=== PATIENT | male | born 1985 | race African-American/Black ===

== ENCOUNTER 2019-10-11 21:33 | Inpatient (IN) | payer MEDICAID, SELFPAY ==
--- NOTE | ~2019-10-11 | XR_ITS ---
EXAMINATION: XR chest 1V portable INDICATION: STEMI, chest pain TECHNIQUE: Portable AP chest at 2245 hours COMPARISON: 06/18/2017 FINDINGS: The lungs are free of acute opacities. There is no pleural effusion or pneumothorax. The he art size is upper limits of normal for technique. The visualized osseous structures are unremarkable. IMPRESSION: 1. No acute cardiopulmonary abnormality. Reviewed, dictated and finalized at location A. ECT DEVELOPMENT ENGINEER
--- NOTE | 2019-10-11 21:47 | ED.CHESTPAIN ---
HPI - Chest Pain General Chief Complaint: Chest Pain Stated Complaint: cp Time Seen by Provider: 10/11/19 21:41 Source: patient and RN notes reviewed Mode of arrival: wheelchair Limitations: no limitations History of Present Illness HPI narrative: A 34 y/o male, with a hx of HTN, presents to the ED with constant CP for the past couple hours. He states that he was changing a tire when he began to feel the pain. He is unable to describe the pain but denies it being sharp and keeps saying I can feel it and I hope its just gas . He reports a recent cough and diaphoresis. He notes that taking a deep breath and/or leaning forward helps alleviate the pain and that laying down/leaning back aggravates the pain. He also notes that he hasn't been on his HTN medication for some time d/t not having insurance. He denies any SOB, N/V/D, nasal congestion, fevers, chills, ABD pain, or NARAYAN. MD complaint: chest pain Pertinent past history: other (HTN) Onset (ago): hour(s) (a couple) Timing of current episode: constant Onset: during exertion (while changing a tire) Relieving factors: other (taking a deep breath and/or leaning forward) Exacerbating factors: other (laying down and/or leaning back) Context: non compliance with medication Associated symptoms: diaphoresis and cough (dry) Related Data Allergies Allergy/AdvReac Type Severity Reaction Status Date / Time No Known Allergies Allergy Unverified 06/18/17 12:41 Review of Systems Review of Systems: All systems reviewed & are unremarkable except as noted in HPI and below Constitutional: Constitutional: Denies chills, Denies fever(s) and Reports other (sweats) ENT: Denies nasal congestion Cardiovascular: Cardiovascular: Reports chest pain Respiratory: Respiratory: Reports cough (dry) and Denies dyspnea Gastrointestinal: Gastrointestinal: Denies abdominal pain, Denies diarrhea, Denies nausea and Denies vomiting Neurologic: Denies headache(s) [facility] Past Medical History Medical History (Updated 10/11/19 @ 23:24 by Dmitri Storm MD) H/O: HTN (hypertension) Surgical History Surgical History (Updated 10/11/19 @ 21:50 by Adonay Jimenez) No history of previous surgery Social History Social History (Updated 10/11/19 @ 21:50 by Adonay Jimenez) Smoking status: Current some day smoker Tobacco type: cigars Gender identity (if verbalized by the patient): Male Comments PCP: Dr. Harding. Exam Const: General: healthy appearing, no acute distress and alert Nutritional Appearance: well nourished Orientation/consciousness: oriented x3 HENMT: Head: normal to inspection Mouth: Yes lip normal and Yes moist mucous membranes Eyes: Conjunctivae: conjunctivae normal Pupils: PERRL Resp: Effort & Inspection: normal respiratory effort Auscultation: clear to auscultation bilaterally Cardio: Rate: regular rate Rhythm: regular rhythm Heart sounds: no murmurs GI: GI Palp: No abdominal tenderness and Yes soft Auscultation: normal bowel sounds Back/Spine/Pelvis: Other: Full ROM. Skin: General skin exam: normal color, dry skin and other (warm) Neuro: General: oriented x3 (alert) Speech: normal speech Extrem: General: full ROM Psych: Mental Status: mental status grossly normal Affect: normal affect Course Course Emergency Course: The administrative secretary attempted to contact Dr. Serna 3 times without success. He should have been on for interventional per the call schedule. The decision was made to contact Dr. Morales, who was sales administration manager for non-interventional. After looking into it further it was discovered that the call schedule should have been changed, but the master schedule had not been updated. By the time this was learned the patient had been discussed with Ryan Morales and he was in route to the hospital to take the patient to the laboratory chief. 22:10 Patient discussed and EKG reviewed with Dr. Morales. He believes that the morphology is not typical for STEMI. He would like us to at
--- NOTE | 2019-10-11 21:49 | ECG_ITS ---
Measurements Intervals [place] Rate: 89 P: 76 IA: 175 QRS: 73 QRSD: 104 T: 99 QT: 392 QTc: 479 Interpretive Statements SINUS RHYTHM VOLTAGE CRITERIA FOR LVH ANTERIOR ST ELEVATION MYOCARDIAL INFARCT- ACUTE INFERIOR ST ELEVATION MYOCARDIAL INFARCT- ACUTE ABNORMAL ECG Electronically Signed On 10-12-2019 6:56:53 WEBBING SUPERVISOR by Paul Danielson D.O.
[2019-10-11] MEDS: LABETALOL HCL INJ 100 MG/20 ML VIAL 20 MG IV PUSH (21:58)
[2019-10-11] MEDS: NITROGLYCERIN OINTMENT 1 INCH DOSE TRANSDERM (21:58)
[2019-10-11] MEDS: ASPIRIN 81 MG CHEWABLE TABLET 324 MG PO (21:58)
[2019-10-11 22:05] VITALS: BP 192/111; PULSE 93; RESP 22; TEMP 37; O2SAT 100
[2019-10-11 22:12] LABS: Basophils Percent Auto 0.2 % (0.2-1.2); Eosinophils Absolute Auto 0.1 K/mm3 (0-0.3); Eosinophils Percent Auto 0.9 % (0-4.4); Hematocrit 43.7 % (42.0-52.0); Hemoglobin 14.6 g/dL (14.0-18.0); Immature Granulocyte Absolute 0.04 K/mm3 (0.00-0.031); Immature Granulocyte Percent A 0.4 % (0-0.5); Lymphocytes Absolute Auto 2.33 K/mm3 (0.9-3.2); Lymphocytes Percent Auto 22.2 % (18.3-44.2); Mean Corpuscular HGB Conc 33.4 g/dl (32-36); Mean Corpuscular Hemoglobin 31.6 pg (26-34); Mean Corpuscular Volume 94.6 fl (80-100); Mean Platelet Volume 8.9 fl (7.4-10.4); Monocytes Absolute Auto 0.8 K/mm3 (0.1-0.6); Monocytes Percent Auto 7.4 % (2.6-8.5); Neutrophils Absolute Auto 7.3 K/mm3 (1.3-6.7); Neutrophils Percent Auto 68.9 % (45.5-73.1); Platelet Count Result 210 k/mm3 (150-375); Red Blood Count 4.62 M/mm3 (4.6-6.20); Red Cell Distribution Width 13.2 % (11.5-14.5); White Blood Count 10.5 K/mm3 (4.5-10.0)
[2019-10-11 22:13] LABS: Blood Urea Nitrogen 11 mg/dL (9-20); Calcium 8.7 mg/dL (8.4-10.2); Carbon Dioxide 29 mmol/L (22-30); Chloride 99 mmol/L (98-107); Estimated CRCL calculation 162 ml/min; Estimated Glomerular Filt Rate > 60; Glucose 153 mg/dL (75-110); Potassium 3.4 mmol/L (3.4-5.0); Sodium 140 mmol/L (137-145)
[2019-10-11 22:16] LABS: Prothrombin Time 12.6 Seconds (11.1-14.7)
[2019-10-11 22:17] LABS: Partial Thromboplastin Time 23.9 SECONDS (22.3-36.8)
[2019-10-11] MEDS: MORPHINE SULFATE 2 MG/ML INJ 1 MG IV PUSH (22:21)
[2019-10-11 22:28] LABS: Troponin I 0.057 ng/mL (0.000-0.034)
[2019-10-11] MEDS: hydrALAZINE HCL 20 MG/ML VIAL IV PUSH (22:28)
[2019-10-11 22:38] VITALS: BP 175/108; PULSE 92; RESP 22; O2SAT 100
[2019-10-11 22:49] VITALS: BP 178/101; PULSE 95; RESP 22; O2SAT 100
[2019-10-11 23:04] VITALS: BP 171/113; PULSE 93; RESP 14; O2SAT 100
--- NOTE | 2019-10-11 23:09 | PC.NURSE ---
PATIENT REPORTING A DECREASE IN CHEST PAIN, TO A 2/10 AT THIS TIME.
--- NOTE | 2019-10-11 23:12 | PC.NURSE ---
Dr. Morales at the bedside.
[2019-10-11 23:22] VITALS: BP 172/115; PULSE 90; RESP 22; O2SAT 100
--- NOTE | 2019-10-11 23:23 | PC.NURSE ---
Before leaving ed planning advisor ordered 5000 units of heparin, and 5 mg of metoprolol.
--- NOTE | 2019-10-11 23:25 | WPDMODSED ---
Moderate Sedation Note-Pt Data Patient Data Allergies Allergy/AdvReac Type Severity Reaction Status Date / Time No Known Allergies Allergy Unverified 06/18/17 12:41 Sedation/Anesthesia: No previous sedation/anesthesia problems (including family history). [facility] Past Medical History Medical History (Updated 10/11/19 @ 23:24 by Dmitri Storm MD) H/O: HTN (hypertension) Surgical History Surgical History (Updated 10/11/19 @ 21:50 by Adonay Jimenez) No history of previous surgery Social History Social History (Updated 10/11/19 @ 21:50 by Adonay Jimenez) Smoking status: Current some day smoker Tobacco type: cigars Gender identity (if verbalized by the patient): Male Mod Sed Physical Exam Physical Exam Pre Procedural Exam: Normal: Appearance, Eyes, Ears, Nose, Neck, Throat, Airway, Lungs, Heart Size, Heart Rate, Heart Rhythm, Neuro Exam, Abdomen, Liver, Kidneys, Spleen, Breasts, Genitalia, Extremities and Skin Hours since solid foods: 8 Hours since liquid intake: 8 Internal Medicine - PN: Obj Da Vital Signs Vital Signs: Vital Signs - 24 hr 10/11/19 22:05 10/11/19 22:38 10/11/19 22:49 Temperature 37.0 C Pulse Rate 93 92 95 Respiratory Rate 22 H 22 H 22 H Blood Pressure 192/111 H 175/108 H 178/101 H Pulse Oximetry 100 100 100 10/11/19 23:04 10/11/19 23:22 Temperature Pulse Rate 93 90 Respiratory Rate 14 22 H Blood Pressure 171/113 H 172/115 H Pulse Oximetry 100 100 Meds/Results Radiology Results: ITS Impressions Chest X-Ray 10/11/19 22:51 IMPRESSION: 1. No acute cardiopulmonary abnormality. Labs CBC & Chem 7: 10/11/19 21:58 10/11/19 21:58 Labs: Laboratory Results - last 24 hr 10/11/19 10/11/19 10/11/19 21:58 21:58 21:58 WBC 10.5 H RBC 4.62 Hgb 14.6 Hct 43.7 MCV 94.6 MCH 31.6 MCHC 33.4 RDW 13.2 Plt Count 210 MPV 8.9 Immature Gran % (Auto) 0.4 Neut % (Auto) 68.9 Lymph % (Auto) 22.2 Bureau % (Auto) 7.4 Eos % (Auto) 0.9 Baso % (Auto) 0.2 Lymph # (Auto) 2.33 Bureau # (Auto) 0.8 H Eos # (Auto) 0.1 Baso # (Auto) 0.0 Abs Immat Gran (auto) 0.04 H Absolute Neuts (auto) 7.3 H Absolute Nucleated RBC 0.0 Nucleated RBC % 0.0 PT 12.6 INR 1.0 APTT 23.9 Sodium 140 Potassium 3.4 Chloride 99 Carbon Dioxide 29 BUN 11 Creatinine 0.70 Estim Creat Clear Calc 162 Estimated GFR > 60 Glucose 153 H Calcium 8.7 Troponin I 0.057 H* ASA Classification/Sedation ASA Classification/Sedation ASA Class: III Risks: Risks, benefits and alternatives explained and patient/family accepted plan for sedation. Patient re-evaluated immediately prior to sedation.
--- NOTE | 2019-10-11 23:26 | PM.CNCAR ---
Assessment and Plan Assessment and plan (1) ST elevation (STEMI) myocardial infarction: Qualifiers: Involved coronary artery: unspecified coronary artery Qualified Code(s): I21.3 - ST elevation (STEMI) myocardial infarction of unspecified site Code(s): I21.3 - ST elevation (STEMI) myocardial infarction of unspecified site Status: Acute Assessment and Plan: his EKG showed ST-elevation inferior leads, will proceed with cardiac catheterization on urgent basis in view of persistent chest pain, ST-elevation, started on heparin, and aspirate (2) H/O: HTN (hypertension): Code(s): Z86.79 - Personal history of other diseases of the circulatory system Status: Acute History of Present Illness History of Present Illness Consult date/time: 10/11/19 23:26 Chief complaint is chest pain. 34-year-old gentleman with history of hypertension, came to the hospital because of chest pain for the past 2 hours prior to admission to the hospital. He was having history of hypertension and has never taken medication for a while. Came to the hospital noted to have significant hypertension EKG showed ST elevation in anterior leads and lateral leads. After further stabilization patient improved with chest pain but continued to have slight heaviness, after given nitroglycerin and morphine pain is down to 1/10. Upon my arrival to the emergency room he seems to have mild chest pain but no diaphoresis. Still has ST elevation, will proceed with cardiac catheterization on urgent basis in view of ST-elevation myocardial infarction Reason For Visit: stemi [facility] Past Medical History Medical History (Updated 10/11/19 @ 23:27 by Max Morales MD) H/O: HTN (hypertension) Surgical History Surgical History (Updated 10/11/19 @ 21:50 by Adonay Jimenez) No history of previous surgery Social History Social History (Updated 10/11/19 @ 21:50 by Adonay Jimenez) Smoking status: Current some day smoker Tobacco type: cigars Gender identity (if verbalized by the patient): Male Meds Home Medications and Allergies Allergies Allergy/AdvReac Type Severity Reaction Status Date / Time No Known Allergies Allergy Unverified 06/18/17 12:41 Vital Signs Vital Signs - 24 hr 10/11/19 22:05 10/11/19 22:38 10/11/19 22:49 Temperature 37.0 C Pulse Rate 93 92 95 Respiratory Rate 22 H 22 H 22 H Blood Pressure 192/111 H 175/108 H 178/101 H Pulse Oximetry 100 100 100 10/11/19 23:04 10/11/19 23:22 Temperature Pulse Rate 93 90 Respiratory Rate 14 22 H Blood Pressure 171/113 H 172/115 H Pulse Oximetry 100 100 Exam Narrative: Exam Narrative: Awake alert oriented x3 not in acute distress Neck is supple no obvious JVD, no carotid bruit Chest: Good air entry bilaterally, lungs are clear to auscultation and percussion bilaterally Cardiovascular: Regular rate and rhythm, 2/6 systolic murmur noted left sternal border Abdomen: Soft nontender bowel sounds positive Extremities: No edema has good pulses distally bilaterally Results Labs and Meds Result diagrams: 10/11/19 21:58 10/11/19 21:58 Lab results: Cardiac Enzymes 10/11/19 Range/Units 21:58 Troponin I 0.057 H* (0.000-0.034) ng/mL Coagulation 10/11/19 Range/Units 21:58 PT 12.6 (11.1-14.7) Seconds APTT 23.9 (22.3-36.8) SECONDS CBC 10/11/19 Range/Units 21:58 WBC 10.5 H (4.5-10.0) K/mm3 RBC 4.62 (4.6-6.20) M/mm3 Hgb 14.6 (14.0-18.0) g/dL Hct 43.7 (42.0-52.0) % Plt Count 210 (150-375) k/mm3 Lymph # (Auto) 2.33 (0.9-3.2) K/mm3 [place] # (Auto) 0.8 H (0.1-0.6) K/mm3 Eos # (Auto) 0.1 (0-0.3) K/mm3 Baso # (Auto) 0.0 (0.0-0.1) K/mm3 Comprehensive Metabolic Panel 10/11/19 Range/Units 21:58 Sodium 140 (137-145) mmol/L Potassium 3.4 (3.4-5.0) mmol/L Chloride 99 (98-107) mmol/L Carbon Dioxide 29 (22-30) mmol/L BUN 11 (9-20) mg/dL Creatinine 0.70 (0.
[2019-10-12] VITALS (25 sets, daily range): BP systolic 137–211; BP diastolic 82–151; PULSE 70–92; RESP 12–24; TEMP 36.7–37.4; O2SAT 97–100
--- NOTE | 2019-10-12 00:17 | WPDCARDPROC ---
Cardiac Cath Procedure Note Date of procedure:: 10/12/19 Performing physician:: Max Morales MD 1. Emergent left heart catheterization with selective coronary angiogram. 2. Angioplasty stent placement to the proximal RCA. with thrombectomy with use of suction export catheter 3. Left ventricular angiogram 4. Angio-Seal device for arterial hemostasis 5. Conscious sedation left heart catheterization was done, showed total occlusion of the proximal RCA, PRAVEEN 3 flow 0, treated with balloon angioplasty followed by stent placement
--- NOTE | 2019-10-12 00:23 | ECHO_ITS ---
Patient Info Name: Jamel Joya Age: 34 years : 1985 Gender: Male Ht: 74 in Wt: 240 lbs BSA: 2.41 m2 HR: 85 bpm BP: 149 / 99 mmHg Heart Rhythm: Sinus Rhythm Technical Quality: Good Exam Date: 10/12/2019 9:32 AM Exam Location: [facility] Patient Status: Inpatient Admit Date: 10/11/2019 Staff Ordering Physician: Max Morales MD Pit Steward: El Dunn RDCS Attending Provider: Max Morales MD Exam Type: CA echo doppler color flow Study Info Indications I21.3 - ST elevation (STEMI) myocardial infarction of unspecified site Complete two-dimensional, color flow and Doppler transthoracic echocardiogram is performed. Strain analysis performed. History/Risk Factors STEMI w/ intervention; uncontrolled HTN, chest pain. Summary 1. Left ventricular systolic function is normal, estimated at 50-55%. 2. There is moderately increased left ventricular wall thickness. 3. The left ventricular diastolic function is grade I diastolic dysfunction. Left Ventricle Left ventricular systolic function is normal, estimated at 50-55%. There is moderately increased left ventricular wall thickness. The left ventricular diastolic function is grade I diastolic dysfunction. Left ventricular chamber dimension is normal. The mid inferior wall, mid inferoseptal, and mid inferolateral wall are hypokinetic. All other steiner appear normal. Right Ventricle Right ventricular chamber dimension is normal. Right ventricular systolic function is normal. Left Atria Left atrial chamber dimension is normal. Right Atria Right atrial chamber dimension is normal. Aortic Valve The aortic valve is trileaflet. There is no aortic valve sclerosis. There is no aortic valve stenosis. There is no aortic valve regurgitation. Pulmonic Valve The pulmonic valve is normal. There is no pulmonic valve stenosis. There is no pulmonic regurgitation. Mitral Valve The mitral valve has normal leaflets. There is no mitral valve stenosis. There is no mitral valve regurgitation. Tricuspid Valve The tricuspid valve leaflets are normal. There is no significant tricuspid valve stenosis. There is no tricuspid valve regurgitation. Pericardium/Pleural The pericardium appears normal. There is no pericardial effusion. Inferior Vena Cava Normal inferior vena cava with >50% collapse upon inspiration consistent with elevated right atrial pressure, 10 mmHg. Aorta The aortic root size at the sinus of Valsalva is normal. The prox ascending aorta size is normal. Left Ventricular Outflow Tract Name Value Normal LVOT 2D LVOT Diameter 2.2 cm LVOT Doppler LVOT Peak Gradient 7 mmHg LVOT Mean Gradient 3 mmHg LVOT VTI 22 cm LVOT VTI/AV VTI Ratio 1.0 LVOT Stroke Volume 82 ml Mitral Valve Name Value Normal
--- NOTE | 2019-10-12 00:23 | ECG_ITS ---
Measurements Intervals [place] Rate: 88 P: 246 AK: 131 QRS: -64 QRSD: 182 T: 107 QT: 481 QTc: 583 Interpretive Statements SINUS RHYTHM CHANGES TO ACCELERATED JUNCTIONAL RHYTHM WITH LBBB LEFT AXIS DEVIATION CONSIDER INFERIOR INFARCT, AGE INDETERMINATE ABNORMAL ECG Electronically Signed On 10-12-2019 7:12:21 GERIATRIC ASSISTANT by Paul Danielson D.O.
--- NOTE | 2019-10-12 00:48 | ADMGEN ---
This patient, Jamel Joya, was admitted to Intensive Care Unit-2. Patient/family oriented to hospital policies and general routines including ID bracelet, bed and alarms, visiting hours, pain management, procedures, bathroom and other care routines, personal items, smoking policy, room service/diet, and visiting hours. Valuables list has been completed. Information on how to activate the Rapid Response Team has been discussed. Patient/Family are encouraged to report perceived risks to care and to ask questions if they do not understand what they are told or what they should do.
--- NOTE | 2019-10-12 02:03 | PC.NURSE ---
This patient, Jamel Joya, was admitted to Intensive Care Unit-2 at 0035 on 10/12/2019. Patient/family oriented to hospital policies and general routines including ID bracelet, bed and alarms, visiting hours, pain management, procedures, bathroom and other care routines, personal items, smoking policy, room service/diet, and visiting hours. Valuables list has been completed. Information on how to activate the Rapid Response Team has been discussed. Patient/Family are encouraged to report perceived risks to care and to ask questions if they do not understand what they are told or what they should do.
[2019-10-12] MEDS: SODIUM CHLORIDE 0.9% IV 1,000 ML 125 ML IV CONT (02:35)
[2019-10-12] MEDS: AMLODIPINE BESYLATE 5 MG TABLET PO ×3 (02:36→16:40)
[2019-10-12] MEDS: lisinopriL 10 MG TABLET PO ×2 (02:36→08:27)
--- NOTE | 2019-10-12 02:58 | PC.NURSE ---
Patient noted to have increased ectopy at 0100 with frequent PVC's and rhythm changes from NSR to junctional. At 0154, a 6 beat run of VTach was noted. The increase in ectopy has been accompannied by increasing hypertension. Dr. Morales called and updated on patient condition. New orders obtained. EKG obtained.
[2019-10-12 03:05] LABS: Amphetamine Screen Urine Negative (Negative); Barbiturate Screen Urine Negative (Negative); Benzodiazepines Screen Urine Positive (Negative); Cannabinoid Screen Urine Positive (Negative); Cocaine Screen Urine Negative (Negative); Methadone Screen Urine Negative (Negative); Opiate Screen Urine Positive (Negative); Phencyclidine Screen Urine Negative (Negative)
--- NOTE | 2019-10-12 06:27 | OP_ITS ---
DATE OF PROCEDURE: 10/12/2019 WOOD BOAT BUILDER SUPERVISOR: Max Morales M.D. COMPLICATIONS: None. BLOOD LOSS: None. SEDATION: Conscious sedation using 1 mg of Versed and 25 mcg of fentanyl. During the procedure, he also received Angiomax and Integrilin drip. Starting time is 2330, ending time is 1202. PROCEDURES: 1. Emergent left heart catheterization and selective coronary angiogram. 2. LV gram. 3. Angioplasty with stent placement to the proximal RCA using 2.5 x 20 Emerge balloon and using a 3 x 23 stent. The stent is Xience stent. HISTORY: The patient is a 34-year-old gentleman with a history of hypertension, came to the hospital because of chest pain and hypertension, noted to have a significant elevation in the blood pressure and a significant abnormal EKG with ST elevation inferiorly. Given nitroglycerin improved the pain significantly, but subsequently showed persistent ST elevation with minimal chest pain, subsequently brought to the shop laborer for urgent cardiac catheterization in view of ST elevation on EKG and persistent chest pain, brought to the shop laborer, put on a shop laborer table, and prepped and draped in the usual fashion. TECHNIQUE: After the informed consent was obtained from the patient, he was brought to the shop laborer, put on a shop laborer table, and prepped and draped in a sterile fashion. A 6-Monegasque sheath was inserted in the right common femoral artery using the modified Seldinger technique. Through the sheath, a 6-Monegasque JL4 catheter was inserted, advanced to the left coronary artery, and left coronary artery angiogram was obtained. The catheter was exchanged over a guidewire into a 6-Monegasque JR4 guide. Through the guide, angiogram was done to the RCA. Subsequently, total occlusion was noted of the proximal RCA. With the guide, a BMW wire was inserted and advanced through the lesion. I was able to easily cross the lesion. Subsequently, export catheter was used to suction the thrombus. This was repeated 1 more time. A repeat angiogram after that showed PRAVEEN-3 flow with significant improvement of the vessel, but with still persistent lesion in the proximal RCA. This was treated with balloon angioplasty using a 2.5 x 20 Emerge balloon x2 inflations. Post-balloon angioplasty showed improvement of the lesion, but still with significant disease with soft plaque. This was treated by using stent placement. A Xience stent was used. A 23 x 3 mm stent was advanced to the proximal RCA, and the stent was deployed. Post-stent deployment with frequent time angioplasty was done to improve the position of the stent, noted to have a slight small area off narrowing that improved after the 2nd inflation. Finally, a final angiogram was done, showed good flow, PRAVEEN-3 flow with significant improvement of the lesion from 100% occlusion to 0% occlusion. Subsequently, the guide was removed, exchanged over the guidewire into a 6-Monegasque pigtail catheter and advanced to the left ventricle. Left ventricular angiogram was obtained. The catheter was then removed, applying Angio-Seal device for arterial hemostasis. The patient tolerated the procedure well with no complications and taken from the shop laborer to his room in stable condition with stable vital signs. During the procedure, he received Angiomax bolus and infusion and received Integrilin bolus, also received Brilinta 180 mg, and prior to that in the emergency room, received aspirin and heparin 5,000 units. ANGIOGRAPHIC FINDINGS: 1. Left main: Medium-sized artery, no significant disease or stenosis. 2. LAD: Medium-sized artery, showed minimal irregularity, no obstructive lesion. 3. Left circumflex artery, previous artery showed minimal irregularity, no obstructive lesion. 4. RCA showed total occlusion at the proximal portion with PRAVEEN 0 flow. Post i
[2019-10-12 06:45] LABS: Magnesium 1.8 mg/dL (1.6-2.3); Phosphorus 3.3 mg/dL (2.5-4.5)
[2019-10-12] MEDS: ASPIRIN 81 MG CHEWABLE TABLET PO (08:27)
[2019-10-12] MEDS: METOPROLOL SUCCINATE EXT REL 25 MG TABCR PO ×2 (08:27→13:25)
[2019-10-12] MEDS: TICAGRELOR 90 MG TABLET PO ×2 (08:28→20:04)
[2019-10-12] MEDS: ROSUVASTATIN 10 MG TABLET PO (08:28)
--- NOTE | 2019-10-12 09:30 | WPDCNINT ---
Assessment and Plan Assessment and plan (1) ST elevation (STEMI) myocardial infarction: Qualifiers: Involved coronary artery: unspecified coronary artery Qualified Code(s): I21.3 - ST elevation (STEMI) myocardial infarction of unspecified site Code(s): I21.3 - ST elevation (STEMI) myocardial infarction of unspecified site Status: Acute Assessment and Plan: acute ST-elevation CA status post emergent cardiac revascularization with JAMMIE x1 to proximal RCA, EF 60% with slight anterior hypokinesis. - patient started on aspirin, statin, metoprolol, lisinopril and Brilinta - cardiology following the patient - patient did have nonsustained V-tach overnight and Cardiology was notified (2) H/O: HTN (hypertension): Code(s): Z86.79 - Personal history of other diseases of the circulatory system Status: Acute Assessment and Plan: patient with history of essential hypertension, no taking medications as he does not have insurance. - Started patient on Norvasc and lisinopril per Cardiology - also on beta-reji. Additional Plan Discussed with patient updated with his condition and plan of care. Code status: full code critical care time spent: 38 minutes Due to a high probability of clinically significant, life threatening deterioration, the patient required my highest level of preparedness to intervene emergently and I personally spent this critical care time directly and personally managing the patient. This critical care time included obtaining a history; examining the patient; pulse oximetry; ordering and review of studies; arranging urgent treatment with development of a management plan; evaluation of patient's response to treatment; frequent reassessment; and discussions with other providers. It was exclusive of separately billable procedures and treating other patients and teaching time. Please see Assessment and Plan section and the rest of the note for further information on patient assessment and treatment [employer] Agent Consult Note Consult date: 10/12/19 Time Seen: 07:04 Reason for consult: STEMI, s/p stent x1 to prox RCA HPI: Jamel Joya is a 34 year old male with h/o HTN, presented withchest pain to the ED on 10/11/19. Chets pain was retrosternal, ongoing for a couple of hours, stated it started when he was changing a car tire. associated with diaphoresis. Patient was noted to have significant hypertension and EKG showed ST-elevation anterior and lateral leads. 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 EF 60% with slight anterior hypokinesis. Patient seen and examined this morning, denies any chest pain, shortness of breath, abdominal pain, nausea, vomiting. Patient is just tired. patient had elevated blood pressures overnight and was started on Norvasc and lisinopril with p.r.n. hydralazine. According the patient, his blood pressures a normally elevated in the 180s to 200s but has not been taking any medications due to having no insurance. Review of Systems Review of Systems: All systems reviewed & are unremarkable except as noted in HPI and below PMFSH Past Medical History Medical History (Updated 10/11/19 @ 23:27 by Max Morales MD) H/O: HTN (hypertension) Surgical History Surgical History (Updated 10/11/19 @ 21:50 by Adonay Jimenez) No history of previous surgery Family History Family History (Updated 10/12/19 @ 01:02 by Megan Kimble RN) Father Hypertension Hyperlipemia Mother Hypertension Hyperlipemia Social History Social History (Updated 10/11/19 @ 21:50 by Adonay Jimenez) Smoking status: Current every day smoker Tobacco type: cigars Second hand tobacco smoke exposure: No Additional smoking assessment comments: smokes 3 to 4 cigars a day Alcohol intake: current Drinks per week: 8 Substan
--- NOTE | 2019-10-12 13:20 | PM.PNCARD ---
Progress Note: A&P Assessment and Plan (1) ST elevation (STEMI) myocardial infarction: Qualifiers: Involved coronary artery: unspecified coronary artery Qualified Code(s): I21.3 - ST elevation (STEMI) myocardial infarction of unspecified site Code(s): I21.3 - ST elevation (STEMI) myocardial infarction of unspecified site Status: Acute Assessment and Plan: status post RCA PCI with stent placement, currently no more chest pain, his echo showed normal left ventricular systolic function. Will continue with blood pressure controlled, continue with aspirin and Brilinta, continue with Crestor for dyslipidemia (2) H/O: HTN (hypertension): Code(s): Z86.79 - Personal history of other diseases of the circulatory system Status: Acute Assessment and Plan: still not very well controlled, increased lisinopril to 40 mg p.o. daily, increased metoprolol to 50 mg p.o. daily and added Norvasc, consider increasing Norvasc to 10 mg if needed, and then if needed still would add hydralazine Subjective Interval history: Feels very well today, no chest pain no shortness of breath. Right groin area seems to be okay no bleeding no hematoma has minimal tenderness and minimal pain. Very frequent PVCs yesterday with no recurrence now Exam Narrative: Exam Narrative: Awake alert oriented x3 not in acute distress Neck is supple no obvious JVD, no carotid bruit Chest: Good air entry bilaterally, lungs are clear to auscultation and percussion bilaterally Cardiovascular: Regular rate and rhythm, 2/6 systolic murmur noted left sternal border Abdomen: Soft nontender bowel sounds positive Extremities: No edema has good pulses distally bilaterally Objective Data Vital Signs Vital Signs: Vital Signs - 24 hr 10/11/19 22:05 10/11/19 22:38 10/11/19 22:49 Temperature 37.0 C Pulse Rate 93 92 95 Respiratory Rate 22 H 22 H 22 H Blood Pressure 192/111 H 175/108 H 178/101 H Pulse Oximetry 100 100 100 10/11/19 23:04 10/11/19 23:22 10/12/19 00:35 Temperature 36.8 C Pulse Rate 93 90 87 Respiratory Rate 14 22 H 20 Blood Pressure 171/113 H 172/115 H 163/86 H Pulse Oximetry 100 100 97 10/12/19 00:45 10/12/19 01:00 10/12/19 01:15 Temperature Pulse Rate 90 86 86 Respiratory Rate 15 18 16 Blood Pressure 161/83 H 161/87 H 157/83 H Pulse Oximetry 97 98 98 10/12/19 01:30 10/12/19 01:45 10/12/19 02:15 Temperature Pulse Rate 86 86 90 Respiratory Rate 16 15 17 Blood Pressure 157/82 H 137/93 H 193/151 H Pulse Oximetry 98 99 100 10/12/19 03:00 10/12/19 04:00 10/12/19 05:00 Temperature 36.7 C Pulse Rate 83 86 90 Respiratory Rate 13 12 15 Blood Pressure 169/89 H 175/109 H 153/95 H Pulse Oximetry 99 97 98 10/12/19 06:00 10/12/19 06:53 10/12/19 08:00 Temperature 36.9 C Pulse Rate 82 83 86 Respiratory Rate 15 17 20 Blood Pressure 166/97 H 149/99 H 155/93 H Pulse Oximetry 98 98 98 10/12/19 08:27 10/12/19 10:00 10/12/19 12:00 Temperature 36.9 C Pulse Rate 85 82 81 Respiratory Rate 20 18 Blood Pressure 167/101 H 180/101 H Pulse Oximetry 100 99 Intake/Output Intake/Output: Intake & Output 10/09/19 10/10/19 10/11/19 10/12/19 23:59 23:59 23:59 23:59 Intake Total 1120 Output Total 600 Balance 520 Meds/Results Medications: Active Medications Generic Name Dose Route Start Last Admin Trade Name Freq PRN Reason Stop Dose Admin Amlodipine Besylate 5 mg 10/12/19 09:00 10/12/19 08:27 Norvasc PO 5 mg QAM [facility] Administration Aspirin 81 mg 10/12/19 08:00 10/12/19 08:27 Aspirin Chewable PO 81 mg DAILY@0800 [facility] Administration Lisinopril 40 mg 10/13/19 09:00 [facility] Metoprolol Succinate 50 mg 10/13/19 09:00 [facility]rol Xl [facility] Rosuvastatin Calcium 10 mg 10/12/19 09:00 10/12/19 08:28 Crestor PO 10 mg QAM [facility] Administration Ticagrelor 90 mg 10/12/19 09:00 10/12/19 08:28 Brilinta PO 9
[2019-10-12] MEDS: lisinopriL 10 MG TABLET 30 MG PO (13:23)
[2019-10-12] MEDS: METOPROLOL SUCCINATE EXT REL 50 MG TABCR PO (16:40)
[2019-10-12] MEDS: carvediloL 12.5 MG TABLET PO (20:40)
[2019-10-13] VITALS (11 sets, daily range): BP systolic 146–179; BP diastolic 102–115; PULSE 70–87; RESP 15–25; TEMP 36.9–37.2; O2SAT 97–100
[2019-10-13] MEDS: hydrALAZINE HCL 25 MG TABLET PO ×2 (00:25→08:22)
[2019-10-13] MEDS: carvediloL 12.5 MG TABLET PO ×2 (08:21→16:36)
[2019-10-13] MEDS: AMLODIPINE BESYLATE 5 MG TABLET PO (08:21)
[2019-10-13] MEDS: ASPIRIN 81 MG CHEWABLE TABLET PO (08:22)
[2019-10-13] MEDS: lisinopriL 20 MG TABLET 40 MG PO (08:22)
[2019-10-13] MEDS: ROSUVASTATIN 10 MG TABLET PO (08:22)
[2019-10-13] MEDS: TICAGRELOR 90 MG TABLET PO (09:04)
--- NOTE | 2019-10-13 15:23 | PM.PNCARD ---
Progress Note: A&P Assessment and Plan (1) ST elevation (STEMI) myocardial infarction: Qualifiers: Involved coronary artery: unspecified coronary artery Qualified Code(s): I21.3 - ST elevation (STEMI) myocardial infarction of unspecified site Code(s): I21.3 - ST elevation (STEMI) myocardial infarction of unspecified site Status: Acute Assessment and Plan: status post RCA PCI with stent placement, currently no more chest pain, his echo showed normal left ventricular systolic function. Will continue with blood pressure controlled, continue with aspirin and Brilinta, continue with Crestor for dyslipidemia (2) H/O: HTN (hypertension): Code(s): Z86.79 - Personal history of other diseases of the circulatory system Status: Acute Assessment and Plan: Increased lisinopril to 40 mg p.o. daily, Norvasc 5 mg twice daily, and now will increase Coreg to 25 mg p.o. b.i.d., as well as hydralazine 25 b.i.d.. Subjective Date/time seen: 10/13/19 15:23 Feels very well today, no chest pain no shortness of breath, blood pressure is much better now. Exam Narrative: Exam Narrative: Awake alert oriented x3 not in acute distress Neck is supple no obvious JVD, no carotid bruit Chest: Good air entry bilaterally, lungs are clear to auscultation and percussion bilaterally Cardiovascular: Regular rate and rhythm, 2/6 systolic murmur noted left sternal border Abdomen: Soft nontender bowel sounds positive Extremities: No edema has good pulses distally bilaterally Objective Data Vital Signs Vital Signs: Vital Signs - 24 hr 10/12/19 15:47 10/12/19 16:00 10/12/19 16:40 Temperature 37.0 C Pulse Rate 86 85 84 Respiratory Rate 18 Blood Pressure 211/93 H Pulse Oximetry 100 10/12/19 18:00 10/12/19 20:00 10/12/19 20:40 Temperature 37.4 C Pulse Rate 80 83 81 Respiratory Rate 14 Blood Pressure 175/118 H Pulse Oximetry 99 10/12/19 22:00 10/13/19 00:00 10/13/19 02:00 Temperature 36.9 C Pulse Rate 70 72 82 Respiratory Rate 17 Blood Pressure 179/115 H Pulse Oximetry 99 10/13/19 04:00 10/13/19 06:00 10/13/19 07:44 Temperature 36.9 C 37.2 C Pulse Rate 87 73 77 Respiratory Rate 15 25 H Blood Pressure 177/110 H 177/110 H Pulse Oximetry 100 97 10/13/19 08:00 10/13/19 08:21 10/13/19 10:00 Temperature Pulse Rate 78 76 85 Respiratory Rate Blood Pressure Pulse Oximetry 10/13/19 12:00 10/13/19 13:44 Temperature Pulse Rate 77 80 Respiratory Rate 18 Blood Pressure 146/102 H Pulse Oximetry 99 Intake/Output Intake/Output: Intake & Output 10/10/19 10/11/19 10/12/19 10/13/19 23:59 23:59 23:59 23:59 Intake Total 1860 750 Output Total 1500 850 Balance 360 -100 Meds/Results Medications: Active Medications Generic Name Dose Route Start Last Admin Trade Name Freq PRN Reason Stop Dose Admin Amlodipine Besylate 5 mg 10/12/19 17:00 10/13/19 08:21 Norvasc PO 5 mg BID [facility] Administration Aspirin 81 mg 10/12/19 08:00 10/13/19 08:22 Aspirin Chewable PO 81 mg DAILY@0800 [facility] Administration Carvedilol 25 mg 10/13/19 15:22 Coreg PO Q12HR [facility] Hydralazine HCl 25 mg 10/13/19 09:00 10/13/19 08:22 Apresoline Tablet PO 25 mg BID [facility] Administration Lisinopril 40 mg 10/13/19 09:00 10/13/19 08:22 Prinivil PO 40 mg QAM [facility] Administration Rosuvastatin Calcium 10 mg 10/12/19 09:00 10/13/19 08:22 Crestor PO 10 mg QAM [facility] Administration Ticagrelor 90 mg 10/12/19 09:00 10/13/19 09:04 Brilinta PO 90 mg Q12HR [facility] Administration Radiology Results: ITS Impressions Chest X-Ray 10/11/19 22:51 IMPRESSION: 1. No acute cardiopulmonary abnormality.
--- NOTE | 2019-10-13 15:28 | P.DS_ITS ---
DS: Diagnosis Admitting Diagnosis Admitting Diagnosis: ST elevation (STEMI) myocardial infarction of unspecified s ite Discharge Diagnosis (1) ST elevation (STEMI) myocardial infarction: Qualifiers: Involved coronary artery: unspecified coronary artery Qualified Code(s): I21.3 - ST elevation (STEMI) myocardial infarction of unspecified site Code(s): I21.3 - ST elevation (STEMI) myocardial infarction of unspecified site Status: Acute Assessment and Plan: status post RCA PCI with stent placement, currently no more chest pain, his echo showed normal left ventricular systolic function. Will continue with blood pressure controlled, continue with aspirin and Brilinta, continue with Crestor for dyslipidemia (2) H/O: HTN (hypertension): Code(s): Z86.79 - Personal history of other diseases of the circulatory system Status: Acute Assessment and Plan: Increased lisinopril to 40 mg p.o. daily, Norvasc 5 mg twice daily, and now will increase Coreg to 25 mg p.o. b.i.d., as well as hydralazine 25 b.i.d.. DS: Summary Time Spent with Patient Time attestation: Total time spent providing and/or coordinating discharge services: 45 minutes came to the hospital with active chest pain, noted to have ST-elevation myocardial function, he underwent urgent angioplasty, subsequently improved, he was noted to have significant hypertension which improved after many adjustment of his medication. Today's of seeing him today he is feeling well no chest pain is blood pressure is fair Exam Narrative: Exam Narrative: Awake alert oriented x3 not in acute distress Neck is supple no obvious JVD, no carotid bruit Chest: Good air entry bilaterally, lungs are clear to auscultation and percussion bilaterally Cardiovascular: Regular rate and rhythm, 2/6 systolic murmur noted left sternal border Abdomen: Soft nontender bowel sounds positive Extremities: No edema has good pulses distally bilaterally Discharge Plan Discharge Attending physician on discharge: Max Morales Consulting providers: Monica Roberson Discharging Clinician: Max Morales Anticipated Discharge Date/Time: 10/13/19 15:25 Patient Disposition: Home, Self-Care Activity: no straining Diet: heart healthy Patient Instructions: Antibiotic Form, Myocardial Infarction (DC), How to Stop Smoking (DC), Chronic Hypertension (DC), Hyperlipidemia (DC) Stand Alone Forms: General Discharge Information Follow-up/Referrals: Max Morales MD [Physician] - Discharge Medications: New aspirin [Children's Aspirin] 81 mg Tablet,Chewable 81 mg PO DAILY@0800 100 Days Qty: 100 RF: 0 Brilinta 90 mg Tablet 90 mg PO Q12HR 30 Days Qty: 60 RF: 0 lisinopril 20 mg Tablet 40 mg PO QAM 3 Days Qty: 6 RF: 3 amlodipine [Norvasc] 5 mg Tablet 5 mg PO BID 30 Days Qty: 60 RF: 3 rosuvastatin [Crestor] 10 mg Tablet 10 mg PO QAM 3 Days Qty: 3 RF: 3 hydralazine 25 mg Tablet 25 mg PO BID 30 Days Qty: 60 RF: 3 carvedilol [Coreg] 25 mg Tablet 25 mg PO Q12HR 30 Days Qty: 60 RF: 3 No Action No Home Medications RF: 0 Date of admission: 10/11/19 22:35 Primary Care Provider: Ghulam Huff Admitting Provider: Max Morales Attending physician on admission: Max Morales Condition: Stable
== END 2019-10-13 16:47 | disposition home or self-care (01) | DRG 174 ==
LOC: ANHED 22:03 → ANHICU 22:37
PROVIDERS: Admitting Provider Specialist; Emergency Provider Emergency Medicine; PCP Emergency Medicine; Visit Provider Specialist
PROC: 4A023N7 Measurement of Cardiac Sampling and Pressure, Left Heart, Percutaneous Approach (ICD-10-PCS; CPT 93452; principal; 2019-10-11 23:15)
DX: I21.19 ST elevation (STEMI) myocardial infarction involving other coronary artery of inferior wall (principal); I10 Essential (primary) hypertension; I25.10 Atherosclerotic heart disease of native coronary artery without angina pectoris; Z87.891 Personal history of nicotine dependence
CPT/HCPCS: 36415; 71045; 80048; 80307; 83735; 84100; 84484; 85025; 85610; 85730; 86850; 86900; 86901; 87081; 93005; 93306; 93458; 96374; 96375; 99285; A9270; C1725; C1757; C1760; C1769; C1874; C1887; C1894; C9606; G0269; J0360; J0583; J1327; J1644; J2250; J2270; J3010; J7030; J7040

== ENCOUNTER 2022-09-16 17:48 | Emergency (ER) | payer OTHER, SELFPAY ==
[2022-09-16 18:29] VITALS: BP 180/128; PULSE 81; RESP 20; TEMP 36.8; O2SAT 100
--- NOTE | 2022-09-16 22:39 | ED.GENADULT ---
HPI - General Adult General Chief complaint: Wound/Laceration Stated complaint: finger injury Time Seen by Provider: 09/16/22 21:35 History of Present Illness HPI narrative: 37-year-old male presenting to the emergency department for evaluation of a crush injury to his right ring finger. Patient was helping a friend work on his car when his hand got stuck under the arriaza. Patient does take Xarelto due to a prior history of DVT. Patient declined a finger x-ray. Related Data Allergies Allergy/AdvReac Type Severity Reaction Status Date / Time watermelon Allergy Vomiting Verified 10/12/19 01:48 Review of Systems Review of Systems: CONSTITUTIONAL: Denies fever, chills, or sweats. EYES: Denies visual changes, redness, or discharge. ENT: Denies rhinorrhea, congestion, sore throat, or otalgia. CARDIOVASCULAR: Denies chest pain, palpitations, or edema. RESPIRATORY: Denies cough or dyspnea. GASTROINTESTINAL: Denies abdominal pain, nausea, vomiting, or diarrhea. GENITOURINARY: Denies dysuria or hematuria. SKIN: Laceration to right ring finger tip MUSCULOSKELETAL: Denies back pain, joint pain, or myalgia. NEUROLOGIC: Denies headache, numbness, or weakness. [facility] Past Medical History Medical History (Updated 09/17/22 @ 00:00 by César Ruff) H/O: HTN (hypertension) Surgical History Surgical History (Updated 10/11/19 @ 21:50 by Adonay Jimenez) No history of previous surgery Family History Family History (Updated 10/12/19 @ 01:02 by Megan Kimble RN) Father Hypertension Hyperlipemia Mother Hypertension Hyperlipemia Social History Social History (Updated 10/11/19 @ 21:50 by Adonay Jimenez) Smoking status: Current every day smoker Tobacco type: cigars Second hand tobacco smoke exposure: No Additional smoking assessment comments: smokes 3 to 4 cigars a day Alcohol intake: current Drinks per week: 8 Substance use: current Substance use type: marijuana Gender identity (if verbalized by the patient): Male Spiritual care concerns: No Exam Narrative: APPEARANCE: Well appearing, no pain, no distress, well-nourished. HEAD: normocephalic, atraumatic. EYES: PERRLA/EOMI, conjunctivae clear. NOSE: Normal no drainage EARS:TMS clear with good light reflex. THROAT: Pharynx clear, no exudate. NECK: Supple. No adenopathy, no masses. RESPIRATORY: Airway patent, respirations nonlabored. Clear to auscultation bilaterally, no rales, rhonchi, wheezing. CARDIOVASCULAR: Regular rate and rhythm without murmurs rubs or gallops. ABDOMINAL: Soft, nontender, nondistended, normal bowel sounds MUSCULOSKELETAL: Moves all extremities. Strength/ROM intact, No edema, No calf tenderness. NEURO: Alert. Cranial nerves II through XII intact. Grossly intact SKIN: Warm, dry. Normal Color. Laceration to right middle finger. Swelling at laceration. Course Course Emergency Course: Laceration was difficult to close due to swelling at the distal end of the finger. Patient declined any x-rays. Patient was updated on the results of her work-up and encouraged of close follow-up with his primary care physician. Vital Signs Vital signs: Vital Signs Temperature 98.2 F 09/16/22 18:29 Pulse Rate 81 09/16/22 18:29 Respiratory Rate 20 09/16/22 18:29 Blood Pressure 180/128 H 09/16/22 18:29 Pulse Oximetry 100 09/16/22 18:29 Oxygen Delivery Room Air 09/16/22 18:29 Temperature 98.3 F 09/16/22 23:00 Pulse Rate 68 09/16/22 23:00 Respiratory Rate 16 09/16/22 23:00 Blood Pressure 130/76 09/16/22 23:00 Pulse Oximetry 100 09/16/22 23:00 Oxygen Delivery Room Air 09/16/22 18:29 Procedures Laceration Laceration 1: Site: hand Side (If applicable): right Size (cm): 2 Description: linear Depth: simple, single layer Amount of anesthesia used (mL): 5 ====== Skin Level ====== Skin layer closed with: prolene Size (cm): 4-0 Number of
[2022-09-16] MEDS: LIDOCAINE HCL 1% LOCAL INJ 20 ML VIAL (22:57)
[2022-09-16] MEDS: CEPHALEXIN 250 MG CAPSULE PO (22:57)
[2022-09-16 23:00] VITALS: BP 130/76; PULSE 68; RESP 16; TEMP 36.8; O2SAT 100
== END 2022-09-16 23:02 | disposition home or self-care (01) ==
PROVIDERS: Emergency Provider Emergency Medicine
DX: S61.214A Laceration without foreign body of right ring finger without damage to nail, initial encounter (principal); Z86.718 Personal history of other venous thrombosis and embolism; Z79.01 Long term (current) use of anticoagulants; W23.0XXA Caught, crushed, jammed, or pinched between moving objects, initial encounter
CPT/HCPCS: 12001; 99283; A9270

== ENCOUNTER 2022-10-02 14:14 | Emergency (ER) | payer OTHER, SELFPAY ==
[2022-10-02 14:22] VITALS: BP 181/99; PULSE 73; RESP 16; TEMP 36.2; O2SAT 100
--- NOTE | 2022-10-02 15:42 | ED.WOUNDLAC ---
HPI - Wound/Laceration General Chief Complaint: Wound/Laceration Stated Complaint: laceration check Time Seen by Provider: 10/02/22 15:01 History of Present Illness HPI narrative: 37-year-old male presents to the emergency room for evaluation suture removal. Patient states that he had 5 sutures placed in his right ring finger on September 16. Patient states he was seen here. X-rays were completed and normal. States that he was unable to see his regular doctor to have his sutures removed. Denies any pain, swelling, purulent drainage or warmth to the area. Related Data Allergies Allergy/AdvReac Type Severity Reaction Status Date / Time watermelon Allergy Vomiting Verified 10/12/19 01:48 Review of Systems Review of Systems: CONSTITUTIONAL: Denies fever, chills, or sweats. EYES: Denies visual changes, redness, or discharge. ENT: Denies rhinorrhea, congestion, sore throat, or otalgia. CARDIOVASCULAR: Denies chest pain, palpitations, or edema. RESPIRATORY: Denies cough or dyspnea. GASTROINTESTINAL: Denies abdominal pain, nausea, vomiting, or diarrhea. GENITOURINARY: Denies dysuria or hematuria. SKIN: Denies rash or itching. MUSCULOSKELETAL: Denies back pain, joint pain, or myalgia. NEUROLOGIC: Denies headache, numbness, dizziness, or weakness. PSYCHIATRIC: Denies anxiety or depression. PMFSH Past Medical History Medical History H/O: HTN (hypertension) Surgical History Surgical History No history of previous surgery Family History Family History Father Hypertension Hyperlipemia Mother Hypertension Hyperlipemia Social History Social History Smoking status: Current every day smoker Tobacco type: cigars Second hand tobacco smoke exposure: No Additional smoking assessment comments: smokes 3 to 4 cigars a day Alcohol intake: current Drinks per week: 8 Substance use: current Substance use type: marijuana Gender identity (if verbalized by the patient): Male Spiritual care concerns: No Exam Narrative: GENERAL: Well-appearing, well-nourished, no physical limitations, and in no acute distress. HEAD: Normocephalic, atraumatic. EYES: Conjunctivae normal, PERRLA and EOMI.D CHEST: Clear to auscultation. No respiratory distress. No wheezes rales or rhonchi. HEART: Regular rate and rhythm. No murmur heard. Normal peripheral pulses. EXTREMITIES: Normal range of motion. No edema. No clubbing or cyanosis SKIN: Right index finger: 2 cm well approximated wound with 5 intact sutures. No lymphangitic spread. No erythema swelling. Neurovascular is intact distally NEURO: No focal deficits. Alert and oriented x3. MAEW. CN's II-XI intact bilaterally, normal gait PSYCH: Cooperative. Normal mood and affect. Course Vital Signs Vital signs: Vital Signs Temperature 36.2 C L 10/02/22 14:22 Pulse Rate 73 10/02/22 14:22 Respiratory Rate 16 10/02/22 14:22 Blood Pressure 181/99 H 10/02/22 14:22 Pulse Oximetry 100 10/02/22 14:22 Temperature 36.2 C L 10/02/22 14:22 Pulse Rate 73 10/02/22 14:22 Respiratory Rate 16 10/02/22 14:22 Blood Pressure 181/99 H 10/02/22 14:22 Pulse Oximetry 100 10/02/22 14:22 Discharge Plan Discharge Clinical Impression: Encounter for removal of sutures Patient Disposition: Home, Self-Care Condition: Stable Instructions: Antibiotic Form Prescriptions: No Action carvedilol [Coreg] 25 mg Tablet 25 mg PO Q12HR 30 Days Qty: 60 3RF lisinopril 20 mg Tablet 40 mg PO QAM 3 Days Qty: 6 3RF hydralazine 25 mg Tablet 25 mg PO BID 30 Days Qty: 60 3RF amlodipine [Norvasc] 5 mg Tablet 5 mg PO BID 30 Days Qty: 60 3RF aspirin [Children's Aspirin] 81 mg Tablet,Chewable 81 mg PO DAILY@0800 100 Days Qty:
== END 2022-10-02 16:31 | disposition home or self-care (01) ==
LOC: ANHED 15:51
PROVIDERS: Emergency Provider Nurse Practitioner Family
DX: S61.214D Laceration without foreign body of right ring finger without damage to nail, subsequent encounter (principal); I10 Essential (primary) hypertension; F17.290 Nicotine dependence, other tobacco product, uncomplicated; X58.XXXD Exposure to other specified factors, subsequent encounter
CPT/HCPCS: 99281

== ENCOUNTER 2024-12-24 19:01 | Emergency (ER) | payer OTHER, SELFPAY ==
[2024-12-24 19:03] VITALS: BP 133/85; PULSE 84; RESP 16; TEMP 36.8; O2SAT 98
--- NOTE | 2024-12-24 21:00 | ED.LOWEXIN ---
HPI - Extremity Injury (Lower) General Chief Complaint: Extremity Injury, Lower Stated Complaint: right 5th toe injury Time Seen by Provider: 12/24/24 20:17 Source: patient Mode of arrival: ambulatory Limitations: no limitations History of Present Illness HPI Narrative: This is a 39-year-old male that presents to the emergency department for right 5th toe injury. Sustained yesterday. Reports he stubbed the toe. Reports swelling and pain to the area. Denies decreased range of motion or numbness. Related Data Allergies Allergy/AdvReac Type Severity Reaction Status Date / Time watermelon Allergy Vomiting Verified 12/24/24 20:43 Review of Systems Review of Systems: CONSTITUTIONAL: Denies fever MUSCULOSKELETAL: Reports joint pain, and myalgia. NEUROLOGIC: Denies numbness PSYCHIATRIC: Denies anxiety or depression. All systems reviewed & are unremarkable except as noted in HPI and below PMFSH Past Medical History Medical History H/O: HTN (hypertension) Surgical History Surgical History No history of previous surgery Family History Family History Father Hypertension Hyperlipemia Mother Hypertension Hyperlipemia Social History Social History Smoking status: Current every day smoker Tobacco type: cigars Second hand tobacco smoke exposure: No Additional smoking assessment comments: smokes 3 to 4 cigars a day Alcohol intake: current Drinks per week: 8 Substance use: current Substance use type: marijuana Gender identity (if verbalized by the patient): Male Spiritual care concerns: No Exam Narrative: GENERAL: Well-appearing, well-nourished, and in no acute distress. HEAD: Normocephalic, atraumatic. EYES: EOMI. EXTREMITIES: Normal range of motion. No edema. Normal DP pulse. Normal sensation SKIN: Warm, dry, no rash. NEURO: No focal deficits. Alert and oriented x3. PSYCH: Normal mood and affect Course Course Emergency Course: patient updated on his workup and agrees with plan of care Vital Signs Vital signs: Vital Signs Temperature 98.3 F 12/24/24 19:03 Pulse Rate 84 12/24/24 19:03 Respiratory Rate 16 12/24/24 19:03 Blood Pressure 133/85 12/24/24 19:03 Pulse Oximetry 98 12/24/24 19:03 Oxygen Delivery Room Air 12/24/24 19:03 Temperature 98.3 F 12/24/24 19:03 Pulse Rate 84 12/24/24 19:03 Respiratory Rate 16 12/24/24 19:03 Blood Pressure 133/85 12/24/24 19:03 Pulse Oximetry 98 12/24/24 19:03 Oxygen Delivery Room Air 12/24/24 19:03 MDM - Extremity Injury (Lower) MDM Narrative Medical decision making narrative: Patient presents to the emergency department for right 5th toe injury. Right 5th toe x-ray without acute osseous abnormalities. Patient updated on his workup. Instructed to rest, ice and take eymz-gpl-scesoik pain medication as needed. He is to follow up with primary provider. He was given warnings to return to the ER Differential Diagnosis Differential diagnosis: Likely fracture of toe and other (contusion) Imaging Data Radiologist's impression: ITS Impressions Toe X-Ray 12/24/24 21:27 IMPRESSION: No acute osseous abnormality. Critical Care Time Critical Care Time Critical Care Time: No Discharge Plan Discharge Clinical Impression: Contusion of fifth toe of right foot Patient Disposition: Home, Self-Care Condition: Stable Instructions: Contusion in Adults (ED) Additional Instructions: Return to the ER if you experience fever, redness and swelling of your extremity, numbness or any other symptoms that are concerning to you WIce and elevate extremity. Pain medication as needed and directed. Follow up with your doctor for further care. Patient Language: Turkmen Prescriptions: No Action carvedilol [Coreg] 25 mg Tablet 25 mg PO Q12HR 30 Days Qty: 60 3RF lisinopril 20 mg Tablet 40 mg PO QAM 3 Days Qty: 6 3RF hydralazine 25 mg Tablet 25 mg PO BID 30 Days Qty: 60 3RF amlodipine [Norvasc] 5 mg Tablet 5 mg PO BID 30 Days Qty: 60 3RF aspirin [Children's Aspirin] 81 mg Tablet,Chewable 81 mg PO DAILY@0800 100 Days Qty: 100 0RF rosuvastatin [Crestor] 10 mg Tablet 10 mg PO QAM 3 Days Qty: 3 3RF Brilinta 90 mg Tablet 90 mg PO Q12HR 30 Days Qty: 60 0RF cephalexin 250 mg capsule 250 mg PO Q6H 7 Days Qty: 28 0RF Follow-up/Referrals: UNKNOWN,DOCTOR [Primary Care Provider] -
== END 2024-12-24 22:01 | disposition home or self-care (01) ==
PROVIDERS: Emergency Provider Physician Assistant
DX: S90.121A Contusion of right lesser toe(s) without damage to nail, initial encounter (principal); I10 Essential (primary) hypertension; F17.290 Nicotine dependence, other tobacco product, uncomplicated; W22.8XXA Striking against or struck by other objects, initial encounter
CPT/HCPCS: 73660; 99283

== ENCOUNTER 2025-04-10 17:32 | Inpatient (IN) | payer OTHER, SELFPAY ==
--- NOTE | ~2025-04-10 | XR_ITS ---
HISTORY: wound 5th digit COMPARISON: 12/24/2024 TECHNIQUE: 3 views of the right foot were performed FINDINGS: No acute fracture or dislocation is appreciated. Soft tissue defect is identified overlying the right fifth toe. Cortical irregularity and lucency is identified suggesting possible osteomyelitis. No significant degenerative disease is noted. The base of the fifth metatarsal is intact. IMPRESSION: Soft tissue defect overlying the right fifth toe with cortical lucency suggesting osteom yelitis for which dedicated views of the right fifth toe are suggested. Reviewed, dictated and finalized at location A. IMPRESSION: Soft tissue defect overlying the right fifth toe with cortical meme ency suggesting osteomyelitis for which dedicated views of the right fifth toe are suggested.
--- NOTE | ~2025-04-10 | XR_ITS ---
HISTORY: Wound, possible osteomyelitis COMPARISON: 12/24/2024 TECHNIQUE: Portable evaluation of the right fifth toe FINDINGS: Soft tissue defect and swelling is identified. Cortical irregularity is detected within the tuft of the fifth toe with lucency and erosions for whic h osteomyelitis is suspected. Significant soft tissue swelling is identified within the forefoot. IMPRESSION: Likely osteomyelitis involving the distal phalanx of the fifth toe, as detailed above. Reviewed, dictated and finalized at location A. IMPRESSION: Likely osteomyelitis involving the distal phalanx of the fifth toe , as detailed above.
--- OUTSIDE RECORDS SUMMARY | 2025-04-10 17:34 | XMS_ITS | Continuity of Care Document ---
Author Organization [facility] Address [address] [place] [address] [place] [address] Phone Care Team Providers Care Marine Equipment Preservation Inspector Name Role Phone Ghulam Huff MD Unavailable Unavailable Allergies, Adverse Reactions, Alerts Substance Reaction Status Criticality No Known Allergies Active No Inform ation Medications Medication Instructions Dosage Effective Dates (start - stop) Status Comments hydralazine 50 mg tablet take 1 tablet by oral route 3 times every day with food 50 MG - Active isosorbide dinitrate 30 mg tablet take 1 tablet by oral route every day 30 MG - Active Lipitor 20 mg tablet take 1 Tablet by or al route every day 20 MG - Active lisinopril 40 mg tablet take 1 tablet by oral route every day 40 MG - Active metoprolol succinate ER 50 mg tablet,extended release 24 hr take 1 tablet by oral route every day 50 MG - Active spironolactone 25 mg tablet take 0.5 tablet by oral route every day 12.5 MG - Active Xarelto 20 mg tablet take 1 tablet by or al route every day with the evening meal 20 MG - Active Procedures Procedure Date OFFICE/OUTPATIENT VISIT, EST OFFICE/OUTPATIENT VISIT, EST OFFICE/OUTPATIENT VISIT, EST OFFICE/OUTPATIENT VISIT, EST OFFICE/OUTPATIENT VISIT, EST PREV VISIT, NEW, AGE 18-39 OFFICE/OUTPATIENT VISIT, NEW Advance Directives Directive Yes / No Effective Date File Name No Information Encounters Encounter Description Practice Location Reason(s) For Visit Diagnoses Date Provider Providers Copied on Encounter [facility], [address], [place], [place], [id number], [place] [phone] [facility] No Information 8 Refugio Parmar. [address], [place], [place], [id number] , [place]. tel:[phone] OFFICE/OUTPA TIENT VISIT, EST [facility], [address], [place], [place], [address], [place] [phone] [facility] CHF (chief complaint)CHF1 (chief complaint)HTN (chief complaint)femor al artery clot (chief complaint)LFT (chief complaint) Hyperlipidemia Peripheral arterial embolism NOSAnemiaCardi omyopathyLiver disease 8 Refugio Oliveros [address], [place], [place], [id number] , [place]. tel:[phone] Referring Provider: Ghulam Huff [address], [place], [place], [id number]. tel:[phone] OFFICE/OUTPA TIENT VISIT, [facility], [address], [place], [place], [address], [place] [phone] [facility] HTN (chief complaint)HLP (chief complaint)clot1 (chief complaint)tobac co1 (chief complaint) Essential (primary) hypertensionPe ripheral arterial embolism NOSHyperlipide miaTobacco use [address], [place], [place], [address] , [place]. tel:[phone] OFFICE/OUTPA TIENT VISIT, EST [facility], [address], [place], [place], [address], [place] tel:[phone] [facility] HTN (chief complaint)liver disease (chief complaint)lFt1 (chief complaint)anemi a1 (chief complaint) Essential (primary) hypertensionLi nito diseaseAnemiaP eripheral arterial embolism NOS 7 Refug[address] Oliveros [address], [place], [place], [address] , . tel:[phone] Referring Provider: Ayanna [address], [place], [place], [id number]. tel:[phone] OFFICE/OUTPA TIENT VISIT, [facility], [address], [place], [place], [address], [place] tel:[phone] [facility] cardiomyopathy (chief complaint)anemi a1 (chief complaint)LFT (chief complaint)femoa l artery1 (chief complaint) Essential (primary) hypertensionPe ripheral arterial embolism NOSAnemiaLiver disease 7 Refug[address]ar. [address], [place], [place], [address] , [place]. tel:[phone] Referring Provider: [address], [place], [place], [id number]. tel:[phone] OFFICE/OUTPA TIENT VISIT, [facility], [address], [place], [place], [address], [place] tel:[phone] [facility] arterial clot1 (chief complaint)HLP (chief complaint) Peripheral arterial embolism NOSEssential (primary) hypertensionHy perlipidemia 7 Refugio Parmar. [address], [place], [place], [address] , [place]. [phone] Referring Provider: Ayanna Baker [address], [place], [place], [address]. tel:[phone] PREV VISIT, NEW, AGE 18-39 [facility], [address], [place], [place], [address], [place] tel:[phone] [facility] Physical (chief complaint) Encounter for general adult medical exam w abnormal findingsEssent ial (primary) hypertensionPe ripheral vascular disease, unspecifiedHyp erlipidemia 7 Refug[address]. [address], [place], [place], [address] , [place]. [phone] Referring Provider: Ayanna Baker [facility] [address], [place], [place], [address]. tel:[phone] Family History Family Member Type Diagnosis Age At Onset Sister Problem (finding) Alive and well Mother Problem (finding) Alive and well Father Problem (finding) Alive and well Payers Payer name Insurance type Covered democrat ID Authornikita tiarsenio(s) No Information Social History Type Description Quantity Date Captured Comments Sex Male Smoking Status No Information Chief Complaint And Reason For Visit No Information Plan Of Treatment Date Type Action Status Goal Special diet education compl eted Referral Ordered: DOPPLER ECHO EXAM, HEART ordered History Of Present Illness Encounter Date Complaint History Of Prese nt Illness LFT His LFT is marilyn l. No hepatitis. Pt only drinks several drinks on the weekend now femoral artery clot Pt has left femoral artery embolism. Pt is on xarelto. Pt has not followed up with vascular surgeon due to insurance issue. Pt denies any leg swelling or pain or bleeding HTN Pt has HTN. Pt t akes spironolactone, metoprolol, lisinopril, isosorbide, hydralazine, His BP is borderline today. CHF1 Pt has cardiomyo namita. Pt had cardiac echo done 3 months ago but he never followed up with cardiology at [facility] due to [employer] insurance. Pt denies any chest pain, sob. CHF HTN Pt has HTN. Pt t akes spirnolactone, metoprolol, lisinopril, isosorbide and hydralazine. Pt only taking hydralazine bID instead of TID. Pt denies any chest pain or headache HLP Pt has HLP. Pt t akes lipitor. Pt denies any myalgia. pt is on low fat and low carb diet tobacco1 Pt still smoking cigars and he drinks beer and hard liquor 2-3 per week but he states that he is only drinking small amount clot1 Pt has femoral o cculsive diseae and he is on xaretlo. Pt did not do the CTA of leg yet. Pt also has cardiomyopathy. Pt has not done echo yet. Pt denies any chest pain or headache. Pt denies any sob. he denies any claudication anemia1 Pt has mild anem ia. Pt denies any blood in stool. Pt did notices bright red per rectum when he wipes. Pt denies any hemorrhoid that he can feel. lFt1 Pt has midlly hi gh LFt. Pt had normal CT of abdomen recenlty. Pt is cutting down on alcohol now. He drinks 1-2 beer on the weekend now. Pt does not use IV drugs. Pt denies any abd pain liver disease HTN Pt takes spirnon lactone, metoprolol, lisinopril, isosorbide and hydralazine. his BP is high today. Pt denies any chest pain or headache Pt states that he is compliant with all his meds. cardiomyopathy Pt has mild card iomyopathy. Pt has HTN. Pt is on hydralazine isosorbide, lisinopril and metoprolol. Pt denies any chest pain or sob. Pt denies any edema Pt sees cadiology femoal artery1 Pt has left femo ral thrombus. Pt is on xarelto. Pt is seeing vascular surgery and he supposes to see hematology at [facility] as outpatient LFT Pt has mildly tomer rderline LFt. Pt denies any abd pain. Pt has midly high glucose. Pt denies any polyuria, polydipisa anemia1 Pt is mildly ane cameron. Pt denies any blood loss or any dizziness or chest pain. Pt notices some bright red blood per rectum per rectum recently. HLP Pt has HLP. Pt t akes lipitor and doing ok. Pt denies any myalgia arterial clot1 Pt has left femo rla artery clot without known etiology. Pt was admitted to [facility]. pt is seeing vascular surgeon, hematology and also cardiology. Pt currently is taking spirnolactone, metoprolol, lisinopril, lipitor, isosorbide, hydralazine, xarelto. He just seen cardiology yesterday. Pt denies any chest pain, leg pain. Pt denies any chest pain or sob Physical Pt needs annual physical. pt is in his typical state of health until about two weeks ago. Pt suffererd left femoral artery blockage and he also has elevatd troponin. Pt was transferred to [facility]. Pt denies any chest pain. Pt did not do any surgery Pt was admitted to [facility] for one week. . Pt currently on bunch of meds and also xarelto. Pt denies any chest pain Pt denies any leg pain, claudation or any numbness Pt denies any sob or chest pain. Pt is on mulitple cardiac meds and also on BP meds currently. Pt does not know what is going on at this point. Pt denies any sob. Pt statse that initialy he did not have pulse left leg but the pulse returned afterward Pt denies any leg pain or numbness. Instructions Date Instruction Additional Infor rubension Special diet education Related t o Body mass index (BMI) 29.0-29.9, adult Increase activity. Related to Hy perlipidemia Stop smoking. Related to Hyper lipidemia Follow a low sodium diet. Relate d to Hyperlipidemia Prescribed Diet Educ ation/Lifestyle Education Regarding Diet Related to Dietary Surveillance and Counseling Stop smoking. Related to Essen tial (primary) hypertension Follow a low sodium diet. Relate d to Essential (primary) hypertension Prescribed Activity and Exercise Education Related to Dietary Surveillance and Counseling Stop smoking. Related to Essen tial (primary) hypertension Prescribed Activity and Exercise Education Related to Dietary Surveillance and Counseling Prescribed Diet Educ ation/Lifestyle Education Regarding Diet Related to Dietary Surveillance and Counseling Follow a low sodium diet. Relate d to Essential (primary) hypertension Stop smoking. Related to Essen tial (primary) hypertension Increase activity. Related to Es sential (primary) hypertension Prescribed Diet Educ ation/Lifestyle Education Regarding Diet Related to Dietary Surveillance and Counseling Prescribed Activity and Exercise Education Related to Dietary Surveillance and Counseling Weight management Related to tary surveillance and counseling Increase physical activity Relat ed to Dietary surveillance and counseling Prescribed Diet Educ ation/Lifestyle Education Regarding Diet Related to Dietary Surveillance and Counseling Prescribed Activity and Exercise Education Related to Dietary Surveillance and Counseling Quit smoking Related to Dieta ry surveillance and counseling Quit smoking Related to Encou nter for general adult medical exam w abnormal findings Increase physical activity Relat ed to Encounter for general adult medical exam w abnormal findings Prescribed Diet Educ ation/Lifestyle Education Regarding Diet Related to Dietary Surveillance and Counseling Prescribed Activity and Exercise Education Related to Dietary Surveillance and Counseling Assessments Type Assessment Date No Information
--- OUTSIDE RECORDS SUMMARY | 2025-04-10 17:34 | XMS_ITS | Clinical Summary ---
Author Organization [facility] Address [address] [place] [phone] Phone Care Team Providers Care Remote Sensing Specialist Name Role Phone Unavailable Primary Care Provider Unavailabl e Allergies Active Allergy Reactions Criticality Noted Date Comments Watermelon Unknown 02/16/2024 Medications amLODIPine (NORVASC) 5 mg tabletIndications:H /O coronary atherosclerosis Starting 02/13/24, Take 1 Tablet (5 mg) by mouth daily. 90 Tablet 1 4 Active aspirin (ECOTRIN EC) 81 mg Tablet, Delayed Release (E.C.) Starting 02/13/24, Take 1 Tablet (81 mg) by mouth daily. 90 Tablet 1 4 Active atorvastatin (LIPITOR) 20 mg tabletIndications:H /O coronary atherosclerosis Take 1 Tablet (20 mg) by mouth daily at bedtime. 90 Tablet 1 4 Active empagliflozin (JARDIANCE) 10 mg tablet Starting 02/13/24, Take 1 Tablet (10 mg) by mouth every morning. 90 Tablet 1 4 Active hydroCHLOROthiazide 25 mg tablet Starting 02/13/24, Take 1 Tablet (25 mg) by mouth daily. 90 Tablet 1 4 Active metoprolol succinate (TOPROL XL) 100 mg Extended Release 24 hour tabletIndications:H /O coronary atherosclerosis Starting 02/13/24, Take 1 Tablet (100 mg) by mouth daily. 90 Tablet 1 4 Active sacubitriL-valsarta n (Entresto) 97-103 mg TabletIndications:I schemic cardiomyopathy Take 1 Tablet by mouth 2 times daily. 180 Tablet 1 4 Active spironolactone (ALDACTONE) 25 mg tablet Starting 02/13/24, Take 1 Tablet (25 mg) by mouth daily. 90 Tablet 1 Active Active Problems Problem Noted Date Diagnosed Date Resistant hypertension 02/12/2024 H/O coronary atherosclerosis 02/11/2024 Primary hypertension 02/10/2024 Mixed hyperlipidemia 02/10/2024 Acute combined systolic and diastolic congestive heart failure 02/10/2024 Coronary artery disease invo lving [place] coronary artery of [place] heart without angina pectoris 02/10/2024 Noncompliance 02/10/2024 Tobacco abuse 02/10/2024 Snores 02/10/2024 Dyspnea 02/09/2024 Ischemic cardiomyopathy 02/09/2024 Encounters Date Type Department Care Team Description 02/28/2025 External Device Data [facility] ABSTRACTION Provider, Abstract 02/07/2025 External Device Data [facility]CTION Provider, Abstract 02/07/2025 External Device Data [facility]STRACTION Provider, Abstract 01/11/2025 External Device Data [facility]STRACTION Provider, Abstract from Last 3 Months Social History Tobacco Use Types Packs/Day Years Used Date Smoking Tobacco: Every Day Cigarettes Smokeless Tobacco: Never Tobacco Cessation:Ready to Q uit: Not Asked; Counseling Given: Not Answered Alcohol Use Standard Drinks/Week Comments Not Currently 0 (1 standard drink = 0.6 oz pur e alcohol) Feeling Safe Answer Date Recorded Are you in a relationship wi th someone who hurts you emotionally and/or physically? No 02/09/2024 Food Insecurity Answer Date Recorded Social/Environmental Concerns No concerns Transportation Needs Answer Date Record ed Social/Environmental Concerns No concerns Housing Stability Answer Date Recorded Social/Environmental Concerns No concerns Utility Needs Answer Date Recorded Social/Environmental Concerns No concerns Sex and Gender Information Value Date Recorded Sex Assigned at Not on file Legal Sex Male 6:51 AM CDT Gender Identity Not on file Sexual Orientation Not on file Last Filed Vital Signs Vital Sign Reading Time Taken Comments Blood Pressure 121/89 02/16/2024 3:35 PM CDT Pulse 85 02/16/2024 3:35 PM CDT Temperature 36.6 C (97.9 F) 02/12/2024 11:16 AM CDT Respiratory Rate 17 02/12/2024 11:16 AM CDT Oxygen Saturation 98% 02/16/2024 3:08 PM CDT Inhaled Oxygen Concentration - - Weight 102.1 kg (225 lb) 02/16/2024 3:08 PM CDT Height 185.4 cm (6' 1) 02/16/2024 3:08 PM CDT Body Mass Index 29.69 02/16/2024 3:08 PM CDT Plan of Treatment Health Maintenance Due Date Last Done Comments DTAP/TDAP/TD VACCINES (1 - Tdap) 2003 HEPATITIS B VACCINES (1 of 3 - 19+ 3-dose series) 2003 INFLUENZA VACCINE (#1) 2024 HPV VACCINES Aged Out No longer eligi ble based on patient's age to complete this topic Insurance [facility] MEDICAID RX [facility] Commercial RX [facility] Commercial RX [facility] Commercial Advance Directives For more information, please contact: [phone] * Full Code (Latest Code Status on File) Date Activated Date Inactivated Comments 02/09/2024 11:12 AM 02/12/2024 4:26 PM * Default Full Code - Needs Discussion Date Activated Date Inactivated Comments 02/09/2024 10:40 AM 02/09/2024 11:12 AM
--- OUTSIDE RECORDS SUMMARY | 2025-04-10 17:34 | XMS_ITS | Data Portability ---
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 Sharp debridement of ulceration to right 5th digit followed by application of GREG and dry sterile dressing. Patient to repeat this dressing daily at home I prescribed cephalexin 500 mg b.i.d. times 14 days Return to clinic 2 weeks or sooner with acute issues are Not available 01/16/2025 14:17:08 01/25/2025 01/25/2025 Reviewed swab culture of right 5th digit ulceration. Sharp debridement of ulceration to right 5th digit followed by application of betadine and dry sterile dressing. Patient to repeat this dressing daily at home I prescribed bactrim ds bid x 14 days Ordered xrays right foot and MIHIR tawana LE Return to clinic 2 weeks or sooner with acute issues are Not available 01/25/2025 16:21:20 02/13/2025 02/13/2025 X-rays reviewed showing no signs of osteomyelitis. MIHIR still pending. Great improvement of foot ulceration at this time it does appear healed. Continues improving, continue to monitor daily for signs of real ulceration and call the office with any acute issues. return to clinic 1 month Not available 02/15/2025 12:29:15 03/15/2025 03/15/2025 X-rays reviewed showing no signs of osteomyelitis. MIHIR's show tawana PVD, Vascular referral placed Continue betadine and dsd to the right 5th toe at this time continue to monitor daily for signs of real ulceration and call the office with any acute issues. return to clinic 1 month Not available 03/15/2025 16:31:32 Plan of Treatment Reminders Order Date Submit Date Provider Last Modified By Organization Details Last Modified Time Details Appointments ANY 2024 03:15P M Noel Willams DPM Not available Not available Not available ANY 2024 01:15P M Elysia Tmo NP Not available Not available Not available ANY 2024 11:15A M Osmani anne MD Not available Not available Not available ANY 2024 11:00A M JANES SUGGS NP Not available Not available Not available Lab culture, aerobic + anaerobi c - right 5th toe ulcer 2024 025 [facility] ([facility]), [address], [place], [address], 01/16/2025 11:12:53 HbA1c (hemoglo bin A1c), blood 2024 025 tmond In-Office Order, Internal Use Only DO Not Attach Compendium DO Not Attach Compendium, Do Not Delete/merge, [id number] 12/23/2024 12:32:18 glucose, fingerst ick, blood 2024 025 tmond In-Office Order, Internal Use Only DO Not Attach Compendium DO Not Attach Compendium, Do Not Delete/merge, [id number] 12/23/2024 12:32:18 vitamin D, 25-hydro xy, total, serum 2024 025 [facility], [address], [address], [place], [address], 12/24/2024 09:13:22 microalb umin/cre atinine, mass ratio, urine 2024 025 [facility], [address], [address], [place], [address], 12/24/2024 09:13:21 CBC 2024 025 [facility], [address], [address], [place], [address], 12/24/2024 08:36:[address] referral 2024 025 [facility], [address], [place], [address], 01/10/2025 12:08:59 Procedures None recorded . Surgeries None recorded . Imaging XR, foot, 3 or more view 2024 025 [facility] ([facility]), [address] [place], [address], 01/29/2025 14:36:27 ankle brachial index 2024 025 [facility] ([facility]), [address] [place], [address], 03/01/2025 16:31:53 Medication Orders Bactrim DS 800 mg-160 mg tablet 2024 025 [facility] [address] [place], [address], 01/25/2025 16:16:56 Betadine 10 % topical solution 2024 025 [facility] [address] [place], [address], 01/25/2025 16:17:17 cephalex in 500 mg capsule 2024 025 [facility] [address] [place], [address], 01/11/2025 17:07:50 Patient TargetsNo targets recorded. Patient Instructions Encounter Date Encounter Id Patient Instructions Last Modified By Organization Details Last Modified Time 12/23/2024 [id number] prediabetes: car e instructions tmond Not available 12/23/2024 12:32:18 ingrown toenail: care instructions tmond Not available 12/26/2024 13:49:53 high cholesterol : care instructions tmond Not available 12/23/2024 12:32:19 Quitting Tobacco : Care Instructions tmond Not available 12/23/2024 12:32:18 high blood pressure: care instructions tmond Not available 12/23/2024 12:32:19 A healthy lifestyle: care instructions tmond Not available 12/23/2024 12:32:18 starting a weigh t loss plan: care instructions tmond Not available 12/23/2024 12:32:19 heart failure: care instructions tmond Not available 12/23/2024 12:32:18 low sodium diet (2,000 milligram): care instructions tmond Not available 12/23/2024 12:32:19 -Patient instructed to call office with changes in condition -Pt instructed to present to the ED or urgent care with urgent concerns or urgent changes in condition. tmond Not available 12/23/2024 12:26:54 -Discussed POC -Pt to follow up with routine f/u visit as discussed; RTC 6 mos tmond Not available 12/23/2024 12:22:02 Reason for Referral Log Tumbler Referral for Ingr owing nail of toe of right foot Referring Physician: Janes Suggs, Family Medicine, Encounter Date: 12/23/2024 Results Created Date Observation Date Name Description Value Unit Range Abnormal Flag Note LastModifiedBy Organization Detail LastModifiedTime 12/23/1912/24/2024 CBC, PLATE LET, NO DIFFE RENTI AL WBC 6.7 x10e3 /uL 3.4-10 .8 Not Available [facility] ([facility]) [address], [place], [address], 12/24/2024 08:36:10 12/23/1912/24/2024 CBC, PLATE LET, NO DIFFE RENTI AL RBC 5.37 x10e6 /uL 4.14-5 .80 Not Available [facility] ([facility]) [address], [place], [address], 12/24/2024 08:36:10 12/23/1912/24/2024 CBC, PLATE LET, NO DIFFE RENTI AL hemoglobin 16.6 g/dL 13.0-1 7.7 Not Available [facility] ([facility]) [address], [place], [address], 12/24/2024 08:36:10 12/23/1912/24/2024 CBC, PLATE LET, NO DIFFE RENTI AL hematocrit 51.6 % 37.5-5 1.0 above high normal Not Available [facility] ([facility]) [address], [place], [address], 12/24/2024 08:36:10 12/23/1912/24/2024 CBC, PLATE LET, NO DIFFE RENTI AL MCV 96 fL 79-97 Not Available [facility] ([facility]) [address] [place], [address], 12/24/2024 08:36:10 12/23/1912/24/2024 CBC, PLATE LET, NO DIFFE RENTI AL MCH 30.9 pg 26.6-3 3.0 Not Available [facility] ([facility]) [address], [place], [address], 12/24/2024 08:36:10 12/23/1912/24/2024 CBC, PLATE LET, NO DIFFE RENTI AL MCHC 32.2 g/dL 31.5-3 5.7 Not Available [facility] ([facility]) [address], [place], [address], 12/24/2024 08:36:10 12/23/19 25 12/24/2024 CBC, PLATE LET, NO DIFFE RENTI AL RDW 13.7 % 11.6-1 5.4 Not Available [facility] ([facility]) [address], [place], [address], 12/24/2024 08:36:10 12/23/19 25 12/24/2024 CBC, PLATE LET, NO DIFFE RENTI AL platelets 224 x10e3 /uL 150-45 0 Not Available [facility] ([facility]) [address], [place], [address], 12/24/2024 08:36:10 12/23/19 25 12/24/2024 CBC, PLATE LET, NO DIFFE RENTI AL hematology comments: NOTE: Verif ied by butch hollins Not Available [facility] ([facility]) [address], [place], [address], 12/24/2024 08:36:10 12/23/19 25 12/24/2024 ALBUM IN/CR EAT RATIO , RANDO M UR creatinine, urine 112.6 mg/dL notest ab. Not Available [facility] ([facility]) [address], [place], [address], 12/24/2024 09:13:21 12/23/1912/24/2024 ALBUM IN/CR EAT RATIO , RANDO M UR albumin, urine 20.4 ug/mL notest ab. Not Available [facility] ([facility]) [address], [place], [address], 12/24/2024 09:13:21 12/23/1912/24/2024 ALBUM IN/CR EAT RATIO , RANDO M UR alb/creat ratio 18 mg/g_ creat 0-29 Barbara l: 0 - 29 Moder ately incre ased: 30 - 300 Sever elise incre ased: >300 Not Available [facility] ([facility]) [address], [place], [address], 12/24/2024 09:13:21 12/23/19 25 12/24/2024 VITAM IN D, 25-HY DROXY vitamin D, 25-hydroxy 30.5 NG/mL 30.0-1 00.0 Vitam in D defic iency has been defin ed by the Insti tute of Medic ine and an Endoc rine Socie ty pract ice guide line as a level of serum 25-OH vitam in D less than 20 ng/mL (1,2) . The Endoc rine Socie ty went on to furth er defin e vitam in D insuf ficie ncy as a level betwe en 21 and 29 ng/mL (2). 1. IOM (Inst itute of Medic ine). 2010. Dieta ry refer ence intsophia es for calci um and D. Maureen ortega [place]: The [facility] Press . 2. Radha briones MF, Tashi ansari [place], Bisch off-F errar i NARAYAN, et al. Evalu ation , treat ment, and preve ntion of vitam in D defic iency : an Endoc rine Socie ty clini betina pract ice guide line. JCEM. 2010; 96(7) :1911 -30. Not Available [facility] ([facility]) [address], [place], [address], 12/24/2024 09:13:22 12/23/19 25 12/23/2024 HbA1c (hemo globi n A1c), blood HbA1c 6.3 Not Available In-Office Order Internal Use Only DO Not Attach Compendium DO Not Attach Compendium, Do Not Delete/merge, [id number] 12/23/2024 12:09:30 12/23/19 25 12/23/2024 gluco se, finge rstic k, blood Blood Glucose: mg/dl 157 Not Available In-Off ice Order Internal Use Only DO Not Attach Compendium DO Not Attach Compendium, Do Not Delete/merge, [id number] 12/23/2024 12:09:36 01/12/20 25 01/17/2025 AEROB IC CULTU RE aerobic culture Organ ism: Lilo coates ri : *ABNO RMAL* Based on susce ptibi lity to oxaci llin this isola te would be susce ptibl e to: *Peni cilli nase- stabl e penic illin s, such as: Cloxa cilli n, Diclo xacil jonas, Nafci llin *Beta -lact am combi natio n agent s, such as: Amoxi cilli n-cla vulan ic acid, Ampic illin -sulb actam , Piper acill in-ta zobac london *Oral cephe ms, such as: Cefac nora, Cefdi tracey, Cefpo doxim e, Cefpr ozil, Cefur oxime , Cepha lexin , Lorac arbef *Pare ntera l cephe ms, such as: Cefaz darien, Cefep donn, Cefot axime , Cefot viola, Cefta rolin e, Cefti zoxim e, Ceftr iaxon e, Cefur oxime *Carb apene ms, such as: Dorip enem, Ertap enem, Imipe nem, Merop enem Heavy growt h Organ ism: Fadumo da parap carlos is. : *ABNO RMAL* Moder ate growt h Not Available [facility] ([facility]) [address] [place], [address], 01/17/2025 07:10:02 01/12/20 25 01/17/2025 AEROB IC CULTU RE O:stawar Isolat ed Not Available [facility] (Lab) [address] [place], [address], 01/17/2025 07:10:02 01/12/20 25 01/17/2025 AEROB IC CULTU RE O:candpa Isolat ed Not Available [facility] (Lab) [address] [place], [address], 01/17/2025 07:10:02 01/12/20 25 01/16/2025 LABCO RP SUSCE PTIBI LITY ciprofloxaci n susceptib le Not Available [facility] ([facility]) [address] [place], [address], 01/16/2025 08:14:01 01/12/20 25 01/16/2025 LABCO RP SUSCE PTIBI LITY clindamycin susceptib le Not Available [facility] (Lab) [address] [place], [address], 01/16/2025 08:14:01 01/12/20 25 01/16/2025 LABCO RP SUSCE PTIBI LITY erythromycin susceptib le Not Available [facility] (Lab) [address] [place], [address], 01/16/2025 08:14:01 01/12/20 25 01/16/2025 LABCO RP SUSCE PTIBI LITY gentamicin susceptib le Not Available [facility] ([facility]) [address] [place], [address], 01/16/2025 08:14:01 01/12/20 25 01/16/2025 LABCO RP SUSCE PTIBI LITY levofloxacin susceptib le Not Available [facility] (Lab) [address] [place], [address], 01/16/2025 08:14:01 01/12/20 25 01/16/2025 LABCO RP SUSCE PTIBI LITY moxifloxacin susceptib le Not Available [facility] ([facility]) [address] [place], [address], 01/16/2025 08:14:01 01/12/20 25 01/16/2025 LABCO RP SUSCE PTIBI LITY oxacillin susceptib le Not Available [facility] (Lab) [address] [place], [address], 01/16/2025 08:14:01 01/12/20 25 01/16/2025 LABCO RP SUSCE PTIBI LITY penicillin resistant Not Available [facility] ([facility]) [address] [place], [address], 01/16/2025 08:14:01 01/12/20 25 01/16/2025 LABCO RP SUSCE PTIBI LITY rifampin susceptib le Not Available [facility] (Lab) [address] [place], [address], 01/16/2025 08:14:01 01/12/2001/16/2025 LABCO RP SUSCE PTIBI LITY tetracycline susceptib le Not Available [facility] (Lab) [address] [place], [address], 01/16/2025 08:14:01 01/12/2001/16/2025 LABCO RP SUSCE PTIBI LITY trimethoprim /sulfamethox azole susceptib le Not Available [facility] (Lab) [address] [place], [address], 01/16/2025 08:14:01 01/12/2001/16/2025 LABCO RP SUSCE PTIBI LITY vancomycin susceptib le Not Available [facility] (Lab) [address] [place], [address], 01/16/2025 08:14:01 01/12/2001/17/2025 LABCO RP SUSCE PTIBI LITY ciprofloxaci n susceptib le Not Available [facility] (Lab) [address] [place], [address], 01/17/2025 07:10:03 01/12/2001/17/2025 LAB[facility] RP SUSCE PTIBI LITY clindamycin susceptib le Not Available [facility] (Lab) [address] [place], [address], 01/17/2025 07:10:03 01/12/2001/17/2025 LAB[facility] RP SUSCE PTIBI LITY erythromycin susceptib le Not Available [facility] (Lab) [address] [place], [address], 01/17/2025 07:10:03 01/12/2001/17/2025 LAB[facility] RP SUSCE PTIBI LITY gentamicin susceptib le Not Available [facility] (Lab) [address] [place], [address], 01/17/2025 07:10:03 01/12/2001/17/2025 LABCO RP SUSCE PTIBI LITY levofloxacin susceptib le Not Available [facility] ([facility]) [address] [place], [address], 01/17/2025 07:10:03 01/12/2001/17/2025 LABCO RP SUSCE PTIBI LITY moxifloxacin susceptib le Not Available [facility] ([facility]) [address] [place], [address], 01/17/2025 07:10:03 01/12/2001/17/2025 LABCO RP SUSCE PTIBI LITY oxacillin susceptib le Not Available [facility] ([facility]) [address] [place], [address], 01/17/2025 07:10:03 01/12/2001/17/2025 LABCO RP SUSCE PTIBI LITY penicillin resistant Not Available [facility] ([facility]) [address] [place], [address], 01/17/2025 07:10:03 01/12/2001/17/2025 LABCO RP SUSCE PTIBI LITY rifampin susceptib le Not Available [facility] ([facility]) [address] [place], [address], 01/17/2025 07:10:03 01/12/2001/17/2025 LABCO RP SUSCE PTIBI LITY tetracycline susceptib le Not Available [facility] (Lab) [address] [place], [address], 01/17/2025 07:10:03 01/12/2001/17/2025 LABCO RP SUSCE PTIBI LITY trimethoprim /sulfamethox azole susceptib le Not Available [facility] ([facility]) [address] [place], [address], 01/17/2025 07:10:03 01/12/20 25 01/17/2025 LABCO RP SUSCE PTIBI LITY vancomycin susceptib le Not Available [facility] (Lab) [address] [place], [address], 01/17/2025 07:10:03 01/12/2001/18/2025 ANAER OBIC CULTU RE anaerobic culture No anaer obic growt h in 72 hours . Not Available [facility] (Lab) [address] [place], [address], 01/18/2025 12:12:17 01/12/2001/17/2025 LABCO RP SUSCE PTIBI LITY ciprofloxaci n susceptib le Not Available [facility] ([facility]) [address] [place], [address], 01/18/2025 12:12:18 01/12/2001/17/2025 LABCO RP SUSCE PTIBI LITY clindamycin susceptib le Not Available [facility] (Lab) [address] [place], [address], 01/18/2025 12:12:18 01/12/2001/17/2025 LABCO RP SUSCE PTIBI LITY erythromycin susceptib le Not Available [facility] (Lab) [address] [place], [address], 01/18/2025 12:12:18 01/12/2001/17/2025 LAB[facility] RP SUSCE PTIBI LITY gentamicin susceptib le Not Available [facility] ([facility]) [address] [place], [address], 01/18/2025 12:12:18 01/12/2001/17/2025 LABCO RP SUSCE PTIBI LITY levofloxacin susceptib le Not Available [facility] ([facility]) [address] [place], [address], 01/18/2025 12:12:18 01/12/20 01/17/2025 LABCO RP SUSCE PTIBI LITY moxifloxacin susceptib le Not Available [facility] ([facility]) [address] [place], [address], 01/18/2025 12:12:18 01/12/20 25 01/17/2025 LABCO RP SUSCE PTIBI LITY oxacillin susceptib le Not Available [facility] ([facility]) [address] [place], [address], 01/18/2025 12:12:18 01/12/20 25 01/17/2025 LABCO RP SUSCE PTIBI LITY penicillin resistant Not Available [facility] ([facility]) [address] [place], [address], 01/18/2025 12:12:18 01/12/20 25 01/17/2025 LABCO RP SUSCE PTIBI LITY rifampin susceptib le Not Available [facility] ([facility]) [address] [place], [address], 01/18/2025 12:12:18 01/12/2001/17/2025 LABCO RP SUSCE PTIBI LITY tetracycline susceptib le Not Available [facility] ([facility]) [address] [place], [address], 01/18/2025 12:12:18 01/12/2001/17/2025 LABCO RP SUSCE PTIBI LITY trimethoprim /sulfamethox azole susceptib le Not Available [facility] ([facility]) [address] [place], [address], 01/18/2025 12:12:18 01/12/2001/17/2025 LAB[facility] RP SUSCE PTIBI LITY vancomycin susceptib le Not Available [facility] ([facility]) [address] [place], [address], 01/18/2025 12:12:18 12/09/19 25 12/09/2024 elect rocar diogr am No observ ation record ed. tmond In-Office Order Internal Use Only DO Not Attach Compendium DO Not Attach Compendium, Do Not Delete/merge, [id number] 12/23/2024 12:12:18 12/09/19 25 zac lopez am No observ ation record ed. tmond Not Available 2024 12:12:17 01/30/20 25 01/28/2025 XR, foot, 3 or more view No observ ation record ed. [facility] Scheduling [address] [facility], [place], [address], 02/01/2025 10:04:21 03/01/20 25 03/01/2025 ankle brach ial index No observ ation record ed. [facility] [address] [facility], [place], [address], 04/04/2025 11:06:33 Result Notes None recorded. Problems Name Problem SNOMED Code Status Onset Date Resolution Date Notes Provider Name and Address Organization Details Recorded Time Congestive heart failure 15091977 Active 2023 KATY BROWNC Attn: Accountsadia g,[address] [place], [address], [facility] 4 13:38:37 Body mass index 25-29 - overweight 795080863 Active 2023 ARVIND BROWN-C Attn: Accountin g,[address] [place], [address], [facility] 4 15:49:10 Prediabetes 781237990 Active 2023 ARVIND BROWN-C Attn: Accountin g,[address] [place], [address], [facility] 4 15:50:49 Vitamin D deficiency 73653433 Active 2023 ARVIND BROWN-C Attn: Accountin g,[address] [place], [address], [facility] 4 15:50:47 Nonischemic congestive cardiomyopa thy 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 Active 2023 PHILIP BROWN Attn: Colleen kinney,[address] [facility], [place], [address], [facility] 5 12:12:24 Atheroscler osis of coronary artery without angina pectoris 8295039280552 03 Active 2023 PHILIP BROWN Attn: Colleen kinney,[address] [facility], [place], [address], [facility] 5 12:13:48 Patient post percutaneou s translumina l coronary angioplasty 677811085 Active 2023 PHILIP BROWN Attn: Colleen kinnye,[address] [facility], [place], [place], [address] [place] [address] 2, [facility] 5 12:12:22 Essential hypertensio n 85784533 Active 2023 PHILIP BROWN Attn: Colleen kinney,[address] [facility], [place], [address], [facility] 5 12:13:46 Hyperlipide melida 17890742 Active 2023 PHILIP BROWN Attn: Colleen kinney,[address] [facility], [place], [place], [address] [place] [address] 2, [facility] 5 12:13:43 Nicotine dependence 08425492 Active 2024 PHILIP BROWN Attn: Colleen kinney,[address] [facility], [place], [address], [facility] 5 12:21:51 Problem Notes None recorded. Procedures Surgical History Date Name Laterality Status Provider Name and Address Organization Details Recorded Time 5 Ulcer Debridement completed Noel Willams DPM [address] [place], [address], [facility] 01/16/2025 14:16:16 Imaging Results None recorded. Procedure Notes None recorded. Medical Equipment None Reported. Allergies Allergen ID Allergen Name Allergen Category Reaction Reaction Severity Criticality Documentation Date Start Date Code Code System Note Provider Name and Address Organization Details Recorded Time 150417 watermelo n preparati on food vomiting Not available Not available 02/19/2024 40063 4 RxNorm Dick Miller MA [place], [place] - [facility] 10:22:41 Medications Name Sig Start Date Stop Date Status Note LastModified by Organization Details LastModified Time atorvastati n 40 mg tablet TAKE 1 TABLET BY MOUTH ONCE DAILY 12/09 completed Not Available Not Available Not Available atorvastati n 20 mg tablet TAKE 1 TABLET BY MOUTH ONCE DAILY AT BEDTIME 04/26 completed Not Available Not Available Not Available Lipitor 80 mg tablet Take 1 tablet every day by oral route for 90 days. 2024 active Not Available Not Available Not Avai lable metoprolol succinate ER 100 mg tablet,exte nded release 24 hr Take 1 tablet by mouth once daily 2024 active Not Available Not Available Not Avai lable amlodipine 5 mg tablet Take 1 tablet by mouth once daily 2024 active Not Available Not Available Not Avai lable aspirin 81 mg tablet,lacho yed release TAKE 1 TABLET BY MOUTH ONCE DAILY active Not Available Not Available No t Available spironolact one 25 mg tablet Take 1 tablet by mouth once daily 2024 active Not Available Not Available Not Avai lable cephalexin 500 mg capsule Take 1 capsule twice a day by oral route for 14 days. 2024 active Not Available Not Available Not Avai lable Betadine 10 % topical solution Apply 1 applicati on every day by topical route. 2024 active Not Available Not Available Not Avai lable aspirin 81 mg tablet Take 1 tablet every day by oral route. 04/26 completed Not Available Not Available Not Available hydrochloro thiazide 25 mg tablet TAKE 1 TABLET BY MOUTH ONCE DAILY 04/26 completed Not Available Not Available Not Available Bactrim DS 800 mg-160 mg tablet Take 1 tablet every 12 hours by oral route for 14 days. 2024 active Not Available Not Available Not Avai lable hydrochloro thiazide 12.5 mg tablet Take 1 tablet daily 2024 active Not Available Not Available Not Avai lable cholecalcif atul (vitamin D3) 1,250 mcg (50,000 unit) capsule Take 1 capsule every week by oral route. 06/20 completed Not Available Not Available Not Available Vitamin D3 50 mcg (2,000 unit) capsule Take 1 capsule by oral route for 30 days. 2023 active Not Available Not Available Not Avai lable Jardiance 10 mg tablet Take 1 tablet by mouth once daily 2024 active Not Available Not Available Not Avai lable Entresto 97 mg-103 mg tablet Take 1 tablet by mouth twice daily 2024 active Not Available Not Available Not Avai lable Vitals Date Recorded Body height Body mass index (BMI) Body weight Oxygen saturation Oxygen saturation in Arterial blood by Pulse oximetry Body temperature Heart rate Systolic blood pressure Diastolic blood pressure Provider Name and Address Organization Details Last Updated DateTime 5 185.42 cm 31.9 kg/m2 822636. 35 g 98 % 98 % 97.6 [degF] 89 /min 135 mm[Hg] 85 mm[Hg] Dick Miller MA [place] - [facility] 5 12:07:09 Date Recorded Body height Body mass index (BMI) Body weight Body temperature Heart rate Systolic blood pressure Diastolic blood pressure Systolic blood pressure Diastolic blood pressure Provider Name and Address Organization Details Last Updated DateTime 5 185.42 cm 31.7 kg/m2 007429. 17 g 97.1 [degF] 76 /min 153 mm[Hg] 92 mm[Hg] 155 mm[Hg] 97 mm[Hg] Tara Ramirez MA [place] [facility] 5 16:48:40 Date Recorded Body height Body mass index (BMI) Body weight Heart rate Systolic blood pressure Diastolic blood pressure Provider Name and Address Organization Details Last Updated DateTime 5 185.42 cm 30.8 kg/m2 224081. 18 g 83 /min 115 mm[Hg] 75 mm[Hg] Patricia Mueller MA [place] [facility] 16:03:38 Date Recorded Body height Body mass index (BMI) Body weight Heart rate Systolic blood pressure Diastolic blood pressure Provider Name and Address Organization Details Last Updated DateTime 185.42 cm 30.5 kg/m2 082394. 12 g 81 /min 116 mm[Hg] 72 mm[Hg] Makenzie Singh MA [facility] 16:58:56 Date Recorded Body height Body mass index (BMI) Body weight Heart rate Body temperature Systolic blood pressure Diastolic blood pressure Provider Name and Address Organization Details Last Updated DateTime 185.42 cm 32.2 kg/m2 791526. 26 g 100 /min 98 [degF] 143 mm[Hg] 82 mm[Hg] Zoey Kidd MA [facility] 16:14:20 Social History Question Answer Notes LastModified by Organizat ion Details LastModified Time Tobacco Smoking Status Current Every Day Smoker edna Miller MA [facility], [facility] 02/19/2024 10:30:19 Are You Blind Or Do You Have Difficulty Seeing? No Information not available 02/19/2024 What Is Your Level Of Caffeine Consumption? Moderate Coffee Information not available 02/19/2024 In The 14 Days Before Symptom Onset, Have You Had Close Contact With A Laboratory-confir med COVID-19 While That Case Was Ill? No Information not available 02/19/2024 In The 14 Days Before Symptom Onset, Have You Had Close Contact With A Person Who Is Under Investigation For COVID-19 While That Person Was Ill? No Information not available 02/19/2024 Have You Been To An Area Known To Be High Risk For COVID-19? No Information not available 02/19/2024 Are You Deaf Or Do You Have Serious Difficulty Hearing? No Information not available 02/19/2024 What Was The Date Of Your Most Recent Tobacco Screening? 03/15/2025 [email or web address] Information not available 03/15/2025 How Many Children Do You Have? 1 Information not available 02/19/2024 What Is Your Current Pack Years? 20-29packyea rs Information not available 02/19/2024 Do You Use Protection During Sex? No Information not available 02/19/2024 What Is Your Relationship Status? Single Information not available 02/19/2024 Are You Sexually Active? Yes Information not available 02/19/2024 At What Age Did You Start Smoking Tobacco? 16 Information not available 02/19/2024 How Much Tobacco Do You Smoke? 0.5 PPD 5 Per Pack. Smokes 3 Daily Information not available 02/19/2024 Has Tobacco Cessation Counseling Been Provided? Yes tmond Information not available 02/19/2024 On What Date Was Tobacco Cessation Counseling Provided? 01/25/2025 [email or web address] Information not available 01/25/2025 How Many Years Have You Smoked Tobacco? 22 Information not available 02/19/2024 Sex: Unknown Functional Status Question Answer Note LastModified by Organizat ion Details LastModified Time Do you use any illicit or recreational drugs? Yes marijuana Information not available 02/19/2024 Do you or have you ever used any other forms of tobacco or nicotine? No Information not available 02/19/2024 What is your level of alcohol consumption? None Information not available 02/19/2024 Are you currently employed? Yes Information not available 02/19/2024 Are you able to care for yourself? 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 None Information not available 02/19/2024 Mental Status None recorded. Family History Relationship Description Onset Age of this Age Resolved Age Notes LastModified by Organization Details LastModified Time Mother Asthma aharrisma Not available 02/19/2024 10:27:09 Mother Hypertensive disorder aharrisma Not available 2023 10:27:40 Father Hypertensive disorder aharrisma Not available 2023 10:27:40 Sister Hypertensive disorder aharrisma Not available 2023 10:27:40 Medical History No medical history recorded. Past Encounters Encounter ID Performer Location Encounter Start Date Encounter Closed Date Diagnosis/Indication Diagnosis SNOMED-CT Code Diagnosis ICD10 Code Diagnosis Note [id number] PHILIP BROWN [facility] (Adult/Fa m Med) [address] [place] [address] 02/19/2024 09:59:19 02/22/2024 12:57:33 Patient new to provider [id number] 89582 Z76.89 -Initial visit in the [facility] ent of care Physical examination 588 0005 Z04.9 -PE complete-A dvised in routine care for current age-Pt stable Patient me dical record not available 820412309 Z76.89 -Acquire records for lab review and further management Diabetes m ellitus screening 193547975 Z13.1 -Routine Recommende d screening At [facility] risk of nutritional deficit 210131921 Z91.89 -Routine Recommende d screening Thyroid di sorder screening 681735896 Z13.29 -Routine Recommende d screening HIV screening 277563744 Z11.4 -Routine Recommende d screening Congestive heart failure 69526571 I50.9 -Pt followed by cardiology -No acute concerns today-Will continue to follow up with appts as establishe d and advised Body mass index 25-29 - overweight 492998115 Z68.29 -Pt advised of BMI-Pt encouraged to eat a plant-base d diet, minimizing processed foods and portion control-Pt advised on the recommenda tions for routine exercise [id number] Osmani Taylor MD [facility] [place] [facility] [address] [place] [address] 03/15/2024 11:54:57 03/16/2024 10:34:11 Nonischemic congestive cardiomyopathy 8025097960 04 I42.0 Atheroscle rosis of coronary artery without angina pectoris 9311961503 [address] percutaneous transluminal coronary angioplasty 675639160 Z98.61 Essential hypertension 63909990 I10 Hyperlipidemia 01549140 E78.5 [id number] Osmani Taylor MD [facility] [place] [facility] [address] [place] [address] 04/26/2024 12:00:40 04/29/2024 09:41:04 Nonischemic congestive cardiomyopathy 4282203056 04 I42.0 Atheroscle rosis of coronary artery without angina pectoris 3373208704 [address] percutaneous transluminal coronary angioplasty 912429463 Z98.61 Essential hypertension 47047324 I10 Hyperlipidemia 68029084 E78.5 Tobacco user 157530220 Z 72.0 [id number] ARVIND BROWN-Silvia [facility] (Adult/Fa m Med) [address] [place] [address] 06/20/2024 11:47:26 06/22/2024 12:15:20 Body mass index 25-29 - overweight 790117739 Z68.29 -Pt advised of BMI-Pt encouraged to eat a plant-base d diet, minimizing processed foods and portion control-Pt advised on the recommenda tions for routine exercise Congestive heart failure 42959474 I50.9 -Pt followed by cardiology -No acute concerns today-Will continue to follow up with appts as julissa bill and advised Hyperlipidemia 45161828 E78.5 -Pt followed by cardiology -No acute concerns today-Will continue to follow up with appts as julissa bill and advised Prediabetes 981618822 R7 3.03 -A1C: 6.1-Pt advised to maintain lifestyle modificati ons-Pt on Jardiance per cardiology -Re-assess today Essential hypertension 08692720 I10 -Pt followed by cardiology -No acute concerns today-Will continue to follow up with appts as julissa bill and advised [id number] Osmani Taylor MD [facility] [address] [place] [address] 12/09/2024 12:02:55 12/12/2024 08:33:53 Nonischemic congestive cardiomyopathy 1018192236 04 I42.0 Atheroscle rosis of coronary artery without angina pectoris 0219567679 [address] percutaneous transluminal coronary angioplasty 645059301 Z98.61 Essential hypertension 47279205 I10 Obesity 841362220 E66.9 Smoker 96483898 F17.200 Hyperlipidemia 69628825 E78.5 [id number] ARVIND BROWN-Silvia [facility] (Adult/Fa m Med) [address] [place] [address] 12/23/2024 11:50:55 12/26/2024 14:54:23 Body mass index 25-29 - overweight 209923525 Z68.29 -Pt advised of BMI-Pt encouraged to eat a plant-base d diet, minimizing processed foods and portion control-Pt advised on the recommenda tions for routine exercise Congestive heart failure 92319563 I50.9 -Pt followed by cardiology -No acute concerns today-Will continue to follow up with appts as julissa bill and advised Vitamin D deficiency 347 52714 E55.9 -Pt advised that Vit D is deficient; regimen initiated, sent to pharmacy Hyperlipidemia 40412865 E78.5 -Pt followed by cardiology -No acute concerns today-Will continue to follow up with appts as julissa bill and advised Prediabetes 878161761 R7 3.03 -Previous A1C: 6.1; Today's:-P t advised to maintain lifestyle modificati ons-Pt on Jardiance per cardiology -Re-assess today EDUCATI ON ON LORENZO PRINTER FOR PATIENT PLEASE 12/23/2024 Essential hypertension 45769184 I10 -Pt followed by cardiology -No acute concerns today-Will continue to follow up with appts as julissa bill and advised Nicotine dependence 5629 4008 F17.200 -Pt is a current smoker-Pt advised in the derogatory effects of smoking-Co unseling for smoking cessation completed Ingrowing nail of toe of right foot 0444571429 5338298 L60.0 -Further eval and management as outlined as stable today; No acute concerns [id number] [facility] [address] [place] [address] 01/11/2025 16:31:15 01/16/2025 14:55:40 Foot ulcer due to type 2 diabetes mellitus 2911894810 100 E11.621 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 2 diabetes mellitus 6752384708 102 E11.628 Abscess of right foot 10 23335259 7575868 L02.954 [id number] [facility] [address] [place] [address] 01/25/2025 15:57:13 01/26/2025 08:50:38 Foot ulcer due to type 2 diabetes mellitus 5453274181 100 E11.621 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 2 diabetes mellitus 4469438598 102 E11.628 Abscess of right foot 10 28282692 0770889 L02.683 [id number] Noel Willams [facility] [address] [place] [address] 02/13/2025 16:40:00 02/13/2025 17:10:21 Foot ulcer due to type 2 diabetes mellitus 7195874582 100 E11.621 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 2 diabetes mellitus 5105993027 102 E11.628 Abscess of right foot 10 41043159 8070282 L02.953 [id number] Noel Willams DPM [facility] [address] [place] [address] 03/15/2025 16:07:16 03/15/2025 16:56:24 Bilateral atherosclerosis of arteries of lower limbs 4670811887 6462937 I70.203 Foot ulcer due to type 2 diabetes mellitus 0315008261 100 E11.621 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 2 diabetes mellitus 8533098572 102 E11.628 Abscess of right foot 10 49210128 3559633 L02.611 Health Concerns Section Related Observation LastModified by Organization Detai ls LastModified Time None Recorded Concern Status LastModified by Organization Details LastModified Time None Recorded Advance Directives Directive None Recorded Payers Insurance Date Sequence Insurance Name Policy Number Policy Zaman Covered Member ID Zaman Member ID Guarantor Name 12/26/2024 1 [employer] [place] [facility] ON OR AFTER 09/25/2020 (MEDICAID REPLACEMENT - HMO) Jamel Joya [id number] Jamel Joya Notes Date Note Type Note Provider Name and Address Organization Details Recorded Time 12/23/2024 text/html Cardiology VisitReported bypatient.chest painno chest pain; location; non-radiating; no pain with exertion SOBno shortness of breath; no SOB during exertion Orthopneano orthopnea; not using extra pillows or sleeping upright (orthopnea) PNDno awakening at night short of breath (pnd) Pedal Edemano edema dizzinessno dizziness Syncopeno fainting (syncope) Palpitationsno palpitations Fatigueno fatigue Pt is a 39 y/o M presenting as OV for routine care. Pt denies acute concerns. Chronic disorders as follows for review. See HPI and A/P for further details.Other disorders pt is managed for as stable are: Pt is followed by cardiology in the management of CHF, HTN, HLD. Pt is stable and denies acute concerns today. Pt is a SMOKER and has a BMI OF >30, PREDIABETES PHILIP BROWN Attn: Accounting[address] [place], [address], [facility] 12/26/2024 13:50:44 01/11/2025 text/html Patient presents to clinic for pain to the blue toe on the right foot. This been going on for the past several weeks and seems to be getting gradually worse as time goes on. He relates that he is a diabetic and that few weeks ago he did stub his toe on a dresser Noel Willams DPM [address], [place], [address], [facility] 01/16/2025 14:25:16 01/25/2025 text/html Patient presents to clinic for pain to the little toe on the right foot. He has been applying copious amounts of TA AO ointment and believes that the toe is looking worse than it was before. Neol Willams DPM [address], [place], [address], [facility] 01/25/2025 16:21:26 02/13/2025 text/html Patient presents to clinic for pain to the little toe on the right foot. Noel Willams DPTuyet [address], [place], [address], [facility] 02/15/2025 12:29:31 03/15/2025 text/html Patient presents to clinic for pain to the little toe on the right foot. Noel Willams DPTuyet [address] [place], [address], [facility] 03/15/2025 16:31:49
--- OUTSIDE RECORDS SUMMARY | 2025-04-10 17:34 | XMS_ITS | Data Portability ---
Author Organization [facility] OFFICE Address [address] [place] [id number] Assessment No assessment recorded. Plan of Treatment Reminders Order Date Submit Date Provider Last Modified By Organization Details Last Modified Time Details Appointments None recorded. Lab None recorded. Referral None recorded. Procedures None recorded. Surgeries None recorded. Imaging electrocar diogram 2020 021 [email or web address] Not available 14:57:19 electrocar diogram 2020 021 [email or web address] Not available 16:55:31 Medication Orders carvedilol 25 mg tablet 2021 [facility] [address] [place], [address], 13:01:06 Plavix 75 mg tablet 2021 [facility] [address] [place], [address], 2 13:01:07 lisinopril 20 mg tablet 2021 [facility] [address] [place], [address], 2 13:01:06 rosuvastat in 10 mg tablet 2021 [facility] [address] [place], [address], 2 13:01:01 Plavix 75 mg tablet 2021 022 [facility] [address], [place], [address], 11:26:31 lisinopril 20 mg tablet 2021 022 [facility] [address], [place], [address], 11:26:27 Plavix 75 mg tablet 2020 021 [facility] [address], [place], [address], 11:29:00 lisinopril 20 mg tablet 2020 021 [facility] [address], [place], [address], 11:28:56 Plavix 75 mg tablet 2020 021 [facility] [address], [place], [address], 12:03:23 lisinopril 20 mg tablet 2020 021 [facility] [address], [place], [address], 12:03:21 clopidogre l 75 mg tablet 2020 021 [facility] [address] [employer], [place], [address], 12:03:22 rosuvastat in 10 mg tablet 2020 021 [facility] [address] [employer], [place], [address], 12:03:18 Plavix 75 mg tablet 2018 019 [facility] [address] [place], [address], 9 15:59:53 lisinopril 20 mg tablet 2018 019 [facility] [address] [place], [address], 9 15:59:12 Patient TargetsNo targets recorded. Patient Instructions Encounter Date Encounter Id Patient Instructions Last Modified By Organization Details Last Modified Time 09/17/2021 [id number] Weight loss 20 pounds Exercise advised Low cholesterol diet advised Low sodium diet advised. [email or web address] Not available 09/17/2021 11:28:42 03/18/2022 [id number] Weight loss 20 pounds Exercise advised Low cholesterol diet advised Low sodium diet advised. [email or web address] Not available 03/18/2022 11:26:38 09/09/2022 [id number] Advised against smoking Exercise advised Low cholesterol diet advised Low sodium diet advised. [email or web address] Not available 09/09/2022 13:00:50 Reason for Referral None Reported. Results Created Date Observation Date Name Description Value Unit Range Abnormal Flag Note LastModifiedBy Organization Detail LastModifiedTime 10/12/20 19 10/11/2019 XR, chest No observ ation record ed. [email or web address] Not Available 2018 07:43:15 10/13/20 19 10/11/2019 , echo ardio gram No observ ation record ed. [email or web address] Not Available 2018 12:11:08 10/14/20 19 10/11/2019 angio gram (PROC ) No observ ation record ed. [email or web address] Not Available 2018 11:32:37 10/24/20 19 10/12/2019 elect rocar diogr am No observ ation record ed. [email or web address] Not Available 2018 13:19:54 10/24/20 19 10/11/2019 XR, chest No observ ation record ed. [email or web address] Not Available 2018 13:26:59 10/24/20 19 10/12/2019 angio gram (PROC ) No observ ation record ed. [email or web address] Not Available 10/24 13:35:30 12/30/20 19 10/11/2019 US, echoc ardio gram No observ ation record ed. Not Available 2018 16:08:57 10/27/19 20 10/24/2019 elect rocar diogr am No observ ation record ed. [email or web address] Not Available 2019 17:13:20 06/21/20 21 06/21/2021 elect rocar diogr am No observ ation record ed. esto Max Morales MD [address], [place], [address], 07/07/2021 16:55:37 07/04/2007/03/2021 , echoc ardio gram No observ ation record ed. est [facility] [address], [place], [address], 07/05/2021 17:06:28 07/30/20 21 06/21/2021 elect rocar diogr am No observ ation record ed. [email or web address] Not Available 2020 14:31:38 07/30/20 21 06/21/2021 elect rocar diogr am No observ ation record ed. [email or web address] Not Available 2021 09:20:09 07/30/20 21 06/21/2021 elect rocar diogr am No observ ation record ed. [email or web address] Not Available 2021 11:22:10 07/30/20 21 06/21/2021 elect rocar diogr am No observ ation record ed. [email or web address] Not Available 2021 12:05:36 08/06/20 21 07/16/2021 exerc ise stres s test No observ ation record ed. [email or web address] Not Available 2020 13:49:49 08/19/20 21 07/03/2021 US, echoc ardio gram No observ ation record ed. [email or web address] Not Available 2020 12:16:11 09/14/20 21 12/06/2021 elect rocar diogr am No observ ation record ed. [email or web address] Max Morales MD [address], [place], [address], 01/10/2022 13:28:30 03/20/20 22 03/18/2022 elect rocar diogr am No observ ation record ed. [email or web address] Not Available 2021 10:47:07 09/10/20 22 09/09/2022 elect rocar diogr am No observ ation record ed. [email or web address] Not Available 2021 10:23:14 Result Notes None recorded. Problems Name Problem SNOMED Code Status Onset Date Resolution Date Notes Provider Name and Address Organization Details Recorded Time Chest pain 31016880 Active 2018 Hala Jessica null, [place] - [facility] 9 01:04:[address] segment elevation myocardial infarction 816857242 Active 2018 H[place] - [facility] 9 01:06:28 Myocardial infarction 72797326 Active 2018 H[place] - [facility] 9 01:06:34 Hypertensive disorder 49295543 Active 2018 Susanna Hunter null, [place] - [facility] 9 14:43:57 Hypercholester olemia 59639950 Active 2018 Susanna [place], [place] - [facility] 9 14:44:04 Coronary atherosclerosi s 027625128 Active 2019 Natanael Cunningham null, [place] - [facility] 0 16:05:35 Problem Notes None recorded. Medical Equipment None Reported. Allergies Allergen ID Allergen Name Allergen Category Reaction Reaction Severity Criticality Documentation Date Start Date Code Code System Note Provider Name and Address Organization Details Recorded Time 9317 water[address] n sagrarioati on food Not available Not available Not available 10/24/2019 85314 4 RxNorm Susanna Hunter null, [place] - [facility] 9 14:41:56 Medications Name Sig Start Date Stop Date Status Note LastModified by Organization Details LastModified Time carvedilol 25 mg tablet TAKE 1 TABLET BY MOUTH EVERY 12 HOURS 2021 active Not Available Not Available Not Avai lable cephalexin 250 mg capsule TAKE 1 CAPSULE BY MOUTH EVERY 6 HOURS FOR 7 DAYS active Not Available Not Available No t Available lisinopril 20 mg tablet Take 1 tablet twice a day by oral route. 2021 active Not Available Not Available Not Avai lable hydralazin e 25 mg tablet Take 1 tablet by mouth twice daily active Not Available Not Available No t Available clopidogre l 75 mg tablet Take 1 tablet by mouth once daily active Not Available Not Available No t Available amlodipine 5 mg tablet Take 1 tablet by mouth twice daily 2021 active Not Available Not Available Not Avai lable rosuvastat in 10 mg tablet TAKE 1 TABLET BY MOUTH ONCE DAILY 2021 active Not Available Not Available Not Avai lable Brilinta 90 mg tablet Take 1 tablet twice a day by oral route as directed . 06/21 completed pt. no longer takes 06/21/20 21 FH Not Available Not Available Not Available Adult Aspirin Regimen 81 mg tablet,del ayed release Take 1 tablet every day by oral route. active Not Available Not Available No t Available Vitals Date Recorded Body height Body mass index (BMI) Body weight Heart rate Oxygen saturation Oxygen saturation in Arterial blood by Pulse oximetry Systolic blood pressure Diastolic blood pressure Provider Name and Address Organization Details Last Updated DateTime 2 186.69 cm 29.6 kg/m2 351223. 19 g 61 /min 98 % 98 % 154 mm[Hg] 110 mm[Hg] Reji Red [facility] 2 10:58:54 Date Recorded Body height Body mass index (BMI) Body weight Heart rate Oxygen saturation Oxygen saturation in Arterial blood by Pulse oximetry Systolic blood pressure Diastolic blood pressure Provider Name and Address Organization Details Last Updated DateTime 1 186.69 cm 30.4 kg/m2 555681. 54 g 71 /min 91 % 91 % 132 mm[Hg] 90 mm[Hg] Flavia Schwab [facility] 1 11:21:34 Date Recorded Body height Body mass index (BMI) Body weight Heart rate Oxygen saturation Oxygen saturation in Arterial blood by Pulse oximetry Systolic blood pressure Diastolic blood pressure Provider Name and Address Organization Details Last Updated DateTime 2 186.69 cm 29.2 kg/m2 813158. 69 g 74 /min 98 % 98 % 156 mm[Hg] 110 mm[Hg] Nyla Olivarez [facility] 2 12:55:08 Date Recorded Body height Body mass index (BMI) Body weight Heart rate Oxygen saturation Oxygen saturation in Arterial blood by Pulse oximetry Systolic blood pressure Diastolic blood pressure Provider Name and Address Organization Details Last Updated DateTime 1 186.69 cm 30.5 kg/m2 051097. 61 g 73 /min 95 % 95 % 156 mm[Hg] 98 mm[Hg] NANDINI BURGESS [facility] 1 11:10:30 Date Recorded Body height Body mass index (BMI) Body weight Heart rate Oxygen saturation Oxygen saturation in Arterial blood by Pulse oximetry Systolic blood pressure Diastolic blood pressure Provider Name and Address Organization Details Last Updated DateTime 9 186.69 cm 30.9 kg/m2 386275. 47 g 70 /min 98 % 98 % 144 mm[Hg] 86 mm[Hg] Susanna Harrison [facility] 9 14:59:26 Social History Question Answer Notes LastModified by [employer] Data Details LastModified Time Tobacco Smoking Status Current Every Day Smoker Not Available [facility] 08/28/2020 03:30:41 What Is Your Level Of Caffeine Consumption? Occasional [id number] Information not available 08/28/2020 How Much Tobacco Do You Chew? None [id number] Information not available 08/28/2020 What Type Of Diet Are You Following? CARDIAC [id number] Information not available 08/28/2020 Which Illicit Or Recreational Drugs Have You Used? Marijuana [id number] Information not available 08/28/2020 Live Alone Or With Others? With Others [email or web address] Information not available 10/24/2019 Marital Status Single [email or web address] Informatio n not available 10/24/2019 What Was The Date Of Your Most Recent Tobacco Screening? 10/24/2019 [id number] Information not available 08/28/2020 How Many Children Do You Have? 0 [id number] Information not available 08/28/2020 General Stress Level Medium [email or web address] Information not available 10/24/2019 Sex: Unknown Functional Status Question Answer Note LastModified by Organizat ion Details LastModified Time What is your level of alcohol consumption? Occasional [id number] Information not available 08/28/2020 Do you or have you ever used smokeless tobacco? 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 Never used electronic cigarettes [id number] Information not available 08/28/2020 What is your exercise level? Occasional [id number] Information not available 08/28/2020 Mental Status None recorded. Family History Relationship Description Onset Age of this Age Resolved Age Notes LastModified by Organization Details LastModified Time Father Hypertensive disorder [email or web address] Not available 10/24 14:42:50 Mother Hypertensive disorder [email or web address] Not available 10/24 14:42:50 Sister Hypertensive disorder [email or web address] Not available 10/24 14:43:10 Sister Hypercholest erolemia [email or web address] Not available 10/24 14:43:36 Brother Hypertensive disorder Not available 10/24 14:43:14 Medical History Condition Response Deep Vein Thrombosis Y Blood Clot Y High Cholesterol Y Myocardial Infarction Y Hyperlipidemia Y GERD/Reflux Y Hypertension Y Past Encounters Encounter ID Performer Location Encounter Start Date Encounter Closed Date Diagnosis/Indication Diagnosis SNOMED-CT Code Diagnosis ICD10 Code Diagnosis Note [id number] Max Morales MD [place] [facility] [place] [address] 10/24/2019 14:36:48 10/25/2019 12:29:[address] segment elevation myocardial infarction 619986539 I21.3 Essential hypertension 17100929 I10 Coronary arteriosclerosis 13387719 I25.10 [facility] 10/11/2019 Status port acute inferior wall MO. Total occlusion of the right coronary artery. Status post angioplast y stent placement to the proximal right coronary artery with good successful result [facility] [id number] Max Morales MD [facility] [address] [place] [address] 06/21/2021 11:04:39 06/24/2021 16:00:49 Hypercholesterolemia 83444091 E78.00 Has been without medication s. Hypertensive disorder 38 451477 I10 Has been without medication s, renew. Myocardial infarction [address] s egment elevation myocardial infarction 991786794 I21.3 [facility] 10/11/2019 Status port acute inferior wall MO. Total occlusion of the right coronary artery. Status post angioplast y stent placement to the proximal right coronary artery with good successful result Essential hypertension 48484114 I10 Coronary arteriosclerosis 74940059 I25.10 [facility] 10/11/2019 Status port acute inferior wall MO. Total occlusion of the right coronary artery. Status post angioplast y stent placement to the proximal right coronary artery with good successful result [facility] Electrocar diogram abnormal 414843103 R94.31 Treadmill Myoview Stress test, has high [place] Risk score. Has Known CAD, or CAD risk equivalent . To look for any ischemia. Obtain echo to evaluate for structural /functiona l disease. [id number] Max Morales MD [place] [facility] [place] [address] 09/17/2021 10:53:51 09/17/2021 11:30:13 Hypercholesterolemia 62070286 E78.00 Has been without medication s. Hypertensive disorder 38 625165 I10 Has been without medication s, renew. Myocardial infarction [address] s egment elevation myocardial infarction 146461233 I21.3 [facility] 10/11/2019 Status port acute inferior wall MO. Total occlusion of the right coronary artery. Status post angioplast y stent placement to the proximal right coronary artery with good successful result Essential hypertension 50034919 I10 Coronary arteriosclerosis 03998160 I25.10 [facility] 10/11/2019 Status port acute inferior wall MO. Total occlusion of the right coronary artery. Status post angioplast y stent placement to the proximal right coronary artery with good successful result [facility] Electrocar diogram abnormal 858750097 R94.31 Treadmill Myoview Stress test was negative [id number] Max Morales MD [place] [facility] [place] [address] 03/18/2022 10:43:06 03/18/2022 11:31:28 Hypercholesterolemia 76093917 E78.00 Has been without medication s. Hypertensive disorder 38 709571 I10 Has been without medication s, renew. Myocardial infarction [address] s egment elevation myocardial infarction 991301881 I21.3 [facility] 10/11/2019 Status port acute inferior wall MO. Total occlusion of the right coronary artery. Status post angioplast y stent placement to the proximal right coronary artery with good successful result Essential hypertension 77182399 I10 Coronary arteriosclerosis 75384072 I25.10 [facility] 10/11/2019 Status port acute inferior wall MO. Total occlusion of the right coronary artery. Status post angioplast y stent placement to the proximal right coronary artery with good successful result [facility] Electrocar diogram abnormal 248877807 R94.31 Treadmill Myoview Stress test was negative [id number] Max Morales MD [place] [facility] [place] [address] 09/09/2022 12:36:11 09/09/2022 13:25:16 Hypercholesterolemia 57181844 E78.00 Has been without medication s. Hypertensive disorder 38 946550 I10 Has been without medication s, renew. Myocardial infarction [address] s egment elevation myocardial infarction 580463300 I21.3 [facility] 10/11/2019 Status port acute inferior wall MO. Total occlusion of the right coronary artery. Status post angioplast y stent placement to the proximal right coronary artery with good successful result Essential hypertension 64437057 I10 Coronary arteriosclerosis 61182297 I25.10 [facility] 10/11/2019 Status port acute inferior wall MO. Total occlusion of the right coronary artery. Status post angioplast y stent placement to the proximal right coronary artery with good successful result [facility] Electrocar diogram abnormal 246786824 R94.31 Treadmill Myoview Stress test was negative Health Concerns Section Related Observation LastModified by Organization Detai ls LastModified Time None Recorded Concern Status LastModified by Organization Details LastModified Time None Recorded Advance Directives Directive None Recorded Payers Insurance Date Sequence Insurance Name Policy Number Policy Zaman Covered Member ID Zaman Member ID Guarantor Name 05/05/2022 1 [employer] Jamel Vega Toan [id number] Jamel Vega Toan 04/18/2020 1 *SELF PAY* Erin seph C Toan 05/05/2022 2 *SELF PAY* Erin seph C Toan 09/28/2022 1 [employer] [place] ON OR AFTER 09/25/2020 (MEDICAID REPLACEMENT - HMO) Jamel Joya [id number] Jamel Vega Toan Notes Date Note Type Note Provider Name and Address Organization Details Recorded Time 10/24/2019 text/html 10/24/19 CC: chest pain 34 year old man presents to office for cardiac evaluation following MO at [facility] on October 11, 2019. 10/11/2019 Status port acute inferior wall MO. Total occlusion of the right coronary artery. Status post angioplasty stent placement to the proximal right coronary artery with good successful result No chest pain. No shortness of breath at rest. No dyspnea on exertion. No orthopnea. No PND's. No dizziness. No palpitation. No syncope or near syncope. No leg swelling. No nausea and vomiting. No side effects from medications. Results from this visit, or from the past: 10/11/19 : WBC 10.5,RBC 4.62,HGB 14.6,HCT 43.7,PLT 210 10/24/19 EKG: Atrial rhythm-occasional ectopic ventricular beat. Voltage criteria w/o STT/T abnormality may be normal. With right axis-consider combined ventricular hypertrophy.EKG 10/12/2019 Sinus rhythm changes to accelerated junctional rhythm with LBBB. Left axis deviation. Consider inferior infarct, age indeterminate. Abnormal ECG XR chest 10/11/2019 No acute cardiopulmonary abnormality Echo 10/11/2019 LVSF is normal, estimated at 50-55%. There is moderately increased LV wall thickness. The LV diastolic function is grade I diastolic dysfunction [facility] 10/11/2019 Status port acute inferior wall MO. Total occlusion of the right coronary artery. Status post angioplasty stent placement to the proximal right coronary artery with good successful result Max Morales MD [address] [place], [address], [facility] 01/12/2020 10:31:15 06/21/2021 text/html 06/21/21 CC: chest pain 34 year old man presents to office for cardiac evaluation following MO at [facility] on October 11, 2019. He was seen in office once, September 2019, and did not make it to follow up appointments. 10/11/2019 Status port acute inferior wall MO. Total occlusion of the right coronary artery. Status post angioplasty stent placement to the proximal right coronary artery with good successful result No chest pain. No shortness of breath at rest. No dyspnea on exertion. No orthopnea. No PND's. No dizziness. No palpitation. No syncope or near syncope. No leg swelling. No nausea and vomiting. No side effects from medications. Reports that he tries to exercise with jogging. Denies new concerns. Reports overall feeling of well being. Currently smokes a couple cigars a day. Alcohol intake of 2-3 beers a week. Marijuana use daily. Caffeine intake of tea 2-3 times a week. Results from this visit, or from the past: 10/11/19 : WBC 10.5,RBC 4.62,HGB 14.6,HCT 43.7,PLT 210 10/24/19 EKG: Atrial rhythm-occasional ectopic ventricular beat. Voltage criteria w/o STT/T abnormality may be normal. With right axis-consider combined ventricular hypertrophy.EKG 10/12/2019 Sinus rhythm changes to accelerated junctional rhythm with LBBB. Left axis deviation. Consider inferior infarct, age indeterminate. Abnormal ECG XR chest 10/11/2019 No acute cardiopulmonary abnormality Echo 10/11/2019 LVSF is normal, estimated at 50-55%. There is moderately increased LV wall thickness. The LV diastolic function is grade I diastolic dysfunction [facility] 10/11/2019 Status port acute inferior wall MO. Total occlusion of the right coronary artery. Status post angioplasty stent placement to the proximal right coronary artery with good successful result Della fl[place]ino [place] - [facility] 06/21/2021 12:03:13 09/17/2021 text/html 09/17/21CC : Car diac follow up, dyspnea on [email or web address] year old man with h/o coronary atherosclerosis, hypertensive disorder, myocardial infarction is here for 3 month follow up with ECHO and Stress test to discuss the results. He was last seen in the clinic on 06/21/21, since then he had negative stress testDenies chest pain.Denies shortness of breath at rest. Has mild dyspnea on exertion.No orthopnea. No PNDs.Denies heart palpitations.Denies dizziness. Denies syncope or near syncope.No ankle or leg edema.No major bleeding events.No reported side effects from medications. Taking medications as prescribed with no missed doses.Denies snoring, daytime somnolence and AM headache.*Last LDL was done on unknown time .Pt takes rosuvastatin 10 mg. *Had ECHO done in 07/03/21 showed LV chamber is mildly dilated,LV wall thickness is mildly increased,there is normal global systolic function and contractility ,the estimated LVEF 55-60%(normal),there is increased left atrial pressure and grade II diastolic dysfunction,there is mild thickening of the mitral valve anterior leaflet,there is mild tricuspid regurgitation. *Had negative stress test done in 07/16/21 with Normal LV systolic function. Previously:Had MO at [facility] on October 11, 2019. 10/11/2019 Status port acute inferior wall MO. Total occlusion of the right coronary artery. Status post angioplasty stent placement to the proximal right coronary artery with good successful result Reported that he tries to exercise with jogging. Denies new concerns. Reports overall feeling of well being. Currently smokes a couple cigars a day. Alcohol intake of 2-3 beers a week. Marijuana use daily. Caffeine intake of tea 2-3 times a week. Results from this visit, or from the past:10/11/19 : WBC 10.5,RBC 4.62,HGB 14.6,HCT 43.7,PLT 210 10/24/19 EKG: Atrial rhythm-occasional ectopic ventricular beat. Voltage criteria w/o STT/T abnormality may be normal. With right axis-consider combined ventricular hypertrophy.EKG 10/12/2019 Sinus rhythm changes to accelerated junctional rhythm with LBBB. Left axis deviation. Consider inferior infarct, age indeterminate. Abnormal ECG XR chest 10/11/2019 No acute cardiopulmonary abnormality Echo 10/11/2019 LVSF is normal, estimated at 50-55%. There is moderately increased LV wall thickness. The LV diastolic function is grade I diastolic dysfunction [facility] 10/11/2019 Status port acute inferior wall MO. Total occlusion of the right coronary artery. Status post angioplasty stent placement to the proximal right coronary artery with good successful result Max Morales MD [address], [place], [address], [facility] 09/17/2021 11:29:03 03/18/2022 text/html 03/18/22CC : Car diac follow up, dyspnea on [id number] year old man with h/o coronary atherosclerosis, hypertensive disorder, myocardial infarction is here for 6 month follow up. He was last seen in the clinic on 09/17/21 , since then he lost 10 poundsHe denies ER visits and hospitalizations since he was last seen. Today reports:Denies chest pain.Denies shortness of breath at rest. Has mild dyspnea on exertion.No orthopnea. No PNDs.Denies heart palpitations.Denies dizziness. Denies syncope or near syncope.No ankle or leg edema.No major bleeding events.No reported side effects from medications. Taking medications as prescribed with no missed doses.Denies snoring, daytime somnolence and AM headache.*Last LDL was done on unknown time .Pt takes rosuvastatin 10 mg . Previously : *Had ECHO done in 07/03/21 showed LV chamber is mildly dilated,LV wall thickness is mildly increased,there is normal global systolic function and contractility ,the estimated LVEF 55-60%(normal),there is increased left atrial pressure and grade II diastolic dysfunction,there is mild thickening of the mitral valve anterior leaflet,there is mild tricuspid regurgitation. *Had negative stress test done in 07/16/21 with Normal LV systolic function. Had MO at [facility] on October 11, 2019. 10/11/2019 Status port acute inferior wall MO. Total occlusion of the right coronary artery. Status post angioplasty stent placement to the proximal right coronary artery with good successful result Reported that he tries to exercise with jogging. Denies new concerns. Reports overall feeling of well being. Currently smokes a couple cigars a day. Alcohol intake of 2-3 beers a week. Marijuana use daily. Caffeine intake of tea 2-3 times a week. Results from this visit, or from the past:10/11/19 : WBC 10.5,RBC 4.62,HGB 14.6,HCT 43.7,PLT 210 10/24/19 EKG: Atrial rhythm-occasional ectopic ventricular beat. Voltage criteria w/o STT/T abnormality may be normal. With right axis-consider combined ventricular hypertrophy.EKG 10/12/2019 Sinus rhythm changes to accelerated junctional rhythm with LBBB. Left axis deviation. Consider inferior infarct, age indeterminate. Abnormal ECG XR chest 10/11/2019 No acute cardiopulmonary abnormality Echo 10/11/2019 LVSF is normal, estimated at 50-55%. There is moderately increased LV wall thickness. The LV diastolic function is grade I diastolic dysfunction [facility] 10/11/2019 Status port acute inferior wall MO. Total occlusion of the right coronary artery. Status post angioplasty stent placement to the proximal right coronary artery with good successful result Max Morales MD [address] [place], [address], [facility] 03/18/2022 11:26:57 09/09/2022 text/html 09/09/22CC : Car diac follow up, dyspnea on year old man with h/o coronary atherosclerosis, hypertensive disorder, myocardial infarction is here for 6 month follow up. He was last seen in the clinic on 03/18/22 , since then he is activeHe denies ER visits and hospitalizations since he was last seen. Denies chest pain.Denies shortness of breath at rest. Has mild dyspnea on exertion.No orthopnea. No PNDs.Denies heart palpitations.Denies dizziness. Denies syncope or near syncope.No ankle or leg edema.No major bleeding events.No reported side effects from medications. Taking medications as prescribed with no missed doses.Denies snoring, daytime somnolence and AM headache.*Last LDL was done on unknown time .Pt takes rosuvastatin 10 mg . Previously : *Had ECHO done in 07/03/21 showed LV chamber is mildly dilated,LV wall thickness is mildly increased,there is normal global systolic function and contractility ,the estimated LVEF 55-60%(normal),there is increased left atrial pressure and grade II diastolic dysfunction,there is mild thickening of the mitral valve anterior leaflet,there is mild tricuspid regurgitation. *Had negative stress test done in 07/16/21 with Normal LV systolic function. Had MO at [facility] on October 11, 2019. 10/11/2019 Status port acute inferior wall MO. Total occlusion of the right coronary artery. Status post angioplasty stent placement to the proximal right coronary artery with good successful result Reported that he tries to exercise with jogging. Denies new concerns. Reports overall feeling of well being. Currently smokes a couple cigars a day. Alcohol intake of 2-3 beers a week. Marijuana use daily. Caffeine intake of tea 2-3 times a week. Results from this visit, or from the past:10/11/19 : WBC 10.5,RBC 4.62,HGB 14.6,HCT 43.7,PLT 210 10/24/19 EKG: Atrial rhythm-occasional ectopic ventricular beat. Voltage criteria w/o STT/T abnormality may be normal. With right axis-consider combined ventricular hypertrophy.EKG 10/12/2019 Sinus rhythm changes to accelerated junctional rhythm with LBBB. Left axis deviation. Consider inferior infarct, age indeterminate. Abnormal ECG XR chest 10/11/2019 No acute cardiopulmonary abnormality Echo 10/11/2019 LVSF is normal, estimated at 50-55%. There is moderately increased LV wall thickness. The LV diastolic function is grade I diastolic dysfunction [facility] 10/11/2019 Status port acute inferior wall MO. Total occlusion of the right coronary artery. Status post angioplasty stent placement to the proximal right coronary artery with good successful result Max Morales MD [address] [place], [address], [facility] 09/09/2022 13:01:03
[2025-04-10 17:43] VITALS: BP 143/62; PULSE 67; RESP 14; TEMP 36.6; O2SAT 97
--- NOTE | 2025-04-10 17:46 | ED_ITS ---
HPI - Wound/Laceration General Chief Complaint: Wound/Laceration <LORENA Winkler Last Filed: 04/10/25 18:00> Stated Complaint: open wound on toe <LORENA Winkler Last Filed: 04/10/25 18:00> Time Seen by Provider: 04/10/25 17:40 <LORENA Winkler Last Filed: 04/10/25 18:00> Focused HPI: Patient is a 39 y/o male who presents to the ED with c/o wound to his R 5th toe. patient reports he has been dealing with a wound to his right 5th toe for several months. States it will flare at times. He has been seeing a mixer operator vacuum pan salt for this. States he saw the mixer operator vacuum pan salt today and was referred to the ED due to concern for infection of the wound. Patient reports swelling throughout his right foot, pain related to the wound. Denies fevers. History of prediabetes. GENERAL: Well-appearing, well-nourished, and in no acute distress. HEAD: Normocephalic, atraumatic. CHEST: Clear to auscultation. ?No respiratory distress. HEART: Regular rate and rhythm.?Pedal pulses intact. MSK: Right 5th toe with ulcerated nearly circumferential wound around nail bed, distal toe. Erythema and warmth present. Distal toe pad is very soft and spongy, donnelly/black, moist/malodorous. Pitting edema to R dorsal foot. NEURO: ?Alert and oriented x3. Patient screened in triage and initial orders placed.? ?Additional care and disposition to be based upon?diagnostic testing and treatment. <LORENA Winkler Last Filed: 04/10/25 18:00> Source: patient <LORENA Winkler Last Filed: 04/10/25 18:00> Mode of arrival: ambulatory <LORENA Winkler Last Filed: 04/10/25 18:00> Limitations: no limitations <LORENA Winkler Last Filed: 04/10/25 18:00> History of Present Illness HPI narrative: Agree with the HPI above <Francisco Bright MD - Last Filed: 04/10/25 22:49> Related Data Allergies/Adverse Reactions: Allergies Allergy/AdvReac Type Severity Reaction Status Date / Time watermelon Allergy Vomiting Verified 04/10/25 21:38 <Joyce Garcia PA-C - Last Filed: 04/10/25 18:00> Review of Systems 2 Review of Systems: As reviewed above in HPI <Francisco Bright MD - Last Filed: 04/10/25 22:49> PMFSH Past Medical History Medical History: Medical History H/O: HTN (hypertension) <Joyce Garcia PA-C - Last Filed: 04/10/25 18:00> Surgical History Surgical History: Surgical History No history of previous surgery <Joyce Garcia PA-C - Last Filed: 04/10/25 18:00> Family History Family History: Family History Father Hypertension Hyperlipemia Mother Hypertension Hyperlipemia <Joyce Garcia PA-C - Last Filed: 04/10/25 18:00> Social History Social History: Social History Smoking status: Current every day smoker Tobacco type: cigars Second hand tobacco smoke exposure: No Additional smoking assessment comments: smokes 3 to 4 cigars a day Alcohol intake: current Drinks per week: 8 Substance use: current Substance use type: marijuana Gender identity (if verbalized by the patient): Male Spiritual care concerns: No <Joyce Garcia PA-C - Last Filed: 04/10/25 18:00> Exam 2 Narrative: GENERAL: Well-appearing, well-nourished, and in no acute distress. HEAD: Normocephalic, atraumatic. CHEST: Clear to auscultation. ?No respiratory distress. HEART: Regular rate and rhythm.?Pedal pulses intact. MSK: Right 5th toe with ulcerated nearly circumferential wound around nail bed, distal toe. Erythema and warmth present. Distal toe pad is very soft and spongy, donnelly/black, moist/malodorous. Pitting edema to R dorsal foot. NEURO: ?Alert and oriented x3. <Francisco Bright MD - Last Filed: 04/10/25 22:49> Course Vital Signs Vital signs: Vital Signs Temperature 36.6 C 04/10/25 17:43 Pulse Rate 67 04/10/25 17:43 Respiratory Rate 14 04/10/25 17:43 Blood Pressure 143/62 H 04/10/25 17:43 Pulse Oximetry 97 04/10/25 17:43 Oxygen Delivery Room Air 04/10/25 17:43 Temperature 36.7 C 04/10/25 19:49 Pulse Rate 62 04/10/25 19:49 Respiratory Rate 16 04/10/25 19:49 Blood Pressure 147/93 H 04/10/25 19:49 Pulse Oximetry 99 04/10/25 19:49 Oxygen Delivery Room Air 04/10/25 17:43 <Joyce Garcia PA-C - Last Filed: 04/10/25 18:00> Vital Signs Temperature 36.6 C 04/10/25 17:43 Pulse Rate 67 04/10/25 17:43 Respiratory Rate 14 04/10/25 17:43 Blood Pressure 143/62 H 04/10/25 17:43 Pulse Oximetry 97 04/10/25 17:43 Oxygen Delivery Room Air 04/10/25 17:43 Temperature 36.7 C 04/10/25 19:49 Pulse Rate 62 04/10/25 19:49 Respiratory Rate 16 04/10/25 19:49 Blood Pressure 147/93 H 04/10/25 19:49 Pulse Oximetry 99 04/10/25 19:49 Oxygen Delivery Room Air 04/10/25 17:43 <Francisco Bright MD - Last Filed: 04/10/25 22:49> MDM - Wound/Laceration MDM Narrative Medical decision making narrative: MSE by CRISTIN in triage <Joyce Garcia PA-C - Last Filed: 04/10/25 18:00> MSE by CRISTIN in triage. Patient is a 39 y/o male who presents to the ED with c/o wound to his R 5th toe. patient reports he has been dealing with a wound to his right 5th toe for several months. States it will flare at times. He has been seeing a mixer operator vacuum pan salt for this. States he saw the mixer operator vacuum pan salt today and was referred to the ED due to concern for infection of the wound. Patient reports swelling throughout his right foot, pain related to the wound. Denies fevers. History of prediabetes. Patient is hemodynamically stable, exam consistent with osteomyelitis verses gangrenous toe infection likely source being previous wound that got infected. Patient has been on multiple rounds of antibiotics orally without any help. Blood cultures were obtained, inflammatory markers ordered, lactic acid, hemoglobin A1c, foot x-ray obtained. Foot x-ray independently reviewed and shows potential osteomyelitis of the 5th toe consistent with examination findings. Started on vancomycin for this after blood cultures drawn. Workup was reassuring without any leukocytosis or anemia. Normal platelet count. Electrolytes are unremarkable. Normal renal function. Normal LFTs. Normal glucose. Negative lactic acid, negative CRP. Discussed with the patient the need for IV antibiotics admission to the hospital and he was agreeable. Discussed the case with the hospitalist mid-level provider who accepted the patient to a med surge bed with General surgery consult placed routinely. <Francisco Bright MD - Last Filed: 04/10/25 22:49> Medical Records Attestation: I reviewed the patient's medical records. <Francisco Bright MD - Last Filed: 04/10/25 22:49> Lab Data Attestation: I reviewed the patient's lab results. <Francisco Bright MD - Last Filed: 04/10/25 22:49> Result diagrams: 04/10/25 18:03 04/10/25 18:51 <Joyce Garcia PA-C - Last Filed: 04/10/25 18:00> Labs: Lab Results 04/10/25 04/10/25 Range/Units 18:03 18:51 WBC 9.4 (4.5-10.0) K/mm3 RBC 4.75 (4.6-6.20) M/mm3 Hgb 14.7 (14.0-18.0) g/dL Hct 45.3 (42.0-52.0) % MCV 95.4 (80-100) fl MCH 30.9 (26-34) pg MCHC 32.5 (32-36) g/dl RDW 14.2 (11.5-14.5) % Plt Count 250 (150-375) k/mm3 MPV 8.7 (7.4-10.4) fl Immature Gran % (Auto) 0.2 (0-0.5) % Neut % (Auto) 44.2 L (45.5-73.1) % Lymph % (Auto) 44.1 (18.3-44.2) % [place] % (Auto) 9.8 H (2.6-8.5) % Eos % (Auto) 1.5 (0-4.4) % Baso % (Auto) 0.2 (0.2-1.2) % Lymph # (Auto) 4.14 H (0.9-3.2) K/mm3 [place] # (Auto) 0.9 H (0.1-0.6) K/mm3 Eos # (Auto) 0.1 (0-0.3) K/mm3 Baso # (Auto) 0.0 (0.0-0.1) K/mm3 Abs Immat Gran (auto) 0.02 (0.00-0.031) K/mm3 Absolute Neuts (auto) 4.2 (1.3-6.7) K/mm3 Absolute Nucleated RBC 0.000 (0.0-0.012) K/mm3 Nucleated RBC % 0.0 (0.0-0.2) % ESR 15 (0-20) mm/hr Sodium 138 (137-145) mmol/L Potassium 3.8 (3.4-5.0) mmol/L Chloride 107 (98-107) mmol/L Carbon Dioxide 24 (22-30) mmol/L Anion Gap 7 (4-12) mmol/L BUN 15 (9-20) mg/dL Creatinine 0.68 L (0.7-1.3) mg/dL Estim Creat Clear Calc 140 ml/min Estimated GFR > 60 (59 - ) Glucose 94 (65-110) mg/dL Hemoglobin A1c 6.2 H (<5.7) % Lactic Acid 1.1 (0.7-2.0) mmol/L Calcium 9.0 (8.4-10.2) mg/dL Total Bilirubin 0.4 (0.2-1.3) mg/dL AST 30 (17-59) U/L ALT 30 (6-50) U/L Alkaline Phosphatase 74 (38-126) U/L C-Reactive Protein < 0.5 (<1.0) mg/dL Total Protein 7.2 (6.3-8.2) g/dL Albumin 3.9 (3.5-5.1) g/dL <Joyce Garcia PA-C - Last Filed: 04/10/25 18:00> Lab Results 04/10/25 04/10/25 Range/Units 18:03 18:51 WBC 9.4 (4.5-10.0) K/mm3 RBC 4.75 (4.6-6.20) M/mm3 Hgb 14.7 (14.0-18.0) g/dL Hct 45.3 (42.0-52.0) % MCV 95.4 (80-100) fl MCH 30.9 (26-34) pg MCHC 32.5 (32-36) g/dl RDW 14.2 (11.5-14.5) % Plt Count 250 (150-375) k/mm3 MPV 8.7 (7.4-10.4) fl Immature Gran % (Auto) 0.2 (0-0.5) % Neut % (Auto) 44.2 L (45.5-73.1) % Lymph % (Auto) 44.1 (18.3-44.2) % [place] % (Auto) 9.8 H (2.6-8.5) % Eos % (Auto) 1.5 (0-4.4) % Baso % (Auto) 0.2 (0.2-1.2) % Lymph # (Auto) 4.14 H (0.9-3.2) K/mm3 [place] # (Auto) 0.9 H (0.1-0.6) K/mm3 Eos # (Auto) 0.1 (0-0.3) K/mm3 Baso # (Auto) 0.0 (0.0-0.1) K/mm3 Abs Immat Gran (auto) 0.02 (0.00-0.031) K/mm3 Absolute Neuts (auto) 4.2 (1.3-6.7) K/mm3 Absolute Nucleated RBC 0.000 (0.0-0.012) K/mm3 Nucleated RBC % 0.0 (0.0-0.2) % ESR 15 (0-20) mm/hr Sodium 138 (137-145) mmol/L Potassium 3.8 (3.4-5.0) mmol/L Chloride 107 (98-107) mmol/L Carbon Dioxide 24 (22-30) mmol/L Anion Gap 7 (4-12) mmol/L BUN 15 (9-20) mg/dL Creatinine 0.68 L (0.7-1.3) mg/dL Estim Creat Clear Calc 140 ml/min Estimated GFR > 60 (59 - ) Glucose 94 (65-110) mg/dL Hemoglobin A1c 6.2 H (<5.7) % Lactic Acid 1.1 (0.7-2.0) mmol/L Calcium 9.0 (8.4-10.2) mg/dL Total Bilirubin 0.4 (0.2-1.3) mg/dL AST 30 (17-59) U/L ALT 30 (6-50) U/L Alkaline Phosphatase 74 (38-126) U/L C-Reactive Protein < 0.5 (<1.0) mg/dL Total Protein 7.2 (6.3-8.2) g/dL Albumin 3.9 (3.5-5.1) g/dL <Francisco Bright MD - Last Filed: 04/10/25 22:49> Imaging Data Attestation: I personally reviewed and interpreted this imaging study as follows: < Francisco Bright MD - Last Filed: 04/10/25 22:49> My impression: Impressions Foot X-Ray 04/10/25 18:49 IMPRESSION: Soft tissue defect overlying the right fifth toe with cortical lucency suggesting osteomyelitis for which dedicated views of the right fifth toe are suggested. <Francisco Bright MD - Last Filed: 04/10/25 22:49> Discharge Plan Discharge Clinical Impression: Osteomyelitis of toe of right foot, Right foot infection <Joyce Garcia PA-C - Last Filed: 04/10/25 18:00> Patient Disposition: Still a Patient <LORENA Winkler Last Filed: 04/10/25 18:00> Condition: Stable <Joyce Garcia PA-C - Last Filed: 04/10/25 18:00>
[2025-04-10 18:22] LABS: Basophils Percent Auto 0.2 % (0.2-1.2); Eosinophils Absolute Auto 0.1 K/mm3 (0-0.3); Eosinophils Percent Auto 1.5 % (0-4.4); Hematocrit 45.3 % (42.0-52.0); Hemoglobin 14.7 g/dL (14.0-18.0); Immature Granulocyte Absolute 0.02 K/mm3 (0.00-0.031); Immature Granulocyte Percent A 0.2 % (0-0.5); Lymphocytes Absolute Auto 4.14 K/mm3 (0.9-3.2); Lymphocytes Percent Auto 44.1 % (18.3-44.2); Mean Corpuscular HGB Conc 32.5 g/dl (32-36); Mean Corpuscular Hemoglobin 30.9 pg (26-34); Mean Corpuscular Volume 95.4 fl (80-100); Mean Platelet Volume 8.7 fl (7.4-10.4); Monocytes Absolute Auto 0.9 K/mm3 (0.1-0.6); Monocytes Percent Auto 9.8 % (2.6-8.5); Neutrophils Absolute Auto 4.2 K/mm3 (1.3-6.7); Neutrophils Percent Auto 44.2 % (45.5-73.1); Platelet Count Result 250 k/mm3 (150-375); Red Blood Count 4.75 M/mm3 (4.6-6.20); Red Cell Distribution Width 14.2 % (11.5-14.5); White Blood Count 9.4 K/mm3 (4.5-10.0)
[2025-04-10 18:23] LABS: Hemoglobin A1C 6.2 % (<5.7)
[2025-04-10 18:25] LABS: Lactic Acid Reflex 1.1 mmol/L (0.7-2.0)
[2025-04-10 19:00] LABS: Erythrocyte Sedimentation Rate 15 mm/hr (0-20)
[2025-04-10 19:16] LABS: Alanine Aminotransferase 30 U/L (6-50); Albumin Level 3.9 g/dL (3.5-5.1); Alkaline Phosphatase 74 U/L (38-126); Anion Gap 7 mmol/L (4-12); Aspartate Amino Transferase 30 U/L (17-59); Bilirubin,Total 0.4 mg/dL (0.2-1.3); Blood Urea Nitrogen 15 mg/dL (9-20); CRP < 0.5 mg/dL (<1.0); Carbon Dioxide 24 mmol/L (22-30); Chloride 107 mmol/L (98-107); Estimated CRCL calculation 140 ml/min; Estimated Glomerular Filt Rate > 60; Glucose 94 mg/dL (65-110); Potassium 3.8 mmol/L (3.4-5.0); Sodium 138 mmol/L (137-145); Total Protein 7.2 g/dL (6.3-8.2)
--- NOTE | 2025-04-10 19:23 | PC.NURSE ---
Received report from DIANNE Montes for cont. of care. Pt sitting on chair c/o R foot pain, denies fevers.
--- OUTSIDE RECORDS SUMMARY | 2025-04-10 19:33 | XMS_ITS | Clinical Summary ---
Author Organization [facility] Address [address] [place] [phone] Phone Care Team Providers Care Functional Consultant Name Role Phone Unavailable Primary Care Provider [...] failure 02/10/2024 Coronary artery disease invo lving [place] coronary artery of [place] heart without angina pectoris 02/10/2024 Noncompliance 02/10/2024 [...] patient's age to complete this topic Insurance [facility] MEDICAID RX [facility] Commercial RX [facility] Commercial RX [facility] Commercial Advance Directives For more information, please contact: [phone] * Full Code (Latest Code Status on File) Date Activated Date Inactivated Comments 02/09/2024 11:12 AM 02/12/2024 4:26 PM * Default Full Code - Needs Discussion Date Activated Date Inactivated Comments 02/09/2024 10:40 AM 02/09/2024 11:12 AM
--- OUTSIDE RECORDS SUMMARY | 2025-04-10 19:33 | XMS_ITS | Continuity of Care Document ---
Author Organization [facility] Address [address] [place] [address] [place] [address] Phone Care Team Providers Care Configuration Management Specialist Name Role Phone Ghulam Huff MD Unavailable Unavailable Allergies, Adverse Reactions, Alerts Substance Reaction Status Criticality No Known Allergies Active No Inform ation Medications Medication Instructions Dosage Effective Dates (start - stop) Status Comments Xarelto 20 mg tablet take 1 tablet by or al route every day with the evening meal 20 MG - Active spironolactone 25 mg tablet take 0.5 tablet by oral route every day 12.5 MG - Active metoprolol succinate ER 50 mg tablet,extended release 24 hr take 1 tablet by oral route every day 50 MG - Active lisinopril 40 mg tablet take 1 tablet by oral route every day 40 MG - Active Lipitor 20 mg tablet take 1 Tablet by or al route every day 20 MG - Active isosorbide dinitrate 30 mg tablet take 1 tablet by oral route every day 30 MG - Active hydralazine 50 mg tablet take 1 tablet by oral route 3 times every day with food 50 MG - Active Procedures Procedure Date OFFICE/OUTPATIENT VISIT, EST OFFICE/OUTPATIENT VISIT, EST OFFICE/OUTPATIENT VISIT, EST OFFICE/OUTPATIENT VISIT, EST OFFICE/OUTPATIENT VISIT, EST PREV VISIT, NEW, AGE 18-39 OFFICE/OUTPATIENT VISIT, NEW Advance Directives Directive Yes / No Effective Date File Name No Information Encounters Encounter Description Practice Location Reason(s) For Visit Diagnoses Date Provider Providers Copied on Encounter [facility], [address], [place], [place], [address], [place] [phone] [facility] No Information 8 Refugio Parmar. [address], [place], [place], [address] , [place]. tel:[phone] OFFICE/OUTPA TIENT VISIT, EST [facility], [address], [place], [place], [address], [place] [phone] [facility] CHF (chief complaint)CHF1 (chief complaint)HTN (chief complaint)femor al artery clot (chief complaint)LFT (chief complaint) Hyperlipidemia Peripheral arterial embolism NOSAnemiaCardi omyopathyLiver disease 8 Refugio Oliveros [address], [place], [place], [address] , [place]. tel:[phone] Referring Provider: Ghulam Huff [address], [place], [place], [address]. tel:[phone] OFFICE/OUTPA TIENT VISIT, [facility], [address], [place], [place], [address], [place] [phone] [facility] HTN (chief complaint)HLP (chief complaint)clot1 (chief complaint)tobac co1 (chief complaint) Essential (primary) hypertensionPe ripheral arterial embolism NOSHyperlipide miaTobacco use 8 Refugio Oliveros [address], [place], [place], [address] , [place]. [phone] OFFICE/OUTPA TIENT VISIT, EST [facility], [address], [place], [place], [address], [place] tel:[phone] [facility] HTN (chief complaint)liver disease (chief complaint)lFt1 (chief complaint)anemi a1 (chief complaint) Essential (primary) hypertensionLi nito diseaseAnemiaP eripheral arterial embolism NOS 7 Refugio Oliveros [address], [place], [place], [address] , . tel:[phone] Referring Provider: Ayanna Baker [address], [place], [place], [address]. tel:[phone] OFFICE/OUTPA TIENT VISIT, [facility], [address], [place], [place], [address], [place] tel:[phone] [facility] cardiomyopathy (chief complaint)anemi a1 (chief complaint)LFT (chief complaint)femoa l artery1 (chief complaint) Essential (primary) hypertensionPe ripheral arterial embolism NOSAnemiaLiver disease 7 Refugio Parmar. [address], [place], [place], [address] , [place]. tel:[phone] Referring Provider: [address], [place], [place], [address]. tel:[phone] OFFICE/OUTPA TIENT VISIT, [facility], [address], [place], [place], [address], [place] tel:[phone] [facility] arterial clot1 (chief complaint)HLP (chief complaint) Peripheral arterial embolism NOSEssential (primary) hypertensionHy perlipidemia 7 Refugio Parmar. [address], [place], [place], [address] , [place]. [phone] Referring Provider: Ayanna Baker [address], [place], [place], [address]. tel:[phone] PREV VISIT, NEW, AGE 18-39 [facility], [address], [place], [place], [address], [place] tel:[phone] [facility] Physical (chief complaint) Encounter for general adult medical exam w abnormal findingsEssent ial (primary) hypertensionPe ripheral vascular disease, unspecifiedHyp erlipidemia 7 Refugio Parmar. [address], [place], [place], [address] , [place]. [phone] Referring Provider: Ayanna Baker [facility] [address], [place], [place], [address]. tel:[phone] Family History Family Member Type Diagnosis Age At Onset Sister Problem (finding) Alive and well Mother Problem (finding) Alive and well Father Problem (finding) Alive and well Payers Payer name Insurance type Covered democrat ID Authoriza tion(s) No Information Social History Type Description Quantity Date Captured Comments Sex Male Smoking Status No Information Chief Complaint And Reason For Visit No Information Plan Of Treatment Date Type Action Status Goal Special diet education compl eted Referral Ordered: DOPPLER ECHO EXAM, HEART ordered History Of Present Illness Encounter Date Complaint History Of Prese nt Illness CHF CHF1 Pt has cardiomyo namita. Pt had cardiac echo done 3 months ago but he never followed up with cardiology at [facility] due to [employer] insurance. Pt denies any chest pain, sob. HTN Pt has HTN. Pt t akes spironolactone, metoprolol, lisinopril, isosorbide, hydralazine, His BP is borderline today. femoral artery clot Pt has left femoral artery embolism. Pt is on xarelto. Pt has not followed up with vascular surgeon due to insurance issue. Pt denies any leg swelling or pain or bleeding LFT His LFT is marilyn l. No hepatitis. Pt only drinks several drinks on the weekend now clot1 Pt has femoral o cculsive diseae and he is on xaretlo. Pt did not do the CTA of leg yet. Pt also has cardiomyopathy. Pt has not done echo yet. Pt denies any chest pain or headache. Pt denies any sob. he denies any claudication tobacco1 Pt still smoking cigars and he drinks beer and hard liquor 2-3 per week but he states that he is only drinking small amount HTN Pt has HTN. Pt t akes spirnolactone, metoprolol, lisinopril, isosorbide and hydralazine. Pt only taking hydralazine bID instead of TID. Pt denies any chest pain or headache HLP Pt has HLP. Pt t akes lipitor. Pt denies any myalgia. pt is on low fat and low carb diet HTN Pt takes spirnon lactone, metoprolol, lisinopril, isosorbide and hydralazine. his BP is high today. Pt denies any chest pain or headache Pt states that he is compliant with all his meds. liver disease lFt1 Pt has midlly hi gh LFt. Pt had normal CT of abdomen recenlty. Pt is cutting down on alcohol now. He drinks 1-2 beer on the weekend now. Pt does not use IV drugs. Pt denies any abd pain anemia1 Pt has mild anem ia. Pt denies any blood in stool. Pt did notices bright red per rectum when he wipes. Pt denies any hemorrhoid that he can feel. cardiomyopathy Pt has mild card iomyopathy. Pt has HTN. Pt is on hydralazine isosorbide, lisinopril and metoprolol. Pt denies any chest pain or sob. Pt denies any edema Pt sees cadiology anemia1 Pt is mildly ane cameron. Pt denies any blood loss or any dizziness or chest pain. Pt notices some bright red blood per rectum per rectum recently. LFT Pt has mildly tomer rderline LFt. Pt denies any abd pain. Pt has midly high glucose. Pt denies any polyuria, polydipisa femoal artery1 Pt has left femo ral thrombus. Pt is on xarelto. Pt is seeing vascular surgery and he supposes to see hematology at [facility] as outpatient arterial clot1 Pt has left femo rla artery clot without known etiology. Pt was admitted to [facility]. pt is seeing vascular surgeon, hematology and also cardiology. Pt currently is taking spirnolactone, metoprolol, lisinopril, lipitor, isosorbide, hydralazine, xarelto. He just seen cardiology yesterday. Pt denies any chest pain, leg pain. Pt denies any chest pain or sob HLP Pt has HLP. Pt t akes lipitor and doing ok. Pt denies any myalgia Physical Pt needs annual physical. pt is in his typical state of health until about two weeks ago. Pt suffererd left femoral artery blockage and he also has elevatd troponin. Pt was transferred to [facility]. Pt denies any chest pain. Pt did not do any surgery Pt was admitted to [facility] for one week. . Pt [...] or numbness. Instructions Date Instruction Additional Infor mation Special diet education Related t o Body mass index (BMI) 29.0-29.9, adult Increase activity. Related to Hy perlipidemia Stop smoking. Related to Hyper lipidemia Follow a low sodium diet. Relate d to Hyperlipidemia Prescribed Activity and Exercise Education Related to [...] Related to Essen tial (primary) hypertension Prescribed Diet Educ ation/Lifestyle Education Regarding Diet Related to Dietary Surveillance and Counseling Increase activity. Related to Es sential (primary) hypertension Stop smoking. Related to Essen tial (primary) hypertension Follow a low sodium diet. Relate d to Essential (primary) hypertension Prescribed Activity and Exercise Education Related to Dietary Surveillance and Counseling Prescribed Activity and Exercise Education Related to Dietary Surveillance and Counseling Prescribed Diet Educ ation/Lifestyle Education Regarding Diet Related to Dietary Surveillance and Counseling Increase physical activity Relat ed to Dietary surveillance and counseling Quit smoking Related to Dieta ry surveillance and counseling Weight management Related to tary surveillance and counseling Prescribed Activity and Exercise Education Related to Dietary Surveillance and Counseling Prescribed Diet Educ ation/Lifestyle Education Regarding Diet Related to Dietary Surveillance and Counseling Increase physical activity Relat ed to Encounter for general adult medical exam w abnormal findings Quit smoking Related to Encou nter for general adult medical exam w abnormal findings Assessments Type Assessment Date No Information
[2025-04-10 19:49] VITALS: BP 147/93; PULSE 62; RESP 16; TEMP 36.7; O2SAT 99
[2025-04-10] MEDS: VANCOMYCIN 1,250 MG/NS 250 ML 1,250 MG/250 ML BAG 166.67 MG IVPB ×2 (22:00→23:58)
[2025-04-10] MEDS: LACTATED RINGERS 1,000 ML 125 ML IV CONT (23:27)
[2025-04-10 23:28] VITALS: BP 135/88; PULSE 52; RESP 16; O2SAT 99
[2025-04-11] VITALS (8 sets, daily range): BP systolic 145–172; BP diastolic 76–112; PULSE 50–62; RESP 16–20; TEMP 36.6–37.1; O2SAT 94–100; BMI 28.5
--- NOTE | 2025-04-11 01:26 | ADMGEN ---
This patient, Jamel Joya, was admitted to 3 [facility] Surg Room 331-01. Patient/family oriented to hospital policies and general routines including ID bracelet, bed and alarms, visiting hours, pain management, procedures, bathroom and other care routines, personal items, smoking policy, room service/diet, and visiting hours. Information on how to activate the Rapid Response Team has been discussed. Patient/Family are encouraged to report perceived risks to care and to ask questions if they do not understand what they are told or what they should do.
--- NOTE | 2025-04-11 01:30 | P.HP_ITS ---
H&P: HPI History of Present Illness Date/Time: 04/11/25 01:30 Chief Complaint: Right 5th toe wound. Narrative: This is a pleasant 39-year-old male with history of coronary artery disease status post angioplasty and stent to the right coronary artery in September 2019, heart failure with preserved ejection fraction, peripheral vascular disease in the lower extremities for which he cannot provide specifics as this is a new diagnosis for him, hypertension, hyperlipidemia, and prediabetes who presented to the emergency department via private vehicle for evaluation of a right 5th toe wound. The wound has been present for months after he developed an ingrown toenail. According to the patient, it nearly heals and then gets worse again. He saw his jukebox checker today as it was getting bad again, and he has noticed malodorous drainage and darkening of the tip of the digit. He was referred to the ED for further treatment. On exam he has decreased pulses in the lower extremities and it sounds like he had arterial ultrasounds done quite recently at [facility] and there have been talks about referring him to a vascular surgeon. He is otherwise feeling fine and denies fever, chills, sweats, nausea, vomiting, and significant pain. In the ED: Vital signs were stable on arrival. CMP and CBC were pretty unremarkable. Random glucose was 94 and hemoglobin A1c was 6.2%. Right foot x- ray showed a soft tissue defect overlying the right 5th toe with findings suggestive of osteomyelitis. He was given a dose of vancomycin is being admitted in this setting for further treatment and evaluation of an infected toe wound with possible osteomyelitis. Review of Systems Review of Systems: 12 systems were reviewed and are negativ e except for as per HPI. [facility] Past Medical History Medical History (Updated 04/11/25 @ 04:03 by Genesis Corral PA-C) Peripheral vascular disease New diagnosis as of 04/14/2025, patient does not know specifics as of yet. Arterial Dopplers done at [facility]. Heart failure with preserved ejection fraction ST elevation (STEMI) myocardial infarction (09/2019) Hypertension Coronary artery disease Surgical History Surgical History (Updated 04/11/25 @ 01:37 by Genesis Corral PA-C) History of coronary angioplasty with insertion of stent Xience stent to the proximal RCA Family History Family History Father Hypertension Hyperlipemia Mother Hypertension Hyperlipemia Social History Social History (Updated 04/11/25 @ 01:31 by Genesis Corral PA-C) Social History: Surrogate medical decision maker: [place], significant other. Code status: Full code. Years smoked: 15 Smoking status: Current every day smoker Tobacco type: cigars Second hand tobacco smoke exposure: No Additional smoking assessment comments: smokes 3 to 4 cigars a day Alcohol intake: current Drinks per week: 8 Substance use: current Substance use type: marijuana Last use: 04/09/25 Do You Feel Safe in your Home?: Yes Lack of Transportation: No Lack of Food: Never True Current Housing: I Have Housing Concerned About Future Housing: No Difficulty Paying Gas/Electric Bills: No Difficulty Paying for Meds: No Currently Unemployed: No Education: High School Diploma/GED Difficulty w/ Childcare or Family Care: No Spiritual care concerns: No Meds Home Medications and Allergies Home Medications ?Medication ?Instructions ?Recorded ?Confirmed ?Type amlodipine 5 mg tablet (Norvasc) 5 mg PO BID 30 days #60 tabs 10/13/19 04/11/25 Rx aspirin 81 mg chewable tablet 81 mg PO DAILY@0800 100 days #100 10/13/19 04/11/25 Rx (Children's Aspirin) tabs carvedilol 25 mg tablet (Coreg) 25 mg PO Q12HR 30 days #60 tabs 10/13/19 04/11/25 Rx atorvastatin 80 mg tablet 80 mg PO HS 04/11/25 04/11/25 History empagliflozin 10 mg tablet 10 mg PO DAILY 04/11/25 04/11/25 History (Jardiance) metoprolol succinate 100 mg 100 mg PO DAILY HR 04/11/25 04/11/25 History tablet,extended release 24 hr sacubitril 97 mg-valsartan 103 mg 1 tablet PO BID 04/11/25 04/11/25 History tablet (Entresto) Allergies Allergy/AdvReac Type Severity Reaction Status Date / Time watermelon Allergy Vomiting Verified 04/10/25 21:38 Vital Signs Vital Signs - 24 hr 04/10/25 17:43 04/10/25 19:49 04/10/25 23:28 Temperature 97.8 F 98.1 F Pulse Rate 67 62 52 L Respiratory Rate 14 16 16 Blood Pressure 143/62 H 147/93 H 135/88 Pulse Oximetry 97 99 99 Oxygen Delivery Room Air 04/11/25 01:23 Temperature 98.7 F Pulse Rate 50 L Respiratory Rate 20 Blood Pressure 172/112 H Pulse Oximetry 100 Oxygen Delivery Exam Narrative: General: Non-toxic appearing male sitting up in bed. Weight: 100 kg. BMI: 29.1. HEENT: Normocephalic, atraumatic. PERRL, EOMI. Sclera anicteric. Oral mucosa moist. Oropharynx clear. Neck: Supple. Respiratory: Lungs are clear to auscultation bilaterally. Cardiovascular: Bradycardic with S1-S2. Gastrointestinal: Abdomen is soft, nontender, and nondistended with positive bowel sounds. Skin: Warm and dry. Right 5th toe is ulcerated with some erythema and warmth. The distal aspect is soft and moist with some malodorous drainage and evidence of necrosis. Extremities: No cyanosis or clubbing. Mild edema of the right foot. Decreased pedal pulses. Right pedal pulse sounds turbulent with the Doppler. Neurological: Alert. Cranial nerves 2-12 are grossly intact. No gross focal deficits to casual conversation. Psychiatric: Pleasant and cooperative with normal mood and affect. Judgment and insight intact. H&P: Results Labs Labs: Short CBC 04/10/25 Range/Units 18:03 WBC 9.4 (4.5-10.0) K/mm3 Hgb 14.7 (14.0-18.0) g/dL Hct 45.3 (42.0-52.0) % Plt Count 250 (150-375) k/mm3 BMP 04/10/25 18:51 Sodium 138 Potassium 3.8 Chloride 107 Carbon Dioxide 24 BUN 15 Creatinine 0.68 L Glucose 94 Calcium 9.0 Liver Function 04/10/25 Range/Units 18:51 Total Bilirubin 0.4 (0.2-1.3) mg/dL AST 30 (17-59) U/L ALT 30 (6-50) U/L Alkaline Phosphatase 74 (38-126) U/L Albumin 3.9 (3.5-5.1) g/dL Impressions Foot X-Ray 04/10/25 18:49 IMPRESSION: Soft tissue defect overlying the right fifth toe with cortical lucency suggesting osteomyelitis for which dedicated views of the right fifth toe are suggested. Toe X-Ray 04/10/25 23:44 IMPRESSION: Likely osteomyelitis involving the distal phalanx of the fifth toe, as detailed above. Assessment and Plan Assessment and plan (1) Osteomyelitis of fifth toe of right foot: Code(s): M86.9 - Osteomyelitis, unspecified Status: Acute (2) Peripheral vascular disease: Code(s): I73.9 - Peripheral vascular disease, unspecified Status: Acute (3) Coronary artery disease: Code(s): I25.10 - Atherosclerotic heart disease of [place] coronary artery without angina pectoris Status: Acute (4) Hypertension: Code(s): I10 - Essential (primary) hypertension Status: Acute (5) Heart failure with preserved ejection fraction: Code(s): I50.30 - Unspecified diastolic (congestive) heart failure Status: Acute Plan The patient presented to the emergency department for evaluation of a nonhealing wound on his right 5th toe as detailed in HPI. Labs, imaging, EKG, and all reports were personally reviewed. He was afebrile on arrival with normal white blood cell count and a normal CRP. Right foot x-ray showed findings of possible osteomyelitis and dedicated right 5th toe x-rays have been ordered. He was started on vancomycin in the ED and we will continue with that for now. Wound culture ordered. Surgery has been consulted. Records have been requested from [facility] it sounds like he recently had arterial ultrasound showing the prese nce of peripheral vascular disease.. Blood pressures were reviewed he had 1 very high reading after being admitted to the floor. Chronic conditions without acute issues include hyperlipidemia and coronary artery disease. His home medications will be reviewed and resumed as appropriate. Findings and treatment plan were discussed with the patient. Questions were solicited and answered to satisfaction. The patient's medical management will be taken over by the hospitalist team in a.m. Quality VTE Prophylaxis VTE prophylaxis: mechanical ordered If No VTE Prophylaxis Answer both mechanical and pharmacologic: Reason no pharmacologic proph: medical contraindication (will likely need surgery) Hospitalist MIPS Advance Care Plan I have confirmed that the patient's Advanced Care Plan is present, code status is documented, or surrogate decision maker is listed in patient medical record.: Yes Medication Reconciliation I have utilized all available resources to obtain, update and review the patients current medications (includes all prescriptions, OTC, herbals, cannabis, and nutritional supplements).: Yes
[2025-04-11 06:33] LABS: Hemoglobin 13.8 g/dL (14.0-18.0); Mean Corpuscular HGB Conc 32.9 g/dl (32-36); Mean Corpuscular Hemoglobin 31.4 pg (26-34); Mean Corpuscular Volume 95.5 fl (80-100); Mean Platelet Volume 8.4 fl (7.4-10.4); Platelet Count Result 207 k/mm3 (150-375); White Blood Count 6.9 K/mm3 (4.5-10.0)
[2025-04-11 06:43] LABS: Cholesterol 123 mg/dL (0-200); HDL Direct 40 mg/dL; Potassium 3.7 mmol/L (3.4-5.0); Triglycerides 80 mg/dL (<150)
[2025-04-11 06:51] LABS: Anion Gap 5 mmol/L (4-12); Blood Urea Nitrogen 10 mg/dL (9-20); Calcium 8.8 mg/dL (8.4-10.2); Carbon Dioxide 24 mmol/L (22-30); Chloride 107 mmol/L (98-107); Estimated CRCL calculation 157 ml/min; Estimated Glomerular Filt Rate > 60; Glucose 103 mg/dL (65-110); Magnesium 1.5 mg/dL (1.6-2.3); Sodium 136 mmol/L (137-145)
[2025-04-11 06:54] LABS: LDL Cholesterol Direct 60 mg/dL
--- NOTE | 2025-04-11 07:52 | P.PNIM_ITS ---
Progress Note: A&P Assessment and Plan (1) Osteomyelitis of fifth toe of right foot: Code(s): M86.9 - Osteomyelitis, unspecified Status: Acute Assessment and Plan: - right 5th toe - xray noted possible osteomyelitis - crp normal - Continue IV antibiotics - currently on Vanco, will add Rocephin for dual coverage. - surgery consulted - Consider surgical intervention for distal phalanx amputation. - will trend labs/blood cultures/wound culture (2) Peripheral vascular disease: Code(s): I73.9 - Peripheral vascular disease, unspecified Status: Acute Assessment and Plan: - continue home medications (3) Coronary artery disease: Code(s): I25.10 - Atherosclerotic heart disease of [place] coronary artery without angina pectoris Status: Acute Assessment and Plan: - continue home medications (4) Hypertension: Code(s): I10 - Essential (primary) hypertension Status: Acute Assessment and Plan: continue home medications trend vital signs. (5) Heart failure with preserved ejection fraction: Code(s): I50.30 - Unspecified diastolic (congestive) heart failure Status: Acute Assessment and Plan: continue home medications Plan code status - full code DVT - SCDS - Plan - continue with IV antibiotic coverage, surgery onboard, consider amputation Time Spent With Patient Time with patient: 25 - 35 minutes Subjective Date/time seen: 04/11/25 07:52 Interval history: patient is resting in bed at this time. Denies any distress. reports ome tenderness in the right toe, otherwise no fever, chills, or distress. Review of Systems 2 Review of Systems: 12 systems were reviewed and are negativ e except for as per HPI. Exam Narrative: General: Non-toxic appearing male sitting up in bed. Weight: 100 kg. BMI: 29.1. HEENT: Normocephalic, atraumatic. PERRL, EOMI. Sclera anicteric. Oral mucosa moist. Oropharynx clear. Neck: Supple. Respiratory: Lungs are clear to auscultation bilaterally. Cardiovascular: Bradycardic with S1-S2. Gastrointestinal: Abdomen is soft, nontender, and nondistended with positive bowel sounds. Skin: Warm and dry. Right 5th toe is ulcerated with some erythema and warmth. The distal aspect is soft and moist with some malodorous drainage and evidence of necrosis. Extremities: No cyanosis or clubbing. Mild edema of the right foot. Decreased pedal pulses. Right pedal pulse sounds turbulent with the Doppler. Neurological: Alert. Cranial nerves 2-12 are grossly intact. No gross focal deficits to casual conversation. Psychiatric: Pleasant and cooperative with normal mood and affect. Judgment and insight intact. Objective Data Vital Signs Vital Signs: Vital Signs - 24 hr 04/10/25 17:43 04/10/25 19:49 04/10/25 23:28 Temperature 97.8 F 98.1 F Pulse Rate 67 62 52 L Respiratory Rate 14 16 16 Blood Pressure 143/62 H 147/93 H 135/88 Pulse Oximetry 97 99 99 Oxygen Delivery Room Air 04/11/25 01:23 04/11/25 06:00 Temperature 98.7 F 98.0 F Pulse Rate 50 L 55 L Respiratory Rate 20 20 Blood Pressure 172/112 H 145/83 H Pulse Oximetry 100 94 Oxygen Delivery Intake/Output Intake/Output: Intake & Output 04/08/25 04/09/25 04/10/25 04/11/25 23:59 23:59 23:59 23:59 Intake Total 250 0 Output Total 400 Balance 250 -400 Meds/Results Medications: Active Medications Generic Name Dose Route Start Last Admin Trade Name Freq PRN Reason Stop Dose Admin Acetaminophen 650 mg 04/10/25 21:36 Acetaminophen 325 Mg Tablet PO Q4H PRN Mild Pain (1-3) or Fever Amlodipine Besylate 5 mg 04/11/25 09:00 Amlodipine Besylate 5 Mg Tablet PO Q12HR COUNT INCLUDES THE [facility] Atorvastatin Calcium 80 mg 04/11/25 21:00 Atorvastatin 40 Mg Tablet PO HS COUNT INCLUDES THE [facility] Carvedilol 25 mg 04/11/25 09:00 Carvedilol 25 Mg Tablet PO Q12HR COUNT INCLUDES THE [facility] Empagliflozin 10 mg 04/11/25 09:00 Empagliflozin 10 Mg Tablet PO DAILY LAKEISHA Lactated Ringer's 1,000 mls @ 125 mls/hr 04/10/25 21:40 04/10/25 23:27 Lr - Lactated Ringers Iv IV CONT 125 mls/hr .Q8H LAKEISHA Administration Vancomycin HCl 1,500 mg in 500 mls @ 250 mls/hr 04/11/25 10:00 Vancomycin 1,500 Mg/Ns 500 Ml IVPB Q12H COUNT INCLUDES THE [facility] Metoprolol Succinate 100 mg 04/11/25 09:00 Metoprolol Succinate Ext Rel 100 Mg Tabcr PO DAILY COUNT INCLUDES THE [facility] Ondansetron HCl 4 mg 04/10/25 21:36 Ondansetron Inj 4 Mg/2 Ml Vial IV PUSH Q4H PRN Nausea Sacubitril/Valsartan 1 tab 04/11/25 09:00 Sacubitril/Valsartan 97-103 Mg Tablet PO Q12HR COUNT INCLUDES THE [facility] Radiology Results: ITS Impressions Foot X-Ray 04/10/25 18:49 IMPRESSION: Soft tissue defect overlying the right fifth toe with cortical lucency suggesting osteomyelitis for which dedicated views of the right fifth toe are suggested. Toe X-Ray 04/10/25 23:44 IMPRESSION: Likely osteomyelitis involving the distal phalanx of the fifth toe, as detailed above. Labs Labs: Laboratory Results - last 24 hr 04/10/25 04/10/25 04/11/25 18:03 18:51 06:17 WBC 9.4 6.9 RBC 4.75 4.40 L Hgb 14.7 13.8 L Hct 45.3 42.0 MCV 95.4 95.5 MCH 30.9 31.4 MCHC 32.5 32.9 RDW 14.2 14.0 Plt Count 250 207 MPV 8.7 8.4 Immature Gran % (Auto) 0.2 Neut % (Auto) 44.2 L Lymph % (Auto) 44.1 Mobile % (Auto) 9.8 H Eos % (Auto) 1.5 Baso % (Auto) 0.2 Lymph # (Auto) 4.14 H Mobile # (Auto) 0.9 H Eos # (Auto) 0.1 Baso # (Auto) 0.0 Abs Immat Gran (auto) 0.02 Absolute Neuts (auto) 4.2 Absolute Nucleated RBC 0.000 Nucleated RBC % 0.0 ESR 15 Sodium 138 136 L Potassium 3.8 3.7 Chloride 107 107 Carbon Dioxide 24 24 Anion Gap 7 5 BUN 15 10 D Creatinine 0.68 L 0.60 L Estim Creat Clear Calc 140 157 Estimated GFR > 60 > 60 Glucose 94 103 Hemoglobin A1c 6.2 H Lactic Acid 1.1 Calcium 9.0 8.8 Magnesium 1.5 L Total Bilirubin 0.4 AST 30 ALT 30 Alkaline Phosphatase 74 C-Reactive Protein < 0.5 Total Protein 7.2 Albumin 3.9 Triglycerides 80 Cholesterol 123 LDL Cholesterol Direct 60 HDL Direct 40 Quality VTE Prophylaxis VTE prophylaxis: mechanical ordered Hospitalist MIPS Advance Care Plan I have confirmed that the patient's Advanced Care Plan is present, code status is documented, or surrogate decision maker is listed in patient medical record.: Yes Medication Reconciliation I have utilized all available resources to obtain, update and review the patients current medications (includes all prescriptions, OTC, herbals, cannabis, and nutritional supplements).: Yes The patient is not eligible for med reconciliation; the patient is in a emergent medical situation where delaying treatment would jeopardize the patients health.: Yes
[2025-04-11] MEDS: LACTATED RINGERS 1,000 ML 125 ML IV CONT (08:00)
--- NOTE | 2025-04-11 09:35 | P.CONGS_ITS ---
Assessment and Plan Assessment and plan (1) Osteomyelitis of fifth toe of right foot: Code(s): M86.9 - Osteomyelitis, unspecified Status: Acute Assessment and Plan: Patient presented with right 5th toe infection that he states has been present for few months and started as an ingrown toenail. He follows with a [employer] and has been treated with multiple rounds of antibiotics. Toe never completely healed. Black dry eschar to tip of right 5th toe appreciated on exam. X-ray of toe demonstrated likely osteomyelitis. Patient currently on IV vancomycin. Continue IV antibiotics. Consider surgical intervention for distal phalanx amputation. History of Present Illness Consult details Consult date: 04/11/25 Reason for consult: other (Right 5th toe osteomyelitis) Requesting physician: Francisco Bright MD Narrative: Patient is a 39-year-old male with no known history of diabetes who we have been asked to see in consultation today for right 5th toe osteomyelitis. Patient states that symptoms 1st started a few months ago when he noticed an ingrown toenail on his right 5th toe. He initially tried to get the ingrown toenail out himself, but reports eventually going to a [employer] for this issue in December. He believes the [employer] lanced the 5th toe and a small amount of purulent drainage was expelled and cultured. Patient was sent home on 2 week course of antibiotics with which he completed. He states that the wound culture grew an organism that this antibiotic did not cover so he was switched to a different antibiotic for which he took for the full 2 weeks as well. Patient has been wearing walking boot. According to patient's chart he was seen in the ER on December 24 after stubbing right pinky toe. X-ray showed no acute osseous abnormality. He was sent home with instructions to ice and elevate the extremity and take pain medication as needed. Patient notes sometimes having purulent discharge from the wound. He states that is painful from his toe to his midfoot and ankle. He states the pain feels like plantar fasciitis. WBC count normal at 6.9. Hemoglobin A1c 6.2 with normal glucose readings. Afebrile. Toe x-ray today demonstrated likely osteomyelitis involving the distal phalanx of the 5th toe. [facility] Past Medical History Medical History Peripheral vascular disease New diagnosis as of 04/14/2025, patient does not know specifics as of yet. Arterial Dopplers done at [facility]. Heart failure with preserved ejection fraction ST elevation (STEMI) myocardial infarction (09/2019) Hypertension Coronary artery disease Surgical History Surgical History History of coronary angioplasty with insertion of stent Xience stent to the proximal RCA Family History Family History Father Hypertension Hyperlipemia Mother Hypertension Hyperlipemia Social History Social History Social History: Surrogate medical decision maker: [place], significant other. Code status: Full code. Years smoked: 15 Smoking status: Current every day smoker Tobacco type: cigars Second hand tobacco smoke exposure: No Additional smoking assessment comments: smokes 3 to 4 cigars a day Alcohol intake: current Drinks per week: 8 Substance use: current Substance use type: marijuana Last use: 04/09/25 Do You Feel Safe in your Home?: Yes Lack of Transportation: No Lack of Food: Never True Current Housing: I Have Housing Concerned About Future Housing: No Difficulty Paying Gas/Electric Bills: No Difficulty Paying for Meds: No Currently Unemployed: No Education: High School Diploma/GED Difficulty w/ Childcare or Family Care: No Spiritual care concerns: No Meds Home Medications and Allergies Home Medications ?Medication ?Instructions ?Recorded ?Confirmed ?Type aspirin 81 mg chewable tablet 81 mg PO DAILY@0800 100 days #100 10/13/19 04/11/25 Rx (Children's Aspirin) tabs amlodipine 5 mg tablet (Norvasc) 5 mg PO DAILY 04/11/25 04/11/25 History atorvastatin 80 mg tablet 80 mg PO HS 04/11/25 04/11/25 History empagliflozin 10 mg tablet 10 mg PO DAILY 04/11/25 04/11/25 History (Jardiance) hydrochlorothiazide 12.5 mg tablet 12.5 mg PO DAILY 04/11/25 04/11/25 History metoprolol succinate 100 mg 100 mg PO DAILY HR 04/11/25 04/11/25 History tablet,extended release 24 hr sacubitril 97 mg-valsartan 103 mg 1 tablet PO BID 04/11/25 04/11/25 History tablet (Entresto) spironolactone 25 mg tablet 25 mg PO DAILY 04/11/25 04/11/25 History Allergies Allergy/AdvReac Type Severity Reaction Status Date / Time watermelon Allergy Vomiting Verified 04/10/25 21:38 Vital Signs Vital Signs - 24 hr 04/10/25 17:43 04/10/25 19:49 04/10/25 23:28 Temperature 97.8 F 98.1 F Pulse Rate 67 62 52 L Respiratory Rate 14 16 16 Blood Pressure 143/62 H 147/93 H 135/88 Pulse Oximetry 97 99 99 Oxygen Delivery Room Air 04/11/25 01:23 04/11/25 06:00 04/11/25 08:00 Temperature 98.7 F 98.0 F Pulse Rate 50 L 55 L Respiratory Rate 20 20 Blood Pressure 172/112 H 145/83 H Pulse Oximetry 100 94 94 Oxygen Delivery Room Air Exam 2 Const: General: comfortable and no acute distress HENMT: Mouth: Yes moist mucous membranes Eyes: General: appearance normal, both eyes and all related structures Neck: Neck: supple Resp: Effort & Inspection: normal respiratory effort Cardio: Rate: regular rate Neuro: Speech: normal speech Sensory Exam: normal sensation Extrem: Other: Right 5th pinky toe with black dry, firm eschar covering the tip and significant edema present throughout the toe extending to dorsal surface of foot up to the ankle. No open wound. Minimal toenail present. Pain present in toe throughout foot. No purulence or fluctuance appreciated. No drainage currently. Patient is able to move all of his toes. Distal pulses difficult to appreciate due to swelling. Psych: Mental Status: mental status grossly normal Results Labs 04/11/25 06:17 04/11/25 06:17 Labs: Abnormal lab results 04/10/25 04/10/25 04/11/25 Range/Units 18:03 18:51 06: RBC 4.40 L (4.6-6.20) M/mm3 Hgb 13.8 L (14.0-18.0) g/dL Neut % (Auto) 44.2 L (45.5-73.1) % [place] % (Auto) 9.8 H (2.6-8.5) % Lymph # (Auto) 4.14 H (0.9-3.2) K/mm3 [place] # (Auto) 0.9 H (0.1-0.6) K/mm3 Sodium 136 L (137-145) mmol/L Creatinine 0.68 L 0.60 L (0.7-1.3) mg/dL Hemoglobin A1c 6.2 H (<5.7) % Magnesium 1.5 L (1.6-2.3) mg/dL Diabetes panel 04/10/25 04/10/25 04/11/25 Range/Units 18:03 18:51 06:17 Sodium 138 136 L (137-145) mmol/L Potassium 3.8 3.7 (3.4-5.0) mmol/L Chloride 107 107 (98-107) mmol/L Carbon Dioxide 24 24 (22-30) mmol/L BUN 15 10 D (9-20) mg/dL Creatinine 0.68 L 0.60 L (0.7-1.3) mg/dL Glucose 94 103 (65-110) mg/dL Hemoglobin A1c 6.2 H (<5.7) % Calcium 9.0 8.8 (8.4-10.2) mg/dL AST 30 (17-59) U/L ALT 30 (6-50) U/L Alkaline Phosphatase 74 (38-126) U/L Total Protein 7.2 (6.3-8.2) g/dL Albumin 3.9 (3.5-5.1) g/dL Triglycerides 80 (<150) mg/dL Calcium panel 04/10/25 04/11/25 Range/Units 18:51 06:17 Calcium 9.0 8.8 (8.4-10.2) mg/dL Albumin 3.9 (3.5-5.1) g/dL Pituitary panel 04/10/25 04/11/25 Range/Units 18:51 06:17 Sodium 138 136 L (137-145) mmol/L Potassium 3.8 3.7 (3.4-5.0) mmol/L Chloride 107 107 (98-107) mmol/L Carbon Dioxide 24 24 (22-30) mmol/L BUN 15 10 D (9-20) mg/dL Creatinine 0.68 L 0.60 L (0.7-1.3) mg/dL Glucose 94 103 (65-110) mg/dL Calcium 9.0 8.8 (8.4-10.2) mg/dL Adrenal panel 04/10/25 04/11/25 Range/Units 18:51 06:17 Sodium 138 136 L (137-145) mmol/L Potassium 3.8 3.7 (3.4-5.0) mmol/L Chloride 107 107 (98-107) mmol/L Carbon Dioxide 24 24 (22-30) mmol/L BUN 15 10 D (9-20) mg/dL Creatinine 0.68 L 0.60 L (0.7-1.3) mg/dL Glucose 94 103 (65-110) mg/dL Calcium 9.0 8.8 (8.4-10.2) mg/dL Total Bilirubin 0.4 (0.2-1.3) mg/dL AST 30 (17-59) U/L ALT 30 (6-50) U/L Alkaline Phosphatase 74 (38-126) U/L Total Protein 7.2 (6.3-8.2) g/dL Albumin 3.9 (3.5-5.1) g/dL All other labs normal.
[2025-04-11] MEDS: amLODIPine BESYLATE 5 MG TABLET PO (10:09)
[2025-04-11] MEDS: METOPROLOL SUCCINATE EXT REL 100 MG TABCR PO (10:09)
[2025-04-11] MEDS: VANCOMYCIN 1,500 MG/NS 500 ML 1,500 MG/500 ML BAG 250 MG IVPB ×2 (10:21→21:18)
--- OUTSIDE RECORDS SUMMARY | 2025-04-11 10:41 | XMS_ITS | Clinical Summary ---
Author Organization [facility] Address [address] [place] [phone] Phone Care Team Providers Care Hand Plug Shaper Name Role Phone Unavailable Primary Care Provider [...] failure 02/10/2024 Coronary artery disease invo lving [place] coronary artery of [place] heart without angina pectoris 02/10/2024 Noncompliance 02/10/2024 [...] patient's age to complete this topic Insurance [facility] MEDICAID RX [facility] Commercial RX [facility] Commercial RX [facility] Commercial Advance Directives For more information, please contact: [phone] * Full Code (Latest Code Status on File) Date Activated Date Inactivated Comments 02/09/2024 11:12 AM 02/12/2024 4:26 PM * Default Full Code - Needs Discussion Date Activated Date Inactivated Comments 02/09/2024 10:40 AM 02/09/2024 11:12 AM
--- OUTSIDE RECORDS SUMMARY | 2025-04-11 10:41 | XMS_ITS | Continuity of Care Document ---
Author Organization [facility] Address [address] [place] [address] [place] [address] Phone Care Team Providers Care Database Designer Name Role Phone Ghulam Huff MD Unavailable [...] Diagnoses Date Provider Providers Copied on Encounter [facility] [place], [address], [place], [place], [id number], [place] [phone] [facility] [place] No Information [address], [place], [place], [id number] , [place]. [phone] OFFICE/OUTPA TIENT VISIT, EST [facility] [place], [address], [place], [place], [id number], [place] [phone] [facility] [place] CHF (chief complaint)CHF1 (chief complaint)HTN (chief complaint)femor al artery clot (chief complaint)LFT (chief complaint) Hyperlipidemia Peripheral arterial embolism NOSAnemiaCardi omyopathyLiver disease 8 Refug[address]os [address], [place], [place], [id number] , [place]. tel:[phone] Referring Provider: Ghulam Huff [address], [place], [place], [id number]. tel:[phone] OFFICE/OUTPA TIENT VISIT, [facility], [address], [place], [place], [id number], [place] [phone] [facility] [place] HTN (chief complaint)HLP (chief complaint)clot1 (chief complaint)tobac co1 (chief complaint) Essential (primary) hypertensionPe ripheral arterial embolism NOSHyperlipide miaTobacco use 8 [address]os [address], [address], [place], [place], [address] , [place]. tel:[phone] OFFICE/OUTPA TIENT VISIT, EST [facility] [place], [address], [place], [place], [id number], [place] tel:[phone] [facility] [place] HTN (chief complaint)liver disease (chief complaint)lFt1 (chief complaint)anemi a1 (chief complaint) Essential (primary) hypertensionLi nito diseaseAnemiaP eripheral arterial embolism NOS [address]os [address], [place], [place], [address] , . tel:[phone] Referring Provider: Ayanna Baker [address], [place], [place], [id number]. tel:[phone] OFFICE/OUTPA TIENT VISIT, [facility], [address], [place], [place], [address], [place] tel:[phone] [facility] [place] cardiomyopathy (chief complaint)anemi a1 (chief complaint)LFT (chief complaint)femoa l artery1 (chief complaint) Essential (primary) hypertensionPe ripheral arterial embolism NOSAnemiaLiver disease 7 [address]. [address], [address], [place], [place], [address] , [place]. tel:[phone] Referring Provider: [address], [place], [place], [id number]. tel:[phone] OFFICE/OUTPA TIENT VISIT, [facility], [address], [place], [place], [id number], [place] tel:[phone] [facility] [place] arterial clot1 (chief complaint)HLP (chief complaint) Peripheral arterial embolism NOSEssential (primary) hypertensionHy perlipidemia 7 [address]ug[address]. [address], [place], [place], [id number] , [place]. [phone] Referring Provider: Ayanna Baker [address], [place], [place], [address]. tel:[phone] PREV VISIT, NEW, AGE 18-39 [facility] [place], [address], [place], [place], [id number], [place] tel:[phone] [facility] [place] Physical (chief complaint) Encounter for general adult medical exam w abnormal findingsEssent ial (primary) hypertensionPe ripheral vascular disease, unspecifiedHyp erlipidemia 7 [address]. [address], [place], [place], [address] , [place]. [phone] Referring Provider: Ayanna Baker [facility], [place], [place], [id number]. tel:[phone] Family History Family Member Type Diagnosis Age At Onset Sister Problem (finding) Alive and well Mother Problem (finding) Alive and well Father Problem (finding) Alive and well Payers Payer name Insurance type Covered constitution party ID Authoriza tion(s) No Information Social History [...] he never followed up with cardiology at [facility] due to [employer] insurance. Pt denies any chest pain, sob. CHF tobacco1 Pt still smoking cigars and he [...] denies any sob. he denies any claudication HLP Pt has HLP. Pt t akes lipitor. Pt denies any myalgia. pt is on low fat and low carb diet HTN Pt has HTN. Pt t akes spirnolactone, metoprolol, lisinopril, isosorbide and hydralazine. Pt only taking hydralazine bID instead of TID. Pt denies any chest pain or headache anemia1 Pt has mild anem ia. Pt [...] he is compliant with all his meds. femoal artery1 Pt has left femo ral thrombus. Pt is on xarelto. Pt is seeing vascular surgery and he supposes to see hematology at [facility] as outpatient LFT Pt has mildly tomer rderline LFt. Pt denies any abd pain. Pt has midly high glucose. Pt denies any polyuria, polydipisa anemia1 Pt is mildly ane cameron. Pt denies any blood loss or any dizziness or chest pain. Pt notices some bright red blood per rectum per rectum recently. cardiomyopathy Pt has mild card iomyopathy. Pt has HTN. Pt is on hydralazine isosorbide, lisinopril and metoprolol. Pt denies any chest pain or sob. Pt denies any edema Pt sees cadiology HLP Pt has HLP. Pt t akes lipitor and doing ok. Pt denies any myalgia arterial clot1 Pt has left femo rla artery clot without known etiology. Pt was admitted to [facility]. pt is seeing vascular surgeon, hematology and [...] has elevatd troponin. Pt was transferred to [facility]. Pt denies any chest pain. Pt did not do any surgery Pt was admitted to [facility] for one week. . Pt currently on [...] Education Related to Dietary Surveillance and Counseling Increase physical activity Relat ed to Dietary surveillance and counseling Prescribed Diet Educ ation/Lifestyle Education Regarding Diet Related to Dietary Surveillance and Counseling Prescribed Activity and Exercise Education Related to Dietary Surveillance and Counseling Weight management Related to tary surveillance and counseling Quit smoking Related to [...]
--- OUTSIDE RECORDS SUMMARY | 2025-04-11 10:42 | XMS_ITS | Continuity of Care Document ---
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 [address], [place], [place], [address] , [place]. tel:[phone] OFFICE/OUTPA TIENT VISIT, EST [facility], [address], [place], [place], [address], [place] [phone] [facility] CHF (chief complaint)CHF1 (chief complaint)HTN (chief complaint)femor al artery clot (chief complaint)LFT (chief complaint) Hyperlipidemia Peripheral arterial embolism NOSAnemiaCardi omyopathyLiver disease 8 Refugio Oliveros [address], [place], [place], [address] , [place]. tel:[phone] Referring Provider: Ghulam Huff [address], [place], [place], [address]. tel:[phone] OFFICE/OUTPA TIENT VISIT, [facility], [address], [place], [place], [address], [place] [phone] [facility] HTN (chief complaint)HLP (chief complaint)clot1 (chief complaint)tobac co1 (chief complaint) Essential (primary) hypertensionPe ripheral arterial embolism NOSHyperlipide miaTobacco use 8 Refugio Oliveros [address], [address], [place], [place], [address] , [place]. tel:[phone] OFFICE/OUTPA TIENT VISIT, EST [facility], [address], [place], [place], [address], [place] tel:[phone] [facility] HTN (chief complaint)liver disease (chief complaint)lFt1 (chief complaint)anemi a1 (chief complaint) Essential (primary) hypertensionLi nito diseaseAnemiaP eripheral arterial embolism NOS 7 Refugio Oliveros [address], [place], [place], [address] , . tel:[phone] Referring Provider: Ayanna Baker [address], [place], [place], [address]. tel:[phone] OFFICE/OUTPA TIENT VISIT, [facility], [address], [place], [place], [address], [place] tel:[phone] [facility] cardiomyopathy (chief complaint)anemi a1 (chief complaint)LFT (chief complaint)femoa l artery1 (chief complaint) Essential (primary) hypertensionPe ripheral arterial embolism NOSAnemiaLiver disease 7 Refugio Parmar. [address], [place], [place], [address] , [place]. tel:[phone] Referring Provider: [address], [place], [place], [address]. tel:[phone] OFFICE/OUTPA TIENT VISIT, [facility], [address], [place], [place], [address], [place] tel:[phone] [facility] arterial clot1 (chief complaint)HLP (chief complaint) Peripheral arterial embolism NOSEssential (primary) hypertensionHy perlipidemia 7 Refugio Parmar. [address], [place], [place], [address] , [place]. [phone] Referring Provider: Ayanna Baker [address], [place], [place], [address]. tel:[phone] PREV VISIT, NEW, AGE 18-39 [facility], [address], [place], [place], [address], [place] tel:[phone] [facility] Physical (chief complaint) Encounter for general adult medical exam w abnormal findingsEssent ial (primary) hypertensionPe ripheral vascular disease, unspecifiedHyp erlipidemia 7 Refugio Parmar. [address], [place], [place], [address] , [place]. [phone] Referring Provider: Ayanna Baker [facility] [address], [place], [place], [address]. tel:[phone] Family History Family Member Type Diagnosis Age At Onset Sister Problem (finding) Alive and well Mother Problem (finding) Alive and well Father Problem (finding) Alive and well Payers Payer name Insurance type Covered republican ID Authoriza tion(s) No Information Social History [...] he never followed up with cardiology at [facility] due to [employer] insurance. Pt denies any chest pain, sob. [...] he supposes to see hematology at [facility] as outpatient arterial clot1 Pt has left femo rla artery clot without known etiology. Pt was admitted to [facility]. pt is seeing vascular surgeon, [...] has elevatd troponin. Pt was transferred to [facility]. Pt denies any chest pain. Pt did not do any surgery Pt was admitted to [facility] for one week. . Pt [...]
[2025-04-11] MEDS: EMPAGLIFLOZIN 10 MG TABLET PO (13:45)
[2025-04-11] MEDS: cefTRIAXone 2 GM/NS 100 ML 2 GM/100 ML BAG IVPB (13:45)
[2025-04-11] MEDS: ATORVASTATIN 40 MG TABLET 80 MG PO (20:01)
[2025-04-11] MEDS: SACUBITRIL/VALSARTAN 97-103 MG TABLET 1 TAB PO (20:04)
[2025-04-12] VITALS (16 sets, daily range): BP systolic 135–175; BP diastolic 75–106; PULSE 42–70; RESP 13–19; TEMP 35.7–36.8; O2SAT 94–100
[2025-04-12] MEDS: LACTATED RINGERS 1,000 ML 125 ML IV CONT (00:48)
[2025-04-12] MEDS: ALPRAZolam (*CRX) 0.25 MG TABLET PO (00:51)
[2025-04-12] MEDS: cefTRIAXone 2 GM/NS 100 ML 2 GM/100 ML BAG IVPB (07:55)
[2025-04-12] MEDS: amLODIPine BESYLATE 5 MG TABLET PO (07:55)
[2025-04-12] MEDS: METOPROLOL SUCCINATE EXT REL 100 MG TABCR PO (07:56)
--- NOTE | 2025-04-12 08:10 | P.PNIM_ITS ---
Progress Note: A&P Assessment and Plan (1) Osteomyelitis of fifth toe of right foot: Code(s): M86.9 - Osteomyelitis, unspecified Status: Acute Assessment and Plan: - right 5th toe - xray noted possible osteomyelitis - crp normal - Continue IV antibiotics - currently on Vanco, will add Rocephin for dual coverage. - will trend labs/blood cultures/wound culture - Post op 1.5 hour Right 5th toe amputation - Gen surgery to continue following, appreciate any further recommendations (2) Peripheral vascular disease: Code(s): I73.9 - Peripheral vascular disease, unspecified Status: Acute Assessment and Plan: - continue home medications (3) Coronary artery disease: Code(s): I25.10 - Atherosclerotic heart disease of [place] coronary artery without angina pectoris Status: Acute Assessment and Plan: - continue home medications (4) Hypertension: Code(s): I10 - Essential (primary) hypertension Status: Acute Assessment and Plan: continue home medications trend vital signs. (5) Heart failure with preserved ejection fraction: Code(s): I50.30 - Unspecified diastolic (congestive) heart failure Status: Acute Assessment and Plan: continue home medications Plan code status - full code DVT - SCDS - Plan - continue with IV antibiotic coverage, surgery onboard, consider amputation Subjective Date/time seen: 04/12/25 08:10 Interval history: 39-year-old male with history of CAD s/p angioplasty and stent to the RCA in , HFpEF, PVD in the LE for which he cannot provide specifics as this is a new diagnosis for him, HTN, hyperlipidemia, and prediabetes with c/o right 5th toe wound. 04/12/2025 Patient sitting comfortably in bed at time of exam. Post op 1.5 hours from Right 5th toe amputation. Pt tolerated procedure well. Continue antibiotics. Wound care management by Gen Surg. Surgery to continue following. Will likely benefit from PT/OT. Review of Systems Review of Systems: 12 systems were reviewed and are negativ e except for as per HPI. Exam Narrative: General: Non-toxic appearing male sitting up in bed. Weight: 100 kg. BMI: 29.1. HEENT: Normocephalic, atraumatic. PERRL, EOMI. Sclera anicteric. Oral mucosa moist. Oropharynx clear. Neck: Supple. Respiratory: Lungs are clear to auscultation bilaterally. Cardiovascular: Bradycardic with S1-S2. Gastrointestinal: Abdomen is soft, nontender, and nondistended with positive bowel sounds. Skin: Warm and dry. Right 5th toe is ulcerated with some erythema and warmth. T he distal aspect is soft and moist with some malodorous drainage and evidence of necrosis. Extremities: No cyanosis or clubbing. Mild edema of the right foot. Decreased pedal pulses. Right pedal pulse sounds turbulent with the Doppler. Neurological: Alert. Cranial nerves 2-12 are grossly intact. No gross focal deficits to casual conversation. Psychiatric: Pleasant and cooperative with normal mood and affect. Judgment and insight intact. Objective Data Vital Signs Vital Signs: Vital Signs - 24 hr 04/11/25 09:25 04/11/25 10:09 04/11/25 13:48 Temperature 97.8 F Pulse Rate 62 54 L Respiratory Rate 16 Blood Pressure 148/76 H Pulse Oximetry 97 96 Oxygen Delivery Room Air 04/11/25 20:00 04/11/25 20:00 04/11/25 21:17 Temperature 98.6 F Pulse Rate 54 L 52 L Respiratory Rate 16 18 Blood Pressure 163/97 H Pulse Oximetry 96 96 98 Oxygen Delivery Room Air Room Air 04/12/25 05:27 04/12/25 07:56 04/12/25 08:00 Temperature 98.2 F Pulse Rate 68 70 Respiratory Rate 16 Blood Pressure 175/79 H Pulse Oximetry 100 100 Oxygen Delivery Room Air Intake/Output Intake/Output: Intake & Output 04/09/25 04/10/25 04/11/25 04/12/25 23:59 23:59 23:59 23:59 Intake Total 250 3470 Output Total 1800 2200 Balance 250 1670 -2200 Meds/Results Medications: Active Medications Generic Name Dose Route Start Last Admin Trade Name Freq PRN Reason Stop Dose Admin Acetaminophen 650 mg 04/10/25 21:36 Acetaminophen 325 Mg Tablet PO Q4H PRN Mild Pain (1-3) or Fever Amlodipine Besylate 5 mg 04/12/25 09:00 04/12/25 07:55 Amlodipine Besylate 5 Mg Tablet PO 5 mg DAILY LAKEISHA Administration Atorvastatin Calcium 80 mg 04/11/25 21:00 04/11/25 20:01 Atorvastatin 40 Mg Tablet PO 80 mg HS LAKEISHA Administration Empagliflozin 10 mg 04/11/25 09:00 04/11/25 13:45 Empagliflozin 10 Mg Tablet PO 10 mg DAILY LAKEISHA Administration Hydrochlorothiazide 12.5 mg 04/12/25 09:00 Hydrochlorothiazide 12.5 Mg Capsule PO DAILY [facility] Lactated Ringer's 1,000 mls @ 125 mls/hr 04/10/25 21:40 04/12/25 00:48 Lr - Lactated Ringers Iv IV CONT 125 mls/hr .Q8H LAKEISHA Administration Vancomycin HCl 1,500 mg in 500 mls @ 250 mls/hr 04/11/25 10:00 04/11/25 23:20 Vancomycin 1,500 Mg/Ns 500 Ml IVPB Infused Q12H LAKEISHA Infusion Ceftriaxone Sodium 2 gm in 100 mls @ 200 mls/hr 04/11/25 12:00 04/12/25 07:55 Rocephin 2 Gm/Ns 100 Ml IVPB 100 mls/hr DAILY LAKEISHA Administration Metoprolol Succinate 100 mg 04/11/25 09:00 04/12/25 07:56 Metoprolol Succinate Ext Rel 100 Mg Tabcr PO 100 mg DAILY LAKEISHA Administration Ondansetron HCl 4 mg 04/10/25 21:36 Ondansetron Inj 4 Mg/2 Ml Vial IV PUSH Q4H PRN Nausea Sacubitril/Valsartan 1 tab 04/11/25 09:00 04/11/25 20:04 Sacubitril/Valsartan 97-103 Mg Tablet PO 1 tab Q12HR LAKEISHA Administration Spironolactone 25 mg 04/12/25 09:00 Spironolactone 25 Mg Tablet PO DAILY [facility] Radiology Results: ITS Impressions Foot X-Ray 04/10/25 18:49 IMPRESSION: Soft tissue defect overlying the right fifth toe with cortical lucency suggesting osteomyelitis for which dedicated views of the right fifth toe are suggested. Toe X-Ray 04/10/25 23:44 IMPRESSION: Likely osteomyelitis involving the distal phalanx of the fifth toe, as detailed above. Quality VTE Prophylaxis VTE prophylaxis: mechanical ordered
[2025-04-12 09:16] LABS: Basophils Percent Auto 0.3 % (0.2-1.2); Eosinophils Absolute Auto 0.1 K/mm3 (0-0.3); Eosinophils Percent Auto 1.4 % (0-4.4); Hematocrit 47.7 % (42.0-52.0); Hemoglobin 15.6 g/dL (14.0-18.0); Immature Granulocyte Absolute 0.01 K/mm3 (0.00-0.031); Immature Granulocyte Percent A 0.2 % (0-0.5); Lymphocytes Percent Auto 27.2 % (18.3-44.2); Mean Corpuscular HGB Conc 32.7 g/dl (32-36); Mean Corpuscular Hemoglobin 31.1 pg (26-34); Mean Platelet Volume 8.3 fl (7.4-10.4); Monocytes Absolute Auto 0.7 K/mm3 (0.1-0.6); Monocytes Percent Auto 9.8 % (2.6-8.5); Neutrophils Percent Auto 61.1 % (45.5-73.1); Platelet Count Result 211 k/mm3 (150-375); Red Blood Count 5.02 M/mm3 (4.6-6.20); White Blood Count 6.6 K/mm3 (4.5-10.0)
[2025-04-12 09:34] LABS: Vancomycin Trough 7.4 ug/mL (10.0-20.0)
[2025-04-12 09:45] LABS: Alanine Aminotransferase 25 U/L (6-50); Albumin Level 3.8 g/dL (3.5-5.1); Alkaline Phosphatase 70 U/L (38-126); Anion Gap 8 mmol/L (4-12); Aspartate Amino Transferase 27 U/L (17-59); Bilirubin,Total 0.5 mg/dL (0.2-1.3); Blood Urea Nitrogen 9 mg/dL (9-20); Calcium 9.1 mg/dL (8.4-10.2); Carbon Dioxide 26 mmol/L (22-30); Chloride 105 mmol/L (98-107); Estimated CRCL calculation 150 ml/min; Estimated Glomerular Filt Rate > 60; Glucose 102 mg/dL (65-110); Sodium 139 mmol/L (137-145); Total Protein 6.7 g/dL (6.3-8.2)
[2025-04-12] MEDS: VANCOMYCIN 2,000 MG/NS 500 ML 2,000 MG/500 ML BAG 250 MG IVPB (10:12)
--- NOTE | 2025-04-12 10:45 | WPDANESEPPF ---
Anes - Initial Pre Proc Eval Procedure: Operation Date: 04/12/25 11:00 Proposed Procedures p Right Fifth Toe Amputation - Dion Smith DO Date/Time: 04/12/25 10:45 Surgeon: Tamy Chan MD Pre Op Diagnosis: Osteomyelitis Patient Data Age: 39 Gender: M Height: 1.85 m Weight: 98.7 kg Last Vital Signs Temp 36.4 C 04/12/25 09:45 Pulse 51 L 04/12/25 09:45 Resp 16 04/12/25 09:45 BP 158/85 H 04/12/25 09:45 Pulse Ox 100 04/12/25 09:45 O2 Del Method Room Air 04/12/25 09:45 Allergies Allergy/AdvReac Type Severity Reaction Status Date / Time watermelon Allergy Vomiting Verified 04/12/25 09:55 Home Medications ?Medication ?Instructions ?Recorded ?Confirmed ?Type aspirin 81 mg chewable tablet 81 mg PO DAILY@0800 100 days #100 10/13/19 04/11/25 Rx (Children's Aspirin) tabs amlodipine 5 mg tablet (Norvasc) 5 mg PO DAILY 04/11/25 04/11/25 History atorvastatin 80 mg tablet 80 mg PO HS 04/11/25 04/11/25 History empagliflozin 10 mg tablet 10 mg PO DAILY 04/11/25 04/11/25 History (Jardiance) hydrochlorothiazide 12.5 mg tablet 12.5 mg PO DAILY 04/11/25 04/11/25 History metoprolol succinate 100 mg 100 mg PO DAILY HR 04/11/25 04/11/25 History tablet,extended release 24 hr sacubitril 97 mg-valsartan 103 mg 1 tablet PO BID 04/11/25 04/11/25 History tablet (Entresto) spironolactone 25 mg tablet 25 mg PO DAILY 04/11/25 04/11/25 History Laboratory Tests 04/12/25 09:10 WBC 6.6 K/mm3 (4.5-10.0) RBC 5.02 M/mm3 (4.6-6.20) Hgb 15.6 g/dL (14.0-18.0) Hct 47.7 % (42.0-52.0) MCV 95.0 fl (80-100) MCH 31.1 pg (26-34) MCHC 32.7 g/dl (32-36) RDW 14.0 % (11.5-14.5) Plt Count 211 k/mm3 (150-375) MPV 8.3 fl (7.4-10.4) Immature Gran % (Auto) 0.2 % (0-0.5) Neut % (Auto) 61.1 % (45.5-73.1) Lymph % (Auto) 27.2 % (18.3-44.2) Weber % (Auto) 9.8 H % (2.6-8.5) Eos % (Auto) 1.4 % (0-4.4) Baso % (Auto) 0.3 % (0.2-1.2) Lymph # (Auto) 1.80 K/mm3 (0.9-3.2) Weber # (Auto) 0.7 H K/mm3 (0.1-0.6) Eos # (Auto) 0.1 K/mm3 (0-0.3) Baso # (Auto) 0.0 K/mm3 (0.0-0.1) Abs Immat Gran (auto) 0.01 K/mm3 (0.00-0.031) Absolute Neuts (auto) 4.0 K/mm3 (1.3-6.7) Absolute Nucleated RBC 0.000 K/mm3 (0.0-0.012) Nucleated RBC % 0.0 % (0.0-0.2) Sodium 139 mmol/L (137-145) Potassium 4.0 mmol/L (3.4-5.0) Chloride 105 mmol/L (98-107) Carbon Dioxide 26 mmol/L (22-30) Anion Gap 8 mmol/L (4-12) BUN 9 mg/dL (9-20) Creatinine 0.63 L mg/dL (0.7-1.3) Estim Creat Clear Calc 150 ml/min Estimated GFR > 60 (59 - ) Glucose 102 mg/dL (65-110) Calcium 9.1 mg/dL (8.4-10.2) Total Bilirubin 0.5 mg/dL (0.2-1.3) AST 27 U/L (17-59) ALT 25 U/L (6-50) Alkaline Phosphatase 70 U/L (38-126) Total Protein 6.7 g/dL (6.3-8.2) Albumin 3.8 g/dL (3.5-5.1) Vancomycin Trough 7.4 L ug/mL (10.0-20.0) Patient hx anesthesia problems: none Family hx anesthesia problems: none Results Review: All pre-operative results and documents have been reviewed as part of the pre-operative evaluation. [facility] Past Medical History Medical History Peripheral vascular disease New diagnosis as of 04/14/2025, patient does not know specifics as of yet. Arterial Dopplers done at [facility]. Heart failure with preserved ejection fraction ST elevation (STEMI) myocardial infarction (09/2019) Hypertension Coronary artery disease Surgical History Surgical History History of coronary angioplasty with insertion of stent Xience stent to the proximal RCA Family History Family History Father Hypertension Hyperlipemia Mother Hypertension Hyperlipemia Social History Social History Social History: Surrogate medical decision maker: [place], significant other. Code status: Full code. Years smoked: 15 Smoking status: Current every day smoker Tobacco type: cigars Second hand tobacco smoke exposure: No Additional smoking assessment comments: smokes 3 to 4 cigars a day Alcohol intake: current Drinks per week: 8 Substance use: current Substance use type: marijuana Last use: 04/09/25 Do You Feel Safe in your Home?: Yes Lack of Transportation: No Lack of Food: Never True Current Housing: I Have Housing Concerned About Future Housing: No Difficulty Paying Gas/Electric Bills: No Difficulty Paying for Meds: No Currently Unemployed: No Education: High School Diploma/GED Difficulty w/ Childcare or Family Care: No Spiritual care concerns: No Anes - Eval Final PreProcedure Day of Procedure 04/12/25 10:45 Patient weight: overweight Heart: regular rate and rhythm Lungs: clear to auscultation Airway: Mallampati scale class II Neurological: alert and oriented Last oral intake: >/= 8 hours ASA classification: III Emergent: no Anesthetic plan: proceed Anesthesia type and monitoring: general LMA and standard monitoring Results Review: All pre-operative results and documents have been reviewed as part of the pre-operative evaluation. Informed Consent: The patient's anesthetic plan and its attendant risks and benefits were discussed with the patient/family/POA. Questions were solicited and answers provided to the satisfaction of the patient/family/POA.
--- NOTE | 2025-04-12 10:53 | WPDHPUPDATE1 ---
History and Physical Update Update Date/Time: 04/12/25 10:53 History and Physical has been reviewed, including an updated exam of the patient. There are NO changes in the patient's condition. Risks, benefits, and alternatives have been discussed and questions answered. Patient agrees to proceed with procedure.
--- NOTE | 2025-04-12 11:24 | S_PTH ---
PATIENT: Jamel Joya LOC: [id number] U#:[id number] AGE/SX: 39/M ROOM: 331 RE04/12/[address]: Phillip Villatoro PA-C : 1985 BED: 01 DIS: 04/14/2025 SPEC #: [id number] RECD: 04/12/25 12:32 STATUS: NANCY REAbdullahi #: [id number] JEAN: 04/12/25 11:[address]: Dion Smith DEPT: [facility] Surgical RECD BY: Jeremi Figueroa ENTERED: 04/12/25 12:33 SP TYPE: Surgical OTHR DR: LORENA Rich MD UNKNOWN,DOCTOR Tissues: A - Toe Procedures: Hematoxylin and Eosin Stain Gross and Microscopic Level 4 Decalcification
[2025-04-12] MEDS: BUPIVACAINE/EPINEPHRINE 0.5% 30 ML VIAL 20 ML INFILTRATE (11:29)
[2025-04-12] MEDS: LACTATED RINGERS 1,000 ML 30 ML IV CONT (11:46)
--- NOTE | 2025-04-12 12:03 | P.OP_ITS ---
Procedure Note - Detailed Date of Procedure 04/12/25 Pre-op Diagnosis Osteomyelitis right 5th toe Post-op Diagnosis Same Procedure Performed Right 5th toe amputation Surgeon Dion Smith DO Bicycle Racer Germaine Choi PA-C Anesthesia General and Local (0.5% bupivacaine with epinephrine) Indications Right 5th toe osteomyelitis with dry gangrene Findings Right 5th toe osteomyelitis involving the distal phalanx. Amputation was pe rformed at the mid shaft of the middle phalanx to allow for adequate tissue coverage. Necrotic skin involved the distal half of the toe. Proximal tissue appeared healthy and viable. Germaine Choi PA-C assisted with the entire procedure. Description of Procedure Procedure as well as risks, benefits, and alternatives were discussed with christiana shipley. Consent was obtained and placed in chart prior to procedure. Patient was brought back to surgical suite. He was placed supine on operating table. Time- out was done to confirm patient and procedure. He was then intubated by the anesthesia department. His right foot was prepped and draped in sterile fashion using chlorhexidine prep. 0.5% bupivacaine with epinephrine was infiltrated locally around the base the right 5th toe. An elliptical incision was then made just proximal to the necrotic skin using a 15 blade scalpel. Sharp dissection was carried through the subcutaneous tissue using 15 blade scalpel. The distal interphalangeal joint was identified and the toe was initially amputated through this joint space using sharp dissection with the 15 blade scalpel. Electrocautery was then used for hemostasis. There did not appear to be enough healthy skin and soft tissue to cover over the bone at the current amputation, therefore I freed up around the middle phalanx to about the mid shaft and then transected the middle phalanx at the mid shaft using a bone cutter. Electrocautery then again was used for hemostasis. Tissue appeared adequately cover the bone at this point. Wound was then irrigated with sterile saline. The skin edges were then reapproximated using 3-0 nylon vertical mattress interrupted sutures. Xeroform gauze, fluff gauze, and Kerlix wrap were then ap plied. The patient was then awakened from anesthesia, extubated, transferred to recovery. Estimated Blood Loss 5 Urine Output 1,000 Pathology Yes (Right 5th toe) Complications No immediate complications Condition Stable Disposition Floor [facility] Billing Surgery - Charge Forward: Surgery Billing
[2025-04-12] MEDS: SACUBITRIL/VALSARTAN 97-103 MG TABLET 1 TAB PO ×2 (13:46→21:02)
[2025-04-12] MEDS: EMPAGLIFLOZIN 10 MG TABLET PO (13:46)
[2025-04-12] MEDS: SPIRONOLACTONE 25 MG TABLET PO (13:46)
[2025-04-12] MEDS: hydroCHLOROthiazide 12.5 MG CAPSULE PO (13:46)
[2025-04-12] MEDS: VANCOMYCIN 2,000 MG/NS 500 ML 2,000 MG/500 ML BAG 200 MG IVPB (18:06)
[2025-04-12] MEDS: ATORVASTATIN 40 MG TABLET 80 MG PO (21:02)
[2025-04-12] MEDS: traZODone HCL 50 MG TABLET 100 MG PO (21:57)
[2025-04-13] MEDS: VANCOMYCIN 2,000 MG/NS 500 ML 2,000 MG/500 ML BAG 200 MG IVPB ×2 (01:42→13:09)
[2025-04-13 04:41] VITALS: BP 158/87; PULSE 50; RESP 17; TEMP 37; O2SAT 98
[2025-04-13 07:41] VITALS: BP 178/94; PULSE 62; RESP 16; O2SAT 93
--- NOTE | 2025-04-13 07:46 | P.PNIM_ITS ---
Progress Note: A&P Assessment and Plan (1) Osteomyelitis of fifth toe of right foot: Code(s): M86.9 - Osteomyelitis, unspecified Status: Acute Assessment and Plan: - right 5th toe - xray noted possible osteomyelitis - crp normal - Continue IV antibiotics - currently on Vanco, will add Rocephin for dual coverage. - will trend labs/blood cultures/wound culture - POD 1 Right 5th toe amputation - Gen surgery to continue following, appreciate any further recommendations - Continue wound care/dressing changes (2) Peripheral vascular disease: Code(s): I73.9 - Peripheral vascular disease, unspecified Status: Acute Assessment and Plan: - continue home medications (3) Coronary artery disease: Code(s): I25.10 - Atherosclerotic heart disease of [place] coronary artery without angina pectoris Status: Acute Assessment and Plan: - continue home medications (4) Hypertension: Code(s): I10 - Essential (primary) hypertension Status: Acute Assessment and Plan: continue home medications trend vital signs. (5) Heart failure with preserved ejection fraction: Code(s): I50.30 - Unspecified diastolic (congestive) heart failure Status: Acute Assessment and Plan: continue home medications Plan code status - full code DVT - SCDS - Plan - continue with IV antibiotic coverage, surgery onboard, consider amputation Subjective Date/time seen: 04/13/25 07:46 Interval history: 39-year-old male with history of CAD s/p angioplasty and stent to the RCA in , HFpEF, PVD in the LE for which he cannot provide specifics as this is a new diagnosis for him, HTN, hyperlipidemia, and prediabetes with c/o right 5th toe wound. 04/13/2025 Patient sitting comfortably in bed at time of exam. POD 1 Right 5th toe amputation. Gen surg to continue following for post op wound care. Continue IV antibiotics. Pt did have a 10lb overnight weight gain, will give 1 time dose Lasix and continue to monitor fluid status. Does not appear to be fluid overloaded on exam, pt denies any CP, SOB, n/v, or abdominal pain. Otherwise no complaints, likely d/c tomorrow or the following day. Review of Systems Review of Systems: 12 systems were reviewed and are negativ e except for as per HPI. Exam Narrative: General: Non-toxic appearing male sitting up in bed. Weight: 100 kg. BMI: 29.1. HEENT: Normocephalic, atraumatic. PERRL, EOMI. Sclera anicteric. Oral mucosa moist. Oropharynx clear. Neck: Supple. Respiratory: Lungs are clear to auscultation bilaterally. Cardiovascular: Bradycardic with S1-S2. Gastrointestinal: Abdomen is soft, nontender, and nondistended with positive bowel sounds. Skin: Warm and dry. Right 5th toe is ulcerated with some erythema and warmth. The distal aspect is soft and moist with some malodorous drainage and evidence of necrosis. Extremities: No cyanosis or clubbing. Mild edema of the right foot. Decreased pedal pulses. Right pedal pulse sounds turbulent with the Doppler. Neurological: Alert. Cranial nerves 2-12 are grossly intact. No gross focal deficits to casual conversation. Psychiatric: Pleasant and cooperative with normal mood and affect. Judgment and insight intact. Objective Data Vital Signs Vital Signs: Vital Signs - 24 hr 04/12/25 07:56 04/12/25 08:00 04/12/25 09:45 Temperature 97.6 F Pulse Rate 70 51 L Respiratory Rate 16 Blood Pressure 158/85 H Pulse Oximetry 100 100 Oxygen Delivery Room Air Room Air Oxygen Flow Rate 04/12/25 11:46 04/12/25 12:00 04/12/25 12:10 Temperature 97.0 F L Pulse Rate 51 L 42 L 50 L Respiratory Rate 18 14 17 Blood Pressure 150/92 H 136/75 135/77 Pulse Oximetry 100 100 100 Oxygen Delivery Simple Face Mask Simple Face Mask Simple Face Mask Oxygen Flow Rate 6 6 6 04/12/25 12:25 04/12/25 12:25 04/12/25 12:40 Temperature Pulse Rate 43 L 59 L 48 L Respiratory Rate 14 14 19 Blood Pressure 154/84 H 156/97 H 161/91 H Pulse Oximetry 100 100 97 Oxygen Delivery Simple Face Mask Room Air Room Air Oxygen Flow Rate 6 04/12/25 12:55 04/12/25 13:10 04/12/25 13:30 Temperature 96.7 F L Pulse Rate 45 L 47 L 50 L Respiratory Rate 14 13 18 Blood Pressure 165/88 H 168/91 H 168/106 H Pulse Oximetry 98 98 100 Oxygen Delivery Room Air Room Air Oxygen Flow Rate 04/12/25 13:45 04/12/25 14:15 04/12/25 15:15 Temperature 96.3 F L 96.7 F L 96.9 F L Pulse Rate 47 L 66 54 L Respiratory Rate 18 16 18 Blood Pressure 159/95 H 163/86 H 163/89 H Pulse Oximetry 94 94 98 Oxygen Delivery Oxygen Flow Rate 04/12/25 20:00 04/12/25 23:29 04/13/25 04:41 Temperature 98.6 F Pulse Rate 50 L Respiratory Rate 17 Blood Pressure 158/87 H Pulse Oximetry 98 98 Oxygen Delivery Room Air Room Air Oxygen Flow Rate 04/13/25 07:41 Temperature Pulse Rate 62 Respiratory Rate 16 Blood Pressure 178/94 H Pulse Oximetry 93 Oxygen Delivery Oxygen Flow Rate Intake/Output Intake/Output: Intake & Output 04/10/25 04/11/25 04/12/25 04/13/25 23:59 23:59 23:59 23:59 Intake Total 250 3470 1290 550 Output Total 1800 4300 2375 Balance 250 [id number] -[phone] -[id number] Meds/Results Medications: Active Medications Generic Name Dose Route Start Last Admin Trade Name Freq PRN Reason Stop Dose Admin Acetaminophen 650 mg 04/10/25 21:36 Acetaminophen 325 Mg Tablet PO Q4H PRN Mild Pain (1-3) or Fever Hydrocodone Bitart/Acetaminophen 1 tab 04/12/25 13:13 Hydrocodone/Acetaminophen (*Crx) 5-325 Mg Tablet PO Q4H PRN Pain Rated 4-6 Hydrocodone Bitart/Acetaminophen 1 tab 04/12/25 13:13 Hydrocodone/Acetaminophen (*Crx) 10-325 Mg Tablet PO Q4H PRN Pain Rated 7-10 Amlodipine Besylate 5 mg 04/12/25 09:00 04/12/25 07:55 Amlodipine Besylate 5 Mg Tablet PO 5 mg DAILY [facility] Administration Atorvastatin Calcium 80 mg 04/11/25 21:00 04/12/25 21:02 Atorvastatin 40 Mg Tablet PO 80 mg HS [facility] Administration Diphenhydramine HCl 25 mg 04/12/25 13:13 Diphenhydramine Hcl Inj 50 Mg/Ml Vial IV PUSH Q6H PRN Itching Empagliflozin 10 mg 04/11/25 09:00 04/12/25 13:46 Empagliflozin 10 Mg Tablet PO 10 mg DAILY [facility] Administration Enoxaparin Sodium 40 mg 04/13/25 09:00 Enoxaparin 40 Mg/0.4 Ml Syringe SUB-Q DAILY [facility] Hydrochlorothiazide 12.5 mg 04/12/25 09:00 04/12/25 13:46 Hydrochlorothiazide 12.5 Mg Capsule PO 12.5 mg DAILY [facility] Administration Ceftriaxone Sodium 2 gm in 100 mls @ 200 mls/hr 04/11/25 12:00 04/12/25 07:55 Rocephin 2 Gm/Ns 100 Ml IVPB 100 mls/hr DAILY [facility] Administration Vancomycin HCl 2,000 mg in 500 mls @ 250 mls/hr 04/12/25 10:00 04/13/25 01:42 Vancomycin 2,000 Mg/Ns 500 Ml IVPB 200 mls/hr Q8H [facility] Administration Ibuprofen 800 mg in 200 mls @ 400 mls/hr 04/12/25 13:13 Caldolor 800 Mg/200 Ml IVPB Q6H PRN Breakthrough Pain Rated 1-3 or NPO Metoprolol Succinate 100 mg 04/11/25 09:00 04/12/25 07:56 Metoprolol Succinate Ext Rel 100 Mg Tabcr PO 100 mg DAILY [facility] Administration Morphine Sulfate 2 mg 04/12/25 13:13 Morphine Sulfate (*Crx) 2 Mg/Ml Inj IV PUSH Q2H PRN Breakthrough Pain Rated 4-6 or NPO Morphine Sulfate 4 mg 04/12/25 13:13 Morphine Sulfate (*Crx) 4 Mg/Ml Inj IV PUSH Q2H PRN Breakthrough Pain Rated 7-10 or NPO Naloxone HCl 0.1 mg 04/12/25 13:13 Naloxone Hcl 0.4 Mg/Ml Vial IV PUSH Q2M PRN Opiate Reversal Ondansetron HCl 4 mg 04/10/25 21:36 Ondansetron Inj 4 Mg/2 Ml Vial IV PUSH Q4H PRN Nausea Sacubitril/Valsartan 1 tab 04/11/25 09:00 04/12/25 21:02 Sacubitril/Valsartan 97-103 Mg Tablet PO 1 tab Q12HR [facility] Administration Spironolactone 25 mg 04/12/25 09:00 04/12/25 13:46 Spironolactone 25 Mg Tablet PO 25 mg DAILY [facility] Administration Trazodone HCl 100 mg 04/12/25 21:46 04/12/25 21:57 Trazodone Hcl 50 Mg Tablet PO 100 mg HS PRN Administration Insomnia Radiology Results: ITS Impressions Foot X-Ray 04/10/25 18:49 IMPRESSION: Soft tissue defect overlying the right fifth toe with cortical lucency suggesting osteomyelitis for which dedicated views of the right fifth toe are suggested. Toe X-Ray 04/10/25 23:44 IMPRESSION: Likely osteomyelitis involving the distal phalanx of the fifth toe, as detailed above. Labs Labs: Laboratory Results - last 24 hr 04/12/25 09:10 WBC 6.6 RBC 5.02 Hgb 15.6 Hct 47.7 MCV 95.0 MCH 31.1 MCHC 32.7 RDW 14.0 Plt Count 211 MPV 8.3 Immature Gran % (Auto) 0.2 Neut % (Auto) 61.1 Lymph % (Auto) 27.2 [place] % (Auto) 9.8 H Eos % (Auto) 1.4 Baso % (Auto) 0.3 Lymph # (Auto) 1.80 [place] # (Auto) 0.7 H Eos # (Auto) 0.1 Baso # (Auto) 0.0 Abs Immat Gran (auto) 0.01 Absolute Neuts (auto) 4.0 Absolute Nucleated RBC 0.000 Nucleated RBC % 0.0 Sodium 139 Potassium 4.0 Chloride 105 Carbon Dioxide 26 Anion Gap 8 BUN 9 Creatinine 0.63 L Estim Creat Clear Calc 150 Estimated GFR > 60 Glucose 102 Calcium 9.1 Total Bilirubin 0.5 AST 27 ALT 25 Alkaline Phosphatase 70 Total Protein 6.7 Albumin 3.8 Vancomycin Trough 7.4 L Quality VTE Prophylaxis VTE prophylaxis: mechanical ordered
[2025-04-13 09:09] LABS: Basophils Percent Auto 0.3 % (0.2-1.2); Eosinophils Absolute Auto 0.1 K/mm3 (0-0.3); Eosinophils Percent Auto 0.7 % (0-4.4); Hematocrit 47.8 % (42.0-52.0); Hemoglobin 15.6 g/dL (14.0-18.0); Immature Granulocyte Absolute 0.02 K/mm3 (0.00-0.031); Immature Granulocyte Percent A 0.2 % (0-0.5); Lymphocytes Absolute Auto 2.79 K/mm3 (0.9-3.2); Lymphocytes Percent Auto 27.7 % (18.3-44.2); Mean Corpuscular HGB Conc 32.6 g/dl (32-36); Mean Corpuscular Volume 94.8 fl (80-100); Mean Platelet Volume 8.4 fl (7.4-10.4); Monocytes Absolute Auto 0.6 K/mm3 (0.1-0.6); Monocytes Percent Auto 6.2 % (2.6-8.5); Neutrophils Absolute Auto 6.5 K/mm3 (1.3-6.7); Neutrophils Percent Auto 64.9 % (45.5-73.1); Platelet Count Result 220 k/mm3 (150-375); Red Blood Count 5.04 M/mm3 (4.6-6.20); Red Cell Distribution Width 13.9 % (11.5-14.5); White Blood Count 10.1 K/mm3 (4.5-10.0)
[2025-04-13 09:23] LABS: Alanine Aminotransferase 25 U/L (6-50); Albumin Level 3.8 g/dL (3.5-5.1); Alkaline Phosphatase 75 U/L (38-126); Anion Gap 6 mmol/L (4-12); Aspartate Amino Transferase 26 U/L (17-59); Bilirubin,Total 0.3 mg/dL (0.2-1.3); Blood Urea Nitrogen 16 mg/dL (9-20); Calcium 8.9 mg/dL (8.4-10.2); Carbon Dioxide 26 mmol/L (22-30); Chloride 105 mmol/L (98-107); Estimated CRCL calculation 119 ml/min; Estimated Glomerular Filt Rate > 60; Glucose 117 mg/dL (65-110); Potassium 3.7 mmol/L (3.4-5.0); Sodium 137 mmol/L (137-145); Total Protein 7.1 g/dL (6.3-8.2); Vancomycin Trough 15.4 ug/mL (10.0-20.0)
[2025-04-13 09:44] VITALS: PULSE 68
[2025-04-13] MEDS: METOPROLOL SUCCINATE EXT REL 100 MG TABCR PO (09:44)
[2025-04-13] MEDS: amLODIPine BESYLATE 5 MG TABLET PO (09:44)
[2025-04-13] MEDS: hydroCHLOROthiazide 12.5 MG CAPSULE PO (09:44)
[2025-04-13] MEDS: EMPAGLIFLOZIN 10 MG TABLET PO (09:45)
[2025-04-13] MEDS: SPIRONOLACTONE 25 MG TABLET PO (09:45)
[2025-04-13] MEDS: cefTRIAXone 2 GM/NS 100 ML 2 GM/100 ML BAG IVPB (09:45)
[2025-04-13] MEDS: SACUBITRIL/VALSARTAN 97-103 MG TABLET 1 TAB PO ×2 (09:46→20:39)
--- NOTE | 2025-04-13 11:22 | P.PNGS_ITS ---
Progress Note: A&P Assessment and Plan (1) Osteomyelitis of fifth toe of right foot: Code(s): M86.9 - Osteomyelitis, unspecified Status: Acute Assessment and Plan: * S/p right 5th toe amputation * Incision healing well. Continue daily dressing changes * Postop shoe ordered. Heel-touch weight bearing for transfers. * Continue IV antibiotics Plan I have discussed the patient's case and plan of care with Dr. Smith. Subjective Subjective Date/Time Seen: 04/13/25 11:22 Post Op day: 1 (Right 5th toe amputation) Patient reports: no new complaints Interval history: Mild throbbing pain in the area of his right 5th toe. He noticed some bloody drainage on his dressing after getting up and walking to the bathroom earlier this morning. After that, he stopped putting pressure on his foot and was trying to just do heel-touch weight bearing with ambulating. No other complaints at this time. Exam Extrem: Other: Right 5th toe amputation with suture intact and moderate amount of dried bloody drainage on dressing. Slight skin separation in the center of the incision with healthy pink bleeding tissue in this area. Swelling improved of right foot. Objective Data Vital Signs Vital Signs: Vital Signs - 24 hr 04/12/25 11:46 04/12/25 12:00 04/12/25 12:10 Temperature 97.0 F L Pulse Rate 51 L 42 L 50 L Respiratory Rate 18 14 17 Blood Pressure 150/92 H 136/75 135/77 Pulse Oximetry 100 100 100 Oxygen Delivery Simple Face Mask Simple Face Mask Simple Face Mask Oxygen Flow Rate 6 6 6 04/12/25 12:25 04/12/25 12:25 04/12/25 12:40 Temperature Pulse Rate 43 L 59 L 48 L Respiratory Rate 14 14 19 Blood Pressure 154/84 H 156/97 H 161/91 H Pulse Oximetry 100 100 97 Oxygen Delivery Simple Face Mask Room Air Room Air Oxygen Flow Rate 6 04/12/25 12:55 04/12/25 13:10 04/12/25 13:30 Temperature 96.7 F L Pulse Rate 45 L 47 L 50 L Respiratory Rate 14 13 18 Blood Pressure 165/88 H 168/91 H 168/106 H Pulse Oximetry 98 98 100 Oxygen Delivery Room Air Room Air Oxygen Flow Rate 04/12/25 13:45 04/12/25 14:15 04/12/25 15:15 Temperature 96.3 F L 96.7 F L 96.9 F L Pulse Rate 47 L 66 54 L Respiratory Rate 18 16 18 Blood Pressure 159/95 H 163/86 H 163/89 H Pulse Oximetry 94 94 98 Oxygen Delivery Oxygen Flow Rate 04/12/25 20:00 04/12/25 23:29 04/13/25 04:41 Temperature 98.6 F Pulse Rate 50 L Respiratory Rate 17 Blood Pressure 158/87 H Pulse Oximetry 98 98 Oxygen Delivery Room Air Room Air Oxygen Flow Rate 04/13/25 07:41 04/13/25 09:44 Temperature Pulse Rate 62 68 Respiratory Rate 16 Blood Pressure 178/94 H Pulse Oximetry 93 Oxygen Delivery Oxygen Flow Rate Intake/Output Intake/Output: Intake & Output 04/10/25 04/11/25 04/12/25 04/13/25 23:59 23:59 23:59 23:59 Intake Total 250 3470 1390 790 Output Total 1800 4300 2375 Balance 250 5419 -2587 -3152 Meds/Results Medications: Active Medications Generic Name Dose Route Start Last Admin Trade Name Freq PRN Reason Stop Dose Admin Acetaminophen 650 mg 04/10/25 21:36 Acetaminophen 325 Mg Tablet PO Q4H PRN Mild Pain (1-3) or Fever Hydrocodone Bitart/Acetaminophen 1 tab 04/12/25 13:13 Hydrocodone/Acetaminophen (*Crx) 5-325 Mg Tablet PO Q4H PRN Pain Rated 4-6 Hydrocodone Bitart/Acetaminophen 1 tab 04/12/25 13:13 Hydrocodone/Acetaminophen (*Crx) 10-325 Mg Tablet PO Q4H PRN Pain Rated 7-10 Amlodipine Besylate 5 mg 04/12/25 09:00 04/13/25 09:44 Amlodipine Besylate 5 Mg Tablet PO 5 mg DAILY [facility] Administration Atorvastatin Calcium 80 mg 04/11/25 21:00 04/12/25 21:02 Atorvastatin 40 Mg Tablet PO 80 mg HS [facility] Administration Diphenhydramine HCl 25 mg 04/12/25 13:13 Diphenhydramine Hcl Inj 50 Mg/Ml Vial IV PUSH Q6H PRN Itching Empagliflozin 10 mg 04/11/25 09:00 04/13/25 09:45 Empagliflozin 10 Mg Tablet PO 10 mg DAILY [facility] Administration Enoxaparin Sodium 40 mg 04/13/25 09:00 Enoxaparin 40 Mg/0.4 Ml Syringe SUB-Q DAILY [facility] Hydrochlorothiazide 12.5 mg 04/12/25 09:00 04/13/25 09:44 Hydrochlorothiazide 12.5 Mg Capsule PO 12.5 mg DAILY [facility] Administration Ceftriaxone Sodium 2 gm in 100 mls @ 200 mls/hr 04/11/25 12:00 04/13/25 09:45 Rocephin 2 Gm/Ns 100 Ml IVPB 100 mls/hr DAILY [facility] Administration Vancomycin HCl 2,000 mg in 500 mls @ 250 mls/hr 04/12/25 10:00 04/13/25 01:42 Vancomycin 2,000 Mg/Ns 500 Ml IVPB 200 mls/hr Q8H [facility] Administration Ibuprofen 800 mg in 200 mls @ 400 mls/hr 04/12/25 13:13 Caldolor 800 Mg/200 Ml IVPB Q6H PRN Breakthrough Pain Rated 1-3 or NPO Metoprolol Succinate 100 mg 04/11/25 09:00 04/13/25 09:44 Metoprolol Succinate Ext Rel 100 Mg Tabcr PO 100 mg DAILY [facility] Administration Morphine Sulfate 2 mg 04/12/25 13:13 Morphine Sulfate (*Crx) 2 Mg/Ml Inj IV PUSH Q2H PRN Breakthrough Pain Rated 4-6 or NPO Morphine Sulfate 4 mg 04/12/25 13:13 Morphine Sulfate (*Crx) 4 Mg/Ml Inj IV PUSH Q2H PRN Breakthrough Pain Rated 7-10 or NPO Naloxone HCl 0.1 mg 04/12/25 13:13 Naloxone Hcl 0.4 Mg/Ml Vial IV PUSH Q2M PRN Opiate Reversal Ondansetron HCl 4 mg 04/10/25 21:36 Ondansetron Inj 4 Mg/2 Ml Vial IV PUSH Q4H PRN Nausea Sacubitril/Valsartan 1 tab 04/11/25 09:00 04/13/25 09:46 Sacubitril/Valsartan 97-103 Mg Tablet PO 1 tab Q12HR [facility] Administration Spironolactone 25 mg 04/12/25 09:00 04/13/25 09:45 Spironolactone 25 Mg Tablet PO 25 mg DAILY [facility] Administration Trazodone HCl 100 mg 04/12/25 21:46 04/12/25 21:57 Trazodone Hcl 50 Mg Tablet PO 100 mg HS PRN Administration Insomnia Radiology Results: ITS Impressions Foot X-Ray 04/10/25 18:49 IMPRESSION: Soft tissue defect overlying the right fifth toe with cortical lucency suggesting osteomyelitis for which dedicated views of the right fifth toe are suggested. Toe X-Ray 04/10/25 23:44 IMPRESSION: Likely osteomyelitis involving the distal phalanx of the fifth toe, as detailed above. Labs Labs: Laboratory Results - last 24 hr 04/13/25 09:03 WBC 10.1 H RBC 5.04 Hgb 15.6 Hct 47.8 MCV 94.8 MCH 31.0 MCHC 32.6 RDW 13.9 Plt Count 220 MPV 8.4 Immature Gran % (Auto) 0.2 Neut % (Auto) 64.9 Lymph % (Auto) 27.7 [place] % (Auto) 6.2 Eos % (Auto) 0.7 Baso % (Auto) 0.3 Lymph # (Auto) 2.79 [place] # (Auto) 0.6 Eos # (Auto) 0.1 Baso # (Auto) 0.0 Abs Immat Gran (auto) 0.02 Absolute Neuts (auto) 6.5 Absolute Nucleated RBC 0.000 Nucleated RBC % 0.0 Sodium 137 Potassium 3.7 Chloride 105 Carbon Dioxide 26 Anion Gap 6 BUN 16 Creatinine 0.81 Estim Creat Clear Calc 119 Estimated GFR > 60 Glucose 117 H Calcium 8.9 Total Bilirubin 0.3 AST 26 ALT 25 Alkaline Phosphatase 75 Total Protein 7.1 Albumin 3.8 Vancomycin Trough 15.4
[2025-04-13 12:03] VITALS: BP 155/79; PULSE 50; RESP 18; TEMP 35.8; O2SAT 99
[2025-04-13] MEDS: ENOXAPARIN 40 MG/0.4 ML SYRINGE SUB-Q (16:18)
[2025-04-13 16:19] VITALS: BP 150/95; PULSE 61; RESP 18; TEMP 35.8; O2SAT 97
[2025-04-13] MEDS: ATORVASTATIN 40 MG TABLET 80 MG PO (20:39)
[2025-04-13] MEDS: DOXYCYCLINE HYCLATE 100 MG TABLET PO (20:39)
[2025-04-13] MEDS: traZODone HCL 50 MG TABLET 100 MG PO (20:42)
[2025-04-13] MEDS: HYDROcodone/acetaminophen (*CRX) 10-325 MG TABLET 1 TAB PO (20:42)
[2025-04-13] MEDS: VANCOMYCIN 2,000 MG/NS 500 ML 2,000 MG/500 ML BAG 250 MG IVPB (20:45)
[2025-04-14] MEDS: HYDROcodone/acetaminophen (*CRX) 10-325 MG TABLET 1 TAB PO (02:53)
[2025-04-14 05:57] VITALS: BP 162/90; PULSE 50; RESP 20; TEMP 35.7; O2SAT 94
[2025-04-14 06:37] LABS: Basophils Percent Auto 0.3 % (0.2-1.2); Eosinophils Absolute Auto 0.2 K/mm3 (0-0.3); Hematocrit 44.5 % (42.0-52.0); Hemoglobin 14.4 g/dL (14.0-18.0); Immature Granulocyte Absolute 0.01 K/mm3 (0.00-0.031); Immature Granulocyte Percent A 0.1 % (0-0.5); Immature Platelet Fraction Pct 2.4 % (0.9-11.2); Lymphocytes Absolute Auto 2.84 K/mm3 (0.9-3.2); Lymphocytes Percent Auto 38.4 % (18.3-44.2); Mean Corpuscular HGB Conc 32.4 g/dl (32-36); Mean Corpuscular Hemoglobin 31.2 pg (26-34); Mean Corpuscular Volume 96.5 fl (80-100); Mean Platelet Volume 9.8 fl (7.4-10.4); Monocytes Absolute Auto 0.7 K/mm3 (0.1-0.6); Neutrophils Absolute Auto 3.6 K/mm3 (1.3-6.7); Neutrophils Percent Auto 49.2 % (45.5-73.1); Platelet Count Result 176 k/mm3 (150-375); Red Blood Count 4.61 M/mm3 (4.6-6.20); White Blood Count 7.4 K/mm3 (4.5-10.0)
--- NOTE | 2025-04-14 08:33 | P.PNGS_ITS ---
Progress Note: A&P Assessment and Plan (1) Osteomyelitis of fifth toe of right foot: Code(s): M86.9 - Osteomyelitis, unspecified Status: Acute Assessment and Plan: * OK to discharge home today. Discussed wound care with patient. Follow up in 2 weeks for suture removal. Subjective Subjective Date/Time Seen: 04/14/25 08:33 Interval history: Doing well. Pain controlled. Ambulating with walker. Exam Extrem: Other: Right foot wound intact with sutures. Minimal dried blood on bandage. Objective Data Vital Signs Vital Signs: Vital Signs - 24 hr 04/13/25 09:44 04/13/25 12:03 04/13/25 16:19 Temperature 96.4 F L 96.5 F L Pulse Rate 68 50 L 61 Respiratory Rate 18 18 Blood Pressure 155/79 H 150/95 H Pulse Oximetry 99 97 Oxygen Delivery 04/13/25 20:55 04/14/25 05:57 Temperature 96.2 F L Pulse Rate 50 L Respiratory Rate 20 Blood Pressure 162/90 H Pulse Oximetry 94 Oxygen Delivery Room Air Intake/Output Intake/Output: Intake & Output 04/11/25 04/12/25 04/13/25 04/14/25 23:59 23:59 23:59 23:59 Intake Total 3470 1390 2030 Output Total 1800 4300 3475 475 Balance 5266 -[phone] -[phone] -452 Meds/Results Medications: Active Medications Generic Name Dose Route Start Last Admin Trade Name Freq PRN Reason Stop Dose Admin Acetaminophen 650 mg 04/10/25 21:36 Acetaminophen 325 Mg Tablet PO Q4H PRN Mild Pain (1-3) or Fever Hydrocodone Bitart/Acetaminophen 1 tab 04/12/25 13:13 Hydrocodone/Acetaminophen (*Crx) 5-325 Mg Tablet PO Q4H PRN Pain Rated 4-6 Hydrocodone Bitart/Acetaminophen 1 tab 04/12/25 13:13 04/14/25 02:53 Hydrocodone/Acetaminophen (*Crx) 10-325 Mg Tablet PO 1 tab Q4H PRN Administration Pain Rated 7-10 Amlodipine Besylate 5 mg 04/12/25 09:00 04/13/25 09:44 Amlodipine Besylate 5 Mg Tablet PO 5 mg DAILY [facility] Administration Amoxicillin/Clavulanate Potassium 1 tablet 04/14/25 09:00 Amoxicillin/Clavulanate K 875-125 Mg Tab PO Q12HR [facility] Atorvastatin Calcium 80 mg 04/11/25 21:00 04/13/25 20:39 Atorvastatin 40 Mg Tablet PO 80 mg HS [facility] Administration Diphenhydramine HCl 25 mg 04/12/25 13:13 Diphenhydramine Hcl Inj 50 Mg/Ml Vial IV PUSH Q6H PRN Itching Doxycycline Hyclate 100 mg 04/13/25 21:00 04/13/25 20:39 Doxycycline Hyclate 100 Mg Tablet PO 100 mg Q12HR [facility] Administration Empagliflozin 10 mg 04/11/25 09:00 04/13/25 09:45 Empagliflozin 10 Mg Tablet PO 10 mg DAILY [facility] Administration Enoxaparin Sodium 40 mg 04/13/25 09:00 04/13/25 16:18 Enoxaparin 40 Mg/0.4 Ml Syringe SUB-Q 40 mg DAILY [place] Administration Hydrochlorothiazide 12.5 mg 04/12/25 09:00 04/13/25 09:44 Hydrochlorothiazide 12.5 Mg Capsule PO 12.5 mg DAILY [facility] Administration Ibuprofen 800 mg in 200 mls @ 400 mls/hr 04/12/25 13:13 Caldolor 800 Mg/200 Ml IVPB Q6H PRN Breakthrough Pain Rated 1-3 or NPO Metoprolol Succinate 100 mg 04/11/25 09:00 04/13/25 09:44 Metoprolol Succinate Ext Rel 100 Mg Tabcr PO 100 mg DAILY [facility] Administration Morphine Sulfate 2 mg 04/12/25 13:13 Morphine Sulfate (*Crx) 2 Mg/Ml Inj IV PUSH Q2H PRN Breakthrough Pain Rated 4-6 or NPO Morphine Sulfate 4 mg 04/12/25 13:13 Morphine Sulfate (*Crx) 4 Mg/Ml Inj IV PUSH Q2H PRN Breakthrough Pain Rated 7-10 or NPO Naloxone HCl 0.1 mg 04/12/25 13:13 Naloxone Hcl 0.4 Mg/Ml Vial IV PUSH Q2M PRN Opiate Reversal Ondansetron HCl 4 mg 04/10/25 21:36 Ondansetron Inj 4 Mg/2 Ml Vial IV PUSH Q4H PRN Nausea Sacubitril/Valsartan 1 tab 04/11/25 09:00 04/13/25 20:39 Sacubitril/Valsartan 97-103 Mg Tablet PO 1 tab Q12HR [place] Administration Spironolactone 25 mg 04/12/25 09:00 04/13/25 09:45 Spironolactone 25 Mg Tablet PO 25 mg DAILY [facility] Administration Trazodone HCl 100 mg 04/12/25 21:46 04/13/25 20:42 Trazodone Hcl 50 Mg Tablet PO 100 mg HS PRN Administration Insomnia Radiology Results: ITS Impressions Foot X-Ray 04/10/25 18:49 IMPRESSION: Soft tissue defect overlying the right fifth toe with cortical lucency suggesting osteomyelitis for which dedicated views of the right fifth toe are suggested. Toe X-Ray 04/10/25 23:44 IMPRESSION: Likely osteomyelitis involving the distal phalanx of the fifth toe, as detailed above. Labs Labs: Laboratory Results - last 24 hr 04/13/25 04/14/25 09:03 06:04 WBC 10.1 H 7.4 RBC 5.04 4.61 Hgb 15.6 14.4 Hct 47.8 44.5 MCV 94.8 96.5 MCH 31.0 31.2 MCHC 32.6 32.4 RDW 13.9 14.0 Plt Count 220 176 MPV 8.4 9.8 Immature Gran % (Auto) 0.2 0.1 Neut % (Auto) 64.9 49.2 Lymph % (Auto) 27.7 38.4 [place] % (Auto) 6.2 10.0 H Eos % (Auto) 0.7 2.0 Baso % (Auto) 0.3 0.3 Lymph # (Auto) 2.79 2.84 [place] # (Auto) 0.6 0.7 H Eos # (Auto) 0.1 0.2 Baso # (Auto) 0.0 0.0 Abs Immat Gran (auto) 0.02 0.01 Absolute Neuts (auto) 6.5 3.6 Absolute Nucleated RBC 0.000 0.000 Nucleated RBC % 0.0 0.0 % Immature Plt Fraction 2.4 Sodium 137 Potassium 3.7 Chloride 105 Carbon Dioxide 26 Anion Gap 6 BUN 16 Creatinine 0.81 Estim Creat Clear Calc 119 Estimated GFR > 60 Glucose 117 H Calcium 8.9 Total Bilirubin 0.3 AST 26 ALT 25 Alkaline Phosphatase 75 Total Protein 7.1 Albumin 3.8 Vancomycin Trough 15.4
--- NOTE | 2025-04-14 08:57 | P.DS_ITS ---
DS: Admitting Diagnosis Discharge Date 04/14/2025 Admitting Diagnosis Osteomyelitis of fifth toe of right foot, with subsequent amputation DS: Discharge Diagnosis Discharge Diagnosis (1) Osteomyelitis of fifth toe of right foot: Code(s): M86.9 - Osteomyelitis, unspecified Status: Acute (2) Peripheral vascular disease: Code(s): I73.9 - Peripheral vascular disease, unspecified Status: Acute (3) Coronary artery disease: Code(s): I25.10 - Atherosclerotic heart disease of [place] coronary artery without angina pectoris Status: Acute (4) Hypertension: Code(s): I10 - Essential (primary) hypertension Status: Acute (5) Heart failure with preserved ejection fraction: Code(s): I50.30 - Unspecified diastolic (congestive) heart failure Status: Acute DS: Summary Hospital Course Reason for hospitalization: Right 5th toe wound Hospital Course: This is a pleasant 39-year-old male with history of coronary artery disease status post angioplasty and stent to the right coronary artery in September 2019, heart failure with preserved ejection fraction, peripheral vascular disease in the lower extremities for which he cannot provide specifics as this is a new diagnosis for him, hypertension, hyperlipidemia, and prediabetes who presented to the emergency department via private vehicle for evaluation of a right 5th toe wound. The wound has been present for months after he developed an ingrown toenail. According to the patient, it nearly heals and then gets worse again. He saw his time study engineer today as it was getting bad again, and he has noticed malodorous drainage and darkening of the tip of the digit. He was referred to the ED for further treatment. On exam he has decreased pulses in the lower extremities and it sounds like he had arterial ultrasounds done quite recently at [facility] and there have been talks about referring him to a vascular surgeon. He is otherwise feeling fine and denies fever, chills, sweats, nausea, vomiting, and significant pain. In the ED: Vital signs were stable on arrival. CMP and CBC were pretty unremarkable. Random glucose was 94 and hemoglobin A1c was 6.2%. Right foot x- ray showed a soft tissue defect overlying the right 5th toe with findings suggestive of osteomyelitis. He was given a dose of vancomycin is being admitted in this setting for further treatment and evaluation of an infected toe wound with possible osteomyelitis. General surgery was consulted regarding the osteomyelitis of 5th toe of the right foot. Given the black dry eschar to the tip of the 5th right 5th toe my examination and x-ray demonstrating osteomyelitis, general surgery agrees with continuing IV antibiotics and with the decision to proceed with amputation of the distal phalanx. Patient is amenable to this plan and amputation of the right 5th toe was performed on 04/12 without complications. General surgery continued to follow patient throughout hospitalization monitoring surgical site and wound care. Patient overall tolerated the procedure well and healing of the postop incision was to be expected. Daily dressing changes were stressed and IV antibiotics were maintained throughout hospitalization. Pain continued to be controlled with [place] to use which was eventually weaned to 5 mg as needed. On 04/14, patient reports that pain has more or less completely subsided at this time. General surgery was able to round on patient again in the a.m. and agreed that patient is stable enough for discharge with close follow-up in the outpatient setting with their office and 3 weeks for possible suture removal. Discussed this with the orthopedic surgeon who agreed with discharge without continued antibiotic coverage. Patient is amenable to this plan, plan for discharge home at this time. Status at Discharge Functional status at discharge: independent ambulation Overall status at discharge: patient is progressing back to baseline Time Spent with Patient Time attestation: Total time spent providing and/or coordinating discharge services: 34 Exam Narrative: General: Non-toxic appearing male sitting up in bed. Weight: 100 kg. BMI: 29.1. HEENT: Normocephalic, atraumatic. PERRL, EOMI. Sclera anicteric. Oral mucosa moist. Oropharynx clear. Neck: Supple. Respiratory: Lungs are clear to auscultation bilaterally. Cardiovascular: Bradycardic with S1-S2. Gastrointestinal: Abdomen is soft, nontender, and nondistended with positive bowel sounds. Skin: Warm and dry. Right foot wound intact with sutures. Minimal dried blood on bandage. Extremities: No cyanosis or clubbing. Mild edema of the right foot. Decreased pedal pulses. Right pedal pulse sounds turbulent with the Doppler. Neurological: Alert. Cranial nerves 2-12 are grossly intact. No gross focal deficits to casual conversation. Psychiatric: Pleasant and cooperative with normal mood and affect. Judgment and insight intact. DS: Data Data Completed and Pending Pending studies at discharge: Pending at discharge 04/12/25 11:24 Surgical [PTH] Routine Labs on day of discharge: Labs from last 24 hours 04/14/25 04/13/25 06:04 09:03 WBC 7.4 10.1 H RBC 4.61 5.04 Hgb 14.4 15.6 Hct 44.5 47.8 MCV 96.5 94.8 MCH 31.2 31.0 MCHC 32.4 32.6 RDW 14.0 13.9 Plt Count 176 220 MPV 9.8 8.4 Immature Gran % (Auto) 0.1 0.2 Neut % (Auto) 49.2 64.9 Lymph % (Auto) 38.4 27.7 [place] % (Auto) 10.0 H 6.2 Eos % (Auto) 2.0 0.7 Baso % (Auto) 0.3 0.3 Lymph # (Auto) 2.84 2.79 [place] # (Auto) 0.7 H 0.6 Eos # (Auto) 0.2 0.1 Baso # (Auto) 0.0 0.0 Abs Immat Gran (auto) 0.01 0.02 Absolute Neuts (auto) 3.6 6.5 Absolute Nucleated RBC 0.000 0.000 Nucleated RBC % 0.0 0.0 % Immature Plt Fraction 2.4 Sodium Pending 137 Potassium Pending 3.7 Chloride Pending 105 Carbon Dioxide Pending 26 Anion Gap Pending 6 BUN Pending 16 Creatinine Pending 0.81 Estim Creat Clear Calc Pending 119 Estimated GFR Pending > 60 Glucose Pending 117 H Calcium Pending 8.9 Total Bilirubin Pending 0.3 AST Pending 26 ALT Pending 25 Alkaline Phosphatase Pending 75 Total Protein Pending 7.1 Albumin Pending 3.8 Vancomycin Trough 15.4 Preliminary micro results at discharge 04/10/25 22:07 Blood Culture - Preliminary Blood 04/10/25 22:07 Blood Culture - Preliminary Blood Discharge Plan Discharge Attending physician on discharge: Hong Amor Consulting providers: Phillip Villatoro; Dion Smith Discharging Clinician: Phillip Villatoro Anticipated Discharge Date/Time: 04/14/25 08:55 Patient Disposition: Home Activity: february shower Diet: as tolerated Wound Care Instructions: change dressing daily Discharge Instructions: Foot Wound Care Instructions: * Change dressing daily with Xeroform gauze, 4x4s, and Kerlix wrap for the next 3-5 days. * Once there is no further drainage, can just apply large Bandaid over wound. * OK to ambulate with postop shoe and walker, try to avoid too much pressure on front of foot. * Elevate leg when not walking/standing. * Call office for increasing redness, drainage, or other problems with wound. Take caution while standing, rising, or moving Change positions slowly taking a break between each position change If you standing feel dizzy sit back down and take a break Return to the emergency department if he developed sudden shortness of breath, chest pain, nausea, vomiting, upset stomach or intractable diarrhea Return to the emergency department if you develop fever greater than 101.5 Follow-up with the primary care physician within 1-2 weeks Follow-up with Dr. Smith with General Surgery in 2 weeks for suture removal. Thank you for choosing [facility] for your healthcare needs Patient Instructions: Antibiotic Form, Heart Failure (DC), Pain Management in Older Adults (GEN) Patient Language: Samoan Stand Alone Forms: General Discharge Information, Work/School Release IP Follow-up/Referrals: Dion Smith, [Physician] - 2 Weeks Discharge Medications: New hydrocodone-acetaminophen 5-325 mg Tablet 1 tablet PO Q4H PRN (Reason: Pain Rated 4-6) Qty: 10 0RF Continued aspirin [Children's Aspirin] 81 mg Tablet,Chewable 81 mg PO DAILY@0800 100 Days Qty: 100 0RF metoprolol succinate 100 mg tablet extended release 24 hr 100 mg PO DAILY Jardiance 10 mg tablet 10 mg PO DAILY atorvastatin 80 mg tablet 80 mg PO HS Entresto 97-103 mg tablet 1 tablet PO BID hydrochlorothiazide 12.5 mg tablet 12.5 mg PO DAILY spironolactone 25 mg tablet 25 mg PO DAILY amlodipine [Norvasc] 5 mg Tablet 5 mg PO DAILY Date of admission: 04/12/25 11:02 Primary Care Provider: UNKNOWN,DOCTOR Admitting Provider: Tamy Chan Attending physician on admission: Tamy Chan Condition: Stable Quality VTE Prophylaxis VTE prophylaxis: mechanical ordered
[2025-04-14] MEDS: EMPAGLIFLOZIN 10 MG TABLET PO (09:42)
[2025-04-14] MEDS: ENOXAPARIN 40 MG/0.4 ML SYRINGE SUB-Q (09:42)
[2025-04-14] MEDS: amLODIPine BESYLATE 5 MG TABLET PO (09:42)
[2025-04-14] MEDS: AMOXICILLIN/CLAVULANATE K 875-125 MG TAB 1 TABLET PO (09:42)
[2025-04-14] MEDS: SPIRONOLACTONE 25 MG TABLET PO (09:43)
[2025-04-14] MEDS: SACUBITRIL/VALSARTAN 97-103 MG TABLET 1 TAB PO (09:43)
[2025-04-14] MEDS: DOXYCYCLINE HYCLATE 100 MG TABLET PO (09:43)
[2025-04-14] MEDS: hydroCHLOROthiazide 12.5 MG CAPSULE PO (09:44)
[2025-04-14] MEDS: HYDROcodone/acetaminophen (*CRX) 5-325 MG TABLET 1 TAB PO (09:46)
[2025-04-14 12:29] VITALS: PULSE 60
[2025-04-14] MEDS: METOPROLOL SUCCINATE EXT REL 100 MG TABCR PO (12:29)
== END 2025-04-14 15:05 | disposition home or self-care (01) | DRG 314 ==
LOC: ANHED 19:31 → ANH3MEDSUR 22:49
PROVIDERS: Nurse Practitioner Family; Physician Assistant; Surgery; Admitting Provider Internal Medicine; Emergency Provider Student in an Organized Health Care Education/Training Program; Visit Provider Physician Assistant
PROC: 0Y6X0Z2 Detachment at Right 5th Toe, Mid, Open Approach (ICD-10-PCS; principal; 2025-04-12 11:00)
DX: M86.9 Osteomyelitis, unspecified (principal); I11.0 Hypertensive heart disease with heart failure; I50.32 Chronic diastolic (congestive) heart failure; I25.10 Atherosclerotic heart disease of native coronary artery without angina pectoris; I73.9 Peripheral vascular disease, unspecified; E78.5 Hyperlipidemia, unspecified; R73.03 Prediabetes; F17.290 Nicotine dependence, other tobacco product, uncomplicated; Z95.5 Presence of coronary angioplasty implant and graft; Z79.82 Long term (current) use of aspirin
CPT/HCPCS: 36415; 73630; 73660; 80048; 80053; 80061; 80202; 83036; 83605; 83735; 85025; 85027; 85055; 85652; 86140; 87040; 88305; 88311; 96365; 96366; 96375; 99285; A9270; G0378; G0379; J0696; J1100; J1650; J2250; J2405; J2704; J3010; J3370; J7120

== ENCOUNTER 2025-04-16 12:25 | Emergency (ER) | payer OTHER, SELFPAY ==
[2025-04-16 12:28] VITALS: BP 146/73; PULSE 75; RESP 16; TEMP 36.6; O2SAT 96
--- NOTE | 2025-04-16 12:40 | ED.RECABL ---
HPI - Recheck/Abnormal Lab/Rx General Chief Complaint: Unspecified Stated Complaint: d/c thursday, stitch might be loose Time Seen by Provider: 04/16/25 12:36 Source: patient and family Mode of arrival: ambulatory Limitations: no limitations History of Present Illness HPI narrative: Patient presents with concern a stitch came loose from his wound. He had amputation of R fifth toe/digit 04/[address] Smith due to infection. Discharged home 04/14/25. Was changing dressing and noticed that there was some blood and he felt it might have opened but he didn't know how many stitches were placed originally. Has been changing dressing every morning. Slight drainage on bandage , scant blood but no pus. No fevers or chills. Supposed to follow up 2 weeks post operative for check though no appointment yet as supposed to schedule this still. Related Data Home Medications ?Medication ?Instructions ?Recorded ?Confirmed ?Last Taken ?Type amlodipine 5 mg tablet (Norvasc) 5 mg PO DAILY 04/11/25 04/11/25 04/10/25 History atorvastatin 80 mg tablet 80 mg PO HS 04/11/25 04/11/25 04/10/25 History empagliflozin 10 mg tablet 10 mg PO DAILY 04/11/25 04/11/25 04/10/25 History (Jardiance) hydrochlorothiazide 12.5 mg tablet 12.5 mg PO DAILY 04/11/25 04/11/25 Unknown History metoprolol succinate 100 mg 100 mg PO DAILY HR 04/11/25 04/11/25 04/10/25 History tablet,extended release 24 hr sacubitril 97 mg-valsartan 103 mg 1 tablet PO BID 04/11/25 04/11/25 04/10/25 10:00 History tablet (Entresto) spironolactone 25 mg tablet 25 mg PO DAILY 04/11/25 04/11/25 Unknown History Allergies Allergy/AdvReac Type Severity Reaction Status Date / Time watermelon Allergy Vomiting Verified 04/16/25 12:28 [facility] Past Medical History Medical History (Updated 04/17/25 @ 22:28 by Opal Gleason MD) Amputation of fifth toe of right foot d/t Osteomyelitis right 5th toe; 04/12/25 Dr Smith Peripheral vascular disease New diagnosis as of 04/14/2025, patient does not know specifics as of yet. Arterial Dopplers done at [facility]. Heart failure with preserved ejection fraction ST elevation (STEMI) myocardial infarction (09/2019) Hypertension Coronary artery disease Surgical History Surgical History History of coronary angioplasty with insertion of stent Xience stent to the proximal RCA Family History Family History Father Hypertension Hyperlipemia Mother Hypertension Hyperlipemia Social History Social History Social History: Surrogate medical decision maker: [place] significant other. Code status: Full code. Years smoked: 15 Smoking status: Current every day smoker Tobacco type: cigars Second hand tobacco smoke exposure: No Additional smoking assessment comments: smokes 3 to 4 cigars a day Alcohol intake: current Drinks per week: 8 Substance use: current Substance use type: marijuana Last use: 04/09/25 Do You Feel Safe in your Home?: Yes Lack of Transportation: No Lack of Food: Never True Current Housing: I Have Housing Concerned About Future Housing: No Difficulty Paying Gas/Electric Bills: No Difficulty Paying for Meds: No Currently Unemployed: No Education: High School Diploma/GED Difficulty w/ Childcare or Family Care: No Spiritual care concerns: No Exam Narrative: GENERAL: Well-appearing, well-nourished, and in no acute distress. HEAD: Normocephalic, atraumatic. EYES: Non injected, non icteric ENT: Gross auditory acuity intact. NECK: Supple. No meningismus. CHEST: Speaking in full sentences. No respiratory distress. HEART: Regular rate and rhythm. . ABDOMEN: Soft, nondistended. No rigidity or guarding. Not peritoneal EXTREMITIES: Normal range of motion. No lower extremity edema. Foot warm and well perfused. SKIN: Warm, dry. 4 sutures along dorsal and plantar aspect of distal foot, none across exposed tissue which is bloody but otherwise no appearance of wound dehiscence. No purulent discharge. No surrounding cellulitis/induration. NEURO: No focal deficits. Alert and oriented. Answering questions. Following commands. Normal speech without aphasia or dysarthria. PSYCH: Normal mood and affect. Course Vital Signs Vital signs: Vital Signs Temperature 98 F 04/16/25 12:28 Pulse Rate 75 04/16/25 12:28 Respiratory Rate 16 04/16/25 12:28 Blood Pressure 146/73 H 04/16/25 12:28 Pulse Oximetry 96 04/16/25 12:28 Oxygen Delivery Room Air 04/16/25 12:28 Temperature 98 F 04/16/25 14:54 Pulse Rate 68 04/16/25 14:54 Respiratory Rate 16 04/16/25 14:54 Blood Pressure 123/82 04/16/25 14:54 Pulse Oximetry 97 04/16/25 14:54 Oxygen Delivery Room Air 04/16/25 12:28 MDM - Recheck/Abnormal Lab/Rx MDM Narrative Medical decision making narrative: Patient presents with concern a suture came loose. Patient is post op day 4 from amputation of 5th right toe/digit due to osteomyelitis by Dr Smith. Discharged from hospital 04/14. Didn't know how many sutures had been placed. No fevers/chills or concerning drainage. In the emergency department he is afebrile with acceptable vital signs. Reviewed Dr. Smith's operative note The skin edges were then reapproximated using 3-0 nylon vertical mattress interrupted sutures. Xeroform gauze, fluff gauze, and Kerlix wrap were then applied. There are 4 knots on inspection. None overlying the exposed edge. Wound otherwise appears to be healing well. Advised arranging follow up and indicating that reported to the ED already. Stable for discharge Medical Records Attestation: I reviewed the patient's medical records. Medical records narrative: as above Discharge Plan Discharge Clinical Impression: Visit for wound check Patient Disposition: Home Condition: Stable Instructions: Antibiotic Form, Care For Your Stitches (DC), Acute Wounds (DC) Additional Instructions: Your wound looks good, not infected. Continue the dressing changes you have been doing. Call for your follow-up appointment/suture removal and note that you presented to the ED today for a wound check and see if they would want to have you present in clinic sooner than the initially advised 2 weeks for yet another wound recheck prior to official stitch removal. Return to the emergency department any new or worsening symptoms such as draining pus, spreading redness, fevers/chills, etc. continue taking medications as prescribed. Patient Language: [place] Verdean Prescriptions: No Action aspirin [Children's Aspirin] 81 mg Tablet,Chewable 81 mg PO DAILY@0800 100 Days Qty: 100 0RF metoprolol succinate 100 mg tablet extended release 24 hr 100 mg PO DAILY Jardiance 10 mg tablet 10 mg PO DAILY atorvastatin 80 mg tablet 80 mg PO HS Entresto 97-103 mg tablet 1 tablet PO BID hydrochlorothiazide 12.5 mg tablet 12.5 mg PO DAILY spironolactone 25 mg tablet 25 mg PO DAILY amlodipine [Norvasc] 5 mg Tablet 5 mg PO DAILY hydrocodone-acetaminophen 5-325 mg Tablet 1 tablet PO Q4H PRN (Reason: Pain Rated 4-6) Qty: 10 0RF Follow-up/Referrals: UNKNOWN,DOCTOR [Primary Care Provider] - Dion Smith DO [Physician] - Stand Alone Forms: Work/School Release IP Time of Disposition: 14:09
[2025-04-16 14:54] VITALS: BP 123/82; PULSE 68; RESP 16; TEMP 36.6; O2SAT 97
== END 2025-04-16 14:56 | disposition home or self-care (01) ==
PROVIDERS: Emergency Provider Student in an Organized Health Care Education/Training Program
DX: Z47.81 Encounter for orthopedic aftercare following surgical amputation (principal); Z89.421 Acquired absence of other right toe(s); I11.0 Hypertensive heart disease with heart failure; I50.9 Heart failure, unspecified; I25.2 Old myocardial infarction; I25.10 Atherosclerotic heart disease of native coronary artery without angina pectoris; I73.9 Peripheral vascular disease, unspecified; F17.290 Nicotine dependence, other tobacco product, uncomplicated; Z95.5 Presence of coronary angioplasty implant and graft
CPT/HCPCS: 99282

== ENCOUNTER 2025-05-06 18:43 | Emergency (ER) | payer OTHER, SELFPAY ==
--- OUTSIDE RECORDS SUMMARY | 2025-05-06 18:46 | XMS_ITS | Data Portability ---
Author Organization [facility] Address [address] [place] [address] Care Team Providers Care Pullman Conductor Name Role Phone JANES SUGGS Primary Care Provider [phone] Assessment Encounter Date Assessment Date Assessment LastModified [...] Details Last Modified Time Details Appointments ANY 30 2024 01:15P M Elysia Tom NP Not available Not available Not available ANY 2024 11:15A M Osmani anne MD Not available Not available Not available Lab culture, aerobic + anaerobi c - right 5th toe ulcer 2024 025 [facility] (Lab), [address] [place], [address], 01/16/2025 11:12:53 HbA1c (hemoglo bin A1c), blood 2024 025 tmond In-Office Order, Internal Use Only DO Not Attach Compendium DO Not Attach Compendium, Do Not Delete/merge, [id number] 12/23/2024 12:32:18 glucose, fingerst ick, blood 2024 025 tmond In-Office Order, Internal Use Only DO Not Attach Compendium DO Not Attach Compendium, Do Not Delete/merge, [id number] 12/23/2024 12:32:18 vitamin D, 25-hydro xy, total, serum 2024 025 [facility], [address], [address], [place], [address], 12/24/2024 09:13:22 microalb umin/cre atinine, mass ratio, urine 2024 025 [facility], [address], [address], [place], [address], 12/24/2024 09:13:21 CBC 2024 025 [facility], [address] [facility], [address], [place], [address], 12/24/2024 08:36:[address] referral 2024 025 [facility], [address], [place], [address], 01/10/2025 12:08:59 Procedures None recorded . Surgeries None recorded . Imaging XR, foot, 3 or more view 2024 025 [facility] ([facility]), [address] [place], [address], 01/29/2025 14:36:27 ankle brachial index 2024 025 [facility] ([facility]), [address], [place], [address], 03/01/2025 16:31:53 Medication Orders Bactrim DS 800 mg-160 mg tablet 2024 025 [facility] [address] [place], [address], 01/25/2025 16:16:56 Betadine 10 % topical solution 2024 025 [facility] [address] [place], [address], 01/25/2025 16:17:17 cephalex in 500 mg capsule 2024 025 [facility] [address] [place], [address], 01/11/2025 17:07:50 Patient TargetsNo targets recorded. 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 for Ingr owing nail of toe of right foot Referring Physician: Janes Suggs, Family Medicine, Encounter Date: 12/23/2024 Results Created Date Observation Date Name Description Value Unit Range Abnormal Flag Note LastModifiedBy Organization Detail LastModifiedTime 12/23/1912/24/2024 CBC, PLATE LET, NO DIFFE RENTI AL WBC 6.7 x10e3 /uL 3.4-10 .8 Not Available [facility]) [address] [place], [address], 12/24/2024 08:36:10 12/23/1912/24/2024 CBC, PLATE LET, NO DIFFE RENTI AL RBC 5.37 x10e6 /uL 4.14-5 .80 Not Available [facility] [address] [place], [address], 12/24/2024 08:36:10 12/23/19 25 12/24/2024 CBC, PLATE LET, NO DIFFE RENTI AL hemoglobin 16.6 g/dL 13.0-1 7.7 Not Available [facility] [address] [place], [address], 12/24/2024 08:36:10 12/23/1912/24/2024 CBC, PLATE LET, NO DIFFE RENTI AL hematocrit 51.6 % 37.5-5 1.0 above high normal Not Available [facility]) [address] [facility], [place], [address], 12/24/2024 08:36:10 12/23/1912/24/2024 CBC, PLATE LET, NO DIFFE RENTI AL MCV 96 fL 79-97 Not Available [facility] [address] [place], [address], 12/24/2024 08:36:10 12/23/1912/24/2024 CBC, PLATE LET, NO DIFFE RENTI AL MCH 30.9 pg 26.6-3 3.0 Not Available [facility] [address] [place], [address], 12/24/2024 08:36:10 12/23/1912/24/2024 CBC, PLATE LET, NO DIFFE RENTI AL MCHC 32.2 g/dL 31.5-3 5.7 Not Available [facility] [address] [place], [address], 12/24/2024 08:36:10 12/23/19 25 12/24/2024 CBC, PLATE LET, NO DIFFE RENTI AL RDW 13.7 % 11.6-1 5.4 Not Available [facility] [address] [place], [address], 12/24/2024 08:36:10 12/23/19 25 12/24/2024 CBC, PLATE LET, NO DIFFE RENTI AL platelets 224 x10e3 /uL 150-45 0 Not Available [facility]) [address] [facility], [place], [address], 12/24/2024 08:36:10 12/23/19 25 12/24/2024 CBC, PLATE LET, NO DIFFE RENTI AL hematology comments: NOTE: Verif ied by micro celeste dangelo n. Not Available [facility]) [address] [facility], [place], [address], 12/24/2024 08:36:10 12/23/19 25 12/24/2024 ALBUM IN/CR EAT RATIO , RANDO M UR creatinine, urine 112.6 mg/dL notest ab. Not Available [facility]) [address] [facility], [place], [address], 12/24/2024 09:13:21 12/23/19 25 12/24/2024 ALBUM IN/CR EAT RATIO , RANDO M UR albumin, urine 20.4 ug/mL notest ab. Not Available [facility]) [address] [facility], [place], [address], 12/24/2024 09:13:21 12/23/19 25 12/24/2024 ALBUM IN/CR EAT RATIO , RANDO M UR alb/creat ratio 18 mg/g_ creat 0-29 Barbara l: 0 - 29 Moder ately incre ased: 30 - 300 Sever elise incre ased: >300 Not Available [facility]) [address] [facility], [place], [address], 12/24/2024 09:13:21 12/23/19 25 12/24/2024 VITAM IN [...] Medic ine). 2010. Dieta ry refer ence intak es for calci um and D. Maureen ortega DC: [facility] Press . 2. Radha briones MF, Tashi ansari [place], Camille off-F chester i NARAYAN, et al. Evalu ation , treat ment, and preve ntion of vitam in D defic iency : an Endoc rine Socie ty clini betina pract ice guide line. JCEM. 2010; 96(7) :1911 -30. Not Available [facility]) [address] [facility], [place], [address], 12/24/2024 09:13:22 12/23/19 25 12/23/2024 HbA1c (hemo globi n A1c), blood HbA1c 6.3 Not Available In-Office Order Internal Use Only DO Not Attach Compendium DO Not Attach Compendium, Do Not Delete/merge, [id number] 12/23/2024 12:09:30 12/23/19 25 12/23/2024 gluco se, finge rschristiana k, blood Blood Glucose: mg/dl 157 Not Available In-Off ice Order Internal Use Only DO Not Attach Compendium DO Not Attach Compendium, Do Not Delete/merge, [id number] 12/23/2024 12:09:36 01/12/2001/17/2025 AEROB IC CULTU RE aerobic culture Organ ism: Lilo arringtonus aminata ri : *ABNO RMAL* Based on susce [...] RMAL* Moder ate growt h Not Available [facility] (Lab) [address] [place], [address], 01/17/2025 07:10:02 01/12/20 25 01/17/2025 AEROB IC CULTU RE O:stawar Isolat ed Not Available [facility] (Lab) [address] [place], [address], 01/17/2025 07:10:02 01/12/20 25 01/17/2025 AEROB IC CULTU RE O:candpa Isolat ed Not Available [facility] (Lab) [address] [place], [address], 01/17/2025 07:10:02 01/12/20 25 01/16/2025 LABCO RP SUSCE PTIBI LITY ciprofloxaci n susceptib le Not Available [facility] (Lab) [address] [place], [address], 01/16/2025 08:14:01 01/12/20 25 01/16/2025 LABCO RP SUSCE PTIBI LITY clindamycin susceptib le Not Available [facility] (Lab) [address] [place], [address], 01/16/2025 08:14:01 01/12/20 25 01/16/2025 LABCO RP SUSCE PTIBI LITY erythromycin susceptib le Not Available [facility] (Lab) [address] [place], [address], 01/16/2025 08:14:01 01/12/20 25 01/16/2025 LABCO RP SUSCE PTIBI LITY gentamicin susceptib le Not Available [facility] (Lab) [address] [place], [address], 01/16/2025 08:14:01 01/12/20 25 01/16/2025 LABCO RP SUSCE PTIBI LITY levofloxacin susceptib le Not Available [facility] (Lab) [address] [place], [address], 01/16/2025 08:14:01 01/12/20 25 01/16/2025 LABCO RP SUSCE PTIBI LITY moxifloxacin susceptib le Not Available [facility] [address] [place], [address], 01/16/2025 08:14:01 01/12/20 25 01/16/2025 LABCO RP SUSCE PTIBI LITY oxacillin susceptib le Not Available [facility] ([facility]) [address] [place], [address], 01/16/2025 08:14:01 01/12/20 25 01/16/2025 LABCO RP SUSCE PTIBI LITY penicillin resistant Not Available [facility] (Lab) [address] [place], [address], 01/16/2025 08:14:01 01/12/20 25 01/16/2025 LABCO RP SUSCE PTIBI LITY rifampin susceptib le Not Available [facility] ([facility]) [address] [place], [address], 01/16/2025 08:14:01 01/12/2001/16/2025 LABCO RP SUSCE PTIBI LITY tetracycline susceptib le Not Available [facility] (Lab) [address] [place], [address], 01/16/2025 08:14:01 01/12/2001/16/2025 LABCO RP SUSCE PTIBI LITY trimethoprim /sulfamethox azole susceptib le Not Available [facility] (Lab) [address] [place], [address], 01/16/2025 08:14:01 01/12/2001/16/2025 LABCO RP SUSCE PTIBI LITY vancomycin susceptib le Not Available [facility] (Lab) [address] [place], [address], 01/16/2025 08:14:01 01/12/2001/17/2025 LABCO RP SUSCE PTIBI LITY ciprofloxaci n susceptib le Not Available [facility] (Lab) [address] [place], [address], 01/17/2025 07:10:03 01/12/2001/17/2025 LABCO RP SUSCE PTIBI LITY clindamycin susceptib le Not Available [facility] ([facility]) [address] [place], [address], 01/17/2025 07:10:03 01/12/2001/17/2025 LABCO RP SUSCE PTIBI LITY erythromycin susceptib le Not Available [facility] (Lab) [address] [place], [address], 01/17/2025 07:10:03 01/12/2001/17/2025 LABCO RP SUSCE PTIBI LITY gentamicin susceptib le Not Available [facility] (Lab) [address] [place], [address], 01/17/2025 07:10:03 03/19/01/17/2025 LABCO RP SUSCE PTIBI LITY levofloxacin susceptib le Not Available [facility] ([facility]) [address] [place], [address], 01/17/2025 07:10:03 01/12/2001/17/2025 LABCO RP SUSCE PTIBI LITY moxifloxacin susceptib le Not Available [facility] ([facility]) [address] [place], [address], 01/17/2025 07:10:03 01/12/2001/17/2025 LABCO RP SUSCE PTIBI LITY oxacillin susceptib le Not Available [facility] (Lab) [address] [place], [address], 01/17/2025 07:10:03 01/12/2001/17/2025 LABCO RP SUSCE PTIBI LITY penicillin resistant Not Available [facility] ([facility]) [address] [place], [address], 01/17/2025 07:10:03 01/12/2001/17/2025 LABCO RP SUSCE PTIBI LITY rifampin susceptib le Not Available [facility] (Lab) [address] [place], [address], 01/17/2025 07:10:03 01/12/2001/17/2025 LABCO RP SUSCE PTIBI LITY tetracycline susceptib le Not Available [facility] ([facility]) [address] [place], [address], 01/17/2025 07:10:03 01/12/2001/17/2025 LABCO RP SUSCE PTIBI LITY trimethoprim /sulfamethox azole susceptib le Not Available [facility] (Lab) [address] [place], [address], 01/17/2025 07:10:03 01/12/2001/17/2025 LABCO RP SUSCE PTIBI LITY vancomycin susceptib le Not Available [facility] (Lab) [address] [place], [address], 01/17/2025 07:10:03 01/12/2001/18/2025 ANAER OBIC CULTU RE anaerobic culture No anaer obic growt h in 72 hours . Not Available [facility] (Lab) [address] [place], [address], 01/18/2025 12:12:17 01/12/20 25 01/17/2025 LABCO RP SUSCE PTIBI LITY ciprofloxaci n susceptib le Not Available [facility] (Lab) [address] [place], [address], 01/18/2025 12:12:18 01/12/2001/17/2025 LABCO RP SUSCE PTIBI LITY clindamycin susceptib le Not Available [facility] (Lab) [address] [place], [address], 01/18/2025 12:12:18 01/12/20 25 01/17/2025 LABCO RP SUSCE PTIBI LITY erythromycin susceptib le Not Available [facility] (Lab) [address] [place], [address], 01/18/2025 12:12:18 01/12/2001/17/2025 LABCO RP SUSCE PTIBI LITY gentamicin susceptib le Not Available [facility] (Lab) [address] [place], [address], 01/18/2025 12:12:18 01/12/2001/17/2025 LABCO RP SUSCE PTIBI LITY levofloxacin susceptib le Not Available [facility] (Lab) [address] [place], [address], 01/18/2025 12:12:18 01/12/20 25 01/17/2025 LABCO RP SUSCE PTIBI LITY moxifloxacin susceptib le Not Available [facility] (Lab) [address] [place], [address], 01/18/2025 12:12:18 01/12/2001/17/2025 LABCO RP SUSCE PTIBI LITY oxacillin susceptib le Not Available [facility] ([facility]) [address] [place], [address], 01/18/2025 12:12:18 01/12/2001/17/2025 LABCO RP SUSCE PTIBI LITY penicillin resistant Not Available [facility] ([facility]) [address] [place], [address], 01/18/2025 12:12:18 01/12/2001/17/2025 LABCO RP SUSCE PTIBI LITY rifampin susceptib le Not Available [facility] (Lab) [address] [place], [address], 01/18/2025 12:12:18 01/12/2001/17/2025 LABCO RP SUSCE PTIBI LITY tetracycline susceptib le Not Available [facility] ([facility]) [address] [place], [address], 01/18/2025 12:12:18 01/12/2001/17/2025 LABCO RP SUSCE PTIBI LITY trimethoprim /sulfamethox azole susceptib le Not Available [facility] (Lab) [address] [place], [address], 01/18/2025 12:12:18 01/12/2001/17/2025 LABCO RP SUSCE PTIBI LITY vancomycin susceptib le Not Available [facility] (Lab) [address] [place], [address], 01/18/2025 12:12:18 12/09/1912/09/2024 zac lopez am No observ ation record ed. tmond In-Office Order Internal Use Only DO Not Attach Compendium DO Not Attach Compendium, Do Not Delete/merge, [id number] 12/23/2024 12:12:18 12/09/19 elect steve diogr am No observ ation record ed. tmond Not Available 2024 12:12:17 01/30/2001/28/2025 XR, foot, 3 or more view No observ ation record ed. [facility] Scheduling [address], [place], [address], 02/01/2025 10:04:21 03/01/2003/01/2025 ankle brach ial index No observ ation record ed. [facility] Scheduling [address], [place], [address], 04/04/2025 11:06:33 Result Notes None recorded. Problems Name Problem SNOMED Code Status Onset Date Resolution Date Notes Provider Name and Address Organization Details Recorded Time Congestive heart failure 48315262 Active 2023 PHILIP BROWN Attn: Accountin g,[address] [place], [place], [address] [place] [address] 2, [facility] 4 13:38:37 Body mass index 25-29 - overweight 019446501 Active 2023 PHILIP BROWN Attn: Accountin g,[address] [place], [place], [address] [place] [address] 2, [facility] 4 15:49:10 Prediabetes 973795317 Active 2023 PHILIP BROWN Attn: Accountin g,[address] [place], [address] [place] [address] 2, [place] 4 15:50:49 Vitamin D deficiency 22816551 Active 2023 PHILIP BROWN Attn: Accountin g,[address] [place], [place], [address] [place] [address] 2, [facility] 4 15:50:47 Nonischemic congestive cardiomyopa thy 759559789510 Active 2023 PHILIP BROWN Attn: Accountin g,[address] [facility], [place], [address], [facility] - [facility] 5 12:12:24 Atheroscler osis of coronary artery without angina pectoris 1556707621744 03 Active 2023 PHILIP BROWN Attn: Colleen kinney,[address] [facility], [place], [address], [facility] - [facility] 5 12:13:48 Patient post percutaneou s translumina l coronary angioplasty 526848541 Active 2023 PHILIP BROWN Attn: Colleen kinney,[address] [facility], [place], [place], [address] [place] [address] 2, [facility] - [facility] 5 12:12:22 Essential hypertensio n 40967025 Active 2023 PHILIP BROWN Attn: Colleen kinney,[address] [facility], [place], [place], [address] [place] [address] 2, [facility] - [facility] 5 12:13:46 Hyperlipide melida 44399508 Active 2023 PHILIP BROWN Attn: Colleen kinney,[address] [facility], [place], [place], [address] [place] [address] 2, [facility] - [facility] 5 12:13:43 Nicotine dependence 69382659 Active 2024 PHILIP BROWN Attn: Colleen kinney,[address] [facility], [place], [place], [address] [place] [address] 2, [facility] - [facility] 5 12:21:51 Problem Notes None recorded. Procedures Surgical History Date Name Laterality Status Provider Name and Address Organization Details Recorded Time 5 Ulcer Debridement completed Noel Willams DPM [address] [place], [address], [facility] 01/16/2025 14:16:16 Imaging Results None recorded. Procedure Notes None recorded. Medical Equipment None Reported. Allergies Allergen ID Allergen Name Allergen Category Reaction Reaction Severity Criticality Documentation Date Start Date Code Code System Note Provider Name and Address Organization Details Recorded Time 929608 watermelo n preparati on food vomiting Not available Not available 02/19/2024 41716 4 RxNorm Dick Miller MA [facility], [place] - [place] 10:22:41 Medications Name Sig Start Date Stop [...] Pulse oximetry Body temperature Heart rate Systolic And Diastolic Provider Name and Address Organization Details Last Updated DateTime 5 185.42 cm 31.9 kg/m2 148401. 35 g 98 % 98 % 97.6 [degF] 89 /min 135/85 mm[Hg] Dick Miller MA [facility] 5 12:07:09 Date Recorded Body height Body mass index (BMI) Body weight Body temperature Heart rate Systolic And Diastolic Systolic And Diastolic Provider Name and Address Organization Details Last Updated DateTime 5 185.42 cm 31.7 kg/m2 928419. 17 g 97.1 [degF] 76 /min 153/92 mm[Hg] 155/97 mm[Hg] Tara Ramirez MA [facility] 5 16:48:40 Date Recorded Body height Body mass index (BMI) Body weight Heart rate Systolic And Diastolic Provider Name and Address Organization Details Last Updated DateTime 01/25/2025 185.42 cm 30.8 kg/m2 358693.1 8 g 83 /min 115/75 mm[Hg] Patricia Mueller MA [facility] 01/25/2025 16:03:38 Date Recorded Body height Body mass index (BMI) Body weight Heart rate Systolic And Diastolic Provider Name and Address Organization Details Last Updated DateTime 02/13/2025 185.42 cm 30.5 kg/m2 613268.1 2 g 81 /min 116/72 mm[Hg] Makenzie Singh MA [facility] 02/13/2025 16:58:56 Date Recorded Body height Body mass index (BMI) Body weight Heart rate Body temperature Systolic And Diastolic Provider Name and Address Organization Details Last Updated DateTime 5 185.42 cm 32.2 kg/m2 406877. 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1 -Routine Recommende d screening [facility] risk of nutritional deficit 507233125 Z91.89 -Routine Recommende d screening Thyroid di sorder screening 259555870 Z13.29 -Routine Recommende d screening HIV screening 983644288 Z11.4 -Routine Recommende d screening Congestive heart failure 45344078 I50.9 -Pt followed by cardiology -No acute concerns today-Will continue to follow up with appts as establishe d and advised Body mass index 25-29 - overweight 002652848 Z68.29 -Pt advised of BMI-Pt encouraged to eat a plant-base d diet, minimizing processed foods and portion control-Pt advised on the recommenda tions for routine exercise [id number] Osmani Taylor MD [facility] [place] [facility] [address] [facility] [place] [address] 03/15/2024 11:54:57 03/16/2024 10:34:11 Nonischemic congestive cardiomyopathy 9581628968 04 I42.0 Atheroscle rosis of coronary artery without angina pectoris 7551365691 [address] percutaneous transluminal coronary angioplasty 335970870 Z98.61 Essential hypertension 30447540 I10 Hyperlipidemia 10691574 E78.5 [id number] Osmani Taylor MD [facility] [place] [facility] [address] [facility] [place] [address] 04/26/2024 12:00:40 04/29/2024 09:41:04 Nonischemic congestive cardiomyopathy 9796873185 04 I42.0 Atheroscle rosis of coronary artery without angina pectoris 3800493123 [address]25[address] percutaneous transluminal coronary angioplasty 800329634 Z98.61 Essential hypertension 12253619 I10 Hyperlipidemia 93936040 E78.5 Tobacco user 048823745 Z 72.0 [id number] PHILIP BROWN [facility]) [address] [place] [address] 06/20/2024 11:47:26 06/22/2024 12:15:20 Body mass index 25-29 - overweight 329232983 Z68.29 -Pt advised of BMI-Pt encouraged to eat a plant-base d diet, minimizing processed foods and portion control-Pt advised on the recommenda tions for routine exercise Congestive heart failure 96997176 I50.9 -Pt followed by cardiology -No acute concerns today-Will continue to follow up with appts as julissa bill and advised Hyperlipidemia 10193585 E78.5 -Pt followed by cardiology -No acute concerns today-Will continue to follow up with appts as julissa bill and advised Prediabetes 596004297 R7 3.03 -A1C: 6.1-Pt advised to maintain lifestyle modificati ons-Pt on Jardiance per cardiology -Re-assess today Essential hypertension 58748663 I10 -Pt followed by cardiology -No acute concerns today-Will continue to follow up with appts as julissa bill and advised [id number] Osmani Taylor MD [facility] [address] [place] [address] 12/09/2024 12:02:55 12/12/2024 08:33:53 Nonischemic congestive cardiomyopathy 5510870227 04 I42.0 Atheroscle rosis of coronary artery without angina pectoris 5993227518 [address] percutaneous transluminal coronary angioplasty 193277599 Z98.61 Essential hypertension 97439910 I10 Obesity 408545669 E66.9 Smoker 18653444 F17.200 Hyperlipidemia 04967534 E78.5 [id number] ARVIND BROWN-C [facility] (Adult[facility]) [address] [place] [address] 12/23/2024 11:50:55 12/26/2024 14:54:23 Body mass index 25-29 - overweight 598243372 Z68.29 -Pt advised of BMI-Pt encouraged to eat a plant-base d diet, minimizing processed foods and portion control-Pt advised on the recommenda tions for routine exercise Congestive heart failure 40033551 I50.9 -Pt followed by cardiology -No acute concerns today-Will continue to follow up with appts as establishgeoffrey d and advised Vitamin D deficiency 347 24799 E55.9 -Pt advised that Vit D is deficient; regimen initiated, sent to pharmacy Hyperlipidemia 88395557 E78.5 -Pt followed by cardiology -No acute concerns today-Will continue to follow up with appts as establishgeoffrey d and advised Prediabetes 307636175 R7 3.03 -Previous A1C: 6.1; Today's:-P t advised to maintain lifestyle modificati ons-Pt on Jardiance per cardiology -Re-assess today EDUCATI ON ON LORENZO PRINTER FOR PATIENT PLEASE 12/23/2024 Essential hypertension [id number] I10 -Pt followed by cardiology -No acute concerns today-Will continue to follow up with appts as julissa bill and advised Nicotine dependence [id number] F17.200 -Pt is a current smoker-Pt advised in the derogatory effects of smoking-Co unseling for smoking cessation completed Ingrowing nail of toe of right foot [id number] L60.0 -Further eval and management as outlined as stable today; No acute concerns [id number] Noel Willams DPM [facility] [address] [place] [address] 01/11/2025 16:31:15 01/16/2025 14:55:40 Foot ulcer due to type 2 diabetes mellitus 5704509014 100 E11.621 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 2 diabetes mellitus 6310749081 102 E11.628 Abscess of right foot 10 51473373 2613064 L02.505 [id number] Noel Willams DPM [facility] [address] [place] [address] 01/25/2025 15:57:13 01/26/2025 08:50:38 Foot ulcer due to type 2 diabetes mellitus 5416210720 100 E11.621 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 2 diabetes mellitus 6383215892 102 E11.628 Abscess of right foot 10 63358134 9315257 L02.138 [id number] [facility] [address] [place] [address] 02/13/2025 16:40:00 02/13/2025 17:10:21 Foot ulcer due to type 2 diabetes mellitus 9749313165 100 E11.621 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 2 diabetes mellitus 8912435370 102 E11.628 Abscess of right foot 10 20680042 5843952 L02.907 [id number] Noel Willams DPM [facility] ts [address] [place] [address] 03/15/2025 16:07:16 03/15/2025 16:56:24 Bilateral atherosclerosis of arteries of lower limbs 4569556242 7696211 I70.203 Foot ulcer due to type 2 diabetes mellitus 6433674742 100 E11.621 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 2 diabetes mellitus 9395347753 102 E11.628 Abscess of right foot 10 25054020 5945966 L02.611 Health Concerns Section Related Observation LastModified by Organization Detai ls LastModified Time None Recorded Concern Status LastModified by Organization Details LastModified Time None Recorded Advance Directives Directive None Recorded Payers Insurance Date Sequence Insurance Name Policy Number Policy Zaman Covered Member ID Zaman Member ID Guarantor Name 12/26/2024 1 [employer] [facility] ON OR AFTER 09/25/2020 (MEDICAID REPLACEMENT - HMO) Jamel Joya [id number] Jamel Joya Notes Date Note Type Note [...] and has a BMI OF >30, [employer] JANES MOND, B[employer] M[employer]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 He has been applying copious amounts of TA AO ointment and believes that the toe is looking worse than it was before. Noel Willams DPM [address], [place], [address], [facility] 01/25/2025 16:21:26 02/13/2025 text/html Patient presents to clinic for pain to the little toe on the right foot. Noel Willams DPM [address], [place], [address], [facility] 02/15/2025 12:29:31 03/15/2025 text/html Patient presents to clinic for pain to the little toe on the right foot. Noel Willams DPM [address], [place], [address], [facility] 03/15/2025 16:31:49
--- OUTSIDE RECORDS SUMMARY | 2025-05-06 18:46 | XMS_ITS | Clinical Summary ---
Author Organization [facility] Address [address] [place] [address] Phone Care Team Providers Care Structural Biologist Name Role Phone Unavailable Primary Care Provider [...] failure 02/10/2024 Coronary artery disease invo lving c[place]il de[place] coronary artery of [place] heart without angina pectoris 02/10/2024 Noncompliance 02/10/2024 [...] 19+ 3-dose series) 2003 INFLUENZA VACCINE (#1) 2025 HPV VACCINES Aged Out No longer eligi ble based on patient's age to complete this topic Insurance [employer] [place]ICAID RX [facility] Commercial RX [facility] Commercial RX [facility] Commercial Advance Directives For more information, please contact: [phone] * Full Code (Latest Code Status on File) Date Activated Date Inactivated Comments 02/09/2024 11:12 AM 02/12/2024 4:26 PM * Default Full Code - Needs Discussion Date Activated Date Inactivated Comments 02/09/2024 10:40 AM 02/09/2024 11:12 AM
--- OUTSIDE RECORDS SUMMARY | 2025-05-06 18:46 | XMS_ITS | Continuity of Care Document ---
Author Organization [facility] Address [address] [place] [address] [place] [address] Phone Care Team Providers Care Unit Aide Tech Name Role Phone Ghulam Huff MD Unavailable [...] Diagnoses Date Provider Providers Copied on Encounter [facility], [address], [place], [place], [id number], [place] [phone] [facility] No Information [address] Refugio [address]ar. [address], [place], [place], [address] , [place]. tel:[phone] OFFICE/OUTPA TIENT VISIT, EST [facility], [address], [place], [place], [address], [place] [phone] [facility] CHF (chief complaint)CHF1 (chief complaint)HTN (chief complaint)femor al artery clot (chief complaint)LFT (chief complaint) Hyperlipidemia Peripheral arterial embolism NOSAnemiaCardi omyopathyLiver disease 8 Refugio Oliveros [address], [address], [place], [place], [address] , [place]. tel:[phone] Referring Provider: Ghulam Huff [address], [place], [place], [address]. tel:[phone] OFFICE/OUTPA TIENT VISIT, [facility], [address], [place], [place], [address], [place] [phone] [facility] HTN (chief complaint)HLP (chief complaint)clot1 (chief complaint)tobac co1 (chief complaint) Essential (primary) hypertensionPe ripheral arterial embolism NOSHyperlipide miaTobacco use 8 Refugio Oliveros [address], [address], [place], [place], [address] , [place]. tel:[phone] OFFICE/OUTPA TIENT VISIT, EST [facility], [address], [place], [place], [address], [place] tel:[phone] [facility] HTN (chief complaint)liver disease (chief complaint)lFt1 (chief complaint)anemi a1 (chief complaint) Essential (primary) hypertensionLi nito diseaseAnemiaP eripheral arterial embolism NOS 7 Refug[address] Oliveros [address], [address], [place], [place], [address] , . tel:[phone] Referring Provider: Ayanna [address], [place], [place], [address]. tel:[phone] OFFICE/OUTPA TIENT VISIT, [facility], [address], [place], [place], [address], [place] tel:[phone] [facility] cardiomyopathy (chief complaint)anemi a1 (chief complaint)LFT (chief complaint)femoa l artery1 (chief complaint) Essential (primary) hypertensionPe ripheral arterial embolism NOSAnemiaLiver disease 7 Refugio Parmar. [address], [place], [place], [address] , [place]. tel:[phone] Referring Provider: [address], [place], [place], [address]. tel:[phone] OFFICE/OUTPA TIENT VISIT, [facility], [address], [place], [place], [address], [place] tel:[phone] [facility] arterial clot1 (chief complaint)HLP (chief complaint) Peripheral arterial embolism NOSEssential (primary) hypertensionHy perlipidemia 7 Refugio Parmar. [address], [place], [place], [address] , [place]. [phone] Referring Provider: Ayanna [address], [place], [place], [address]. tel:[phone] PREV VISIT, NEW, AGE 18-39 [facility], [address], [place], [place], [address], [place] tel:[phone] [facility] Physical (chief complaint) Encounter for general adult medical exam w abnormal findingsEssent ial (primary) hypertensionPe ripheral vascular disease, unspecifiedHyp erlipidemia 7 Refugio Parmar. [address], [place], [place], [address] , [place]. [phone] Referring Provider: Ayanna Baker [facility] [address], [place], [place], [address]. tel:[phone] Family History Family Member Type Diagnosis Age [...] he never followed up with cardiology at [facility] due to [employer] insurance. Pt denies any chest pain, sob. [...] and he supposes to see hematology at [facility] as outpatient arterial clot1 Pt has left femo rla artery clot without known etiology. Pt was admitted to [facility]. pt is seeing vascular surgeon, [...] has elevatd troponin. Pt was transferred to [facility]. Pt denies any chest pain. Pt did not do any surgery Pt was admitted to [facility] for one week. . Pt [...] numbness. Instructions Date Instruction Additional Infor mation Follow a low sodium diet. Relate d to Hyperlipidemia Stop smoking. Related to Hyper lipidemia Special diet education Related t o Body mass index (BMI) 29.0-29.9, adult Increase activity. Related to Hy perlipidemia Prescribed Diet Educ ation/Lifestyle Education Regarding Diet [...] Related to Dieta ry surveillance and counseling Increase physical activity Relat ed to Dietary surveillance and counseling Prescribed Diet Educ ation/Lifestyle Education Regarding Diet Related to Dietary Surveillance and Counseling Prescribed Activity and Exercise Education Related to Dietary Surveillance and Counseling Quit smoking Related to Encou nter for [...]
--- OUTSIDE RECORDS SUMMARY | 2025-05-06 18:46 | XMS_ITS | Data Portability ---
Author Organization [facility] OFFICE Address [address] [place] [id number] Assessment No assessment recorded. Plan of Treatment Reminders Order Date Submit Date Provider Last Modified By Organization Details Last Modified Time Details Appointments None recorded. Lab None recorded. Referral None recorded. Procedures None recorded. Surgeries None recorded. Imaging electrocar diogram 2020 021 [email or web address] Not available 14:57:19 electrocar diogram 2020 021 [email or web address] Not available 16:55:31 Medication Orders carvedilol 25 mg tablet 2021 [facility] [address] [place], [address], 2 13:01:06 Plavix 75 mg tablet 2021 [facility] [address] [place], [address], 2 13:01:07 lisinopril 20 mg tablet 2021 [facility] [address] [place], [address], 2 13:01:06 rosuvastat in 10 mg tablet 2021 [facility] [address] [place], [address], 2 13:01:01 Plavix 75 mg tablet 2021 022 [facility] [address], [place], [address], 2 11:26:31 lisinopril 20 mg tablet 2021 022 [facility] [address], [place], [address], 2 11:26:27 Plavix 75 mg tablet 2020 021 [facility] [address], [place], [address], 11:29:00 lisinopril 20 mg tablet 2020 021 [facility] [address], [place], [address], 11:28:56 Plavix 75 mg tablet 2020 021 [facility] [address], [place], [address], 12:03:23 lisinopril 20 mg tablet 2020 021 [facility] [address], [place], [address], 12:03:21 clopidogre l 75 mg tablet 2020 021 [facility] [address], [place], [address], 12:03:22 rosuvastat in 10 mg tablet 2020 021 [facility] [address], [place], [address], 12:03:18 Plavix 75 mg tablet 2018 019 [facility] [address] [place], [address], 9 15:59:53 lisinopril 20 mg tablet 2018 019 [facility]FACE [facility] [address] [place], [address], 9 15:59:12 Patient TargetsNo targets recorded. Patient Instructions Encounter Date Encounter Id Patient Instructions Last Modified By Organization Details Last Modified Time 09/17/2021 [id number] Weight loss 20 pounds Exercise advised Low cholesterol diet advised Low sodium diet advised. [email or web address] Not available 09/17/2021 11:28:42 03/18/2022 [id number] Weight loss 20 pounds Exercise advised Low cholesterol diet advised Low sodium diet advised. [email or web address] Not available 03/18/2022 11:26:38 09/09/2022 [id number] Advised against smoking Exercise advised Low cholesterol diet advised Low sodium diet advised. [email or web address] Not available 09/09/2022 13:00:50 Reason for Referral None Reported. Results Created Date Observation Date Name Description Value Unit Range Abnormal Flag Note LastModifiedBy Organization Detail LastModifiedTime 10/12/2010/11/2019 XR, chest No observ ation record ed. [email or web address] Not Available 2018 07:43:15 10/13/20 19 10/11/2019 , echo ardio gram No observ ation record ed. [email or web address] Not Available 2018 12:11:08 10/14/20 19 10/11/2019 angio gram (PROC ) No observ ation record ed. [email or web address] Not Available 2018 11:32:37 10/24/20 19 10/12/2019 elect tylerar diogr am No observ ation record ed. [email or web address] Not Available 2018 13:19:54 10/24/20 19 10/11/2019 XR, chest No observ ation record ed. [email or web address] Not Available 2018 13:26:59 10/24/20 19 10/12/2019 angio gram (PROC ) No observ ation record ed. [email or web address] Not Available 10/24 13:35:30 10/24/20 19 10/11/2019 US, echoc ardio gram No observ ation record ed. [email or web address] Not Available 2018 16:08:57 10/27/19 20 10/24/2019 elect rocar diogr am No observ ation record ed. [email or web address] Not Available 2019 17:13:20 06/21/20 21 06/21/2021 elect rocar diogr am No observ ation record ed. est Max Morales MD [address] [facility] [address], [place], [address], 07/07/2021 16:55:37 07/04/2007/03/2021 , echoc ardio gram No observ ation record ed. [facility] [address] [facility] [address], [place], [address], 07/05/2021 17:06:28 07/30/20 21 06/21/2021 elect rocar [...] diogr am No observ ation record ed. [email or web address] Max Morales MD [address] [facility] [address], [place], [address], 01/10/2022 13:28:30 03/20/20 22 03/18/2022 elect rocar diogr am No observ ation record ed. [email or web address] Not Available 2021 10:47:07 09/10/20 22 09/09/2022 elect rocar diogr am No observ ation record ed. [email or web address] Not Available 2021 10:23:14 Result Notes None recorded. Problems Name Problem SNOMED Code Status Onset Date Resolution Date Notes Provider Name and Address Organization Details Recorded Time Chest pain 70023472 Active 2018 Hallan Lopez null, [place] - [facility] 9 01:04:[address] segment elevation myocardial infarction 482740611 Active 2018 Wandera Jessica [place], [place] - [facility] 9 01:06:28 Myocardial infarction 38057065 Active 2018 Hala Jessica [place], [place] - [facility] 9 01:06:34 Hypertensive disorder 74356706 Active 2018 Susanna Tol[place], [place] - [facility] 9 14:43:57 Hypercholester olemia 07872517 Active 2018 Susanna [place], [place] - [facility] 9 14:44:04 Coronary atherosclerosi s 326327244 Active 2019 Natanael [place] null, [place] - [facility] 0 16:05:35 Problem Notes None recorded. Medical Equipment None Reported. Allergies Allergen ID Allergen Name Allergen Category Reaction Reaction Severity Criticality Documentation Date Start Date Code Code System Note Provider Name and Address Organization Details Recorded Time 9349 waterluco kaleb preparati on food Not available Not available Not available 10/24/2019 38024 4 RxNorm Susanna Hunter null, [place] - [...] in Arterial blood by Pulse oximetry Systolic And Diastolic Provider Name and Address Organization Details Last Updated DateTime 2 186.69 cm 29.6 kg/m2 595298. 19 g 61 /min 98 % 98 % 154/110 mm[Hg] Reji Red [facility] [place] 2 10:58:54 Date Recorded Body height Body mass index (BMI) Body weight Heart rate Oxygen saturation Oxygen saturation in Arterial blood by Pulse oximetry Systolic And Diastolic Provider Name and Address Organization Details Last Updated DateTime 1 186.69 cm 30.4 kg/m2 368446. 54 g 71 /min 91 % 91 % 132/90 mm[Hg] Flavia Schwab [facility] [place] 1 11:21:34 Date Recorded Body height Body mass index (BMI) Body weight Heart rate Oxygen saturation Oxygen saturation in Arterial blood by Pulse oximetry Systolic And Diastolic Provider Name and Address Organization Details Last Updated DateTime 2 186.69 cm 29.2 kg/m2 818074. 69 g 74 /min 98 % 98 % 156/110 mm[Hg] Nyla Olivarez [facility] [place] 2 12:55:08 Date Recorded Body height Body mass index (BMI) Body weight Heart rate Oxygen saturation Oxygen saturation in Arterial blood by Pulse oximetry Systolic And Diastolic Provider Name and Address Organization Details Last Updated DateTime 1 186.69 cm 30.5 kg/m2 589031. 61 g 73 /min 95 % 95 % 156/98 mm[Hg] NANDINI MICHAELMAE [facility] [place] 1 11:10:30 Date Recorded Body height Body mass index (BMI) Body weight Heart rate Oxygen saturation Oxygen saturation in Arterial blood by Pulse oximetry Systolic And Diastolic Provider Name and Address Organization Details Last Updated DateTime 9 186.69 cm 30.9 kg/m2 032951. 47 g 70 /min 98 % 98 % 144/86 mm[Hg] Susanna Carrillos [facility] [place] 9 14:59:26 Social History Question Answer Notes LastModified by ITS KOOL Details LastModified Time Tobacco Smoking Status Current Every Day Smoker Not Available [facility] 08/28/2020 03:30:41 What Is Your Level Of Caffeine Consumption? Occasional [id number] Information not available 08/28/2020 How Much Tobacco Do You Chew? None [id number] Information not available 08/28/2020 What Type Of Diet Are You Following? CARDIAC [id number] Information not available 08/28/2020 Which Illicit Or Recreational Drugs Have You Used? Marijuana [id number] Information not available 08/28/2020 Live Alone Or With Others? With Others [email or web address] Information not available 10/24/2019 Marital Status Single [email or web address] Informatio n not available 10/24/2019 What Was The Date Of Your Most Recent Tobacco Screening? 10/24/2019 [id number] Information not available 08/28/2020 How Many Children Do You Have? 0 [id number] Information not available 08/28/2020 General Stress Level Medium [email or web address] Information not available 10/24/2019 Sex: Unknown Functional Status Question Answer Note LastModified by ITS [facility] Details LastModified Time What is your level of alcohol consumption? Occasional [id number] Information not available 08/28/2020 Do you or have you ever used smokeless tobacco? 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 Never used electronic cigarettes [id number] Information not available 08/28/2020 What is your exercise level? Occasional [id number] Information not available 08/28/2020 Mental Status None recorded. Family History Relationship Description Onset Age of this Age Resolved Age Notes LastModified by Organization Details LastModified Time Father Hypertensive disorder [email or web address] Not available 10/24 14:42:50 Mother Hypertensive disorder [email or web address] Not available 10/24 14:42:50 Sister Hypertensive disorder [email or web address] Not available 10/24 14:43:10 Sister Hypercholest erolemia [email or web address] Not available 10/24 14:43:36 Brother Hypertensive disorder [email or web address] Not available 10/24 14:43:14 Medical History Condition Response Deep Vein Thrombosis Y Blood Clot Y High Cholesterol Y Myocardial Infarction Y Hyperlipidemia Y GERD/Reflux Y Hypertension Y Past Encounters Encounter ID Performer Location Encounter Start Date Encounter Closed Date Diagnosis/Indication Diagnosis SNOMED-CT Code Diagnosis ICD10 Code Diagnosis Note [id number] Max Morales MD [facility] [address] [place] [id number] 10/24/2019 14:36:48 10/25/2019 12:29:[address] segment elevation myocardial infarction 491008473 I21.3 Essential hypertension 29872225 I10 Coronary arteriosclerosis 93563384 I25.10 [facility] 10/11/2019 Status port acute inferior wall MA. Total occlusion of the right coronary artery. Status post angioplast y stent placement to the proximal right coronary artery with good successful result [facility] [id number] Max Morales MD [place] [facility] [place] [address] 06/21/2021 11:04:39 06/24/2021 16:00:49 Hypercholesterolemia 79641875 E78.00 Has been without medication s. Hypertensive disorder 38 720791 I10 Has been without medication s, renew. Myocardial infarction [address] s egment elevation myocardial infarction 078764634 I21.3 [facility] 10/11/2019 Status port acute inferior wall MA. Total occlusion of the right coronary artery. Status post angioplast y stent placement to the proximal right coronary artery with good successful result Essential hypertension 59187026 I10 Coronary arteriosclerosis 92356176 I25.10 [facility] 10/11/2019 Status port acute inferior wall MA. Total occlusion of the right coronary artery. Status post angioplast y stent placement to the proximal right coronary artery with good successful result [facility] Electrocar diogram abnormal 701023659 R94.31 Treadmill Myoview Stress test, has high [place] Risk score. Has Known CAD, or CAD risk equivalent . To look for any ischemia. Obtain echo to evaluate for structural /functiona l disease. [id number] Max Morales MD [place] [facility] [place] [address] 09/17/2021 10:53:51 09/17/2021 11:30:13 Hypercholesterolemia 97208931 E78.00 Has been without medication s. Hypertensive disorder 38 264553 I10 Has been without medication s, renew. Myocardial infarction [address] s egment elevation myocardial infarction 549540436 I21.3 [facility] 10/11/2019 Status port acute inferior wall MA. Total occlusion of the right coronary artery. Status post angioplast y stent placement to the proximal right coronary artery with good successful result Essential hypertension 66324144 I10 Coronary arteriosclerosis 04687211 I25.10 [facility] 10/11/2019 Status port acute inferior wall MA. Total occlusion of the right coronary artery. Status post angioplast y stent placement to the proximal right coronary artery with good successful result [facility] Electrocar diogram abnormal 381073607 R94.31 Treadmill Myoview Stress test was negative [id number] Max Morales MD [place] [facility] [address] [place] [address] 03/18/2022 10:43:06 03/18/2022 11:31:28 Hypercholesterolemia 13682475 E78.00 Has been without medication s. Hypertensive disorder 38 434377 I10 Has been without medication s, renew. Myocardial infarction [address] s egment elevation myocardial infarction 543791320 I21.3 [facility] 10/11/2019 Status port acute inferior wall MA. Total occlusion of the right coronary artery. Status post angioplast y stent placement to the proximal right coronary artery with good successful result Essential hypertension 60349794 I10 Coronary arteriosclerosis 85096304 I25.10 [facility] 10/11/2019 Status port acute inferior wall MA. Total occlusion of the right coronary artery. Status post angioplast y stent placement to the proximal right coronary artery with good successful result [facility] Electrocar diogram abnormal 883421089 R94.31 Treadmill Myoview Stress test was negative [id number] Max Morales MD [place] [facility] [address] [place] [address] 09/09/2022 12:36:11 09/09/2022 13:25:16 Hypercholesterolemia 07030532 E78.00 Has been without medication s. Hypertensive disorder 38 399850 I10 Has been without medication s, renew. Myocardial infarction [address] s egment elevation myocardial infarction 516443737 I21.3 [facility] 10/11/2019 Status port acute inferior wall MA. Total occlusion of the right coronary artery. Status post angioplast y stent placement to the proximal right coronary artery with good successful result Essential hypertension 41659772 I10 Coronary arteriosclerosis 04454783 I25.10 [facility] 10/11/2019 Status port acute inferior wall MA. Total occlusion of the right coronary artery. Status post angioplast y stent placement to the proximal right coronary artery with good successful result [facility] Electrocar diogram abnormal 618359754 R94.31 Treadmill Myoview Stress test was negative Health Concerns Section Related Observation LastModified by Organization Detai ls LastModified Time None Recorded Concern Status LastModified by Organization Details LastModified Time None Recorded Advance Directives Directive None Recorded Payers Insurance Date Sequence Insurance Name Policy Number Policy Zaman Covered Member ID Zaman Member ID Guarantor Name 05/05/2022 1 [employer] Jamel Joya [id number] Jamel Joya 04/18/2020 1 *SELF PAY* Erin seph C Toan 05/05/2022 2 *SELF PAY* Erin seph C Toan 09/28/2022 1 [employer] [place] - DOS ON OR AFTER 2020 (MEDICAID REPLACEMENT - HMO) Jamel Joya [id number] Jamel C Toan Notes Date Note Type Note Provider Name and Address Organization Details Recorded Time 10/24/2019 text/html 10/24/19 CC: chest pain 34 year old man presents to office for cardiac evaluation following MA at [facility] on October 11, 2019. 10/11/2019 Status port acute inferior wall MA. Total occlusion of the right coronary artery. [...] diastolic function is grade I diastolic dysfunction [facility] 10/11/2019 Status port acute inferior wall MA. Total occlusion of the right coronary artery. Status post angioplasty stent placement to the proximal right coronary artery with good successful result Max Morales MD [address] [place], [address], [facility] 01/12/2020 10:31:15 06/21/2021 text/html 06/21/21 CC: chest pain 34 year old man presents to office for cardiac evaluation following MA at [facility] on October 11, 2019. He was seen in office once, September 2019, and did not make it to follow up appointments. 10/11/2019 Status port acute inferior wall MA. Total occlusion of the right coronary artery. [...] diastolic function is grade I diastolic dysfunction [facility] 10/11/2019 Status port acute inferior wall MA. Total occlusion of the right coronary artery. Status post angioplasty stent placement to the proximal right coronary artery with good successful result Della Feliz [place], [place] - [facility] 06/21/2021 12:03:13 09/17/2021 text/html 09/17/21CC : Car diac follow up, dyspnea on [email or web address] year old man with h/o coronary atherosclerosis, [...] 07/16/21 with Normal LV systolic function. Previously:Had MA at [facility] on October 11, 2019. 10/11/2019 Status port acute inferior wall MA. Total occlusion of the right coronary artery. [...] diastolic function is grade I diastolic dysfunction [facility] 10/11/2019 Status port acute inferior wall MA. Total occlusion of the right coronary artery. Status post angioplasty stent placement to the proximal right coronary artery with good successful result Max Morales MD [address] [place], [address], [place] - [facility] 09/17/2021 11:29:03 03/18/2022 text/html 03/18/22CC : Car diac follow up, dyspnea on [email or web address] year old man with h/o coronary atherosclerosis, [...] 07/16/21 with Normal LV systolic function. Had MA at [facility] on October 11, 2019. 10/11/2019 Status port acute inferior wall MA. Total occlusion of the right coronary artery. [...] diastolic function is grade I diastolic dysfunction [facility] 10/11/2019 Status port acute inferior wall MA. Total occlusion of the right coronary artery. Status post angioplasty stent placement to the proximal right coronary artery with good successful result Max Morales MD [address] [place], [address], [facility] 03/18/2022 11:26:57 09/09/2022 text/html 09/09/22CC : Car diac follow up, dyspnea on [email or web address] year old man with h/o coronary atherosclerosis, [...] 07/16/21 with Normal LV systolic function. Had MA at [facility] on October 11, 2019. 10/11/2019 Status port acute inferior wall MA. Total occlusion of the right coronary artery. [...] diastolic function is grade I diastolic dysfunction [facility] 10/11/2019 Status port acute inferior wall MA. Total occlusion of the right coronary artery. Status post angioplasty stent placement to the proximal right coronary artery with good successful result Max Morales MD [address] [place], [address], [place] - [facility] 09/09/2022 13:01:03
[2025-05-06 18:50] VITALS: BP 139/85; PULSE 83; RESP 14; TEMP 37; O2SAT 98
--- NOTE | 2025-05-06 19:11 | ED_ITS ---
HPI - Extremity Problem General Chief complaint: Extremity Problem,Nontraumatic Stated complaint: infected pinky toe post amputation Time Seen by Provider: 05/06/25 19:06 History of Present Illness HPI Narrative: Patient is a 39-year-old male who presents the emergency department this evening for a wound check. Had a right 5th toe amputation performed by Dr. Smith on April 12. Patient saw him yesterday at the office and had his stitches removed and was told the wound was healing well. Patient noticed some serosanguineous drainage today and wanted someone also take a look at the wound to make sure it is not infected. Denies any fevers or chills at home. No additional symptoms or concerns at this time. Related Data Home Medications ?Medication ?Instructions ?Recorded ?Confirmed ?Last Taken ?Type amlodipine 5 mg tablet (Norvasc) 5 mg PO DAILY 04/11/25 05/05/25 04/10/25 History atorvastatin 80 mg tablet 80 mg PO HS 04/11/25 05/05/25 04/10/25 History empagliflozin 10 mg tablet 10 mg PO DAILY 04/11/25 05/05/25 04/10/25 History (Jardiance) hydrochlorothiazide 12.5 mg tablet 12.5 mg PO DAILY 04/11/25 05/05/25 Unknown History metoprolol succinate 100 mg 100 mg PO DAILY HR 04/11/25 05/05/25 04/10/25 History tablet,extended release 24 hr sacubitril 97 mg-valsartan 103 mg 1 tablet PO BID 04/11/25 05/05/25 04/10/25 10:00 History tablet (Entresto) spironolactone 25 mg tablet 25 mg PO DAILY 04/11/25 05/05/25 Unknown History Allergies Allergy/AdvReac Type Severity Reaction Status Date / Time watermelon Allergy Vomiting Verified 05/06/25 18:51 Review of Systems Review of Systems: All systems are reviewed and are negative unless stated otherwise in the HPI. [facility] Past Medical History Medical History Amputation of fifth toe of right foot d/t Osteomyelitis right 5th toe; 04/12/25 Dr Smith Peripheral vascular disease New diagnosis as of 04/14/2025, patient does not know specifics as of yet. Arterial Dopplers done at [facility]. Heart failure with preserved ejection fraction ST elevation (STEMI) myocardial infarction (09/2019) Hypertension Coronary artery disease Surgical History Surgical History History of coronary angioplasty with insertion of stent Xience stent to the proximal RCA Family History Family History Father Hypertension Hyperlipemia Mother Hypertension Hyperlipemia Social History Social History Social History: Surrogate medical decision maker: [place], significant other. Code status: Full code. Years smoked: 15 Smoking status: Current every day smoker Tobacco type: cigars Second hand tobacco smoke exposure: No Additional smoking assessment comments: smokes 3 to 4 cigars a day Alcohol intake: current Drinks per week: 8 Substance use: current Substance use type: marijuana Last use: 04/09/25 Do You Feel Safe in your Home?: Yes Lack of Transportation: No Lack of Food: Never True Current Housing: I Have Housing Concerned About Future Housing: No Difficulty Paying Gas/Electric Bills: No Difficulty Paying for Meds: No Currently Unemployed: No Education: High School Diploma/GED Difficulty w/ Childcare or Family Care: No Spiritual care concerns: No Exam Narrative: General: Alert, awake, afebrile, in no acute distress. HEENT: PERRL, no rhinorrhea, no post nasal drip, oropharynx clear. Neck: Trachea midline, no JVD, no lymphadenopathy. Cardiovascular: Regular rate and rhythm, no murmurs, rubs or gallops, no peripheral edema. Respiratory: Clear to auscultation bilaterally, no tachypnea, no wheezing, no rhonchi, no rubs, no respiratory distress. Abdomen: Soft, nontender, nondistended, no rebound, no guarding, no peritoneal signs. Musculoskeletal: Right 5th toe amputation, moderate swelling to the foot, eschar formation over the amputation site, small part of the eschar has fallen off, area does appear to be clean and dry, no real and drainage, no evidence of infection. Skin: No rashes or petechia, no signs of infection. Psychiatric: Alert and oriented, normal behavior and judgment for situation. Neurological: Alert and oriented to person, place, and time. Follows all commands. No focal deficits, speech is clear and fluent. Course Vital Signs Vital signs: Vital Signs Temperature 98.6 F 05/06/25 18:50 Pulse Rate 83 05/06/25 18:50 Respiratory Rate 14 05/06/25 18:50 Blood Pressure 139/85 05/06/25 18:50 Pulse Oximetry 98 05/06/25 18:50 Temperature 98.6 F 05/06/25 18:50 Pulse Rate 83 05/06/25 18:50 Respiratory Rate 14 05/06/25 18:50 Blood Pressure 139/85 05/06/25 18:50 Pulse Oximetry 98 05/06/25 18:50 MDM - Extremity (Nontraumatic) MDM Narrative Medical decision making narrative: The patient was evaluated by myself in the emergency department. History is obtained from patient who is an independent historian and physical exam was performed. External medical records were reviewed at this time. Differential diagnosis considerations include cellulitis, abscess, wound dehiscence. Comorbidities impacting this visit include recent toe amputation. I have evaluated and discussed social determinants of health with the patient that could potentially impact subsequent diagnosis and treatment plans. On repeat assessment of the patient, reevaluation revealed that the patient is doing well and is in no acute distress. Patient symptoms have improved since he arrived to our emergency department. Repeat vital signs were all reviewed and noted to be stable. Differential diagnosis and treatment plan were discussed with the patient at bedside. Patient agrees with discussion and after shared medical decision making agrees with discharge. All questions were answered to the patient's satisfaction. Patient will follow up with his general surgeon in 3-5 days. Patient was provided with strict return precautions and instructed to return to the emergency department if any new or worsening symptoms develop. The patient was discharged in stable condition. Discharge Plan Discharge Clinical Impression: Encounter for evaluation of wound Patient Disposition: Home Condition: Improved Instructions: Antibiotic Form, Acute Wounds (DC) Additional Instructions: Please follow-up with your general surgeon within the next 3-5 days. Keep the area clean and dry. Return to the ED if any new or worsening symptoms develop. Patient Language: [place] Prescriptions: No Action aspirin [Children's Aspirin] 81 mg Tablet,Chewable 81 mg PO DAILY@0800 100 Days Qty: 100 0RF metoprolol succinate 100 mg tablet extended release 24 hr 100 mg PO DAILY Jardiance 10 mg tablet 10 mg PO DAILY atorvastatin 80 mg tablet 80 mg PO HS Entresto 97-103 mg tablet 1 tablet PO BID hydrochlorothiazide 12.5 mg tablet 12.5 mg PO DAILY spironolactone 25 mg tablet 25 mg PO DAILY amlodipine [Norvasc] 5 mg Tablet 5 mg PO DAILY hydrocodone-acetaminophen 5-325 mg Tablet 1 tablet PO Q4H PRN (Reason: Pain Rated 4-6) Qty: 10 0RF Follow-up/Referrals: Dion Smith DO [Primary Care Provider] - 3 Days Time of Disposition: 19:15
--- OUTSIDE RECORDS SUMMARY | 2025-05-06 19:18 | XMS_ITS | Continuity of Care Document ---
Author Organization [facility] Address [address] [place] [address] Phone Care Team Providers Care Pelletizer Tender Name Role Phone Ghulam Huff MD Unavailable [...] Diagnoses Date Provider Providers Copied on Encounter [facility], [address], [place], [place], [address], [place] [phone] [facility] No Information [address] Refugio Parmar. [address], [place], [place], [address] , [place]. tel:[phone] OFFICE/OUTPA TIENT VISIT, EST [facility], [address], [place], [place], [address], [place] [phone] [facility] CHF (chief complaint)CHF1 (chief complaint)HTN (chief complaint)femor al artery clot (chief complaint)LFT (chief complaint) Hyperlipidemia Peripheral arterial embolism NOSAnemiaCardi omyopathyLiver disease 8 Refugio Oliveros [address], [place], [place], [address] , [place]. tel:[phone] Referring Provider: Ghulam Huff [address], [place], [place], [address]. tel:[phone] OFFICE/OUTPA TIENT VISIT, [facility], [address], [place], [place], [address], [place] [phone] [facility] HTN (chief complaint)HLP (chief complaint)clot1 (chief complaint)tobac co1 (chief complaint) Essential (primary) hypertensionPe ripheral arterial embolism NOSHyperlipide miaTobacco use 8 Refugio Oliveros [address], [place], [place], [address] , [place]. tel:[phone] OFFICE/OUTPA TIENT VISIT, EST [facility], [address], [place], [place], [address], [place] tel:[phone] [facility] HTN (chief complaint)liver disease (chief complaint)lFt1 (chief complaint)anemi a1 (chief complaint) Essential (primary) hypertensionLi nito diseaseAnemiaP eripheral arterial embolism NOS 7 Refugio Oliveros [address], [place], [place], [address] , . tel:[phone] Referring Provider: Ayanna Baker [address], [place], [place], [address]. tel:[phone] OFFICE/OUTPA TIENT VISIT, [facility], [address], [place], [place], [address], [place] tel:[phone] [facility] cardiomyopathy (chief complaint)anemi a1 (chief complaint)LFT (chief complaint)femoa l artery1 (chief complaint) Essential (primary) hypertensionPe ripheral arterial embolism NOSAnemiaLiver disease 7 Refugio Parmar. [address], [place], [place], [address] , [place]. tel:[phone] Referring Provider: [address], [place], [place], [address]. tel:[phone] OFFICE/OUTPA TIENT VISIT, [facility], [address], [place], [place], [address], [place] tel:[phone] [facility] arterial clot1 (chief complaint)HLP (chief complaint) Peripheral arterial embolism NOSEssential (primary) hypertensionHy perlipidemia 7 Refugio Parmar. [address], [place], [place], [address] , [place]. [phone] Referring Provider: Ayanna Baker [address], [place], [place], [address]. tel:[phone] PREV VISIT, NEW, AGE 18-39 [facility], [address], [place], [place], [address], [place] tel:[phone] [facility] Physical (chief complaint) Encounter for general adult medical exam w abnormal findingsEssent ial (primary) hypertensionPe ripheral vascular disease, unspecifiedHyp erlipidemia 7 Refugio Parmar. [address], [place], [place], [address] , [place]. [phone] Referring Provider: Ayanna Baker [facility] [address], [place], [place], [address]. tel:[phone] Family History Family Member Type Diagnosis Age [...] he never followed up with cardiology at [facility] due to [employer] insurance. Pt denies any chest pain, sob. [...] and he supposes to see hematology at [facility] as outpatient arterial clot1 Pt has left femo rla artery clot without known etiology. Pt was admitted to [facility]. pt is seeing vascular surgeon, hematology and [...] elevatd troponin. Pt was transferred to [facility]. Pt denies any chest pain. Pt did not do any surgery Pt was admitted to [facility] for one week. . Pt currently on [...]
--- OUTSIDE RECORDS SUMMARY | 2025-05-06 19:18 | XMS_ITS | Clinical Summary ---
Author Organization [facility] Address [address] [place] [address] Phone Care Team Providers Care Educational Aide Name Role Phone Unavailable Primary Care Provider [...] failure 02/10/2024 Coronary artery disease invo lving [place] coronary artery of [place] heart without angina pectoris 02/10/2024 Noncompliance 02/10/2024 [...] HEALTH [place] MEDICAID RX [facility] Commercial RX [facility] Commercial RX [facility] Commercial Advance Directives For more information, please contact: [phone] * Full Code (Latest Code Status on File) Date Activated Date Inactivated Comments 02/09/2024 11:12 AM 02/12/2024 4:26 PM * Default Full Code - Needs Discussion Date Activated Date Inactivated Comments 02/09/2024 10:40 AM 02/09/2024 11:12 AM
== END 2025-05-06 19:25 | disposition home or self-care (01) ==
LOC: ANHED 19:15
PROVIDERS: Emergency Provider Emergency Medicine; PCP Surgery
DX: Z47.81 Encounter for orthopedic aftercare following surgical amputation (principal); I73.9 Peripheral vascular disease, unspecified; I50.9 Heart failure, unspecified; I11.0 Hypertensive heart disease with heart failure; I25.2 Old myocardial infarction; I25.10 Atherosclerotic heart disease of native coronary artery without angina pectoris; Z95.5 Presence of coronary angioplasty implant and graft; F17.290 Nicotine dependence, other tobacco product, uncomplicated; Z89.421 Acquired absence of other right toe(s)
CPT/HCPCS: 99281

== ENCOUNTER 2025-05-14 22:35 | Emergency (ER) | payer OTHER, SELFPAY ==
--- NOTE | ~2025-05-14 | XR_ITS ---
XR foot RT min 3V 05/15/2025 03:22 Indication: Status post amputation fifth toe Procedure: 3 views right foot Comparison: 04/10/2025 Findings: Status post partial amputation right fifth toe. Mild soft tissue swelling. No other fractur e or traumatic malalignment. Lisfranc joint intact. Impression: 1: Status post partial dictation right fifth toe at the proximal phalanx. Reviewed, dictated and finalized at location A. Impression: 1: Status post partial dictation right fifth toe at the proximal phalanx.
--- OUTSIDE RECORDS SUMMARY | 2025-05-14 22:38 | XMS_ITS | Continuity of Care Document ---
Author Organization [facility] Address [address] [place] [address] Phone Care Team Providers Care Green Chain Marker Name Role Phone Ghulam Huff MD Unavailable [...] Diagnoses Date Provider Providers Copied on Encounter [facility], [address], [place], [place], [address], [place] [phone] [facility] No Information 8 Refugio Parmar. [address], [place], [place], [address] , [place]. [phone] OFFICE/OUTPA TIENT VISIT, EST [facility], [address], [place], [place], [address], [place] [phone] [facility] CHF (chief complaint)CHF1 (chief complaint)HTN (chief complaint)femor al artery clot (chief complaint)LFT (chief complaint) Hyperlipidemia Peripheral arterial embolism NOSAnemiaCardi omyopathyLiver disease 8 Refugio Oliveros [address], [place], [place], [address] , [place]. tel:[phone] Referring Provider: Ghulam Huff [address], [place], [place], [address]. tel:[phone] OFFICE/OUTPA TIENT VISIT, [facility], [address], [place], [place], [address], [place] [phone] [facility] HTN (chief complaint)HLP (chief complaint)clot1 (chief complaint)tobac co1 (chief complaint) Essential (primary) hypertensionPe ripheral arterial embolism NOSHyperlipide miaTobacco use 8 Refugio Oliveros [address], [place], [address] , [place]. tel:[phone] OFFICE/OUTPA TIENT VISIT, EST [facility], [address], [place], [place], [address], [place] tel:[phone] [facility] HTN (chief complaint)liver disease (chief complaint)lFt1 (chief complaint)anemi a1 (chief complaint) Essential (primary) hypertensionLi nito diseaseAnemiaP eripheral arterial embolism NOS 7 Refugio Oliveros [address], [place], [place], [address] , . tel:[phone] Referring Provider: Ayanna Baker [address], [place], [place], [address]. tel:[phone] OFFICE/OUTPA TIENT VISIT, [facility], [address], [place], [place], [address], [place] tel:[phone] [facility] cardiomyopathy (chief complaint)anemi a1 (chief complaint)LFT (chief complaint)femoa l artery1 (chief complaint) Essential (primary) hypertensionPe ripheral arterial embolism NOSAnemiaLiver disease 7 Refugio Parmar. [address], [place], [place], [address] , [place]. tel:[phone] Referring Provider: [address], [place], [address]. tel:[phone] OFFICE/OUTPA TIENT VISIT, [facility], [address], [place], [place], [address], [place] tel:[phone] [facility] arterial clot1 (chief complaint)HLP (chief complaint) Peripheral arterial embolism NOSEssential (primary) hypertensionHy perlipidemia 7 Refugio Parmar. [address], [place], [address] , [place]. [phone] Referring Provider: Ayanna Baker [address], [place], [place], [address]. tel:[phone] PREV VISIT, NEW, AGE 18-39 [facility], [address], [place], [place], [address], [place] tel:[phone] [facility] Physical (chief complaint) Encounter for general adult medical exam w abnormal findingsEssent ial (primary) hypertensionPe ripheral vascular disease, unspecifiedHyp erlipidemia 7 Refugio Parmar. [address], [place], [place], [address] , [place]. [phone] Referring Provider: Ayanna Baker [facility], [place], [place], [address]. tel:[phone] Family History Family Member Type Diagnosis Age At Onset Sister Problem (finding) Alive and well Mother Problem (finding) Alive and well Father Problem (finding) Alive and well Payers Payer name Insurance type Covered green party ID Authoriza tion(s) No Information Social [...] he never followed up with cardiology at [facility] due to [employer] insurance. Pt denies any chest pain, sob. [...] and he supposes to see hematology at [facility] as outpatient LFT Pt [...] without known etiology. Pt was admitted to [facility]. pt is seeing vascular [...] has elevatd troponin. Pt was transferred to [facility]. Pt denies any chest pain. Pt did not do any surgery Pt was admitted to [facility] for one week. . [...] Education Related to Dietary Surveillance and Counseling Follow a low sodium diet. Relate d to Essential (primary) hypertension Stop smoking. Related to Essen tial (primary) hypertension Increase activity. Related to Es sential (primary) hypertension Prescribed Diet Educ ation/Lifestyle Education Regarding Diet Related to Dietary Surveillance and Counseling Weight management Related to tary surveillance and counseling Quit smoking Related to Dieta ry surveillance and counseling Increase physical activity Relat ed to Dietary surveillance and counseling Prescribed Activity and Exercise Education Related to Dietary Surveillance and Counseling Prescribed Diet Educ ation/Lifestyle Education Regarding Diet Related to Dietary Surveillance and Counseling Quit [...]
--- OUTSIDE RECORDS SUMMARY | 2025-05-14 22:38 | XMS_ITS | Data Portability ---
Author Organization [facility]FRED[facility] ROSIEBro Address [address] [facility] [place] [address] Care Team Providers Care Ehs Teacher Name Role Phone JANES SUGGS Primary Care Provider [phone] Assessment Encounter Date Assessment Date Assessment LastModified [...] - right 5th toe ulcer 2024 025 [facility] (Lab), [address] [place], [address], 01/16/2025 11:12:53 HbA1c (hemoglo bin A1c), blood 2024 025 tmond In-Office Order, Internal Use Only DO Not Attach Compendium DO Not Attach Compendium, Do Not Delete/merge, [id number] 12/23/2024 12:32:18 glucose, fingerst ick, blood 2024 025 tmond In-Office Order, Internal Use Only DO Not Attach Compendium DO Not Attach Compendium, Do Not Delete/merge, [id number] 12/23/2024 12:32:18 vitamin D, 25-hydro xy, total, serum 2024 025 [facility] [address], [address], [place], [address], 12/24/2024 09:13:22 microalb umin/cre atinine, mass ratio, urine 2024 025 [facility], [address], [address], [place], [address], 12/24/2024 09:13:21 CBC 2024 025 [facility], [address], [address], [place], [address], 12/24/2024 08:36:[address] referral 2024 025 [facility], [address], [place], [address], 01/10/2025 12:08:59 Procedures None recorded . Surgeries None recorded . Imaging XR, foot, 3 or more view 2024 025 [facility] ([facility] [address] [place], [address], 01/29/2025 14:36:27 ankle brachial index 2024 025 [facility] ([facility]), [address], [place], [address], 03/01/2025 16:31:53 Medication Orders Bactrim DS 800 mg-160 mg tablet 2024 025 [facility] [address] [place], [address], 01/25/2025 16:16:56 Betadine 10 % topical solution 2024 025 [facility] [address] [place], [address], 01/25/2025 16:17:17 cephalex in 500 mg capsule 2024 025 [facility] [address] [place], [address], 01/11/2025 17:07:50 Patient TargetsNo targets recorded. 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 Referring Physician: Janes Suggs, Family Medicine, Encounter Date: 12/23/2024 Results Created Date Observation Date Name Description Value Unit Range Abnormal Flag Note LastModifiedBy Organization Detail LastModifiedTime 12/23/1912/24/2024 CBC, PLATE LET, NO DIFFE RENTI AL WBC 6.7 x10e3 /uL 3.4-10 .8 Not Available [facility] ([facility]) [address] [place], [address], 12/24/2024 08:36:10 12/23/1912/24/2024 CBC, PLATE LET, NO DIFFE RENTI AL RBC 5.37 x10e6 /uL 4.14-5 .80 Not Available [facility] ([facility]) [address] [place], [address], 12/24/2024 08:36:10 12/23/19 25 12/24/2024 CBC, PLATE LET, NO DIFFE RENTI AL hemoglobin 16.6 g/dL 13.0-1 7.7 Not Available [facility] ([facility]) [address] [place], [address], 12/24/2024 08:36:10 12/23/1912/24/2024 CBC, PLATE LET, NO DIFFE RENTI AL hematocrit 51.6 % 37.5-5 1.0 above high normal Not Available [facility] ([facility]) [address] [facility], [place], [address], 12/24/2024 08:36:10 12/23/1912/24/2024 CBC, PLATE LET, NO DIFFE RENTI AL MCV 96 fL 79-97 Not Available [facility] ([facility]) [address] [place], [address], 12/24/2024 08:36:10 12/23/1912/24/2024 CBC, PLATE LET, NO DIFFE RENTI AL MCH 30.9 pg 26.6-3 3.0 Not Available [facility] ([facility]) [address] [place], [address], 12/24/2024 08:36:10 12/23/1912/24/2024 CBC, PLATE LET, NO DIFFE RENTI AL MCHC 32.2 g/dL 31.5-3 5.7 Not Available [facility] ([facility]) [address] [place], [address], 12/24/2024 08:36:10 12/23/19 25 12/24/2024 CBC, PLATE LET, NO DIFFE RENTI AL RDW 13.7 % 11.6-1 5.4 Not Available [facility] ([facility]) [address] [place], [address], 12/24/2024 08:36:10 12/23/19 25 12/24/2024 CBC, PLATE LET, NO DIFFE RENTI AL platelets 224 x10e3 /uL 150-45 0 Not Available [facility] ([facility]) [address] [facility], [place], [address], 12/24/2024 08:36:10 12/23/19 25 12/24/2024 CBC, PLATE LET, NO DIFFE RENTI AL hematology comments: NOTE: Verif ied by micro celeste dangelo n. Not Available [facility] ([facility]) [address] [facility], [place], [address], 12/24/2024 08:36:10 12/23/19 25 12/24/2024 ALBUM IN/CR EAT RATIO , RANDO M UR creatinine, urine 112.6 mg/dL notest ab. Not Available [facility] ([facility]) [address] [facility], [place], [address], 12/24/2024 09:13:21 12/23/19 25 12/24/2024 ALBUM IN/CR EAT RATIO , RANDO M UR albumin, urine 20.4 ug/mL notest ab. Not Available [facility] ([facility]) [address] [facility], [place], [address], 12/24/2024 09:13:21 12/23/19 25 12/24/2024 ALBUM IN/CR EAT RATIO , RANDO M UR alb/creat ratio 18 mg/g_ creat 0-29 Barbara l: 0 - 29 Moder ately incre ased: 30 - 300 Sever elise incre ased: >300 Not Available [facility] ([facility]) [address] [facility], [place], [address], 12/24/2024 09:13:21 12/23/19 25 12/24/2024 VITAM IN [...] um and D. Maureen ortega [place]: The [facility] . 2. Radha briones MF, Tashi ansari [place], Camille off-F chester i NARAYAN, et al. Evalu ation , treat ment, and preve ntion of vitam in D defic iency : an Endoc rine Socie ty clini betina pract ice guide line. JCEM. 2010; 96(7) :1911 -30. Not Available [facility] ([facility]) [address] [facility], [place], [address], 12/24/2024 09:13:22 12/23/19 25 12/23/2024 HbA1c (hemo globi n A1c), blood HbA1c 6.3 Not Available In-Office Order Internal Use Only DO Not Attach Compendium DO Not Attach Compendium, Do Not Delete/merge, [id number] 12/23/2024 12:09:30 12/23/19 25 12/23/2024 gluco se, finge rschristiana k, blood Blood Glucose: mg/dl 157 Not Available In-Off ice Order Internal Use Only DO Not Attach Compendium DO Not Attach Compendium, Do Not Delete/merge, [id number] 12/23/2024 12:09:36 01/12/2001/17/2025 AEROB IC CULTU RE [...] RMAL* Moder ate growt h Not Available [facility] (Lab) [address] [place], [address], 01/17/2025 07:10:02 01/12/20 25 01/17/2025 AEROB IC CULTU RE O:stawar Isolat ed Not Available [facility] (Lab) [address] [place], [address], 01/17/2025 07:10:02 01/12/20 25 01/17/2025 AEROB IC CULTU RE O:candpa Isolat ed Not Available [facility] (Lab) [address] [place], [address], 01/17/2025 07:10:02 01/12/20 25 01/16/2025 LABCO RP SUSCE PTIBI LITY ciprofloxaci n susceptib le Not Available [facility] (Lab) [address] [place], [address], 01/16/2025 08:14:01 01/12/20 25 01/16/2025 LABCO RP SUSCE PTIBI LITY clindamycin susceptib le Not Available [facility] (Lab) [address] [place], [address], 01/16/2025 08:14:01 01/12/20 25 01/16/2025 LABCO RP SUSCE PTIBI LITY erythromycin susceptib le Not Available [facility] (Lab) [address] [place], [address], 01/16/2025 08:14:01 01/12/20 25 01/16/2025 LABCO RP SUSCE PTIBI LITY gentamicin susceptib le Not Available [facility] (Lab) [address] [place], [address], 01/16/2025 08:14:01 01/12/20 25 01/16/2025 LABCO RP SUSCE PTIBI LITY levofloxacin susceptib le Not Available [facility] (Lab) [address] [place], [address], 01/16/2025 08:14:01 01/12/20 25 01/16/2025 LABCO RP SUSCE PTIBI LITY moxifloxacin susceptib le Not Available [facility] ([facility]) [address] [place], [address], 01/16/2025 08:14:01 01/12/20 25 01/16/2025 LABCO RP SUSCE PTIBI LITY oxacillin susceptib le Not Available [facility] ([facility]) [address] [place], [address], 01/16/2025 08:14:01 01/12/20 25 01/16/2025 LABCO RP SUSCE PTIBI LITY penicillin resistant Not Available [facility] ([facility]) [address] [place], [address], 01/16/2025 08:14:01 01/12/20 25 01/16/2025 LABCO RP SUSCE PTIBI LITY rifampin susceptib le Not Available [facility] ([facility]) [address] [place], [address], 01/16/2025 08:14:01 01/12/2001/16/2025 LABCO RP SUSCE PTIBI LITY tetracycline susceptib le Not Available [facility] (Lab) [address] [place], [address], 01/16/2025 08:14:01 01/12/2001/16/2025 LABCO RP SUSCE PTIBI LITY trimethoprim /sulfamethox azole susceptib le Not Available [facility] (Lab) [address] [place], [address], 01/16/2025 08:14:01 01/12/2001/16/2025 LABCO RP SUSCE PTIBI LITY vancomycin susceptib le Not Available [facility] (Lab) [address] [place], [address], 01/16/2025 08:14:01 01/12/2001/17/2025 LABCO RP SUSCE PTIBI LITY ciprofloxaci n susceptib le Not Available [facility] (Lab) [address] [place], [address], 01/17/2025 07:10:03 01/12/2001/17/2025 LABCO RP SUSCE PTIBI LITY clindamycin susceptib le Not Available [facility] (Lab) [address] [place], [address], 01/17/2025 07:10:03 01/12/2001/17/2025 LABCO RP SUSCE PTIBI LITY erythromycin susceptib le Not Available [facility] (Lab) [address] [place], [address], 01/17/2025 07:10:03 01/12/2001/17/2025 LABCO RP SUSCE PTIBI LITY gentamicin susceptib le Not Available [facility] (Lab) [address] [place], [address], 01/17/2025 07:10:03 03/19/01/17/2025 LABCO RP SUSCE PTIBI LITY levofloxacin susceptib le Not Available [facility] ([facility]) [address] [place], [address], 01/17/2025 07:10:03 01/12/2001/17/2025 LABCO RP SUSCE PTIBI LITY moxifloxacin susceptib le Not Available [facility] ([facility]) [address] [place], [address], 01/17/2025 07:10:03 01/12/2001/17/2025 LABCO RP SUSCE PTIBI LITY oxacillin susceptib le Not Available [facility] (Lab) [address] [place], [address], 01/17/2025 07:10:03 01/12/2001/17/2025 LABCO RP SUSCE PTIBI LITY penicillin resistant Not Available [facility] ([facility]) [address] [place], [address], 01/17/2025 07:10:03 01/12/2001/17/2025 LABCO RP SUSCE PTIBI LITY rifampin susceptib le Not Available [facility] (Lab) [address] [place], [address], 01/17/2025 07:10:03 01/12/2001/17/2025 LABCO RP SUSCE PTIBI LITY tetracycline susceptib le Not Available [facility] ([facility]) [address] [place], [address], 01/17/2025 07:10:03 01/12/2001/17/2025 LABCO RP SUSCE PTIBI LITY trimethoprim /sulfamethox azole susceptib le Not Available [facility] (Lab) [address] [place], [address], 01/17/2025 07:10:03 01/12/2001/17/2025 LABCO RP SUSCE PTIBI LITY vancomycin susceptib le Not Available [facility] (Lab) [address] [place], [address], 01/17/2025 07:10:03 01/12/2001/18/2025 ANAER OBIC CULTU RE anaerobic culture No anaer obic growt h in 72 hours . Not Available [facility] (Lab) [address] [place], [address], 01/18/2025 12:12:17 01/12/20 25 01/17/2025 LABCO RP SUSCE PTIBI LITY ciprofloxaci n susceptib le Not Available [facility] (Lab) [address] [place], [address], 01/18/2025 12:12:18 01/12/2001/17/2025 LABCO RP SUSCE PTIBI LITY clindamycin susceptib le Not Available [facility] (Lab) [address] [place], [address], 01/18/2025 12:12:18 01/12/20 25 01/17/2025 LAB[facility] RP SUSCE PTIBI LITY erythromycin susceptib le Not Available [facility] (Lab) [address] [place], [address], 01/18/2025 12:12:18 01/12/2001/17/2025 LABCO RP SUSCE PTIBI LITY gentamicin susceptib le Not Available [facility] (Lab) [address] [place], [address], 01/18/2025 12:12:18 01/12/2001/17/2025 LABCO RP SUSCE PTIBI LITY levofloxacin susceptib le Not Available [facility] (Lab) [address] [place], [address], 01/18/2025 12:12:18 01/12/20 25 01/17/2025 LABCO RP SUSCE PTIBI LITY moxifloxacin susceptib le Not Available [facility] (Lab) [address] [place], [address], 01/18/2025 12:12:18 01/12/2001/17/2025 LABCO RP SUSCE PTIBI LITY oxacillin susceptib le Not Available [facility] ([facility]) [address] [place], [address], 01/18/2025 12:12:18 01/12/2001/17/2025 LABCO RP SUSCE PTIBI LITY penicillin resistant Not Available [facility] ([facility]) [address] [place], [address], 01/18/2025 12:12:18 01/12/2001/17/2025 LABCO RP SUSCE PTIBI LITY rifampin susceptib le Not Available [facility] (Lab) [address] [place], [address], 01/18/2025 12:12:18 01/12/2001/17/2025 LABCO RP SUSCE PTIBI LITY tetracycline susceptib le Not Available [facility] ([facility]) [address] [place], [address], 01/18/2025 12:12:18 01/12/2001/17/2025 LABCO RP SUSCE PTIBI LITY trimethoprim /sulfamethox azole susceptib le Not Available [facility] (Lab) [address] [place], [address], 01/18/2025 12:12:18 01/12/2001/17/2025 LAB[facility] RP SUSCE PTIBI LITY vancomycin susceptib le Not Available [facility] (Lab) [address] [place], [address], 01/18/2025 12:12:18 12/09/1912/09/2024 zac lopez am No observ ation record ed. tmond In-Office Order Internal Use Only DO Not Attach Compendium DO Not Attach Compendium, Do Not Delete/merge, [id number] 12/23/2024 12:12:18 12/09/19 elect steve diogr am No observ ation record ed. tmond Not Available 2024 12:12:17 01/30/2001/28/2025 XR, foot, 3 or more view No observ ation record ed. [facility] Scheduling [address], [place], [address], 02/01/2025 10:04:21 03/01/2003/01/2025 ankle brach ial index No observ ation record ed. [facility] Scheduling [address], [place], [address], 04/04/2025 11:06:33 Result Notes None recorded. Problems Name Problem SNOMED Code Status Onset Date Resolution Date Notes Provider Name and Address Organization Details Recorded Time Congestive heart failure 82512234 Active 2023 PHILIP BROWN Attn: Accountin g,[address] [place], [place], [address] [place] [address] 2, [facility] - [facility] 4 13:38:37 Body mass index 25-29 - overweight 496288563 Active 2023 PHILIP BROWN Attn: Accountin g,[address] [place], [place], [address] [place] [address] 2, [facility] - [facility] 4 15:49:10 Prediabetes 649390107 Active 2023 PHILIP BROWN Attn: Accountin g,[address] [place], [place], [address] [place] [address] 2, [place] [facility] 4 15:50:49 Vitamin D deficiency 63666427 Active 2023 PHILIP BROWN Attn: Accountin g,[address] [place], [place], [address] [place] [address] 2, [facility] - [facility] 4 15:50:47 Nonischemic congestive cardiomyopa thy 091428988289 Active 2023 PHILIP BROWN Attn: Accountin g,[address] [facility], [place], [address], [facility] - [facility] 5 12:12:24 Atheroscler osis of coronary artery without angina pectoris 8662896922726 03 Active 2023 PHILIP BROWN Attn: Colleen kinney,[address] [facility], [place], [address], [facility] - [facility] 5 12:13:48 Patient post percutaneou s translumina l coronary angioplasty 542464374 Active 2023 PHILIP BROWN Attn: Colleen kinney,[address] [facility], [place], [place], [address] [place] [address] 2, [facility] 5 12:12:22 Essential hypertensio n 58225286 Active 2023 PHILIP BROWN Attn: Colleen kinney,[address] [facility], [place], [place], [address] [place] [address] 2, [facility] 5 12:13:46 Hyperlipide melida 10779872 Active 2023 PHILIP BROWN Attn: Colleen kinney,[address] [facility], [place], [address] [place] [address] 2, [facility] 5 12:13:43 Nicotine dependence 20864851 Active 2024 PHILIP BROWN Attn: Colleen kinney,[address] [facility], [place], [address] [place] [address] 2, [facility] - [facility] 5 12:21:51 Problem Notes None recorded. Procedures Surgical History Date Name Laterality Status Provider Name and Address Organization Details Recorded Time 5 Ulcer Debridement completed Noel Willams DPM [address] [place], [address], [facility] 01/16/2025 14:16:16 Imaging Results None recorded. Procedure Notes None recorded. Medical Equipment None Reported. Allergies Allergen ID Allergen Name Allergen Category Reaction Reaction Severity Criticality Documentation Date Start Date Code Code System Note Provider Name and Address Organization Details Recorded Time 552319 watermelo n preparati on food vomiting Not available Not available 02/19/2024 49275 4 RxNorm Dick Miller MA [facility], [place] - [place] 10:22:41 Medications Name Sig Start [...] Updated DateTime 5 185.42 cm 31.9 kg/m2 946000. 35 g 98 % 98 % 97.6 [degF] 89 /min 135/85 mm[Hg] Dick Miller MA [facility] 5 12:07:09 Date Recorded Body height Body mass index (BMI) Body weight Body temperature Heart rate Systolic And Diastolic Systolic And Diastolic Provider Name and Address Organization Details Last Updated DateTime 5 185.42 cm 31.7 kg/m2 053655. 17 g 97.1 [degF] 76 /min 153/92 mm[Hg] 155/97 mm[Hg] Tara Ramirez MA [facility] 5 16:48:40 Date Recorded Body height Body mass index (BMI) Body weight Heart rate Systolic And Diastolic Provider Name and Address Organization Details Last Updated DateTime 01/25/2025 185.42 cm 30.8 kg/m2 680553.1 8 g 83 /min 115/75 mm[Hg] Patricia Mueller MA [facility] 01/25/2025 16:03:38 Date Recorded Body height Body mass index (BMI) Body weight Heart rate Systolic And Diastolic Provider Name and Address Organization Details Last Updated DateTime 02/13/2025 185.42 cm 30.5 kg/m2 152392.1 2 g 81 /min 116/72 mm[Hg] Makenzie Singh MA [facility] 02/13/2025 16:58:56 Date Recorded Body height Body mass index (BMI) Body weight Heart rate Body temperature Systolic And Diastolic Provider Name and Address Organization Details Last Updated DateTime 5 185.42 cm 32.2 kg/m2 759290. 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 Information not available 02/19/2024 What is your [...] SNOMED-CT Code Diagnosis ICD10 Code Diagnosis Note [id number] PHILIP BROWN [facility] (Adult[facility]Fa [facility] Med) [address] [place] [address] 02/19/2024 09:59:19 02/22/2024 12:57:33 Patient new to provider [id number] 36882 Z76.89 -Initial visit in the [facility] ent of care Physical examination 588 0005 Z04.9 -PE complete-A dvised in routine care for current age-Pt stable Patient me dical record not available [id number] Z76.89 -Acquire records for lab review and further management Diabetes m ellitus screening 929709014 Z13.1 -Routine Recommende d screening At [facility] risk of nutritional deficit 659614538 Z91.89 -Routine Recommende d screening Thyroid di sorder screening 443738255 Z13.29 -Routine Recommende d screening HIV screening 302512919 Z11.4 -Routine Recommende d screening Congestive heart failure 41920148 I50.9 -Pt followed by cardiology -No acute concerns today-Will continue to follow up with appts as establishe d and advised Body mass index 25-29 - overweight 276698356 Z68.29 -Pt advised of BMI-Pt encouraged to eat a plant-base d diet, minimizing processed foods and portion control-Pt advised on the recommenda tions for routine exercise [id number] Osmani Taylor MD [facility] [place] [facility] [address] [facility] [place] [address] 03/15/2024 11:54:57 03/16/2024 10:34:11 Nonischemic congestive cardiomyopathy 9803363496 04 I42.0 Atheroscle rosis of coronary artery without angina pectoris 2379200340 [address] percutaneous transluminal coronary angioplasty 021888749 Z98.61 Essential hypertension 58713933 I10 Hyperlipidemia 26358585 E78.5 [id number] Osmani Taylor MD [facility] [place] [facility] [address] [facility] [place] [address] 04/26/2024 12:00:40 04/29/2024 09:41:04 Nonischemic congestive cardiomyopathy 6737397847 04 I42.0 Atheroscle rosis of coronary artery without angina pectoris 5691944224 [address] percutaneous transluminal coronary angioplasty 925294529 Z98.61 Essential hypertension 20398189 I10 Hyperlipidemia 53959095 E78.5 Tobacco user 747495330 Z 72.0 [id number] PHILIP BROWN [facility] ([facility]) [address] [place] [address] 06/20/2024 11:47:26 06/22/2024 12:15:20 Body mass index 25-29 - overweight 016801544 Z68.29 -Pt advised of BMI-Pt encouraged to eat a plant-base d diet, minimizing processed foods and portion control-Pt advised on the recommenda tions for routine exercise Congestive heart failure 24893937 I50.9 -Pt followed by cardiology -No acute concerns today-Will continue to follow up with appts as julissa bill and advised Hyperlipidemia 99800369 E78.5 -Pt followed by cardiology -No acute concerns today-Will continue to follow up with appts as julissa bill and advised Prediabetes 377669790 R7 3.03 -A1C: 6.1-Pt advised to maintain lifestyle modificati ons-Pt on Jardiance per cardiology -Re-assess today Essential hypertension 81365478 I10 -Pt followed by cardiology -No acute concerns today-Will continue to follow up with appts as julissa bill and advised [id number] Osmani Taylor MD [facility] [address] [place] [address] 12/09/2024 12:02:55 12/12/2024 08:33:53 Nonischemic congestive cardiomyopathy 8783321520 04 I42.0 Atheroscle rosis of coronary artery without angina pectoris 6484811106 [address] percutaneous transluminal coronary angioplasty 395947290 Z98.61 Essential hypertension 03596947 I10 Obesity 308397772 E66.9 Smoker 66229516 F17.200 Hyperlipidemia 12027493 E78.5 [id number] ARVIND BROWN-C [facility] (Adult[facility]Fa [facility]) [address] [place] [address] 12/23/2024 11:50:55 12/26/2024 14:54:23 Body mass index 25-29 - overweight 077992627 Z68.29 -Pt advised of BMI-Pt encouraged to eat a plant-base d diet, minimizing processed foods and portion control-Pt advised on the recommenda tions for routine exercise Congestive heart failure 84820398 I50.9 -Pt followed by cardiology -No acute concerns today-Will continue to follow up with appts as establishgeoffrey d and advised Vitamin D deficiency 347 97425 E55.9 -Pt advised that Vit D is deficient; regimen initiated, sent to pharmacy Hyperlipidemia 25275032 E78.5 -Pt followed by cardiology -No acute concerns today-Will continue to follow up with appts as establishgeoffrey d and advised Prediabetes 395212454 R7 3.03 -Previous A1C: 6.1; Today's:-P t advised to maintain lifestyle modificati ons-Pt on Jardiance per cardiology -Re-assess today EDUCATI ON ON LORENZO PRINTER FOR PATIENT PLEASE 12/23/2024 Essential hypertension 23202760 I10 -Pt followed by cardiology -No acute concerns today-Will continue to follow up with appts as julissa bill and advised Nicotine dependence 5629 4008 F17.200 -Pt is a current smoker-Pt advised in the derogatory effects of smoking-Co unseling for smoking cessation completed Ingrowing nail of toe of right foot [id number] 4321496 L60.0 -Further eval and management as outlined as stable today; No acute concerns [id number] Noel Willams DPM [facility] [address] [place] [address] 01/11/2025 16:31:15 01/16/2025 14:55:40 Foot ulcer due to type 2 diabetes mellitus 3435709308 100 E11.621 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 2 diabetes mellitus 6476346779 102 E11.628 Abscess of right foot 10 25654436 7621634 L02.810 [id number] Noel Willams DPM [facility] [address] [place] [address] 01/25/2025 15:57:13 01/26/2025 08:50:38 Foot ulcer due to type 2 diabetes mellitus 0078534901 100 E11.621 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 2 diabetes mellitus 5784576127 102 E11.628 Abscess of right foot 10 00122207 7434177 L02.919 [id number] [facility] [address] [place] [address] 02/13/2025 16:40:00 02/13/2025 17:10:21 Foot ulcer due to type 2 diabetes mellitus 4984783439 100 E11.621 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 2 diabetes mellitus 1089071988 102 E11.628 Abscess of right foot 10 38956626 8474389 L02.068 [id number] Noel Willams DPM [facility] ts [address] [place] [address] 03/15/2025 16:07:16 03/15/2025 16:56:24 Bilateral atherosclerosis of arteries of lower limbs 4674953632 1358549 I70.203 Foot ulcer due to type 2 diabetes mellitus 3279766594 100 E11.621 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 2 diabetes mellitus 7107164078 102 E11.628 Abscess of right foot 10 58743038 8309246 L02.611 Health Concerns Section Related Observation LastModified by Organization Detai ls LastModified Time None Recorded Concern Status LastModified by Organization Details LastModified Time None Recorded Advance Directives Directive None Recorded Payers Insurance Date Sequence Insurance Name Policy Number Policy Zaman Covered Member ID Zaman Member ID Guarantor Name 12/26/2024 1 [employer]ET[employer] [facility] ON OR AFTER 09/25/2020 (MEDICAID REPLACEMENT - HMO) Jamel Joya [id number] Jamel Joya Notes Date Note Type Note [...] a BMI OF >30, PREDIABETES JANES MOND, MANNEQUIN MOLD MAKER-C Attn: Accounting,[address] , [place], [address], [facility] 12/26/2024 13:50:44 01/11/2025 text/html Patient [...] 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 He has been applying copious amounts of TA AO ointment and believes that the toe is looking worse than it was before. Noel Willams DPM [address], [place], [address], [facility] 01/25/2025 16:21:26 02/13/2025 text/html Patient presents to clinic for pain to the little toe on the right foot. Noel Willams DPM [address], [place], [address], [facility] 02/15/2025 12:29:31 03/15/2025 text/html Patient presents to clinic for pain to the little toe on the right foot. Noel Willams DPM [address], [place], [address], [facility] 03/15/2025 16:31:49
--- OUTSIDE RECORDS SUMMARY | 2025-05-14 22:38 | XMS_ITS | Data Portability ---
Author Organization [facility] OFFICE Address [address] [place] [address] Assessment No assessment recorded. Plan of Treatment Reminders Order Date Submit Date Provider Last Modified By Organization Details Last Modified Time Details Appointments None recorded. Lab None recorded. Referral None recorded. Procedures None recorded. Surgeries None recorded. Imaging electrocar diogram 2020 021 [email or web address] Not available 14:57:19 electrocar diogram 2020 021 [email or web address] Not available 16:55:31 Medication Orders carvedilol 25 mg tablet 2021 [facility] [address] [place], [address], 2 13:01:06 Plavix 75 mg tablet 2021 [facility] [address] [place], [address], 2 13:01:07 lisinopril 20 mg tablet 2021 [facility] [address] [place], [address], 2 13:01:06 rosuvastat in 10 mg tablet 2021 [facility] [address] [place], [address], 2 13:01:01 Plavix 75 mg tablet 2021 022 [facility] [address], [place], [address], 2 11:26:31 lisinopril 20 mg tablet 2021 022 [facility] [address], [place], [address], 2 11:26:27 Plavix 75 mg tablet 2020 021 [facility] [address], [place], [address], 11:29:00 lisinopril 20 mg tablet 2020 021 [facility] [address], [place], [address], 11:28:56 Plavix 75 mg tablet 2020 021 [facility] [address], [place], [address], 12:03:23 lisinopril 20 mg tablet 2020 021 [facility] [address], [place], [address], 12:03:21 clopidogre l 75 mg tablet 2020 021 [facility] [address], [place], [address], 12:03:22 rosuvastat in 10 mg tablet 2020 021 [facility] [address], [place], [address], 12:03:18 Plavix 75 mg tablet 2018 019 [facility] [address] [place], [address], 9 15:59:53 lisinopril 20 mg tablet 2018 019 [facility] [address] [place], [address], 9 15:59:12 Patient TargetsNo targets recorded. Patient Instructions Encounter Date Encounter Id Patient Instructions Last Modified By Organization Details Last Modified Time 09/17/2021 [id number] Weight loss 20 pounds Exercise advised Low cholesterol diet advised Low sodium diet advised. [email or web address] Not available 09/17/2021 11:28:42 03/18/2022 [id number] Weight loss 20 pounds Exercise advised Low cholesterol diet advised Low sodium diet advised. [email or web address] Not available 03/18/2022 11:26:38 09/09/2022 [id number] Advised against smoking Exercise advised Low cholesterol [...] ardio gram No observ ation record ed. [email or web address] Not Available 2018 12:11:08 10/14/20 19 10/11/2019 angio gram (PROC ) No observ ation record ed. [email or web address] Not Available 2018 11:32:37 10/24/20 19 10/12/2019 elect tylerar diogr am No observ ation record ed. Not Available 2018 13:19:54 10/24/20 19 10/11/2019 XR, chest No observ ation record ed. [email or web address] Not Available 2018 13:26:59 10/24/20 19 10/12/2019 angio gram (PROC ) No observ ation record ed. [email or web address] Not Available 10/24 13:35:30 10/24/20 19 10/11/2019 US, echoc ardio gram No observ ation record ed. [email or web address] Not Available 2018 16:08:57 10/27/19 20 10/24/2019 elect rocar diogr am No observ ation record ed. [email or web address] Not Available 2019 17:13:20 06/21/20 21 06/21/2021 elect rocar diogr am No observ ation record ed. est Max Morales MD [address], [place], [address], 07/07/2021 16:55:37 07/04/2007/03/2021 , echoc ardio gram No observ ation record ed. [facility] [address], [place], [address], 07/05/2021 17:06:28 07/30/20 21 06/21/2021 elect rocar [...] diogr am No observ ation record ed. [email or web address] Max Morales MD [address], [place], [address], 01/10/2022 13:28:30 03/20/20 22 03/18/2022 elect rocar diogr am No observ ation record ed. [email or web address] Not Available 2021 10:47:07 09/10/20 22 09/09/2022 elect rocar diogr am No observ ation record ed. [email or web address] Not Available 2021 10:23:14 Result Notes None recorded. Problems Name Problem SNOMED Code Status Onset Date Resolution Date Notes Provider Name and Address Organization Details Recorded Time Chest pain 99196684 Active 2018 Hallan Lopez null, [place] - [facility] 9 01:04:[address] segment elevation myocardial infarction 116864561 Active 2018 Wandera Jessica [place], [place] - [facility] 9 01:06:28 Myocardial infarction 07473568 Active 2018 Hala Jessica [place], [place] - [facility] 9 01:06:34 Hypertensive disorder 67062264 Active 2018 Susanna [place], [place] - [facility] 9 14:43:57 Hypercholester olemia 69257198 Active 2018 Susanna [place], [place] - [facility] 9 14:44:04 Coronary atherosclerosi s 859647327 Active 2019 Natanael [place], [place] - [facility] 0 16:05:35 Problem Notes None recorded. Medical Equipment None Reported. Allergies Allergen ID Allergen Name Allergen Category Reaction Reaction Severity Criticality Documentation Date Start Date Code Code System Note Provider Name and Address Organization Details Recorded Time 9325 waterluco kaleb preparati on food Not available Not available Not available 10/24/2019 19644 4 RxNorm Susanna Hunter null, [place] - [...] Updated DateTime 2 186.69 cm 29.6 kg/m2 582312. 19 g 61 /min 98 % 98 % 154/110 mm[Hg] Reji Red [facility] 2 10:58:54 Date Recorded Body height Body mass index (BMI) Body weight Heart rate Oxygen saturation Oxygen saturation in Arterial blood by Pulse oximetry Systolic And Diastolic Provider Name and Address Organization Details Last Updated DateTime 1 186.69 cm 30.4 kg/m2 773935. 54 g 71 /min 91 % 91 % 132/90 mm[Hg] Flavia Schwab [facility] 1 11:21:34 Date Recorded Body height Body mass index (BMI) Body weight Heart rate Oxygen saturation Oxygen saturation in Arterial blood by Pulse oximetry Systolic And Diastolic Provider Name and Address Organization Details Last Updated DateTime 2 186.69 cm 29.2 kg/m2 433595. 69 g 74 /min 98 % 98 % 156/110 mm[Hg] Nyla Olivarez [facility] 2 12:55:08 Date Recorded Body height Body mass index (BMI) Body weight Heart rate Oxygen saturation Oxygen saturation in Arterial blood by Pulse oximetry Systolic And Diastolic Provider Name and Address Organization Details Last Updated DateTime 1 186.69 cm 30.5 kg/m2 445094. 61 g 73 /min 95 % 95 % 156/98 mm[Hg] NANDINI MICHAELMAE [facility] 1 11:10:30 Date Recorded Body height Body mass index (BMI) Body weight Heart rate Oxygen saturation Oxygen saturation in Arterial blood by Pulse oximetry Systolic And Diastolic Provider Name and Address Organization Details Last Updated DateTime 9 186.69 cm 30.9 kg/m2 178853. 47 g 70 /min 98 % 98 % 144/86 mm[Hg] Susanna Carrillos [facility] 9 14:59:26 Social History Question Answer Notes LastModified by Panl Details LastModified Time Tobacco Smoking Status Current Every Day Smoker Not Available [facility] 08/28/2020 03:30:41 What Is Your Level Of Caffeine Consumption? Occasional [id number] Information not available 08/28/2020 How Much Tobacco Do You Chew? None [id number] Information not available 08/28/2020 What Type Of Diet Are You Following? CARDIAC [id number] Information not available 08/28/2020 Which Illicit Or Recreational Drugs Have You Used? Marijuana [id number] Information not available 08/28/2020 Live Alone Or With Others? With Others [email or web address] Information not available 10/24/2019 Marital Status Single [email or web address] Informatio n not available 10/24/2019 What Was The Date Of Your Most Recent Tobacco Screening? 10/24/2019 [id number] Information not available 08/28/2020 How Many Children Do You Have? 0 [id number] Information not available 08/28/2020 General Stress Level Medium [email or web address] Information not available 10/24/2019 Sex: Unknown Functional Status Question Answer Note LastModified by Panl Details LastModified Time What is your level of alcohol consumption? Occasional [id number] Information not available 08/28/2020 Do you or have you ever used smokeless tobacco? Never used smokeless tobacco [id number] Information not available 08/28/2020 What is your occupation? [employer] [id number] Information not available 08/28/2020 Do you or have you ever used e-cigarettes or vape? Never used electronic cigarettes [id number] Information not available 08/28/2020 What is your exercise level? Occasional [id number] Information not available 08/28/2020 Mental Status None recorded. Family History Relationship Description Onset Age of this Age Resolved Age Notes LastModified by Organization Details LastModified Time Father Hypertensive disorder [email or web address] Not available 10/24 14:42:50 Mother Hypertensive disorder [email or web address] Not available 10/24 14:42:50 Sister Hypertensive disorder [email or web address] Not available 10/24 14:43:10 Sister Hypercholest erolemia [email or web address] Not available 10/24 14:43:36 Brother Hypertensive disorder [email or web address] Not available 10/24 14:43:14 Medical History Condition Response Myocardial Infarction Y Hyperlipidemia Y Deep Vein Thrombosis Y Hypertension Y GERD/Reflux Y High Cholesterol Y Blood Clot Y Past Encounters Encounter ID Performer Location Encounter Start Date Encounter Closed Date Diagnosis/Indication Diagnosis SNOMED-CT Code Diagnosis ICD10 Code Diagnosis Note [id number] Max Morales MD [place] [facility] [address] [place] [address] 10/24/2019 14:36:48 10/25/2019 12:29:[address] segment elevation myocardial infarction 503259400 I21.3 Essential hypertension 92461832 I10 Coronary arteriosclerosis 33788352 I25.10 [facility] 10/11/2019 Status port acute inferior wall [place]. Total occlusion of the right coronary artery. Status post angioplast y stent placement to the proximal right coronary artery with good successful result [facility] [id number] Max Morales MD [place] [facility] [place] [address] 06/21/2021 11:04:39 06/24/2021 16:00:49 Hypercholesterolemia 74298942 E78.00 Has been without medication s. Hypertensive disorder 38 320854 I10 Has been without medication s, renew. Myocardial infarction [address] s egment elevation myocardial infarction 944525281 I21.3 [facility] 10/11/2019 Status port acute inferior wall [place]. Total occlusion of the right coronary artery. Status post angioplast y stent placement to the proximal right coronary artery with good successful result Essential hypertension 87473291 I10 Coronary arteriosclerosis 49475668 I25.10 [facility] 10/11/2019 Status port acute inferior wall [place]. Total occlusion of the right coronary artery. Status post angioplast y stent placement to the proximal right coronary artery with good successful result [facility] Electrocar diogram abnormal 808368771 R94.31 Treadmill Myoview Stress test, has high [place] Risk score. Has Known CAD, or CAD risk equivalent . To look for any ischemia. Obtain echo to evaluate for structural /functiona l disease. [id number] Max Morales MD [place] [facility] [place] [address] 09/17/2021 10:53:51 09/17/2021 11:30:13 Hypercholesterolemia 69001212 E78.00 Has been without medication s. Hypertensive disorder 38 537137 I10 Has been without medication s, renew. Myocardial infarction [address] s egment elevation myocardial infarction 380841425 I21.3 [facility] 10/11/2019 Status port acute inferior wall [place]. Total occlusion of the right coronary artery. Status post angioplast y stent placement to the proximal right coronary artery with good successful result Essential hypertension 97081299 I10 Coronary arteriosclerosis 47839324 I25.10 [facility] 10/11/2019 Status port acute inferior wall [place]. Total occlusion of the right coronary artery. Status post angioplast y stent placement to the proximal right coronary artery with good successful result [facility] Electrocar diogram abnormal 258165981 R94.31 Treadmill Myoview Stress test was negative [id number] Max Morales MD [place] [facility] [address] [place] [address] 03/18/2022 10:43:06 03/18/2022 11:31:28 Hypercholesterolemia 18683583 E78.00 Has been without medication s. Hypertensive disorder 38 983340 I10 Has been without medication s, renew. Myocardial infarction [address] s egment elevation myocardial infarction 861026161 I21.3 [facility] 10/11/2019 Status port acute inferior wall [place]. Total occlusion of the right coronary artery. Status post angioplast y stent placement to the proximal right coronary artery with good successful result Essential hypertension 09956808 I10 Coronary arteriosclerosis 99152588 I25.10 [facility] 10/11/2019 Status port acute inferior wall [place]. Total occlusion of the right coronary artery. Status post angioplast y stent placement to the proximal right coronary artery with good successful result [facility] Electrocar diogram abnormal 821583703 R94.31 Treadmill Myoview Stress test was negative [id number] Max Morales MD [place] [facility] [address] [place] [address] 09/09/2022 12:36:11 09/09/2022 13:25:16 Hypercholesterolemia 52870951 E78.00 Has been without medication s. Hypertensive disorder 38 445543 I10 Has been without medication s, renew. Myocardial infarction [address] s egment elevation myocardial infarction 912999283 I21.3 [facility] 10/11/2019 Status port acute inferior wall [place]. Total occlusion of the right coronary artery. Status post angioplast y stent placement to the proximal right coronary artery with good successful result Essential hypertension 73841939 I10 Coronary arteriosclerosis 65250278 I25.10 [facility] 10/11/2019 Status port acute inferior wall [place]. Total occlusion of the right coronary artery. Status post angioplast y stent placement to the proximal right coronary artery with good successful result [facility] Electrocar diogram abnormal 440684443 R94.31 Treadmill Myoview Stress test was negative Health Concerns Section Related Observation LastModified by Organization Detai ls LastModified Time None Recorded Concern Status LastModified by Organization Details LastModified Time None Recorded Advance Directives Directive None Recorded Payers Insurance Date Sequence Insurance Name Policy Number Policy Zaman Covered Member ID Zaman Member ID Guarantor Name 05/05/2022 1 [employer] Jamel Joya [id number] Jamel Joya 04/18/2020 1 *SELF PAY* Erin seph C Toan 05/05/2022 2 *SELF PAY* Erin seph C Toan 09/28/2022 1 [employer] BETTER [place] - [place] ON [place] AFTER 2020 (MEDICAID REPLACEMENT - HMO) Jamel Joya [id number] Jamel C Toan Notes Date Note Type Note Provider Name and Address Organization Details Recorded Time 10/24/2019 text/html 10/24/19 CC: chest pain 34 year old man presents to office for cardiac evaluation following [place] at [facility] on October 11, 2019. 10/11/2019 Status port acute inferior wall [place]. Total occlusion of the right coronary artery. [...] is grade I diastolic dysfunction [facility] 10/11/2019 Status port acute inferior wall [place]. Total occlusion of the right coronary artery. Status post angioplasty stent placement to the proximal right coronary artery with good successful result Max Morales MD [address] [place], [address], [facility] 01/12/2020 10:31:15 06/21/2021 text/html 06/21/21 CC: chest pain 34 year old man presents to office for cardiac evaluation following WI at [facility] on October 11, 2019. He was seen in office once, September 2019, and did not make it to follow up appointments. 10/11/2019 Status port acute inferior wall [place]. Total occlusion of the right coronary artery. [...] is grade I diastolic dysfunction [facility] 10/11/2019 Status port acute inferior wall [place]. Total occlusion of the right coronary artery. Status post angioplasty stent placement to the proximal right coronary artery with good successful result Della Feliz [place], [place] - [facility] 06/21/2021 12:03:13 09/17/2021 text/html 09/17/21CC : Car diac follow up, dyspnea on [id number] year old man with h/o coronary atherosclerosis, [...] 07/16/21 with Normal LV systolic function. Previously:Had WI at [facility] on October 11, 2019. 10/11/2019 Status port acute inferior wall [place]. Total occlusion of the right coronary artery. [...] is grade I diastolic dysfunction [facility] 10/11/2019 Status port acute inferior wall [place]. Total occlusion of the right coronary artery. Status post angioplasty stent placement to the proximal right coronary artery with good successful result Max Morales MD [address] [place], [address], [place] - [facility] 09/17/2021 11:29:03 03/18/2022 text/html 03/18/22CC : Car diac follow up, dyspnea on [email or web address] year old man with h/o coronary atherosclerosis, [...] 07/16/21 with Normal LV systolic function. Had WI at [facility] on October 11, 2019. 10/11/2019 Status port acute inferior wall WI. Total occlusion of the right coronary artery. [...] is grade I diastolic dysfunction [facility] 10/11/2019 Status port acute inferior wall [place]. Total occlusion of the right coronary artery. Status post angioplasty stent placement to the proximal right coronary artery with good successful result Max Morales MD [address] [place], [address], [facility] 03/18/2022 11:26:57 09/09/2022 text/html 09/09/22CC : Car diac follow up, dyspnea on [email or web address] year old man with h/o coronary atherosclerosis, [...] 07/16/21 with Normal LV systolic function. Had WI at [facility] on October 11, 2019. 10/11/2019 Status port acute inferior wall [place]. Total occlusion of the right coronary artery. [...] is grade I diastolic dysfunction [facility] 10/11/2019 Status port acute inferior wall [place]. Total occlusion of the right coronary artery. Status post angioplasty stent placement to the proximal right coronary artery with good successful result Max Morales MD [address] [place], [address], [place] - [facility] 09/09/2022 13:01:03
--- OUTSIDE RECORDS SUMMARY | 2025-05-14 22:38 | XMS_ITS | Clinical Summary ---
Author Organization [facility] Address [address] [place] [address] Phone Care Team Providers Care Pile Trimmer Name Role Phone Unavailable Primary Care Provider [...] failure 02/10/2024 Coronary artery disease invo lving soboba coronary artery of soboba heart without angina pectoris 02/10/2024 Noncompliance 02/10/2024 [...] drink = 0.6 oz pur e alcohol) Sex and Gender Information Value Date Recorded [...] patient's age to complete this topic Insurance [facility] MEDICAID RX [facility] Commercial RX [employer] Commercial RX [facility] Commercial Advance Directives For more information, please contact: [phone] * Full Code (Latest Code Status on File) Date Activated Date Inactivated Comments 02/09/2024 11:12 AM 02/12/2024 4:26 PM * Default Full Code - Needs Discussion Date Activated Date Inactivated Comments 02/09/2024 10:40 AM 02/09/2024 11:12 AM
[2025-05-14 22:56] VITALS: BP 135/77; PULSE 66; RESP 16; TEMP 36.6; O2SAT 95
[2025-05-15 02:13] VITALS: PULSE 61; RESP 18; TEMP 36.3; O2SAT 98
--- OUTSIDE RECORDS SUMMARY | 2025-05-15 02:49 | XMS_ITS | Continuity of Care Document ---
Author Organization [facility] Address [address] [place] [address] [place] [address] Phone Care Team Providers Care Hearing Healthcare Practitioner Name Role Phone Ghulam Huff MD Unavailable [...] Diagnoses Date Provider Providers Copied on Encounter [facility], [place], [address], [place], [place], [id number], [place] [phone] [facility], [place] No Information [address] Refugio Parmar. [address], [place], [place], [address] , [place]. tel:[phone] OFFICE/OUTPA TIENT VISIT, EST [facility], [place], [address], [place], [place], [address], [place] [phone] [facility], [place] CHF (chief complaint)CHF1 (chief complaint)HTN (chief complaint)femor al artery clot (chief complaint)LFT (chief complaint) Hyperlipidemia Peripheral arterial embolism NOSAnemiaCardi omyopathyLiver disease 8 Refugio Oliveros [address], [place], [place], [address] , [place]. tel:[phone] Referring Provider: Ghulam Huff [address], [place], [place], [address]. tel:[phone] OFFICE/OUTPA TIENT VISIT, [facility], [address], [place], [place], [address], [place] [phone] [facility], [place] HTN (chief complaint)HLP (chief complaint)clot1 (chief complaint)tobac co1 (chief complaint) Essential (primary) hypertensionPe ripheral arterial embolism NOSHyperlipide miaTobacco use 8 Refugio Oliveros [address], [place], [place], [address] , [place]. tel:[phone] OFFICE/OUTPA TIENT VISIT, EST [facility], [place], [address], [place], [place], [address], [place] tel:[phone] [facility], [place] HTN (chief complaint)liver disease (chief complaint)lFt1 (chief complaint)anemi a1 (chief complaint) Essential (primary) hypertensionLi nito diseaseAnemiaP eripheral arterial embolism NOS 7 Refugio Oliveros [address], [place], [place], [address] , . tel:[phone] Referring Provider: Ayanna Baker [address], [place], [place], [address]. tel:[phone] OFFICE/OUTPA TIENT VISIT, [facility], [address], [place], [place], [address], [place] tel:[phone] [facility], [place] cardiomyopathy (chief complaint)anemi a1 (chief complaint)LFT (chief complaint)femoa l artery1 (chief complaint) Essential (primary) hypertensionPe ripheral arterial embolism NOSAnemiaLiver disease 7 Refugio Parmar. [address], [place], [place], [address] , [place]. tel:[phone] Referring Provider: [address], [place], [place], [address]. tel:[phone] OFFICE/OUTPA TIENT VISIT, [facility], [address], [place], [place], [address], [place] tel:[phone] [facility], [place] arterial clot1 (chief complaint)HLP (chief complaint) Peripheral arterial embolism NOSEssential (primary) hypertensionHy perlipidemia 7 Refugoi Parmar. [address], [place], [place], [address] , [place]. [phone] Referring Provider: Ayanna Baker [address], [place], [place], [address]. tel:[phone] PREV VISIT, NEW, AGE 18-39 [facility], [place], [address], [place], [place], [address], [place] tel:[phone] [facility], [place] Physical (chief complaint) Encounter for general adult medical exam w abnormal findingsEssent ial (primary) hypertensionPe ripheral vascular disease, unspecifiedHyp erlipidemia 7 Refugio Parmar. [address], [place], [place], [address] , [place]. [phone] Referring Provider: Ayanna Baker [facility] [address], [place], [place], [address]. tel:[phone] Family History Family Member Type Diagnosis Age At Onset Sister Problem (finding) Alive and well Mother Problem (finding) Alive and well Father Problem (finding) Alive and well Payers Payer name Insurance type Covered alliance party ID Authoriza tion(s) No Information Social [...] he never followed up with cardiology at [facility] due to [employer] insurance. Pt denies any chest pain, sob. [...] and he supposes to see hematology at [facility] as outpatient arterial clot1 Pt has left femo rla artery clot without known etiology. Pt was admitted to [facility]. pt is seeing vascular surgeon, hematology and [...] do any surgery Pt was admitted to [facility] for one week. . Pt currently on [...]
--- OUTSIDE RECORDS SUMMARY | 2025-05-15 02:49 | XMS_ITS | Clinical Summary ---
Author Organization [facility] Address [address] [place] [address] Phone Care Team Providers Care Bath Solution Maker Name Role Phone Unavailable Primary Care Provider [...] failure 02/10/2024 Coronary artery disease invo lving [place] coronary artery of [place] heart without angina pectoris 02/10/2024 Noncompliance 02/10/2024 [...] patient's age to complete this topic Insurance [facility] MEDICAID RX [facility] Commercial RX [employer] HE[employer] Commercial RX [facility] Commercial Advance Directives For more information, please contact: [phone] * Full Code (Latest Code Status on File) Date Activated Date Inactivated Comments 02/09/2024 11:12 AM 02/12/2024 4:26 PM * Default Full Code - Needs Discussion Date Activated Date Inactivated Comments 02/09/2024 10:40 AM 02/09/2024 11:12 AM
--- NOTE | 2025-05-15 03:35 | ED_ITS ---
HPI - Extremity Injury (Lower) General Chief Complaint: Extremity Injury, Lower Stated Complaint: infection in toe (post op amputation) Time Seen by Provider: 05/15/25 02:16 History of Present Illness HPI Narrative: 39-year-old male presenting to the emergency department for evaluation of his right lower extremity wound. He is status post amputation of his 5th toe where he began to have a infected toenail that got progressively worse requiring amputation with General surgery. This was conducted on the 12 of April. He has since been discharged and followed up with his surgeon Dr. Smith. He had his sutures removed recently and then also had another ER visit for wound evaluation several days ago. Patient is health conscious and very concerned that he could be developing infection. Not having any drainage or pus from the wound, no increased pain or difficulty ambulating he is still using his crutches for assistance. Denies any systemic features of infection such as fever, chills or feeling unwell or weak. Related Data Home Medications ?Medication ?Instructions ?Recorded ?Confirmed ?Last Taken ?Type amlodipine 5 mg tablet (Norvasc) 5 mg PO DAILY 04/11/25 05/05/25 04/10/25 History atorvastatin 80 mg tablet 80 mg PO HS 04/11/25 05/05/25 04/10/25 History empagliflozin 10 mg tablet 10 mg PO DAILY 04/11/25 05/05/25 04/10/25 History (Jardiance) hydrochlorothiazide 12.5 mg tablet 12.5 mg PO DAILY 04/11/25 05/05/25 Unknown History metoprolol succinate 100 mg 100 mg PO DAILY HR 04/11/25 05/05/25 04/10/25 History tablet,extended release 24 hr sacubitril 97 mg-valsartan 103 mg 1 tablet PO BID 04/11/25 05/05/25 04/10/25 10:00 History tablet (Entresto) spironolactone 25 mg tablet 25 mg PO DAILY 04/11/25 05/05/25 Unknown History Allergies Allergy/AdvReac Type Severity Reaction Status Date / Time watermelon Allergy Vomiting Verified 05/14/25 22:37 Review of Systems 2 Review of Systems: As reviewed above in HPI [facility] Past Medical History Medical History Amputation of fifth toe of right foot d/t Osteomyelitis right 5th toe; 04/12/25 Dr Smith Peripheral vascular disease New diagnosis as of 04/14/2025, patient does not know specifics as of yet. Arterial Dopplers done at [facility]. Heart failure with preserved ejection fraction ST elevation (STEMI) myocardial infarction (09/2019) Hypertension Coronary artery disease Surgical History Surgical History History of coronary angioplasty with insertion of stent Xience stent to the proximal RCA Family History Family History Father Hypertension Hyperlipemia Mother Hypertension Hyperlipemia Social History Social History Social History: Surrogate medical decision maker: [place], significant other. Code status: Full code. Years smoked: 15 Smoking status: Current every day smoker Tobacco type: cigars Second hand tobacco smoke exposure: No Additional smoking assessment comments: smokes 3 to 4 cigars a day Alcohol intake: current Drinks per week: 8 Substance use: current Substance use type: marijuana Last use: 04/09/25 Do You Feel Safe in your Home?: Yes Lack of Transportation: No Lack of Food: Never True Current Housing: I Have Housing Concerned About Future Housing: No Difficulty Paying Gas/Electric Bills: No Difficulty Paying for Meds: No Currently Unemployed: No Education: High School Diploma/GED Difficulty w/ Childcare or Family Care: No Spiritual care concerns: No Exam 2 Narrative: GENERAL: [Well-appearing, well-nourished, and in no acute distress.] HEAD: [Normocephalic, atraumatic.] EYES: [PERRLA and EOMI.] ENT: Nares clear, no rhinorrhea or epistaxis. Mucous membranes moist. NECK: Supple. CHEST: [Clear to auscultation. No respiratory distress.] HEART: [Regular rate and rhythm]. No murmur heard. [Normal peripheral pulses.] ABDOMEN: [Soft, nondistended], [nontender], [No rigidity or guarding] EXTREMITIES: Status post right 5th toe amputation with some eschar formation over the amputation site, dry clean and intact without any drainage. No tenderness with palpation or purulent drainage. Wound margins appear with good granulation tissue. No signs of swelling or erythema to the skin. No tracking redness or streaking redness. SKIN: Warm, dry, no rash. NEURO: [No focal deficits]. Alert and oriented [x3.] PSYCH: [Normal mood and affect.] Course Vital Signs Vital signs: Vital Signs Temperature 36.6 C 05/14/25 22:56 Pulse Rate 66 05/14/25 22:56 Respiratory Rate 16 05/14/25 22:56 Blood Pressure 135/77 05/14/25 22:56 Pulse Oximetry 95 05/14/25 22:56 Oxygen Delivery Room Air 05/14/25 22:56 Temperature 36.7 C 05/15/25 05:16 Pulse Rate 87 05/15/25 05:16 Respiratory Rate 18 05/15/25 05:16 Blood Pressure 142/81 H 05/15/25 05:16 Pulse Oximetry 98 05/15/25 05:16 Oxygen Delivery Room Air 05/14/25 22:56 MDM - Extremity Injury (Lower) MDM Narrative Medical decision making narrative: 39-year-old male presenting to the emergency department for evaluation of his right lower extremity wound. He is status post amputation of his 5th toe where he began to have a infected toenail that got progressively worse requiring amputation with General surgery. This was conducted on the 12 of April. He has since been discharged and followed up with his surgeon Dr. Smith. He had his sutures removed recently and then also had another ER visit for wound evaluation several days ago. Patient is health conscious and very concerned that he could be developing infection. Not having any drainage or pus from the wound, no increased pain or difficulty ambulating he is still using his crutches for assistance. Denies any systemic features of infection such as fever, chills or feeling unwell or weak. Examination reveals his foot has a status post right 5th toe amputation with some eschar formation over the amputation site, dry clean and intact without any drainage. No tenderness with palpation or purulent drainage. Wound margins appear with good granulation tissue. No signs of swelling or erythema to the skin. No tracking redness or streaking redness. He is afebrile with normal vital signs and unremarkable physical examination otherwise. Suspicion is low for any active infection or osteomyelitis given clinical exam findings but patient is very worried. Laboratory studies were obtained including inflammatory and infectious markers and 8 x-ray was obtained to see if there is any soft tissue abnormalities or cortical erosions at the surgical site. X-rays of the foot shows no acute abnormalities. Status post partial amputation of the right 5th toe. No incidental findings. Laboratory studies are all reassuring without any leukocytosis or anemia. Normal platelet count. Normal electrolytes, normal renal function, normal glucose. CRP is undetectable. ESR normal. Patient felt comfortable with the plan for discharge home with regular primary care provider and surgeon follow-up. No signs of infection and no inflammatory marker elevations which is reassuring. He will continue with local wound care at his home and given return precautions. Medical Records Attestation: I reviewed the patient's medical records. Lab Data Attestation: I reviewed the patient's lab results. 05/15/25 04:44 05/15/25 04:44 Labs: Lab Results 05/15/25 Range/Units 04:44 WBC 8.6 (4.5-10.0) K/mm3 RBC 4.85 (4.6-6.20) M/mm3 Hgb 15.2 (14.0-18.0) g/dL Hct 46.4 (42.0-52.0) % MCV 95.7 (80-100) fl MCH 31.3 (26-34) pg MCHC 32.8 (32-36) g/dl RDW 14.3 (11.5-14.5) % Plt Count 191 (150-375) k/mm3 MPV 8.4 (7.4-10.4) fl Immature Gran % (Auto) 0.2 (0-0.5) % Neut % (Auto) 48.9 (45.5-73.1) % Lymph % (Auto) 37.8 (18.3-44.2) % [place] % (Auto) 10.4 H (2.6-8.5) % Eos % (Auto) 2.5 (0-4.4) % Baso % (Auto) 0.2 (0.2-1.2) % Lymph # (Auto) 3.27 H (0.9-3.2) K/mm3 [place] # (Auto) 0.9 H (0.1-0.6) K/mm3 Eos # (Auto) 0.2 (0-0.3) K/mm3 Baso # (Auto) 0.0 (0.0-0.1) K/mm3 Abs Immat Gran (auto) 0.02 (0.00-0.031) K/mm3 Absolute Neuts (auto) 4.2 (1.3-6.7) K/mm3 Absolute Nucleated RBC 0.000 (0.0-0.012) K/mm3 Nucleated RBC % 0.0 (0.0-0.2) % ESR Pending Sodium 137 (137-145) mmol/L Potassium 4.0 (3.4-5.0) mmol/L Chloride 104 (98-107) mmol/L Carbon Dioxide 23 (22-30) mmol/L Anion Gap 10 (4-12) mmol/L BUN 14 (9-20) mg/dL Creatinine 0.80 (0.7-1.3) mg/dL Estim Creat Clear Calc 121 ml/min Estimated GFR > 60 (59 - ) Glucose 97 (65-110) mg/dL Calcium 9.2 (8.4-10.2) mg/dL Total Bilirubin 0.7 (0.2-1.3) mg/dL AST 35 (17-59) U/L ALT 33 (6-50) U/L Alkaline Phosphatase 83 (38-126) U/L C-Reactive Protein < 0.5 (<1.0) mg/dL Total Protein 7.6 (6.3-8.2) g/dL Albumin 4.2 (3.5-5.1) g/dL Imaging Data Attestation: I personally reviewed and interpreted this imaging study as follows: My impression: No acute abnormalities. Status post 5th partial toe amputation Discharge Plan Discharge Clinical Impression: Amputation of fifth toe of right foot, Encounter for assessment of wound Patient Disposition: Home Condition: Stable Instructions: Antibiotic Form Additional Instructions: Your laboratory studies and imaging are all reassuring. No signs of infection on your labs, no signs of inflammation or infectious markers elevations. X-ray without any acute findings underneath the soft tissue. The wound appears well healing. He but covered with a sterile bandage and continue following up with your primary care provider and surgeon on outpatient basis. Return with any emergent concerns such as developing fevers, developing purulent drainage, increased pain or any other issues. Patient Language: Micronesian Prescriptions: No Action aspirin [Children's Aspirin] 81 mg Tablet,Chewable 81 mg PO DAILY@0800 100 Days Qty: 100 0RF metoprolol succinate 100 mg tablet extended release 24 hr 100 mg PO DAILY Jardiance 10 mg tablet 10 mg PO DAILY atorvastatin 80 mg tablet 80 mg PO HS Entresto 97-103 mg tablet 1 tablet PO BID hydrochlorothiazide 12.5 mg tablet 12.5 mg PO DAILY spironolactone 25 mg tablet 25 mg PO DAILY amlodipine [Norvasc] 5 mg Tablet 5 mg PO DAILY hydrocodone-acetaminophen 5-325 mg Tablet 1 tablet PO Q4H PRN (Reason: Pain Rated 4-6) Qty: 10 0RF Follow-up/Referrals: Dion Smith DO [Primary Care Provider] - 2 Weeks (wound recheck) Time of Disposition: 05:54
[2025-05-15 04:50] LABS: Hematocrit 46.4 % (42.0-52.0); Hemoglobin 15.2 g/dL (14.0-18.0); Immature Granulocyte Percent A 0.2 % (0-0.5); Lymphocytes Absolute Auto 3.27 K/mm3 (0.9-3.2); Mean Corpuscular HGB Conc 32.8 g/dl (32-36); Mean Corpuscular Hemoglobin 31.3 pg (26-34); Mean Corpuscular Volume 95.7 fl (80-100); Nucleated Red Blood Cells Absolute Auto 0.000 K/mm3 (0.0-0.012); Nucleated Red Blood Cells Perc 0.0 % (0.0-0.2); Platelet Count Result 191 k/mm3 (150-375); Red Blood Count 4.85 M/mm3 (4.6-6.20); White Blood Count 8.6 K/mm3 (4.5-10.0)
[2025-05-15 05:04] LABS: Alanine Aminotransferase 33 U/L (6-50); Albumin Level 4.2 g/dL (3.5-5.1); Alkaline Phosphatase 83 U/L (38-126); Anion Gap 10 mmol/L (4-12); Aspartate Amino Transferase 35 U/L (17-59); Bilirubin,Total 0.7 mg/dL (0.2-1.3); Blood Urea Nitrogen 14 mg/dL (9-20); CRP < 0.5 mg/dL (<1.0); Calcium 9.2 mg/dL (8.4-10.2); Carbon Dioxide 23 mmol/L (22-30); Chloride 104 mmol/L (98-107); Estimated CRCL calculation 121 ml/min; Estimated Glomerular Filt Rate > 60; Glucose 97 mg/dL (65-110); Potassium 4.0 mmol/L (3.4-5.0); Sodium 137 mmol/L (137-145); Total Protein 7.6 g/dL (6.3-8.2)
[2025-05-15] MEDS: KETOROLAC 30 MG/ML VIAL (*BKC) 15 MG IM (05:13)
[2025-05-15 05:16] VITALS: BP 142/81; PULSE 87; RESP 18; TEMP 36.7; O2SAT 98
[2025-05-15 06:01] VITALS: BP 143/84; PULSE 67; RESP 18; TEMP 37; O2SAT 99
== END 2025-05-15 06:02 | disposition home or self-care (01) ==
PROVIDERS: Emergency Provider Student in an Organized Health Care Education/Training Program; PCP Surgery
DX: Z47.81 Encounter for orthopedic aftercare following surgical amputation (principal); Z89.421 Acquired absence of other right toe(s); I73.9 Peripheral vascular disease, unspecified; I50.9 Heart failure, unspecified; I11.0 Hypertensive heart disease with heart failure; I25.2 Old myocardial infarction; I25.10 Atherosclerotic heart disease of native coronary artery without angina pectoris; F17.290 Nicotine dependence, other tobacco product, uncomplicated; Z79.82 Long term (current) use of aspirin; Z79.899 Other long term (current) drug therapy; Z79.84 Long term (current) use of oral hypoglycemic drugs
CPT/HCPCS: 36415; 73630; 80053; 85025; 85652; 86140; 96372; 99283; J1885